=== PATIENT | female | born 1945 | race Caucasian/White ===

== ENCOUNTER 2020-02-07 10:28 | Outpatient (CLI) | payer MEDICARE, BC, SELFPAY ==
--- NOTE | ~2020-02-07 | MM_ITS ---
EXAMINATION: MM screening [facility] BI w jaida HISTORY: Screening TECHNIQUE: Craniocaudal and mediolateral oblique 3-D tomosynthesis images were obtained and synthetic 2-D images were generated. CAD analysis was submitted and interpreted. COMPARISON: Comparison to multiple prior studies sequentially, with oldest reviewed study dated 03/14. BREAST PARENCHYMAL COMPOSITION: The breasts are heterogeneously dense, which may obscure small masses . FINDINGS: There are benign bilateral breast calcifications. There is no evidence of suspicious mass, calcification, or architectural distortion to suggest malignancy in either breast. There has been no suspicious interval change. IMPRESSION: 1. No mammographic evidence of malignancy. 2. Recommend routine screening mammography in one year. BI-RADS Category 2: Benign finding(s). Reviewed, dictated and finalized at location A. BURNER INSTALLER
== END 2020-02-07 10:29 | disposition home or self-care (01) ==
LOC: ANHIMG 10:33
PROVIDERS: PCP Family Medicine; Visit Provider Obstetrics & Gynecology
DX: Z12.31 Encounter for screening mammogram for malignant neoplasm of breast (principal)
CPT/HCPCS: 77063; 77067

== ENCOUNTER 2020-03-12 10:23 | Inpatient (IN) | payer MEDICARE, BC, SELFPAY ==
[2020-03-12] VITALS (20 sets, daily range): BP systolic 91–153; BP diastolic 62–89; PULSE 91–180; RESP 14–24; TEMP 36.3–37; O2SAT 98–100; BMI 23.3
--- NOTE | 2020-03-12 10:21 | PC.NURSE ---
Pt. to ED via [facility] with a code STEMI. Pt. was c/o about weakness since wednesday with difficulty ambulation. Pt. denies any chest pain. Pt. was given 4 baby aspirins by EMS. Hx of HTN and arthritis.
--- NOTE | 2020-03-12 10:26 | ECG_ITS ---
Measurements Intervals [place] Rate: 114 P: 55 SD: 95 QRS: -13 QRSD: 90 T: 43 QT: 332 QTc: 458 Interpretive Statements SINUS TACHYCARDIA WITH SHORT SD INTERVAL ATRIAL PREMATURE COMPLEXES CONSIDER INFERIOR INFARCT, AGE INDETERMINATE ST ELEVATION IN ANTEROLAT/INF LEADS- CONSIDER ACUTE INJURY, PERICARDITIS OR EARLY REPOLARIZATION BASELINE ARTIFACT- I, II, III, AVR, AVL, AVF, V1-V2 ABNORMAL ECG Electronically Signed On 03-12-2020 12:24:45 SOURCING ANALYST by Chris Dorman D.O.
--- NOTE | 2020-03-12 10:37 | ED.GENADULT ---
HPI - General Adult General Chief complaint: Chest Pain Stated complaint: STEMI Time Seen by Provider: 03/12/20 10:27 Source: patient Mode of arrival: EMS Limitations: no limitations History of Present Illness HPI narrative: Patient is a 74-year-old female complaining of bilateral lower extremity weakness which she states been going on for the past few days but worse today. Patient states that the usually happens when she gets dehydrated . EMS was called, pt was placed on a monitor and showed st elevation, hence, EMS called a STEMI alert. Patient denies any chest pain, shortness of breath, abdominal pain, nausea, vomiting, fever, chills or diaphoresis. Related Data Home Medications Medication Instructions Recorded Confirmed levetiracetam 500 mg tablet 500 mg PO Q12H 02/06/20 lisinopril 20 1 tablet PO DAILY 02/06/20 mg-hydrochlorothiazide 25 mg tablet multivitamin 1 tablet PO DAILY 02/06/20 omega-3 fatty acids 1,000 mg 1,000 mg PO DAILY 02/06/20 capsule prednisone 5 mg tablet 5 mg PO DAILY 02/06/20 turmeric 400 mg capsule mg PO 02/06/20 Allergies Allergy/AdvReac Type Severity Reaction Status Date / Time adalimumab Allergy Unknown Rash Verified 01/19/18 13:33 Review of Systems Review of Systems: All systems reviewed & are unremarkable except as noted in HPI and below Constitutional: Constitutional: Denies body ache(s), Denies chills, Denies excessive sweating, Denies fatigue, Denies fever(s), Denies headache(s), Denies lethargy, Denies malaise and Denies weight loss Eyes: Eyes: Denies blurry vision, Denies change in vision and Denies loss of vision ENT: Denies dizziness, Denies ear discharge, Denies headache(s), Denies lip swelling, Denies epistaxis, Denies nasal congestion, Denies neck pain, Denies throat swelling and Denies tongue swelling Cardiovascular: Cardiovascular: Denies chest pain, Denies chest pain at rest, Denies chest pain with activity, Denies diaphoresis, Denies rapid heart rate, Denies edema, Denies irregular heart rhythm, Denies lightheadedness, Denies palpitations, Denies dyspnea and Denies dyspnea on exertion Respiratory: Respiratory: Denies chest congestion, Denies cough, Denies hemoptysis, Denies dyspnea and Denies dyspnea on exertion Gastrointestinal: Gastrointestinal: Denies abdominal pain, Denies melena, Denies hematochezia, Denies diarrhea, Denies nausea, Denies vomiting and Denies hematemesis Musculoskeletal: Musculoskeletal: Denies abnormal gait, Denies deformity, Denies joint swelling, Denies limited range of motion, Denies neck pain and Denies numbness Neurologic: Denies Abnormal speech present, Denies abnormal gait, Denies confusion, Denies dizziness, Denies headache(s), Denies focal weakness, Denies loss of vision, Denies numbness, Denies Other visual disturbances, Denies Sensory deficit (Neuro) and Denies weakness Psychiatric: Psychiatric: Denies confusion, Denies depression, Denies auditory hallucinations, Denies homicidal ideation and Denies suicidal ideation Endocrine: Endocrine: Denies cold intolerance, Denies excessive sweating, Denies fatigue, Denies heat intolerance and Denies palpitations Hematologic/Lymphatic: Hematologic/Lymphatic: Denies easy bleeding and Denies easy bruising Allergic/Immunologic: Allergic/Immunologic: Denies lip swelling, Denies throat swelling and Denies tongue swelling [facility] Past Medical History Medical History (Updated 03/12/20 @ 10:42 by Adis Salmon MD) Bunion of left foot Bunion, right foot Seizures Surgical History Surgical History (Updated 02/06/20 @ 13:17 by Carmen Echeverria CMA) History of knee replacement, total Family History Family History (Updated 02/06/20 @ 13:18 by Carmen Echeverria CMA) Mother Alzheimer disease Father Congestive heart failure Other Hypertension Social History Social History (Updated 02/06/20 @ 13:19 by Carmen Echeverria CMA) Smoking status: Never smoker Alcohol intak
[2020-03-12] MEDS: HEPARIN SODIUM 5,000 UNITS/ML VIAL 4000 UNITS IV PUSH (10:38)
[2020-03-12 11:01] LABS: Basophils Percent Auto 0.2 % (0.2-1.2); Eosinophils Percent Auto 0.1 % (0-4.4); Hematocrit 36.2 % (37.0-47.0); Hemoglobin 12.5 g/dL (12.0-15.0); Immature Granulocyte Absolute 0.04 K/mm3 (0.00-0.031); Immature Granulocyte Percent A 0.3 % (0-0.5); Lymphocytes Absolute Auto 1.78 K/mm3 (0.9-3.2); Lymphocytes Percent Auto 13.7 % (18.3-44.2); Mean Corpuscular HGB Conc 34.5 g/dl (32-36); Mean Corpuscular Hemoglobin 30.8 pg (26-34); Mean Corpuscular Volume 89.2 fl (80-100); Mean Platelet Volume 8.4 fl (7.4-10.4); Monocytes Absolute Auto 1.3 K/mm3 (0.1-0.6); Monocytes Percent Auto 9.8 % (2.6-8.5); Neutrophils Absolute Auto 9.9 K/mm3 (1.3-6.7); Neutrophils Percent Auto 75.9 % (45.5-73.1); Platelet Count Result 288 k/mm3 (150-375); Red Blood Count 4.06 M/mm3 (4.2-5.4); Red Cell Distribution Width 13.2 % (11.5-14.5)
[2020-03-12 11:10] LABS: INR 1.1; Prothrombin Time 15.2 Seconds (11.1-14.7)
[2020-03-12 11:11] LABS: Partial Thromboplastin Time 24.7 SECONDS (22.3-36.8)
[2020-03-12 11:13] LABS: Alanine Aminotransferase 19 U/L (4-35); Albumin Level 3.8 g/dL (3.5-5.1); Alkaline Phosphatase 119 U/L (38-126); Anion Gap 6 mmol/L (8-16); Aspartate Amino Transferase 24 U/L (14-36); Blood Urea Nitrogen 17 mg/dL (7-17); Calcium 8.6 mg/dL (8.4-10.2); Carbon Dioxide 31 mmol/L (22-30); Chloride 88 mmol/L (98-107); Cholesterol 184 mg/dL (0-200); Estimated CRCL calculation 53 ml/min; Estimated Glomerular Filt Rate > 60; Glucose 150 mg/dL (65-105); HDL Direct 54 mg/dL; Potassium 3.4 mmol/L (3.4-5.0); Sodium 125 mmol/L (137-145); Triglycerides 78 mg/dL (<150)
[2020-03-12 11:23] LABS: LDL Cholesterol Direct 92 mg/dL
[2020-03-12 11:26] LABS: Troponin I < 0.012 ng/mL (0.000-0.034)
--- NOTE | 2020-03-12 11:40 | WPDCARDPROC ---
Cardiac Cath Procedure Note Date of procedure:: 03/12/20 Performing physician:: Eugenio Barrow MD Procedure Procedure note:: LEFT HEART CATHETERIZATION AND CORONARY ANGIOGRAM REPORT DATE OF PROCEDURE: 03/12/2020 INDICATION FOR PROCEDURE: Generalized weakness; ST segment abnormality BRIEF CLINICAL HISTORY: 74-year-old female with history of hypertension; no known cardiac history. Patient was brought to [facility] emergency room via EMS with complaints of generalized weakness. Her EKG showed sinus tachycardia, heart rate 114 beats per minute, diffuse ST segment elevation, predominantly in the anterolateral leads with little prominent ST elevation in the inferior leads. Cardiac catheterization lab was activated by the ER physician. Benefits and risks of the procedure were discussed with the patient in depth, and informed consent was obtained prior to the procedure. Risks of the procedure include but are not limited to vascular complications including groin hematoma, retroperitoneal bleed, vessel perforation; periprocedural KS, cardiac arrhythmias, stroke, contrast induced nephropathy, and . After discussing all the benefits, risks and alternatives, patient was willing to proceed with the procedure. PROCEDURES PERFORMED: 1. Left heart catheterization- Selective left and right coronary angiogram; left ventriculogram and hemodynamic assessment 2. Selective right common femoral angiogram and deployment of Angio-Seal hemostatic device 3. Moderate sedation-CPT code 51246 MODERATE SEDATION: Midazolam 1 mg; fentanyl 25 mcg; Start time 1108 , Stop time 1120 ; Total [id number] time 12 minutes; Shauna Sharma RN was trained observer for moderate sedation. ACCESS SITE: Right common femoral artery PROCEDURE NOTE: After obtaining informed consent, patient was brought to catheterization lab and prepped and draped in a usual sterile manner. After local anesthesia with lidocaine, right common femoral artery access was taken with micropuncture needle followed by insertion of a 6 Danish sheath. Selective left and right coronary angiogram was performed using 5 Danish JL4 and JR4 catheters respectively. Orthogonal views were taken. Next, a 5 Danish pigtail catheter was advanced in the LV cavity and was flushed with normal saline. LV pressure measurement was performed. After this, left ventriculogram was performed. The catheter was flushed again, and gradient across the aortic valve was measured on the pullback of the catheter. Finally, selective right common femoral angiogram was performed followed by successful deployment of Angio-Seal vascular closure device. Patient tolerated procedure well without any immediate procedure related complications. FINDINGS: LEFT MAIN CORONARY: The left main coronary is a medium to large caliber vessel with mild narrowing at the ostium. There was no significant diverting of the pressures. There was good reflux of the contrast. LEFT ANTERIOR DESCENDING ARTERY: The LAD is a medium caliber vessel with mild diffuse calcific disease in the proximal- mid segment. There is eccentric about 50% stenosis in the mid-distal segment. Major diagonal branch is a medium caliber vessel tortuous, with moderate diffuse disease. LEFT CIRCUMFLEX ARTERY:The left circumflex artery is a large caliber vessel, gives rise to very small caliber OM1 branch, small to medium-sized OM 2 branch, medium-sized tortuous OM 3 branch and LPDA. There is slightly hazy, mild stenosis in the distal LCX at the origin of the om 3 and LPDA. RIGHT CORONARY ARTERY: The right coronary artery is a medium caliber vessel with mild diffuse disease in the mid segment. The vessel gives rise to small to medium size PLV branch and small size PDA branch. LEFT VENTRICULOGRAM: Hyperdynamic LV systolic function, ejection fraction more than 75%. LVEDP 10 mmHg. HEMODYNAMIC ASSESSMENT: Opening pressure 161/83 mmHg , closing pressure 151/77 mmHg , LVEDP 10
--- NOTE | 2020-03-12 11:48 | PM.IMHP ---
H&P: HPI History of Present Illness Date/Time: 03/12/20 11:48 Date of Service: 03/12/2020 chief complaint: Generalized weakness HPI: 74-year-old female with history of hypertension; no known cardiac history. Patient was brought to [facility] emergency room via EMS with complaints of generalized weakness. Patient states that she was feeling very weak this morning and thought she was dehydrated. She did not have chest pain, shortness of breath, palpitation, dizziness or syncope. She does not recall any prior cardiac history. Her EKG showed sinus tachycardia, heart rate 114 beats per minute, diffuse ST segment elevation, predominantly in the anterolateral leads with little prominent ST elevation in the inferior leads. Cardiac catheterization lab was activated by the ER physician. Emergent coronary angiogram showed mild diffuse disease in the proximal-mid LAD, about 50% stenosis in the mid-distal LAD; diffuse disease in the major diagonal branch; mild disease in the LCX and RCA; hyperdynamic LV systolic function with EF more than 75%. No acute thrombotic lesions were seen. patient was transferred to the floor in stable condition. Chief Complaint: generalized weakness Narrative: Megan Connolly is a 74 year old female Review of Systems Review of Systems: Narrative: General: Negative for fever, chills, positive for generalized weakness and fatigue Psychological: Negative for anxiety, depression Ophthalmic: negative for loss of vision ENT: Negative for epistaxis, headaches Allergy and immunology: Negative for hives, nasal congestion Hematologic and lymphatic: Negative for overt bleeding problems Endocrine: Negative for hot flashes, palpitations Respiratory: Negative for cough, hemoptysis Cardiovascular: Negative for chest pain, shortness of breath Gastrointestinal: Negative for abdominal pain, nausea, vomiting, hematochezia Musculoskeletal: Negative for myalgia, joint pains Neurological: Negative for weakness Dermatological: Negative for rash, skin discoloration PMFSH Past Medical History Medical History Bunion of left foot Bunion, right foot Seizures Surgical History Surgical History History of knee replacement, total Family History Family History Mother Alzheimer disease Father Congestive heart failure Other Hypertension Social History Social History Smoking status: Never smoker Alcohol intake: current Substance use: never Gender identity (if verbalized by the patient): Female Meds Home Medications and Allergies Home Medications Medication Instructions Recorded Confirmed Type levetiracetam 500 mg tablet 500 mg PO Q12H 02/06/20 History lisinopril 20 1 tablet PO DAILY 02/06/20 History mg-hydrochlorothiazide 25 mg tablet multivitamin 1 tablet PO DAILY 02/06/20 History omega-3 fatty acids 1,000 mg 1,000 mg PO DAILY 02/06/20 History capsule prednisone 5 mg tablet 5 mg PO DAILY 02/06/20 History turmeric 400 mg capsule mg PO 02/06/20 History Allergies Allergy/AdvReac Type Severity Reaction Status Date / Time adalimumab Allergy Unknown Rash Verified 01/19/18 13:33 Vital Signs Vital Signs - 24 hr 03/12/20 10:26 03/12/20 11:01 Temperature 36.7 C Pulse Rate 117 H Respiratory Rate 20 Blood Pressure 153/85 H Pulse Oximetry 100 100 Exam Narrative: Exam Narrative: PHYSICAL EXAMINATION: GENERAL: Alert, oriented, no acute distress MENTAL STATUS: affect appropriate to mood EYES: Extraocular movements intact, no pallor EARS: External ears appear normal, hearing grossly normal NOSE: Normal and patent, no discharge MOUTH: Mucous membranes moist, tongue normal NECK: Supple, no JVD CHEST: Good respiratory effort, clear to auscultation HEART
--- NOTE | 2020-03-12 12:03 | WPDMODSED ---
Moderate Sedation Note-Pt Data Patient Data Allergies Allergy/AdvReac Type Severity Reaction Status Date / Time adalimumab Allergy Unknown Rash Verified 01/19/18 13:33 Home Medications Medication Instructions Recorded Confirmed Type levetiracetam 500 mg tablet 500 mg PO Q12H 02/06/20 History lisinopril 20 1 tablet PO DAILY 02/06/20 History mg-hydrochlorothiazide 25 mg tablet multivitamin 1 tablet PO DAILY 02/06/20 History omega-3 fatty acids 1,000 mg 1,000 mg PO DAILY 02/06/20 History capsule prednisone 5 mg tablet 5 mg PO DAILY 02/06/20 History turmeric 400 mg capsule mg PO 02/06/20 History Current Medications: Active Medications Aspirin (Aspirin 81 Mg Enteric Tablet) 81 mg PO QAM [facility] Atorvastatin Calcium (Atorvastatin 10 Mg Tablet) 10 mg PO DAILY [facility] Sodium Chloride (Normal Saline Iv) 1,000 mls @ 125 mls/hr IV CONT .Q8H ONE Stop: 03/12/20 19:59 Sedation/Anesthesia: No previous sedation/anesthesia problems (including family history). [facility] Past Medical History Medical History Bunion of left foot Bunion, right foot Seizures Surgical History Surgical History History of knee replacement, total Family History Family History Mother Alzheimer disease Father Congestive heart failure Other Hypertension Social History Social History Smoking status: Never smoker Alcohol intake: current Substance use: never Gender identity (if verbalized by the patient): Female Mod Sed Physical Exam Physical Exam Pre Procedural Exam: Normal: Airway Hours since solid foods: 8 Hours since liquid intake: 8 Internal Medicine - PN: Obj Da Vital Signs Vital Signs: Vital Signs - 24 hr 03/12/20 10:26 03/12/20 11:01 Temperature 36.7 C Pulse Rate 117 H Respiratory Rate 20 Blood Pressure 153/85 H Pulse Oximetry 100 100 Meds/Results Medications: Active Medications Generic Name Dose Route Start Last Admin Trade Name Freq PRN Reason Stop Dose Admin Aspirin 81 mg 03/13/20 09:00 Aspirin 81 Mg Enteric Tablet PO QAM [facility] Atorvastatin Calcium 10 mg 03/13/20 09:00 Atorvastatin 10 Mg Tablet PO DAILY [facility] Sodium Chloride 1,000 mls @ 125 mls/hr 03/12/20 12:00 Normal Saline Iv IV CONT 03/12/20 19:59 .Q8H ONE Labs CBC & Chem 7: 03/12/20 10:31 03/12/20 10:31 Labs: Laboratory Results - last 24 hr 03/12/20 03/12/20 03/12/20 10:31 10:31 10:31 WBC 13.0 H RBC 4.06 L Hgb 12.5 Hct 36.2 L MCV 89.2 MCH 30.8 MCHC 34.5 RDW 13.2 Plt Count 288 MPV 8.4 Immature Gran % (Auto) 0.3 Neut % (Auto) 75.9 H Lymph % (Auto) 13.7 L [place] % (Auto) 9.8 H Eos % (Auto) 0.1 Baso % (Auto) 0.2 Lymph # (Auto) 1.78 [place] # (Auto) 1.3 H Eos # (Auto) 0.0 Baso # (Auto) 0.0 Abs Immat Gran (auto) 0.04 H Absolute Neuts (auto) 9.9 H Absolute Nucleated RBC 0.0 Nucleated RBC % 0.0 PT 15.2 H INR 1.1 APTT 24.7 Sodium 125 L Potassium 3.4 Chloride 88 L Carbon Dioxide 31 H Anion Gap 6 L BUN 17 Creatinine 0.70 Estim Creat Clear Calc 53 Estimated GFR > 60 Glucose 150 H Calcium 8.6 Total Bilirubin 1.0 AST 24 ALT 19 Alkaline Phosphatase 119 Troponin I < 0.012 Total Protein 7.0 Albumin 3.8 Triglycerides 78 Cholesterol 184 LDL Cholesterol Direct 92 HDL Direct 54 ASA Classification/Sedation ASA Classification/Sedation Risks: Risks, benefits and alternatives explained and patient/family accepted plan for sedation. Patient re-evaluated immediately prior to sedation.
[2020-03-12 16:58] LABS: Sodium 126 mmol/L (137-145)
[2020-03-12 17:14] LABS: Troponin I < 0.012 ng/mL (0.000-0.034)
[2020-03-12 17:46] LABS: Add Urine Microscopic? YES; Appearance Urine Clear (Clear); Bilirubin Urine Negative (Negative); Blood Urine 3+ (Negative); Color Urine Yellow (Yellow); Glucose Urine UA Negative (Negative); Ketones Urine Negative (Negative); Leukocyte Esterase Ur Negative LEU/UL (Negative); Mucus Urine Rare /lpf; Nitrate Urine Negative (Negative); Protein Urine 2+ mg/dL (Negative); RBC Urine 51-75 /hpf (0-2)
[2020-03-12 17:48] LABS: Specific Grav Ur > 1.060 (1.001-1.035)
[2020-03-12 17:50] LABS: Creatinine Urine 120.1 mg/dL; Total Protein Urine Random 52 mg/dL; Ur Ttl Prot Creatinine Ratio 0.43 mg/mg (0-0.20)
--- NOTE | 2020-03-12 18:14 | ECG_ITS ---
Measurements Intervals [place] Rate: 182 P: SD: 0 QRS: 31 QRSD: 81 T: 39 QT: 235 QTc: 409 Interpretive Statements ATRIAL FIBRILLATION WITH RAPID VENTRICULAR RESPONSE CONSIDER INFERIOR INFARCT, AGE INDETERMINATE BASELINE ARTIFACT- I, II, III, AVR ABNORMAL ECG Electronically Signed On 03-12-2020 19:21:34 ELECTRONIC GLUING MACHINE OPERATOR by Chris Dorman D.O.
[2020-03-12] MEDS: AMIODARONE 150 MG/D5W 100 ML 150 MG/100 ML BAG 600 MG IV CONT (18:38)
[2020-03-12 18:45] LABS: Sodium Urine Random 63 meq/L
[2020-03-12] MEDS: AMIODARONE 360 MG/D5W 200 ML 360 MG/200 ML BAG 33.33 MG IV CONT (18:55)
--- NOTE | 2020-03-12 19:23 | PC.NURSE ---
1830-as pt was eating, appears to have converted into a fib with RVR. EKG obtained and confirmed. informed and orders received. Carried out per order. Will continue to monitor.
--- NOTE | 2020-03-12 20:27 | ECG_ITS ---
Measurements Intervals [place] Rate: 106 P: 56 CO: 120 QRS: -17 QRSD: 93 T: 31 QT: 352 QTc: 469 Interpretive Statements SINUS TACHYCARDIA MINIMAL Q WAVES- ANTEROLAT/HIGH LAT LEADS INFERIOR INFARCT, AGE INDETERMINATE ST ELEVATION IN ANTEROLAT/HIGH LAT LEADS- PROBABLY EARLY REPOALRIZATION BASELINE ARTIFACT- I, II, III, AVR, AVL, AVF ABNORMAL ECG Electronically Signed On 03-13-2020 14:35:28 PROCESSING OPERATOR by Chris Dorman D.O.
[2020-03-12] MEDS: levETIRAcetam 500 MG TABLET 1000 MG PO (21:37)
[2020-03-12] MEDS: OMEGA 3 POLYUNSAT FATTY ACIDS 1 GM CAP PO (21:37)
[2020-03-13] VITALS (22 sets, daily range): BP systolic 85–123; BP diastolic 58–72; PULSE 80–147; RESP 14–20; TEMP 36.4–37.1; O2SAT 98–100
[2020-03-13 06:23] LABS: Albumin Level 3.1 g/dL (3.5-5.1); Anion Gap 4 mmol/L (8-16); Blood Urea Nitrogen 15 mg/dL (7-17); Calcium 8.1 mg/dL (8.4-10.2); Carbon Dioxide 31 mmol/L (22-30); Chloride 91 mmol/L (98-107); Estimated CRCL calculation 72 ml/min; Estimated Glomerular Filt Rate > 60; Glucose 93 mg/dL (65-105); Phosphorus 3.3 mg/dL (2.5-4.5); Potassium 3.1 mmol/L (3.4-5.0); Sodium 126 mmol/L (137-145)
[2020-03-13 07:04] LABS: Cortisol Random 3.79 ug/dL
[2020-03-13] MEDS: hydroCHLOROthiazide 12.5 MG CAPSULE PO (08:41)
[2020-03-13] MEDS: MULTIVITAMINS THERAPEUTIC TAB (*BKC) 1 TABLET PO (08:41)
[2020-03-13] MEDS: lisinopriL 20 MG TABLET PO (08:41)
[2020-03-13] MEDS: POTASSIUM CHLORIDE 20 MEQ TABLET 40 MEQ PO (08:41)
[2020-03-13] MEDS: OMEGA 3 POLYUNSAT FATTY ACIDS 1 GM CAP PO ×2 (08:41→20:13)
[2020-03-13] MEDS: CHOLECALCIFEROL 1,000 UNITS TABLET 1000 UNITS PO (08:42)
[2020-03-13] MEDS: ASPIRIN 81 MG ENTERIC TABLET PO (08:42)
[2020-03-13] MEDS: ATORVASTATIN 10 MG TABLET PO (08:42)
[2020-03-13] MEDS: predniSONE 10 MG TABLET PO (08:42)
[2020-03-13 08:43] LABS: Magnesium 1.6 mg/dL (1.6-2.3)
[2020-03-13] MEDS: levETIRAcetam 500 MG TABLET PO (08:44)
--- NOTE | 2020-03-13 09:03 | PM.PNCARD ---
Progress Note: A&P Assessment and Plan (1) Paroxysmal atrial fibrillation with RVR: Code(s): I48.0 - Paroxysmal atrial fibrillation Status: Acute Assessment and Plan: Overnight developed new onset atrial fibrillation with rapid ventricular response 150-200 beats per minute terminated with intravenous amiodarone. Patient asymptomatic. Currently in sinus rhythm. No prior known or documented history. Explained pathophysiology, embolic stroke risk, anticoagulation for stroke risk reduction associated bleeding risk. No clear contraindications, patient denies recent falls, bleeding complications. CHADS2 Vasc score 4. Eliquis 5 mg b.i.d. but would not start for 2 days to reduce bleeding complications post cardiac catheterization as an outpatient. Aspirin 81 mg daily initially. Metoprolol 25 mg b.i.d.. Hold off on amiodarone if possible. Telemetry overnight. Potassium and magnesium repleted. 2D echocardiogram to assess for valve pathology, pulmonary pressures and chamber size. Seven day manager monitoring upon discharge. Care coordination to establish pricing of Eliquis to begin as an outpatient. (2) CAD (coronary artery disease): Code(s): I25.10 - Atherosclerotic heart disease of jackson coronary artery without angina pectoris Status: Acute Assessment and Plan: [id number] nonobstructive disease. Troponins negative. No ACS. Abnormal EKG with diffuse ST elevations not consistent with acute coronary syndrome and/or plaque rupture. No evidence for symptoms suggestive pericarditis. Review prior EKGs reveals more subtle diffuse J-point elevation more prominent this hospitalization. (3) Generalized weakness: Code(s): R53.1 - Weakness Status: Acute Assessment and Plan: 74-year-old female brought to the hospital via EMS with complaints of generalized weakness. EKG showed ST segment abnormality, predominantly in the inferolateral leads. Cardiac catheterization lab was activated by the ER physician. Emergent coronary angiogram showed [id number] CAD as described above, no acute thrombotic lesions. LVEF normal. - Patient will be managed medically for her CAD including aspirin and statin treatment. Urinalysis not consistent with acute infection although patient describes similar symptoms in the past. PT OT. Patient states he is not comfortable being discharged today given the circumstances and that she feels somewhat weak. Will monitor for recurrent atrial fibrillation, followed through with nephrology recommendations and obtain 2D echocardiogram. If patient stable for discharge home as she lives independently anticipate tomorrow morning. (4) Hypokalemia: Code(s): E87.6 - Hypokalemia Status: Acute Assessment and Plan: Repleted. Magnesium repleted as well. Recheck BMP and magnesium in a.m.. May have also contributing to development of atrial fibrillation with RVR. (5) Hyponatremia: Code(s): E87.1 - Hypo-osmolality and hyponatremia Status: Acute Assessment and Plan: nephrology evaluation underway. Appreciate their involvement. Subjective Date/time seen: Date of service: 03/13/20 09:03 Follow-up for abnormal EKG status post catheterization, new diagnosis paroxysmal atrial fibrillation overnight Review of Systems Review of Systems: All systems reviewed & are unremarkable except as noted in HPI and below Constitutional: Constitutional: Reports as per HPI, Reports no additional constitutional complaints, Reports fatigue and Reports weakness Eyes: Eyes: Reports as per HPI and Reports no additional eye complaints ENT: Reports system reviewed and no additional complaints, except as documented and Reports as per HPI Cardiovascular: Cardiovascular: Reports as per HPI and Reports no additional cardiovascular complaints Respiratory: Respiratory: Reports as per HPI and Reports no additional respiratory complaints Gastrointestinal:
[2020-03-13] MEDS: MAGNESIUM SULF 1 GM/D5W 100 ML 1 GM/100 ML BAG IVPB (09:05)
[2020-03-13] MEDS: METOPROLOL TARTRATE 25 MG TABLET PO ×2 (09:48→20:13)
--- NOTE | 2020-03-13 10:02 | ECHO_ITS ---
Patient Info Name: Megan Connolly Age: 74 years : 1945 Gender: Female Ht: 64 in Wt: 153 lbs BSA: 1.79 m2 HR: 81 bpm BP: 107 / 60 mmHg Heart Rhythm: Sinus Rhythm Technical Quality: Good Exam Date: 03/13/2020 11:26 AM Exam Location: [facility] Pulmonary Patient Status: Inpatient Admit Date: 03/12/2020 Staff Ordering Physician: Donnie Clemente MD Data Warehousing Architect: Elías Cantu RDCS Attending Provider: Eugenio Barrow MD Referring Physician: Bryn RITTER; Exam Type: CA echo doppler color flow Study Info Indications I48.0 - Paroxysmal atrial fibrillation Complete two-dimensional, color flow and Doppler transthoracic echocardiogram is performed. History/Risk Factors Atrial fibrillation; STEMI 03/12/20. Summary 1. Complete two-dimensional, color flow and Doppler transthoracic echocardiogram is performed. 2. Left ventricular systolic function is normal, estimated at 60-65%. 3. There is mildly increased left ventricular wall thickness. 4. The left ventricular diastolic function is grade II diastolic dysfunction. 5. There is no aortic valve stenosis. 6. There is mild mitral valve regurgitation. 7. There is mild tricuspid valve regurgitation. 8. No pulmonary hypertension, estimated pulmonary arterial systolic pressure is 25 mmHg. Left Ventricle Left ventricular chamber dimension is normal. Left ventricular systolic function is normal, estimated at 60-65%. There is mildly increased left ventricular wall thickness. The left ventricular diastolic function is grade II diastolic dysfunction. Right Ventricle Right ventricular chamber dimension is normal. Right ventricular systolic function is normal. Left Atria Left atrial chamber dimension is normal. Right Atria Right atrial chamber dimension is normal. Aortic Valve The aortic valve is not well visualized. There is no aortic valve stenosis. There is no aortic valve regurgitation. Pulmonic Valve The pulmonic valve is not well visualized. There is trace pulmonic regurgitation. Mitral Valve The mitral valve has thickened leaflets. There is mild mitral valve regurgitation. The mitral valve annulus is severely calcified. Tricuspid Valve The tricuspid valve leaflets are normal. There is mild tricuspid valve regurgitation. No pulmonary hypertension, estimated pulmonary arterial systolic pressure is 25 mmHg. Pericardium/Pleural The pericardium appears normal. There is no pericardial effusion. Inferior Vena Cava Normal inferior vena cava with >50% collapse upon inspiration consistent with Empty right atrial pressure, 5 mmHg. Aorta The aortic root size at the sinus of Valsalva is normal. There is mild aortic atherosclerosis. Left Ventricular Outflow Tract Name Value Normal LVOT 2D LVOT Diameter 1.9 cm LVOT Doppler LVOT Peak Gradient 5 mmHg LVOT Mean Gradient 3 mmHg LVOT VTI 21 cm LVOT VTI/AV VTI Ratio 1.0 LVOT Stroke Volume 58 ml LVOT CO
--- NOTE | 2020-03-13 17:47 | PC.NURSE ---
2188-spoke with and Arline pulled per order. No pain evidenced or reported. Pt resting quietly. Will continue to monitor.
--- NOTE | 2020-03-13 18:08 | PM.CNNEP ---
Assessment and Plan Assessment and plan (1) Hyponatremia: Code(s): E87.1 - Hypo-osmolality and hyponatremia Status: Acute Assessment and Plan: acute on chronic in 2018 her sodium was running 129 - 131 on further review of her records, she has had hyponatremia with sodiums running 129 - 133 as far back as 2007 does not appear symptomatic from this not on any offending medications except for hydrochlorothiazide - would probably discontinue this unless absolutely needed TSH okay but cortisol low (but she is on chronic prednisone therapy) will institute free water restriction which she should continue on discharge for now several studies ordered (SPEP, UPEP...still pending) - follow up on pending studies (2) ST elevation (STEMI) myocardial infarction: Qualifiers: Involved coronary artery: unspecified coronary artery Qualified Code(s): I21.3 - ST elevation (STEMI) myocardial infarction of unspecified site Code(s): I21.3 - ST elevation (STEMI) myocardial infarction of unspecified site Status: Acute Assessment and Plan: s/p cardiac catheterization Cardiology following continue maximal medical management (3) Paroxysmal atrial fibrillation with RVR: Code(s): I48.0 - Paroxysmal atrial fibrillation Status: Acute Assessment and Plan: noted earlier today rate control strategy and anticoagulation (4) Generalized weakness: Code(s): R53.1 - Weakness Status: Acute Assessment and Plan: not clear on exact etiology due to cardiac event? Will continue to follow -- not opposed to discharge tomorrow if otherwise medically stable -- she can follow-up with me in 3 - 4 weeks with repeat labs to assess her sodium level as well as review her pending labs. I would continue fluid restriction and holding HCTZ on discharge for now as well. History of Present Illness Reason for Consult Consult date: 03/13/20 Reason for consult: hyponatremia Chief Complaint Chief complaint: STEMI History of Present Illness Narrative: The patient is a 74 year old female with a past medical history as outlined below who presented to [facility] emergency room via EMS with complaints of generalized weakness. On the morning of admission, the patient stated that she was feeling extremely weak and thought that she might be dehydrated. She had no other acute symptoms per se with regard to fevers, chills, chest pain, shortness of breath dizziness or palpitations. Other than the a for mentioned weakness, she really had no other acute complaints. Workup and evaluation in the emergency room demonstrated the patient to be hemodynamically stable but she was somewhat tachycardic and her EKG noted diffuse ST segment elevation predominantly in the anterior lateral leads. Cardiology was alerted to these EKG changes and subsequently the patient was taken to the cardiac director of cath lab for emergent coronary angiogram/ cardiac catheterization due to suspected ST-elevation DE. Results of her cardiac catheterization demonstrated moderate disease in her coronary anatomy but no specific intervention was done with regard to angioplasty or stent placement. She was subsequently [facility] the [facility] for further monitoring. Renal consultation was requested due to her hyponatremia. From review of her records POTS, the patient is has significant hypernatremia for the last decade if not longer with her sodium levels fluctuating anywhere from 129-133 millimoles per L. On admission, her sodium was 126 and was fluctuating anywhere from 125-126 in general. She did not appear to be symptomatic from this issue as far as I can tell no specific evaluation has ever been done with regard to her chronic hyponatremia. She relates to me that her brother also had the same problem as well although his sodium levels sometimes runs even worse than what the patient'
[2020-03-13] MEDS: levETIRAcetam 500 MG TABLET 1000 MG PO (20:13)
[2020-03-14] VITALS (9 sets, daily range): BP systolic 121–157; BP diastolic 74–91; PULSE 82–104; RESP 16; TEMP 36.4–36.7; O2SAT 100
[2020-03-14 06:00] LABS: Hematocrit 30.9 % (37.0-47.0); Hemoglobin 11.1 g/dL (12.0-15.0); Mean Corpuscular HGB Conc 35.9 g/dl (32-36); Mean Corpuscular Hemoglobin 31.6 pg (26-34); Mean Platelet Volume 8.2 fl (7.4-10.4); Platelet Count Result 285 k/mm3 (150-375); Red Blood Count 3.51 M/mm3 (4.2-5.4); Red Cell Distribution Width 13.1 % (11.5-14.5); White Blood Count 9.2 K/mm3 (4.5-10.0)
[2020-03-14 06:55] LABS: Anion Gap 2 mmol/L (8-16); Blood Urea Nitrogen 16 mg/dL (7-17); Calcium 8.1 mg/dL (8.4-10.2); Carbon Dioxide 30 mmol/L (22-30); Chloride 93 mmol/L (98-107); Estimated CRCL calculation 61 ml/min; Estimated Glomerular Filt Rate > 60; Glucose 88 mg/dL (65-105); Magnesium 1.5 mg/dL (1.6-2.3); Potassium 3.9 mmol/L (3.4-5.0); Sodium 125 mmol/L (137-145)
[2020-03-14] MEDS: ATORVASTATIN 10 MG TABLET PO (08:37)
[2020-03-14] MEDS: hydroCHLOROthiazide 12.5 MG CAPSULE PO (08:37)
[2020-03-14] MEDS: CHOLECALCIFEROL 1,000 UNITS TABLET 1000 UNITS PO (08:37)
[2020-03-14] MEDS: ASPIRIN 81 MG ENTERIC TABLET PO (08:37)
[2020-03-14] MEDS: levETIRAcetam 500 MG TABLET PO (08:38)
[2020-03-14] MEDS: lisinopriL 20 MG TABLET PO (08:38)
[2020-03-14] MEDS: METOPROLOL TARTRATE 25 MG TABLET PO (08:39)
[2020-03-14] MEDS: OMEGA 3 POLYUNSAT FATTY ACIDS 1 GM CAP PO (08:41)
[2020-03-14] MEDS: MULTIVITAMINS THERAPEUTIC TAB (*BKC) 1 TABLET PO (08:41)
[2020-03-14] MEDS: predniSONE 10 MG TABLET PO (08:41)
--- NOTE | 2020-03-14 09:07 | PM.PNCARD ---
Progress Note: A&P Assessment and Plan (1) Paroxysmal atrial fibrillation with RVR: Code(s): I48.0 - Paroxysmal atrial fibrillation Status: Acute Assessment and Plan: Overnight developed new onset atrial fibrillation with rapid ventricular response 150-200 beats per minute terminated with intravenous amiodarone. Patient asymptomatic. Currently in sinus rhythm. No prior known or documented history. Eliquis 5 mg b.i.d. to be again tomorrow. Holding off due to recent catheterization reduce bleeding risk. Increase metoprolol to 50 mg b.i.d.. Anticipate discharge home tomorrow if okay with Nephrology to obtain 70 athletic monitor from the office upon discharge. (2) Hypertension: Code(s): I10 - Essential (primary) hypertension Status: Acute Assessment and Plan: Discontinue hydrochlorothiazide due to hyponatremia possible contribution. Consider increase lisinopril to 40 mg daily if BP elevated. Patient relatively hypotensive overnight. (3) CAD (coronary artery disease): Code(s): I25.10 - Atherosclerotic heart disease of [place] coronary artery without angina pectoris Status: Acute Assessment and Plan: Patient DID NOT PRESENT WITH NSTEMI or STEMI. CAD incidentally discovered and left heart catheterization due to abnormal EKG without anginal symptoms or associated pattern of injury. [id number] nonobstructive disease. Troponins negative. No ACS. Abnormal EKG with diffuse ST elevations not consistent with acute coronary syndrome and/or plaque rupture. No evidence for symptoms suggestive pericarditis. Review prior EKGs reveals more subtle diffuse J-point elevation more prominent this hospitalization. (4) Generalized weakness: Code(s): R53.1 - Weakness Status: Acute Assessment and Plan: 74-year-old female brought to the hospital via EMS with complaints of generalized weakness. EKG showed ST segment abnormality, predominantly in the inferolateral leads. Cardiac catheterization lab was activated by the ER physician. Emergent coronary angiogram showed [id number] CAD as described above, no acute thrombotic lesions. LVEF normal. - Patient will be managed medically for her CAD including aspirin and statin treatment. Nephrology evaluating patient. Chronic hyponatremia. (5) Hypokalemia: Code(s): E87.6 - Hypokalemia Status: Acute Assessment and Plan: Repleted. (6) Hyponatremia: Code(s): E87.1 - Hypo-osmolality and hyponatremia Status: Acute Assessment and Plan: nephrology evaluation underway. Appreciate their involvement. Started on fluid restriction with recommendations for follow-up on studies already sent. Discontinue hydrochlorothiazide. Subjective Date/time seen: Date of service: 03/14/20 09:07 Follow-up for weakness, abnormal EKG status post cardiac catheterization Patient feels well. No complaints. Patient never had chest pain or shortness of breath. Denies edema. No dizziness or palpitations. Maintaining sinus rhythm overnight. Nephrology evaluated patient yesterday. Sodium remains low 125 unchanged since admission. No new issues overnight. Review of Systems Review of Systems: All systems reviewed & are unremarkable except as noted in HPI and below Constitutional: Constitutional: Reports as per HPI, Reports no additional constitutional complaints, Reports fatigue and Reports weakness Eyes: Eyes: Reports as per HPI and Reports no additional eye complaints ENT: Reports system reviewed and no additional complaints, except as documented and Reports as per HPI Cardiovascular: Cardiovascular: Reports as per HPI and Reports no additional cardiovascular complaints Respiratory: Respiratory: Reports as per HPI and Reports no additional respiratory complaints Gastrointestinal: Gastrointestinal: Reports as per HPI and Reports no additional gastrointestinal complaints Genitourinary: Genitourin
--- NOTE | 2020-03-14 12:46 | PM.DS ---
DS: Admitting Diagnosis Admitting Diagnosis Admitting Diagnosis: Abnormal EKG, weakness DS: Discharge Diagnosis Discharge Diagnosis (1) CAD (coronary artery disease): Code(s): I25.10 - Atherosclerotic heart disease of [place] coronary artery without angina pectoris Status: Acute (2) Paroxysmal atrial fibrillation with RVR: Code(s): I48.0 - Paroxysmal atrial fibrillation Status: Acute (3) Hypertension: Code(s): I10 - Essential (primary) hypertension Status: Acute (4) Hyponatremia: Code(s): E87.1 - Hypo-osmolality and hyponatremia Status: Acute (5) UTI (urinary tract infection): Code(s): N39.0 - Urinary tract infection, site not specified Status: Acute (6) Generalized weakness: Code(s): R53.1 - Weakness Status: Acute (7) Rheumatoid arthritis: Code(s): M06.9 - Rheumatoid arthritis, unspecified Status: Acute DS: Summary Hospital Course Reason for hospitalization: Weakness, abnormal EKG Hospital Course: 74-year-old female brought to the hospital via EMS with complaints of generalized weakness. EKG showed ST segment abnormality, predominantly in the inferolateral leads. Cardiac catheterization lab was activated by the ER physician. Emergent coronary angiogram showed [id number] CAD as described above, no acute thrombotic lesions. LVEF normal. - Patient will be managed medically for her CAD including aspirin and statin treatment. The evening post cardiac catheterization patient developed atrial fibrillation with rapid ventricular response heart rate 150s to 190 beats per minute which is a new diagnosis for the patient. She received IV amiodarone intravenously converted to sinus rhythm. Eliquis 5 mg twice daily was recommended to begin post discharge. Metoprolol 50 mg twice daily was added. Due to hyponatremia Nephrology was consulted. Hydrochlorothiazide was discontinued. She will follow up with renal as scheduled as an outpatient. Lisinopril 20 mg daily was prescribed. She will follow up in the office as scheduled with Dr. Barrow and obtain a 7 day mattress filling machine tender post discharge from our office for further documentation of atrial fibrillation as patient was asymptomatic with these events. She was started on antibiotic for urinary tract infection by Nephrology placed on a 1200 cc fluid restriction diet at home as part of management for hyponatremia which is chronic. Patient was able to void without significant residual by bladder scan prior to discharge. Patient with comfortable discharged and had no additional concerns. Status at Discharge Cognitive/behavioral status at discharge: Competent Functional status at discharge: independent ambulation Overall status at discharge: patient is back to baseline Time Spent with Patient Time attestation: Total time spent providing and/or coordinating discharge services: 38 minutes Time spent: Greater than 30 minutes Exam Narrative: Exam Narrative: General: Well developed, alert and oriented x3. No apparent distress, comfortable, pleasant, and cooperative. Head: atraumatic, normocephalic Eyes: EOM intact, sclerae anicteric, conjunctivae unremarkable Ears/Nose: external inspection of ears and nose were grossly normal Mouth/Throat: oral mucosa pink and moist Neck: supple, normal range of motion, no jugular venous distention or carotid bruits, thyroid nonpalpable, trachea midline. Cardiac: Regular rate and rhythm, normal S1-S2, no murmurs, clicks, gallops, or rubs. Lungs: Clear to auscultation bilaterally, no rales, wheezes, or rhonchi. Abdomen: Soft, nontender, nondistended, positive bowel sounds throughout. No appreciable hepatosplenomegaly, no rebound guarding or rigidity noted. Abdominal aorta nonpalpable, no appreciable bruits. Extremities: No edema, clubbing, and or cyanosis. Extremities warm and well perfused. Right groin catheterization site soft, no hematoma or
--- NOTE | 2020-03-14 13:37 | PC.NURSE ---
Entry for 1300 - PT in to work with patient.
--- NOTE | 2020-03-14 14:38 | PC.NURSE ---
[id number]- All D/C instructions reviewed with patient,verbalized understanding. All questions answered at this time.
--- NOTE | 2020-03-14 14:39 | PC.NURSE ---
1300 - Pt voided 400 ml dark yellow urine. Bladder scan after void showed no urine in bladder.
--- NOTE | 2020-03-14 14:40 | PC.NURSE ---
1430 - Pt D/C to [facility] office for placement of monitor.
[2020-03-16 13:12] LABS: Kappa\\Lambda Light Chains 0.89 (0.26-1.65); Lambda Light Chain 48.6 mg/L (5.7-26.3)
[2020-03-18 04:48] LABS: Albumin 2.7 g/dL (3.8-4.8); Alpha 1 Globulin 0.5 g/dL (0.2-0.3); Alpha 2 Globulin 0.8 g/dL (0.5-0.9); Beta 1 Globulin 0.4 g/dL (0.4-0.6); Gamma Globulin 0.9 g/dL (0.8-1.7); Protein, Total 5.7 g/dL (6.1-8.1)
[2020-03-18 08:04] LABS: Chloride Rand Ur 70 mmol/L (32-290); Chloride/Creatinine Rand Ur 85 (38-318); Creatinine Random Urine 82 mg/dL (20-275)
[2020-03-20 05:30] LABS: Osmolality, Urine 703 mOsm/kg (50-1200)
[2020-03-20 13:41] LABS: Creatinine, Random Urine 88 mg/dL (20-275); Total Protein/Creatinine Ratio 773 mg/g creat (21-161)
== END 2020-03-14 14:30 | disposition home or self-care (01) | DRG 287 ==
LOC: ANHED 10:37 → ANHICU 10:42 → ANHCPC 03-13 09:33 → ANHICU 03-19 10:26
PROVIDERS: Internal Medicine Nephrology; Admitting Provider Internal Medicine Cardiovascular Disease; Emergency Provider Emergency Medicine; PCP Family Medicine; Visit Provider Internal Medicine Cardiovascular Disease
PROC: 4A023N7 Measurement of Cardiac Sampling and Pressure, Left Heart, Percutaneous Approach (ICD-10-PCS; CPT 93452; principal; 2020-03-12 10:40)
PROC: 4A023N7 Measurement of Cardiac Sampling and Pressure, Left Heart, Percutaneous Approach (ICD-10-PCS; 2020-03-12 10:40)
DX: I25.10 Atherosclerotic heart disease of native coronary artery without angina pectoris (principal); E87.1 Hypo-osmolality and hyponatremia; N39.0 Urinary tract infection, site not specified; I48.0 Paroxysmal atrial fibrillation; I10 Essential (primary) hypertension; E87.6 Hypokalemia; R53.1 Weakness; M06.9 Rheumatoid arthritis, unspecified; Z79.899 Other long term (current) drug therapy; Z96.652 Presence of left artificial knee joint
CPT/HCPCS: 36415; 80048; 80053; 80061; 80069; 81001; 81050; 82436; 82533; 82570; 83735; 83883; 83930; 83935; 84155; 84156; 84165; 84166; 84295; 84300; 84443; 84484; 85025; 85027; 85610; 85730; 85999; 86850; 86900; 86901; 87077; 87086; 87088; 87186; 93005; 93306; 93458; 97110; 97116; 97161; 97165; 99291; A9270; C1760; C1887; C1894; G0269; J0282; J1644; J2250; J3010; J3475; J7030; J7040; J7512

== ENCOUNTER 2020-07-23 14:01 | Outpatient (CLI) | payer MEDICARE, BC, SELFPAY ==
--- NOTE | ~2020-07-23 | XR_ITS ---
EXAMINATION: XR foot RT standing 2V DATE: 07/23/2020 14:18 INDICATION: Rheumatoid arthritis with rheumatoid factor of multiple sites. TECHNIQUE: 2 views of right foot standing were obtained. COMPARISON: Right foot radiographs 11/26/2007 FINDINGS: There is moderate hallux valgus. There are changes of arthrodesis procedure of first metata rsophalangeal joint with dorsal plate and screws. There is ankylosis of second metatarsophalangeal gerald int. There may be ankylosis of third through fifth proximal interphalangeal joints. There are changes of resection of the heads of the third-fifth metatarsals. There is severe arthritis of second distal interphalangeal joint and first and fifth tarsometatarsal joints. There are enthesophytes at the pos terior and plantar aspects of calcaneal tuberosity. IMPRESSION: 1. Ankylosis of first metatarsophalangeal joint. 2. Severe arthritis of second distal interphalangeal joint and first and fifth tarsometatarsal joints , which may be osteoarthritis or inflammatory arthritis such as rheumatoid arthritis. Reviewed, dictated and finalized at location B. IMPRESSION: 1. Ankylosis of first metatarsophalangeal joint. 2. Severe arthritis of second distal interphalangeal joint and first and fifth tarsometatarsal joints, which may be osteoarthritis or inflammatory arthritis s uch as rheumatoid arthritis.
--- NOTE | ~2020-07-23 | XR_ITS ---
EXAMINATION: XR foot LT standing 2V DATE: 07/23/2020 14:18 INDICATION: Rheumatoid arthritis with rheumatoid factor of multiple sites. TECHNIQUE: 2 views of left foot standing were obtained. COMPARISON: None. FINDINGS: There is mild hallux valgus. There are changes of ankylosis of first metatarsophalangeal gerald int with dorsal plate and screws. There is ankylosis of second, third, and fourth proximal interphala ngeal joints. There is resection of head of fifth metatarsal. There are deformities of the heads of t he second through fourth metatarsals that may be old healed fractures or surgical change. Osteopenia is noted. There is mild osteoarthritis of third and fourth metatarsophalangeal joints and some the in terphalangeal joints and midfoot joints. There is severe joint space narrowing of fifth tarsometatars al joint. There are enthesophytes at the posterior and plantar aspects of calcaneal tuberosity. IMPRESSION: 1. Arthrodesis procedure of first metatarsophalangeal joint. 2. Polyarticular osteoarthritis. 3. Ankylosis of the second through fourth proximal interphalangeal joints. 3. Severe joint space narrowing of fifth tarsometatarsal joint, which may be osteoarthritis or inflam matory arthritis such as rheumatoid arthritis. Reviewed, dictated and finalized at location B. IMPRESSION: 1. Arthrodesis procedure of first metatarsophalangeal joint. 2. Polyarticular osteoarthritis. 3. Ankylosis of the second through fourth proximal interphalangeal joints. 3. Severe joint space narrowing of fifth tarsometatarsal joint, which may be os teoarthritis or inflammatory arthritis such as rheumatoid arthritis.
--- NOTE | ~2020-07-23 | XR_ITS ---
EXAMINATION: XR hand BI arthritis min 3V DATE: 07/23/2020 14:18 INDICATION: Rheumatoid arthritis with rheumatoid factor of multiple sites. TECHNIQUE: 4 views of right hand and 4 views of left hand on 7 radiographs were obtained. COMPARISON: Left wrist radiographs 06/22/2016, right wrist radiographs 03/22/2014 FINDINGS: RIGHT HAND: There are arthroplasties of the second through fifth metacarpophalangeal joints with luce ncies around the arthroplasties, consistent with loosening. Osteopenia is noted. There is moderate to severe arthritis of the distal radioulnar joint and radiocarpal joints. There is severe osteoarthrit is of first carpometacarpal joint. There is hyperextension of the third through fifth proximal interp halangeal joints. There is mild arthritis of most of the interphalangeal joints. LEFT HAND: There are arthroplasties of the second through fifth metacarpophalangeal joints. There is diffuse osteopenia. There is hyperextension of third through fifth proximal interphalangeal joints. 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 There is moderate arthritis of distal radioulnar gerald int and first carpometacarpal joint. There is moderate to severe arthritis of the radiocarpal joints. IMPRESSION: 1. Arthroplasties of the bilateral second through fifth metacarpophalangeal joints. Lucencies around the arthroplasties in right hand are consistent with loosening. 2. Hyperextension of many of the proximal interphalangeal joints. 3. Polyarticular arthritis with a proximal predominance, likely a combination of rheumatoid arthritis and osteoarthritis. Reviewed, dictated and finalized at location B. IMPRESSION: 1. Arthroplasties of the bilateral second through fifth metacarpophalangeal livan nts. Lucencies around the arthroplasties in right hand are consistent with loos ening. 2. Hyperextension of many of the proximal interphalangeal joints. 3. Polyarticular arthritis with a proximal predominance, likely a combination o f rheumatoid arthritis and osteoarthritis.
== END 2020-07-23 14:02 | disposition home or self-care (01) ==
LOC: ANHIMG 14:04
PROVIDERS: PCP Family Medicine; Visit Provider Internal Medicine
DX: M05.79 Rheumatoid arthritis with rheumatoid factor of multiple sites without organ or systems involvement (principal)
CPT/HCPCS: 73130; 73620

== ENCOUNTER 2021-01-21 14:33 | Outpatient (CLI) | payer MEDICARE, BC, SELFPAY ==
--- NOTE | ~2021-01-21 | XR_ITS ---
XR knee LT min 4V 01/21/2021 15:01 Indication: Left knee pain Procedure: 4 views left knee Comparison: 07/09/2015 Findings: Mild tricompartment osteoarthritis. Osteopenia. No fracture, subluxation or dislocation. No significant joint effusion. No foreign bodies. Impression: 1: Mild osteoarthritis of the left knee. Reviewed, dictated and finalized at location A. UDER OPERATOR VERTICAL Impression: 1: Mild osteoarthritis of the left knee.
== END 2021-01-21 14:34 | disposition home or self-care (01) ==
LOC: ANHIMG 14:38
PROVIDERS: PCP Family Medicine; Visit Provider Family Medicine
DX: M25.562 Pain in left knee (principal); M79.605 Pain in left leg; M17.12 Unilateral primary osteoarthritis, left knee
CPT/HCPCS: 73564

== ENCOUNTER 2021-04-18 14:25 | Outpatient (CLI) | payer MEDICARE, BC, SELFPAY ==
[2021-04-18 15:56] LABS: Hematocrit 32.8 % (37.0-47.0); Hemoglobin 10.6 g/dL (12.0-15.0); Mean Corpuscular HGB Conc 32.3 g/dl (32-36); Mean Corpuscular Hemoglobin 29.4 pg (26-34); Mean Corpuscular Volume 90.9 fl (80-100); Platelet Count Result 379 k/mm3 (150-375); Red Blood Count 3.61 M/mm3 (4.2-5.4); Red Cell Distribution Width 13.2 % (11.5-14.5)
[2021-04-18 16:24] LABS: Anion Gap 5 mmol/L (8-16); Blood Urea Nitrogen 16 mg/dL (7-17); Carbon Dioxide 27 mmol/L (22-30); Chloride 96 mmol/L (98-107); Estimated Glomerular Filt Rate > 60; Potassium 3.7 mmol/L (3.4-5.0); Sodium 128 mmol/L (137-145)
[2021-04-18 16:25] LABS: Alanine Aminotransferase 12 U/L (4-35); Albumin Level 3.8 g/dL (3.5-5.1); Alkaline Phosphatase 111 U/L (38-126); Aspartate Amino Transferase 27 U/L (14-36); Bilirubin,Total 0.4 mg/dL (0.2-1.3); CRP 4.5 mg/dL (<1.0); Calcium 8.5 mg/dL (8.4-10.2); Creatine Kinase 44 U/L (30-135); Glucose 155 mg/dL (65-110); Lactate Dehydrogenase 352 U/L (313-618)
[2021-04-18 19:11] LABS: Erythrocyte Sedimentation Rate 81 mm/hr (0-20)
[2021-04-23 05:48] LABS: Aldolase 3.4 U/L (<=8.1)
== END 2021-04-18 14:26 | disposition home or self-care (01) ==
LOC: ANHLAB 14:27
PROVIDERS: Internal Medicine; PCP Family Medicine; Visit Provider Internal Medicine Hematology & Oncology
DX: M05.79 Rheumatoid arthritis with rheumatoid factor of multiple sites without organ or systems involvement (principal); M19.90 Unspecified osteoarthritis, unspecified site; M06.9 Rheumatoid arthritis, unspecified
CPT/HCPCS: 36415; 80053; 82085; 82550; 83615; 85027; 85652; 86140

== ENCOUNTER 2021-04-29 13:20 | Outpatient (CLI) | payer MEDICARE, BC, SELFPAY ==
[2021-04-29 14:52] LABS: Add Urine Microscopic? YES; Appearance Urine Turbid (Clear); Bacteria Urine Trace /hpf; Bilirubin Urine Negative (Negative); Blood Urine Negative (Negative); Color Urine Yellow (Yellow); Glucose Urine UA Negative (Negative); Ketones Urine Negative (Negative); Leukocyte Esterase Ur 1+ LEU/UL (Negative); Mucus Urine Few /lpf; Nitrate Urine Negative (Negative); Protein Urine 3+ mg/dL (Negative); Specific Grav Ur 1.016 (1.001-1.035); Urobilinogen Urine Negative mg/dL (<2.0); WBC Urine 31-50 /hpf
== END 2021-04-29 13:21 | disposition home or self-care (01) ==
LOC: ANHLAB 13:33
PROVIDERS: Internal Medicine; PCP Family Medicine; Visit Provider Internal Medicine Hematology & Oncology
DX: Z51.81 Encounter for therapeutic drug level monitoring (principal); Z79.899 Other long term (current) drug therapy; M05.79 Rheumatoid arthritis with rheumatoid factor of multiple sites without organ or systems involvement; N39.0 Urinary tract infection, site not specified
CPT/HCPCS: 81001; 87077; 87086; 87088; 87186

== ENCOUNTER 2021-05-28 10:50 | Emergency (ER) | payer MEDICARE, BC, SELFPAY ==
[2021-05-28] VITALS (18 sets, daily range): BP systolic 143–168; BP diastolic 76–120; PULSE 107–143; RESP 13–26; TEMP 36.1; O2SAT 90–100
--- NOTE | ~2021-05-28 | XR_ITS ---
EXAMINATION: XR hip BI 2V w AP pelvis, XR tibia fibula LT 2V, XR femur RT min 2V, XR tibia fibula RT 2V, XR femur LT min 2V DATE: 05/28/2021 12:22 INDICATION: Bilateral leg pain post fall TECHNIQUE: 1. Anteroposterior view of the pelvis and anteroposterior, and AP and frog-leg lateral views of the b ilateral hips were obtained. 2. Overlapping AP and lateral views of the left femur were obtained. 3. Overlapping AP and lateral views of the right femur were obtained. 4. AP and lateral views of the left tibia/fibula were obtained. 5. AP and lateral views of the right tibia/fibula were obtained. COMPARISON: 07/09/2015. FINDINGS: Again seen is a now old subcapital fracture of the proximal left femur which is been fixed with 3 lag screws. Alignment of the fixation is near-anatomic. Additional postoperative changes in the bilatera l forefeet seen only on the lateral projection likely representing first metatarsophalangeal arthrode ses with dorsal plate and screw fixations. On the right the screw tips extend slightly beyond the abdelrahman ntar margin of the cortices. The distalmost screw has backed out by approximately 1 mm. The distal as pect of the plate and screw fixation on the left is excluded from the [id number]. No acute traumatic alignment or acute fracture at the pelvis, bilateral legs and visualized portions of the feet. Arthritis of both knees with moderately decreased joint spaces at the medial and lateral compartments of the bilateral knees, mild at the left patellofemoral compartment and moderate at the right patellofemoral compartment. No evident knee or ankle joint effusions. Mild left and minimal ri ght hip osteoarthritis. Sacral arches are intact. A few phleboliths in the pelvis. Additional arthrit is with joint space narrowing at several of the profiled joints in the bilateral mid and hindfeet. So ft tissue swelling about the right lateral malleolus. IMPRESSION: 1. No acute osseous abnormality at the pelvis, bilateral legs or visualized feet. 2. Soft tissue swelling about the right lateral malleolus. 3. Postoperative changes at the left hip and bilateral forefeet as detailed above. Reviewed, dictated and finalized at location A. IMPRESSION: 1. No acute osseous abnormality at the pelvis, bilateral legs or visualized fee t. 2. Soft tissue swelling about the right lateral malleolus. 3. Postoperative changes at the left hip and bilateral forefeet as detailed abo ve. IMPRESSION: 1. No acute osseous abnormality at the pelvis, bilateral legs or visualized fee t. 2. Soft tissue swelling about the right lateral malleolus. 3. Postoperative changes at the left hip and bilateral forefeet as detailed abo ve. IMPRESSION: 1. No acute osseous abnormality at the pelvis, bilateral legs or visualized fee t. 2. Soft tissue swelling about the right lateral malleolus. 3. Postoperative changes at the left hip and bilateral forefeet as detailed abo ve. IMPRESSION: 1. No acute osseous abnormality at the pelvis, bilateral legs or visualized fee t. 2. Soft tissue swelling about the right lateral malleolus. 3. Postoperative changes at the left hip and bilateral forefeet as detailed abo ve.
--- NOTE | 2021-05-28 10:59 | ECG_ITS ---
Measurements Intervals [place] Rate: 123 P: 70 WA: 141 QRS: -11 QRSD: 78 T: 49 QT: 328 QTc: 471 Interpretive Statements SINUS TACHYCARDIA INFERIOR MYOCARDIAL INFARCTION , PROBABLY OLD [40+ ms Q WAVE AND/OR ST/T ABNORMALITY IN II/aVF] BASELINE ARTIFACT ABNORMAL ECG COMPARED TO ECG 03/12/2020 20:35:[address] ELEVATIONS NO LONGER APPRECIATED Electronically Signed On 05-28-2021 13:42:57 CDT by Donnie Clemente M.D.
[2021-05-28 11:18] LABS: Basophils Percent Auto 0.4 % (0.2-1.2); Hematocrit 36.3 % (37.0-47.0); Hemoglobin 12.5 g/dL (12.0-15.0); Immature Granulocyte Absolute 0.03 K/mm3 (0.00-0.031); Immature Granulocyte Percent A 0.4 % (0-0.5); Lymphocytes Absolute Auto 0.44 K/mm3 (0.9-3.2); Lymphocytes Percent Auto 5.6 % (18.3-44.2); Mean Corpuscular HGB Conc 34.4 g/dl (32-36); Mean Corpuscular Hemoglobin 29.8 pg (26-34); Mean Corpuscular Volume 86.6 fl (80-100); Mean Platelet Volume 8.1 fl (7.4-10.4); Monocytes Absolute Auto 0.6 K/mm3 (0.1-0.6); Monocytes Percent Auto 6.9 % (2.6-8.5); Neutrophils Absolute Auto 6.9 K/mm3 (1.3-6.7); Neutrophils Percent Auto 86.7 % (45.5-73.1); Platelet Count Result 287 k/mm3 (150-375); Red Blood Count 4.19 M/mm3 (4.2-5.4); Red Cell Distribution Width 13.2 % (11.5-14.5); White Blood Count 7.9 K/mm3 (4.5-10.0)
[2021-05-28 11:27] LABS: Alanine Aminotransferase 19 U/L (4-35); Albumin Level 4.1 g/dL (3.5-5.1); Alkaline Phosphatase 162 U/L (38-126); Anion Gap 10 mmol/L (8-16); Aspartate Amino Transferase 38 U/L (14-36); Bilirubin,Total 0.5 mg/dL (0.2-1.3); Blood Urea Nitrogen 13 mg/dL (7-17); Calcium 8.9 mg/dL (8.4-10.2); Carbon Dioxide 23 mmol/L (22-30); Chloride 94 mmol/L (98-107); Estimated CRCL calculation 52 ml/min; Estimated Glomerular Filt Rate > 60; Glucose 141 mg/dL (65-110); Potassium 3.3 mmol/L (3.4-5.0); Sodium 127 mmol/L (137-145)
[2021-05-28] MEDS: dilTIAZem HCl INJ 25 MG/5 ML VIAL 20 MG IV PUSH (11:45)
--- NOTE | 2021-05-28 11:45 | ED.LOWEXIN ---
HPI - Extremity Injury (Lower) General Chief Complaint: Extremity Injury, Lower Stated Complaint: slipped off toliet - injured leg Time Seen by Provider: 05/28/21 10:58 Source: patient Mode of arrival: EMS Limitations: no limitations History of Present Illness HPI Narrative: Patient is a 76-year-old female complaining of a fall while sitting on her toilet. Patient states that her cleaning lady did not secure the toilet seat well and it fell on the left side along with her. Patient states that she was able to break her fall with her left upper extremity but not having any upper extremity pain. Patient having pain on her left hip, and left leg, mild pain, dull, worse with movement. Patient also states that her right lower extremity got twisted and she is also having some discomfort from her right hip all the way to her right leg. Patient denies any symptoms prior to the fall. Patient denies any head, neck, chest, abdomen, back or any other extremity pain/injury. Patient states that she has a history of A. fib and hypertension, has not taken her morning meds yet and that is why both her heart rate and blood pressure is high. Related Data Home Medications Medication Instructions Recorded Confirmed multivitamin 1 tablet PO DAILY 02/06/20 04/18/21 cholecalciferol (vitamin D3) 25 mcg PO DAILY 03/12/20 04/18/21 [Vitamin D3] coenzyme Q10 [CoQ-10] 200 mg PO DAILY 03/12/20 04/18/21 levetiracetam 500 mg tablet 500 mg PO TID tablet 07/18/20 04/18/21 Allergies Allergy/AdvReac Type Severity Reaction Status Date / Time adalimumab Allergy Unknown Rash Verified 05/28/21 11:04 Review of Systems Review of Systems: All systems reviewed & are unremarkable except as noted in HPI and below Constitutional: Constitutional: Denies body ache(s), Denies chills, Denies excessive sweating, Denies fatigue, Denies fever(s), Denies headache(s), Denies lethargy, Denies malaise, Denies weakness and Denies weight loss Eyes: Eyes: Denies blurry vision, Denies change in vision and Denies loss of vision ENT: Denies dizziness, Denies ear discharge, Denies headache(s), Denies lip swelling, Denies epistaxis, Denies nasal congestion, Denies neck pain, Denies throat swelling and Denies tongue swelling Cardiovascular: Cardiovascular: Denies chest pain, Denies chest pain at rest, Denies chest pain with activity, Denies diaphoresis, Denies rapid heart rate, Denies edema, Denies irregular heart rhythm, Denies lightheadedness, Denies palpitations, Denies dyspnea and Denies dyspnea on exertion Respiratory: Respiratory: Denies chest congestion, Denies cough, Denies hemoptysis, Denies dyspnea and Denies dyspnea on exertion Gastrointestinal: Gastrointestinal: Denies abdominal pain, Denies melena, Denies hematochezia, Denies diarrhea, Denies nausea, Denies vomiting and Denies hematemesis Neurologic: Denies Abnormal speech present, Denies abnormal gait, Denies confusion, Denies dizziness, Denies headache(s), Denies focal weakness, Denies loss of vision, Denies numbness, Denies Other visual disturbances, Denies Sensory deficit (Neuro) and Denies weakness Psychiatric: Psychiatric: Denies confusion, Denies depression, Denies auditory hallucinations, Denies homicidal ideation and Denies suicidal ideation Endocrine: Endocrine: Denies cold intolerance, Denies excessive sweating, Denies fatigue, Denies heat intolerance and Denies palpitations Hematologic/Lymphatic: Hematologic/Lymphatic: Denies easy bleeding and Denies easy bruising Allergic/Immunologic: Allergic/Immunologic: Denies lip swelling, Denies throat swelling and Denies tongue swelling FOR[facility]LY [facility] Past Medical History Medical History Age-related osteoporosis without current pathological fracture Bunion of left foot Bunion, right foot Leg weakness, bilateral Rheumatoid arthritis with rheumatoid factor of multiple sites without organ or systems involvement (~2000) Seizures
[2021-05-28 13:02] LABS: Appearance Urine Clear (Clear); Bilirubin Urine Negative (Negative); Blood Urine 2+ (Negative); Color Urine Yellow (Yellow); Glucose Urine UA Negative (Negative); Ketones Urine 1+ mg/dL (Negative); Leukocyte Esterase Ur Negative LEU/UL (Negative); Nitrate Urine Negative (Negative); Protein Urine 2+ mg/dL (Negative); Urobilinogen Urine 0.2 mg/dL (<2.0)
[2021-05-28 13:05] LABS: Bacteria Urine Trace /hpf; Mucus Urine Rare /lpf; Squamous Epithelial Cell Urine Rare /hpf (Few)
[2021-05-28 13:06] LABS: Add Urine Microscopic? YES
[2021-05-28] MEDS: POTASSIUM CHLORIDE 20 MEQ PACKET (FOR LIQUID) PO (13:26)
== END 2021-05-28 14:45 | disposition home or self-care (01) ==
PROVIDERS: Emergency Provider Emergency Medicine; PCP Family Medicine
DX: S86.919A Strain of unspecified muscle(s) and tendon(s) at lower leg level, unspecified leg, initial encounter (principal); S76.012A Strain of muscle, fascia and tendon of left hip, initial encounter; I48.91 Unspecified atrial fibrillation; W18.11XA Fall from or off toilet without subsequent striking against object, initial encounter; M06.9 Rheumatoid arthritis, unspecified; G47.30 Sleep apnea, unspecified
CPT/HCPCS: 36415; 51701; 73521; 73552; 73590; 80053; 81001; 85025; 93005; 96374; 99284; A9270

== ENCOUNTER 2021-06-04 17:26 | Emergency (ER) | payer MEDICARE, BC, SELFPAY ==
[2021-06-04] VITALS (13 sets, daily range): BP systolic 127–186; BP diastolic 64–98; PULSE 110–121; RESP 15–23; TEMP 36.6; O2SAT 94–100
--- NOTE | ~2021-06-04 | CT_ITS ---
EXAMINATION: CT brain wo con DATE: 06/04/2021 18:15 INDICATION: TECHNIQUE: Computed tomography (CT) of the head was performed without intravenous contrast. The dose- length product was 605.33 mGy-cm. COMPARISON: 06/22/2016. FINDINGS: 3 mm hypodense focus in the left thalamus, new since the prior study. No extra-axial fluid collection . No hydrocephalus, mass, or herniation. No acute ischemic infarct. Unremarkable dural venous sinus attenuation. No acute osseous abnormality. Retention cyst or polyp and nuchal periosteal thickening in the sphenoid sinus. Small air-fluid level in the right maxillary sinus as can be seen with acute sinusitis mild mucosal hemorrhage. Otherwise the aerated spaces are clear. Mild atrophy and moderate chronic white matter change. Heavy intracranial arterial calcifications. Bi lateral lens replacements. IMPRESSION: Small volume, 3 mm left thalamic intraparenchymal hemorrhage. This result communicated to Hannah Johnson PA-C by Dr. Cee telephonically at 6:43 PM on 06/04/2021. Reviewed, dictated and finalized at location K. IMPRESSION: Small volume, 3 mm left thalamic intraparenchymal hemorrhage. This result communicated to Hannah Johnson PA-C by Dr. Cee telephonically at 6: 43 PM on 06/04/2021.
--- NOTE | ~2021-06-04 | CT_ITS ---
EXAMINATION: CT thoracic lumbar wo con DATE: 06/04/2021 18:16 INDICATION: Back pain, fall. TECHNIQUE: Computed tomography (CT) of the thoracic and lumbar spine was performed without intravenou s contrast. Automated exposure control and iterative reconstruction technique were employed. The dose -length product was 811.90 mGy-cm. COMPARISON: CTA chest 06/22/2016. FINDINGS: Thoracic spine: 3 mm anterolisthesis of T2 on T3 likely on a degenerative basis. Otherwise the thorac ic vertebral bodies are aligned. Exaggerated thoracic kyphosis. Multilevel degenerative disc disease. No fracture or traumatic malalignment. No lytic or blastic lesion. Incidental note of extensive john nary artery calcification and possible stents. Pericardial thickening versus effusion. Lumbar spine: Exaggerated lumbar lordosis. Vertebral body heights are maintained. No traumatic malali gnment or fracture. Multilevel mild degenerative disc disease. Multilevel facet arthropathy. Left katlyn al cyst. Right renal nephrolith. IMPRESSION: 1. No acute fracture or traumatic malalignment detected in the thoracic or lumbar spine. 2. Small-volume pericardial effusion/thickening, new since the comparison study. Reviewed, dictated and finalized at location K. IMPRESSION: 1. No acute fracture or traumatic malalignment detected in the thoracic or lumb ar spine. 2. Small-volume pericardial effusion/thickening, new since the comparison study .
--- NOTE | ~2021-06-04 | CT_ITS ---
EXAMINATION: CT cervical spine wo con DATE: 06/04/2021 18:16 INDICATION: Neck pain, fall. TECHNIQUE: Computed tomography (CT) of the cervical spine was performed without intravenous contrast. Automated exposure control and iterative reconstruction technique were employed. The dose-length pro duct was 89.01 mGy-cm. COMPARISON: 06/22/2016. FINDINGS: Counting reference: Craniocervical junction. There are 7 cervical type vertebral bodies. Anatomic Variants: None. Alignment: Minimal anterolisthesis of C4 on C5, likely on a degenerative basis. Alignment otherwis e intact. Craniocervical junction: Mild degenerative changes, otherwise intact and aligned. Osseous structures/fracture: No evidence of a lytic or blastic process in the visualized spine. N o evidence of acute or chronic fracture. Cervical soft tissues: The paraspinal soft tissues planes are maintained. Degenerative changes: Multilevel degenerative disc disease and facet arthropathy. IMPRESSION: No acute fracture or traumatic malalignment in the cervical spine. Reviewed, dictated and finalized at location K.
--- NOTE | 2021-06-04 17:48 | ECG_ITS ---
Measurements Intervals [place] Rate: 120 P: 69 SD: 135 QRS: 22 QRSD: 82 T: 50 QT: 349 QTc: 493 Interpretive Statements SINUS TACHYCARDIA BASELINE ARTIFACT COMPARED TO ECG 05/28/2021 11:02:42 NO SIGNIFICANT CHANGES Electronically Signed On 06-04-2021 21:21:54 CDT by Birdie Cash M.D.
--- NOTE | 2021-06-04 17:51 | ED.FALL ---
HPI - Fall General Chief Complaint: Fall Stated Complaint: neck pain after a fall Time Seen by Provider: 06/04/21 17:32 Source: patient and family Mode of arrival: wheelchair Limitations: no limitations History of Present Illness HPI Narrative: This is a 76-year-old female that presents to the emergency department after a fall a week ago with neck pain. Reports she was evaluated in the ED for a fall from the toilet last week. Reports she slipped off of the toilet onto the floor. She does not think she hit her head or lost consciousness. She had some imaging of her pelvis and legs that was without acute findings and was discharged. Reports no new injuries or trauma. Over the last couple of days she has been having worsening neck pain and weakness. Denies vision changes, chest pain, shortness of breath, abdominal pain, vomiting, or numbness. Related Data Home Medications Medication Instructions Recorded Confirmed multivitamin 1 tablet PO DAILY 02/06/20 04/18/21 cholecalciferol (vitamin D3) 25 mcg PO DAILY 03/12/20 04/18/21 [Vitamin D3] coenzyme Q10 [CoQ-10] 200 mg PO DAILY 03/12/20 04/18/21 levetiracetam 500 mg tablet 500 mg PO TID tablet 07/18/20 04/18/21 azithromycin 250 mg PO DAILY 06/04/21 06/04/21 Allergies Allergy/AdvReac Type Severity Reaction Status Date / Time adalimumab Allergy Unknown Rash Verified 06/04/21 17:45 Review of Systems Review of Systems: CONSTITUTIONAL: Denies fever EYES: Denies visual changes CARDIOVASCULAR: Denies chest pain RESPIRATORY: Denies dyspnea. GASTROINTESTINAL: Denies abdominal pain, nausea, vomiting MUSCULOSKELETAL: Reports back pain, joint pain, and myalgia. NEUROLOGIC: Reports weakness. Denies numbness All systems reviewed & are unremarkable except as noted in HPI and below PMFSH Past Medical History Medical History Age-related osteoporosis without current pathological fracture Bunion of left foot Bunion, right foot Leg weakness, bilateral Rheumatoid arthritis with rheumatoid factor of multiple sites without organ or systems involvement (~2000) Seizures UTI (urinary tract infection) Surgical History Surgical History History of knee replacement, total Family History Family History Mother Alzheimer disease Father Congestive heart failure Other Hypertension Social History Social History Smoking status: Former smoker Additional smoking assessment comments: only in her 20s Alcohol intake: current Substance use: never Gender identity (if verbalized by the patient): Female Spiritual care concerns: No Exam Narrative: GENERAL: Elderly, well-nourished, and in no acute distress. HEAD: Normocephalic, atraumatic. EYES: PERRLA and EOMI. ENT: Nares clear, no rhinorrhea or epistaxis. Mucous membranes moist. Oropharynx without tonsillar hypertrophy exudate or other lesions. Bilateral TMs pearly ariza non-bulging NECK: Supple. No adenopathy or masses. C-collar in place CHEST: Clear to auscultation. No respiratory distress. No wheezes rales or rhonchi HEART: Regular rate and rhythm. No murmur heard. Normal peripheral pulses. EXTREMITIES: Normal range of motion. No edema. Normal sensation SKIN: Warm, dry, no rash. NEURO: No focal deficits. Alert and oriented x3. Cranial nerves II through XII grossly intact PSYCH: Normal mood and affect Course Consultations Consultation #1: Spoke with Dr. Markham, [facility] stroke. Recommends starting patient on Kcentra and transferred to the ER. Date: 06/04/21 Time: 21:00 Consultation #2: Spoke with Dr. Issa about patient and work-up who accepts transfer to [facility] ER Date: 06/04/21 Time: 21:05 Vital Signs Vital signs: Vital Signs Temperature 97.9 F 06/04/21 17:39 Pulse Rate 110 H 06/04/21 17:39 Respi
--- NOTE | 2021-06-04 18:10 | PC.NURSE ---
Report received from Shira VILLALOBOS and care of pt assumed at this time.
[2021-06-04 18:37] LABS: Basophils Absolute Auto 0.1 K/mm3 (0.0-0.1); Basophils Percent Auto 0.6 % (0.2-1.2); Eosinophils Absolute Auto 0.1 K/mm3 (0-0.3); Eosinophils Percent Auto 0.5 % (0-4.4); Hematocrit 35.4 % (37.0-47.0); Hemoglobin 11.8 g/dL (12.0-15.0); Immature Granulocyte Absolute 0.04 K/mm3 (0.00-0.031); Immature Granulocyte Percent A 0.4 % (0-0.5); Mean Corpuscular HGB Conc 33.3 g/dl (32-36); Mean Corpuscular Hemoglobin 29.2 pg (26-34); Mean Corpuscular Volume 87.6 fl (80-100); Mean Platelet Volume 8.4 fl (7.4-10.4); Monocytes Absolute Auto 1.2 K/mm3 (0.1-0.6); Monocytes Percent Auto 11.5 % (2.6-8.5); Neutrophils Absolute Auto 7.5 K/mm3 (1.3-6.7); Platelet Count Result 340 k/mm3 (150-375); Red Blood Count 4.04 M/mm3 (4.2-5.4); Red Cell Distribution Width 13.2 % (11.5-14.5)
[2021-06-04 18:49] LABS: INR 1.4; Prothrombin Time 16.7 Seconds (11.1-14.7)
[2021-06-04 18:50] LABS: Partial Thromboplastin Time 35.7 SECONDS (22.3-36.8)
[2021-06-04 18:55] LABS: Alanine Aminotransferase 22 U/L (4-35); Albumin Level 3.6 g/dL (3.5-5.1); Alkaline Phosphatase 132 U/L (38-126); Anion Gap 9 mmol/L (8-16); Aspartate Amino Transferase 39 U/L (14-36); Blood Urea Nitrogen 17 mg/dL (7-17); Calcium 8.6 mg/dL (8.4-10.2); Carbon Dioxide 30 mmol/L (22-30); Chloride 89 mmol/L (98-107); Estimated CRCL calculation 70 ml/min; Estimated Glomerular Filt Rate > 60; Glucose 124 mg/dL (65-110); Potassium 3.2 mmol/L (3.4-5.0); Sodium 128 mmol/L (137-145)
[2021-06-04 19:09] LABS: Add Urine Microscopic? YES; Appearance Urine Clear (Clear); Bilirubin Urine Negative (Negative); Blood Urine 2+ (Negative); Color Urine Yellow (Yellow); Glucose Urine UA Negative (Negative); Ketones Urine 1+ mg/dL (Negative); Leukocyte Esterase Ur Negative LEU/UL (Negative); Mucus Urine Rare /lpf; Nitrate Urine Negative (Negative); Protein Urine 2+ mg/dL (Negative); Specific Grav Ur 1.019 (1.001-1.035); Squamous Epithelial Cell Urine Rare /hpf (Few)
[2021-06-04] MEDS: SODIUM CHLORIDE 0.9% IV 500 ML 999 ML IV CONT ×2 (19:13→20:14)
[2021-06-04 19:50] LABS: SARS-CoV-2 RNA PCR Negative
[2021-06-04] MEDS: POTASSIUM CHLORIDE INJ 40 MEQ in SODIUM CHLORIDE 0.9% IV 500 ML 130 MEQ IVPB (20:56)
[2021-06-04] MEDS: PREMIXIV IV CONT (21:43)
[2021-06-04] MEDS: HUMAN PROTHROMBIN COMPLEX IV CONT (21:43)
--- NOTE | 2021-06-04 22:00 | PC.NURSE ---
This nurse gave report to Vaibhav, Charge nurse at [facility] ER.
== END 2021-06-04 22:00 | disposition short-term general hospital (02) ==
PROVIDERS: Physician Assistant; Emergency Provider Family Medicine; PCP Family Medicine
DX: I61.9 Nontraumatic intracerebral hemorrhage, unspecified (principal); E87.1 Hypo-osmolality and hyponatremia; E87.6 Hypokalemia; I31.3 Pericardial effusion (noninflammatory); Z20.822 Contact with and (suspected) exposure to COVID-19; M06.9 Rheumatoid arthritis, unspecified; G40.909 Epilepsy, unspecified, not intractable, without status epilepticus
CPT/HCPCS: 36415; 51701; 70450; 72125; 72128; 72131; 80053; 81001; 85025; 85610; 85730; 93005; 96365; 96367; 96375; 99291; C9803; J0131; J3480; J7040; J7168; L0140; U0003; U0005

== ENCOUNTER 2021-08-23 03:55 | Inpatient (IN) | payer MEDICARE, BC, SELFPAY ==
[2021-08-23] VITALS (12 sets, daily range): BP systolic 116–160; BP diastolic 58–95; PULSE 99–131; RESP 14–22; TEMP 36–36.9; O2SAT 96–100
--- NOTE | ~2021-08-23 | XR_ITS ---
EXAMINATION: XR chest 1V portable INDICATION: Weakness TECHNIQUE: Portable AP chest at 1648 hours COMPARISON: 01/20/2010 FINDINGS: The lungs are free of acute opacities. No pleural effusion or pneumothorax. The cardiomedia stinal silhouette is normal. IMPRESSION: 1. No acute cardiopulmonary abnormality. Reviewed, dictated and finalized at location A.
--- NOTE | ~2021-08-23 | CT_ITS ---
EXAMINATION: CT brain wo con INDICATION: Weakness, history of intraparenchymal hemorrhage COMPARISON: 06/04/2021 TECHNIQUE: Standard unenhanced head CT. The dose-length product (DLP) was 605.33 mGy-cm. The mA was a djusted according to patient size. Iterative reconstruction technique was employed. FINDINGS: The previously described punctate hemorrhage of the left thalamus persists but has decrease d in size. No evidence of mass lesion. No evidence of acute infarction. There is mild periventricular and subcortical hypodensity probably related to small vessel ischemic disease. There is mild promine nce of the sulci and ventricles related to cerebral atrophy. Intracranial calcified cerebral atherosc lerosis is noted. There are no extra-axial collections. There is no mass effect or midline shift. The orbits and soft tissues are unremarkable. There is moderate opacification of the left sphenoid sinus . IMPRESSION: 1. Resolving small left thalamic hemorrhage without additional acute intracranial abnormality. 2. Age related findings. Reviewed, dictated and finalized at location A. IMPRESSION: 1. Resolving small left thalamic hemorrhage without additional acute intracrani al abnormality. 2. Age related findings.
--- NOTE | ~2021-08-23 | MR_ITS ---
EXAMINATION: MR lumbar spine wo con DATE: 09/04/2021 07:56 INDICATION: Fecal incontinence TECHNIQUE: Magnetic resonance imaging (MRI) of the lumbar spine was performed without intravenous con trast. Sequences included sagittal T2-weighted FSE, sagittal T2-weighted FS FSE, sagittal T1-weighted FSE, and axial T2-weighted FSE. COMPARISON: CT dated 06/04/2021 FINDINGS: 8 degrees lumbar levocurvature. 3 mm anterolisthesis L5 on S1. Vertebral body heights are normal. Mil d left-sided disc height loss at T11-T12 and T12-L1 and mild right-sided disc height loss at L2-L3, L 3-L4 and L4-L5. Annular fissures are seen at L2-L3, L3-L4 and L5-S1. The conus medullaris terminates at L1-L2. There is normal signal in the caudal spinal cord. A few T2 hyperintense subcentimeter cyst s in both kidneys. Paravertebral soft tissues are unremarkable. The following disc levels are specifi adriana discussed: T12-L1: Disc is bulging. There is mild left and moderate right facet joint osteoarthritis. There is m ild left neural foraminal stenosis. There is mild central canal stenosis. L1-L2: Disc is bulging. There is mild left and minimal right facet joint osteoarthritis. There is mil d left neural foraminal stenosis. There is mild central canal stenosis. L2-L3: Disc is bulging, eccentric to the left. There is mild bilateral facet joint osteoarthritis. Th ere is mild bilateral, left greater than right neural foraminal stenosis. There is mild central canal stenosis. L3-L4: Disc is bulging. There is moderate bilateral facet joint osteoarthritis. There is mild bilater al neural foraminal stenosis. There is mild central canal stenosis. L4-L5: Disc is bulging. There is moderate bilateral facet joint osteoarthritis. There is mild bilater al neural foraminal stenosis. There is mild central canal stenosis. L5-S1: Disc is bulging. There is moderate left and moderate to severe right facet joint osteoarthriti s. There is mild right neural foraminal stenosis. There is minimal central canal stenosis. IMPRESSION: 1. Mild lumbar levocurvature with mild spondylosis. Reviewed, dictated and finalized at location A.
--- NOTE | ~2021-08-23 | CT_ITS ---
EXAMINATION: CT brain wo con DATE: 08/31/2021 19:10 INDICATION: CVA . TECHNIQUE: Computed tomography (CT) of the head was performed without intravenous contrast. The mA wa s adjusted according to patient size. Iterative reconstruction technique was employed. The dose-lengt h product was 605.33 mGy-cm. COMPARISON: 08/23/2021. FINDINGS: No acute intracranial hemorrhage or extra-axial fluid collection. No hydrocephalus, mass, or herniation. No acute ischemic infarct. Unremarkable dural venous sinus attenuation. No acute osseous abnormality. Irregular debris within the left sphenoid, otherwise the aerated spaces are clear. Moderate atrophy and chronic white matter change. Old left thalamic lacunar infarct. Punctate left th alamic focus may represent calcification in an area of prior hemorrhage. Atherosclerotic intracranial calcifications. Bilateral lens replacements. IMPRESSION: No acute intracranial process. Reviewed, dictated and finalized at location K.
--- NOTE | 2021-08-23 04:16 | ECG_ITS ---
Measurements Intervals [place] Rate: 101 P: 61 OR: 142 QRS: 16 QRSD: 92 T: 34 QT: 365 QTc: 474 Interpretive Statements SINUS TACHYCARDIA OTHERWISE NORMAL ECG COMPARED TO ECG 06/04/2021 19:25:54 NO SIGNIFICANT CHANGES Electronically Signed On 08-23-2021 7:57:28 CDT by Romario Pedraza M.D.
--- NOTE | 2021-08-23 04:16 | ED.WEAKNESS ---
HPI - Weakness General Chief complaint: Weakness Stated complaint: gen weakness, swollen ankles, pain with urination Time Seen by Provider: 08/23/21 04:16 History of Present Illness HPI Narrative: Patient is a 76-year-old female with history of hypertension, recent intraparenchymal hemorrhage, rheumatoid arthritis,presenting to emergency department for evaluation of weakness, lower extremity rash. Patient states that she has been home since recent admission to [facility] for intraparenchymal hemorrhage, but has had increased weakness over the past 24 hours. Patient states that she has had bilateral lower extremity rash, pain, swelling, difficulty with ambulation and called an ambulance because she did not want to wake up her neighbors who have mainly been helping her to stand up from a seated position and use her walker. When nobody is able to check on her, the patient is not able to ambulate and mostly sits in her chair all day until help comes for her. She is living alone currently. Patient reports aching pain in the bilateral lower extremities with new rash over the past 48 hours. Patient denies any chest pain, cough, shortness of breath. Denies abdominal pain, nausea or vomiting. She denies fever, chills, focal weakness or numbness. Patient is still taking her anticoagulation at the instruction of her physicians at [facility]. She denies dysuria but reports urinary frequency which has been chronic since her stroke diagnosis. Patient states she is worried she is dehydrated or perhaps has urinary tract infection. Patient denies rhinorrhea, congestion, productive cough. She denies focal weakness or numbness. Per chart review, patient presented to the ER in May for evaluation of weakness and was found to have an intraparenchymal hemorrhage and started on Kcentra and ultimately transferred to [facility]. Related Data Home Medications Medication Instructions Recorded Confirmed multivitamin 1 tablet PO DAILY 02/06/20 04/18/21 cholecalciferol (vitamin D3) 25 25 mcg PO DAILY 03/12/20 04/18/21 mcg (1,000 unit) capsule (Vitamin D3) coenzyme Q10 100 mg capsule 200 mg PO DAILY 03/12/20 04/18/21 (CoQ-10) levetiracetam 500 mg tablet 500 mg PO TID 07/18/20 04/18/21 azithromycin 250 mg tablet 250 mg PO DAILY 06/04/21 06/04/21 Allergies Allergy/AdvReac Type Severity Reaction Status Date / Time adalimumab Allergy Unknown Rash Verified 06/04/21 17:45 Review of Systems Review of Systems: CONSTITUTIONAL: Denies fever, chills, or sweats. EYES: Denies visual changes, redness, or discharge. ENT: Denies rhinorrhea, congestion, sore throat, or otalgia. CARDIOVASCULAR: Denies chest pain, palpitations, or edema. RESPIRATORY: Reports dry cough, denies shortness of breath GASTROINTESTINAL: Denies abdominal pain, nausea, vomiting, or diarrhea. GENITOURINARY: Denies dysuria or hematuria. Reports urinary frequency. Reports urinary incontinence. SKIN: Reports bilateral lower extremity rash MUSCULOSKELETAL: Denies back pain, joint pain, or myalgia. NEUROLOGIC: Denies headache, numbness, reports feeling generally weak PMFSH Past Medical History Medical History (Updated 08/23/21 @ 06:03 by Kate Dc MD) Age-related osteoporosis without current pathological fracture Bunion of left foot Bunion, right foot CAD (coronary artery disease) Generalized weakness Hypertension Hypokalemia Hyponatremia Intraparenchymal hematoma of brain Leg weakness, bilateral Rheumatoid arthritis with rheumatoid factor of multiple sites without organ or systems involvement (~2000) Seizures UTI (urinary tract infection) UTI (urinary tract infection) Surgical History Surgical History History of knee replacement, total Family History Family History Mother Alzheimer disease Father Congestive
[2021-08-23] MEDS: SODIUM CHLORIDE 0.9% IV 1,000 ML 999 ML IV CONT ×2 (04:24→06:14)
[2021-08-23 04:48] LABS: Basophils Percent Auto 0.4 % (0.2-1.2); Eosinophils Percent Auto 0.4 % (0-4.4); Hematocrit 30.5 % (37.0-47.0); Hemoglobin 10.4 g/dL (12.0-15.0); Immature Granulocyte Absolute 0.03 K/mm3 (0.00-0.031); Immature Granulocyte Percent A 0.4 % (0-0.5); Lymphocytes Percent Auto 16.3 % (18.3-44.2); Mean Corpuscular HGB Conc 34.1 g/dl (32-36); Mean Corpuscular Hemoglobin 28.4 pg (26-34); Mean Corpuscular Volume 83.3 fl (80-100); Mean Platelet Volume 9.1 fl (7.4-10.4); Monocytes Absolute Auto 0.5 K/mm3 (0.1-0.6); Monocytes Percent Auto 6.7 % (2.6-8.5); Neutrophils Absolute Auto 5.6 K/mm3 (1.3-6.7); Neutrophils Percent Auto 75.8 % (45.5-73.1); Platelet Count Result 256 k/mm3 (150-375); Red Blood Count 3.66 M/mm3 (4.2-5.4); Red Cell Distribution Width 14.1 % (11.5-14.5); White Blood Count 7.4 K/mm3 (4.5-10.0)
[2021-08-23 05:22] LABS: INR 1.7; Prothrombin Time 19.6 Seconds (11.1-14.7)
[2021-08-23 05:23] LABS: Partial Thromboplastin Time 40.7 SECONDS (22.3-36.8)
[2021-08-23 05:27] LABS: Alanine Aminotransferase 10 U/L (6-35); Albumin Level 3.7 g/dL (3.5-5.1); Alkaline Phosphatase 97 U/L (38-126); Anion Gap 7 mmol/L (8-16); Aspartate Amino Transferase 27 U/L (14-36); Blood Urea Nitrogen 20 mg/dL (7-17); Calcium 8.5 mg/dL (8.4-10.2); Carbon Dioxide 25 mmol/L (22-30); Chloride 88 mmol/L (98-107); Estimated CRCL calculation 59 ml/min; Estimated Glomerular Filt Rate > 60; Glucose 96 mg/dL (65-110); Potassium 3.9 mmol/L (3.4-5.0); Sodium 120 mmol/L (137-145)
[2021-08-23 05:31] LABS: Troponin I < 0.012 ng/mL (0.000-0.034)
[2021-08-23 06:05] LABS: CRP 6.5 mg/dL (<1.0)
[2021-08-23 06:39] LABS: SARS-CoV-2 RNA PCR Negative
[2021-08-23 06:46] LABS: Bacteria Urine Trace /hpf; Mucus Urine Rare /lpf; Squamous Epithelial Cell Urine Rare /hpf (Few); WBC Urine 0-3 /hpf
[2021-08-23 06:49] LABS: Appearance Urine Cloudy (Clear); Bilirubin Urine Negative (Negative); Blood Urine Trace-lysed (Negative); Color Urine Yellow (Yellow); Glucose Urine UA Negative (Negative); Ketones Urine 1+ mg/dL (Negative); Leukocyte Esterase Ur Trace LEU/UL (Negative); Nitrate Urine Negative (Negative); Protein Urine 1+ mg/dL (Negative); Specific Grav Ur 1.015 (1.001-1.035); Urobilinogen Urine 0.2 mg/dL (<2.0)
[2021-08-23 06:52] LABS: Add Urine Microscopic? YES
[2021-08-23 07:46] LABS: Erythrocyte Sedimentation Rate 55 mm/hr (0-20)
--- NOTE | 2021-08-23 09:12 | PM.IMHP ---
H&P: [facility] History of Present Illness Date/Time: 08/23/21 09:12 Chief Complaint: 76-year-old female with history of hypertension, rheumatoid arthritis an intraparenchymal hemorrhage presented to the emergency room for a 2-3 week history of progressively worsening generalized weakness as well as a rash on her lower extremities. She states that her lower extremities feel quite achy but denies any pain or trauma to the area. She denies fevers or chills. No nausea vomiting or diarrhea. She denies chest pain or shortness of breath. In the ER, she was noted to have a sodium of 120 and a hemoglobin of 10.4. Differential for the lower extremity rash was mainly vasculitic in nature. Weakness was thought to be secondary to the hyponatremia. Patient states she has a long history of hyponatremia and that it has never really normal for her. She is unsure what her baseline is, but states she has never felt this week because of it. Review of Systems Review of Systems: 12 point review of systems was assessed and was negative except as noted in the HPI [facility] Past Medical History Medical History Age-related osteoporosis without current pathological fracture Bunion of left foot Bunion, right foot CAD (coronary artery disease) Generalized weakness Hypertension Hypokalemia Hyponatremia Intraparenchymal hematoma of brain Leg weakness, bilateral Rheumatoid arthritis with rheumatoid factor of multiple sites without organ or systems involvement (~2000) Seizures UTI (urinary tract infection) UTI (urinary tract infection) Surgical History Surgical History History of knee replacement, total Family History Family History Mother Alzheimer disease Father Congestive heart failure Other Hypertension Social History Social History Smoking status: Former smoker Additional smoking assessment comments: only in her 20s Alcohol intake: current Substance use: never Gender identity (if verbalized by the patient): Female Spiritual care concerns: No Meds Home Medications and Allergies Home Medications Medication Instructions Recorded Confirmed Type multivitamin 1 tablet PO DAILY 02/06/20 08/23/21 History cholecalciferol (vitamin D3) 25 25 mcg PO DAILY 03/12/20 08/23/21 History mcg (1,000 unit) capsule (Vitamin D3) coenzyme Q10 100 mg capsule 200 mg PO DAILY 03/12/20 08/23/21 History (CoQ-10) apixaban 5 mg tablet (Eliquis) 5 mg PO Q12HR #60 tabs 03/14/20 08/23/21 Rx atorvastatin 10 mg tablet 10 mg PO DAILY #30 tabs 03/14/20 08/23/21 Rx metoprolol tartrate 50 mg tablet 50 mg PO Q12HR #60 tabs 03/14/20 08/23/21 Rx levetiracetam 500 mg tablet 500 mg PO BID 07/18/20 08/23/21 History hydroxychloroquine 200 mg tablet 400 mg PO DAILY #180 tabs 04/18/21 08/23/21 Rx (Plaquenil) leflunomide 20 mg tablet 20 mg PO DAILY #90 tabs 04/18/21 08/23/21 Rx lisinopril 20 mg tablet 40 mg PO DAILY 08/23/21 08/23/21 History potassium 99 mg tablet 99 mg PO DAILY 08/23/21 08/23/21 History tolterodine 4 mg capsule,extended 4 cap PO DAILY 08/23/21 08/23/21 History release 24 hr Allergies Allergy/AdvReac Type Severity Reaction Status Date / Time adalimumab Allergy Unknown Rash Verified 06/04/21 17:45 Vital Signs Vital Signs - 24 hr 08/23/21 03:54 08/23/21 04:04 08/23/21 05:22 Temperature 97.9 F Pulse Rate 101 H 99 106 H Respiratory Rate 20 20 Blood Pressure 160/95 H 156/91 H Pulse Oximetry 99 100 Oxygen Delivery Room Air 08/23/21 07:00 08/23/21 08:00 Temperature Pulse Rate 106 H 110 H Respiratory Rate 14 14 Blood Pressure 116/58 L 117/87 Pulse Oximetry 99 100 Oxygen Delivery Exam Narrative: General: No acute distress, alert and oriented per baseline HEENT: Atraumatic, normocephal
[2021-08-23] MEDS: SODIUM CHLORIDE 0.9% IV 1,000 ML 125 ML IV CONT (09:35)
--- NOTE | 2021-08-23 09:50 | ADMGEN ---
This patient, Megan Connolly, was admitted to [facility] Surg Room 324-01 at 0840. Patient/family oriented to hospital policies and general routines including ID bracelet, bed and alarms, visiting hours, pain management, procedures, bathroom and other care routines, personal items, smoking policy, room service/diet, and visiting hours. Information on how to activate the Rapid Response Team has been discussed. Patient/Family are encouraged to report perceived risks to care and to ask questions if they do not understand what they are told or what they should do.
--- NOTE | 2021-08-23 15:10 | PHAR ---
SPOKE WITH DR. FRANZ ABOUT ZOFRAN AND HYDROXYCHLOROQUINE CONTRAINDICATION - SHE IS NOT CONCERNED DUE TO THE FACT THAT ONLY PRN ZOFRAN IS ORDERED AND PATIENT PROBABLY WONT TAKE MUCH.
[2021-08-23 15:28] LABS: Anion Gap 5 mmol/L (8-16); Blood Urea Nitrogen 13 mg/dL (7-17); Calcium 7.2 mg/dL (8.4-10.2); Carbon Dioxide 23 mmol/L (22-30); Chloride 91 mmol/L (98-107); Estimated CRCL calculation 70 ml/min; Estimated Glomerular Filt Rate > 60; Glucose 104 mg/dL (65-110); Sodium 119 mmol/L (137-145)
[2021-08-23] MEDS: METOPROLOL TARTRATE 50 MG TAB PO (21:17)
[2021-08-23] MEDS: levETIRAcetam 500 MG TABLET PO (21:17)
[2021-08-23] MEDS: APIXABAN 5 MG TABLET PO (21:17)
[2021-08-23] MEDS: methylPREDNISolone SOD SUCC 40 MG VIAL IV PUSH (21:18)
[2021-08-24] VITALS (10 sets, daily range): BP systolic 132–149; BP diastolic 81–90; PULSE 78–96; RESP 20–22; TEMP 35.9–36.8; O2SAT 95–98
[2021-08-24] MEDS: methylPREDNISolone SOD SUCC 40 MG VIAL IV PUSH ×3 (05:12→21:02)
[2021-08-24 08:34] LABS: Hematocrit 28.7 % (37.0-47.0); Mean Corpuscular HGB Conc 34.8 g/dl (32-36); Mean Corpuscular Hemoglobin 28.7 pg (26-34); Mean Corpuscular Volume 82.2 fl (80-100); Mean Platelet Volume 8.6 fl (7.4-10.4); Platelet Count Result 241 k/mm3 (150-375); Red Blood Count 3.49 M/mm3 (4.2-5.4); White Blood Count 3.9 K/mm3 (4.5-10.0)
[2021-08-24] MEDS: ATORVASTATIN 10 MG TABLET PO (08:39)
[2021-08-24] MEDS: HYDROXYCHLOROQUINE SULFATE 200 MG TABLET 400 MG PO (08:39)
[2021-08-24] MEDS: METOPROLOL TARTRATE 50 MG TAB PO ×2 (08:39→20:46)
[2021-08-24] MEDS: TOLTERODINE TARTRATE LA 4 MG CAP.ER.24H PO (08:39)
[2021-08-24] MEDS: levETIRAcetam 500 MG TABLET PO ×2 (08:39→20:46)
[2021-08-24] MEDS: MULTIVITAMINS THERAPEUTIC TAB (*BKC) 1 TABLET PO (08:39)
[2021-08-24] MEDS: CHOLECALCIFEROL 1,000 UNITS TABLET 1000 UNITS PO (08:39)
[2021-08-24] MEDS: APIXABAN 5 MG TABLET PO ×2 (08:39→20:45)
[2021-08-24] MEDS: LEFLUNOMIDE 20 MG TABLET PO (08:39)
[2021-08-24 08:47] LABS: Alanine Aminotransferase 8 U/L (6-35); Albumin Level 3.1 g/dL (3.5-5.1); Alkaline Phosphatase 90 U/L (38-126); Anion Gap 7 mmol/L (8-16); Aspartate Amino Transferase 18 U/L (14-36); Bilirubin,Total 0.5 mg/dL (0.2-1.3); Blood Urea Nitrogen 11 mg/dL (7-17); Calcium 7.7 mg/dL (8.4-10.2); Carbon Dioxide 24 mmol/L (22-30); Chloride 91 mmol/L (98-107); Estimated CRCL calculation 85 ml/min; Estimated Glomerular Filt Rate > 60; Glucose 152 mg/dL (65-110); Potassium 3.2 mmol/L (3.4-5.0); Sodium 122 mmol/L (137-145)
--- NOTE | 2021-08-24 10:41 | PCCCNOTE ---
On 08/24/21, the student, [Telma Francis], provided care and completed [facility] documentation on this patient. I have reviewed the student's documentation and agree with the findings.
--- NOTE | 2021-08-24 15:23 | PM.IMPN ---
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, improved on fluid restriction (2) CAD (coronary artery disease): Code(s): I25.10 - Atherosclerotic heart disease of [place] coronary artery without angina pectoris Status: Acute Assessment and Plan: Continue home medications, stable (3) Hypertension: Code(s): I10 - Essential (primary) hypertension Status: Acute Assessment and Plan: Stable (4) Vasculitis: Code(s): I77.6 - Arteritis, unspecified Status: Acute Assessment and Plan: 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 No overnight events noted. No chest pain or shortness of breath. No nausea, vomiting or diarrhea. No fevers or chills. Review of Systems Review of Systems: 12 point review of systems was assessed and was negative except as noted in the HPI Exam Narrative: General: No acute distress, alert and oriented per baseline HEENT: Atraumatic, normocephalic, mucous membranes moist CV: Regular rate and rhythm, S1, S2, no murmurs rubs or gallops noted Lungs: Clear to auscultation bilaterally, no rales or crackles noted, no wheezes, good air entry Abdomen: Soft, nontender, nondistended Extremities: Normal to inspection Skin: Petechial rash that is nonblanching from mid tibia down to her ankle noted on right lower extremity, some scattered petechia on right lower extremity Psych: Euthymic, normal affect Objective Data Vital Signs Vital Signs: Vital Signs - 24 hr 08/23/21 16:00 08/23/21 21:17 08/23/21 20:00 Temperature Pulse Rate 107 H 115 H 131 H Respiratory Rate Blood Pressure Pulse Oximetry Oxygen Delivery 08/23/21 20:00 08/23/21 22:00 08/24/21 00:00 Temperature 98.4 F Pulse Rate 99 95 Respiratory Rate 16 Blood Pressure 151/63 H Pulse Oximetry 96 Oxygen Delivery Room Air 08/24/21 04:00 08/24/21 06:00 08/24/21 08:39 Temperature 98.2 F Pulse Rate 88 85 86 Respiratory Rate 20 Blood Pressure 149/90 H Pulse Oximetry 96 Oxygen Delivery 08/24/21 09:00 08/24/21 08:00 08/24/21 12:00 Temperature Pulse Rate 82 78 Respiratory Rate Blood Pressure Pulse Oximetry Oxygen Delivery Room Air 08/24/21 14:00 Temperature 96.7 F L Pulse Rate 87 Respiratory Rate 22 H Blood Pressure 132/81 Pulse Oximetry 98 Oxygen Delivery Intake/Output Intake/Output: Intake & Output 08/21/21 08/22/21 08/23/21 08/24/21 23:59 23:59 23:59 23:59 Intake Total 2476 990 Balance 2476 990 Meds/Results Medications: Active Medications Generic Name Dose Route Start Last Admin Trade Name Freq PRN Reason Stop Dose Admin Acetaminophen 650 mg 08/23/21 06:27 Acetaminophen 325 Mg Tablet PO Q4H PRN Mild Pain (1-3) or Fever Apixaban 5 mg 08/23/21 21:00 08/24/21 08:39 Apixaban 5 Mg Tablet PO 5 mg Q12HR SOCRATES Administration Atorvastatin Calcium 10 mg 08/24/21 09:00 08/24/21 08:39 Atorvastatin 10 Mg Tablet PO 10 mg DAILY SOCRATES Administration Hydroxychloroquine Sulfate 400 mg 08/24/21 09:00 08/24/21 08:39 Hydroxychloroquine Sulfate 200 Mg Tablet PO 400 mg DAILY SOCRATES Administration Leflunomide 20 mg
[2021-08-24 16:08] LABS: CRP 7.6 mg/dL (<1.0)
[2021-08-25] MEDS: methylPREDNISolone SOD SUCC 40 MG VIAL IV PUSH ×3 (05:01→21:42)
[2021-08-25 05:54] VITALS: BP 152/83; PULSE 88; RESP 20; TEMP 35.9; O2SAT 90
[2021-08-25 06:24] LABS: Hemoglobin 9.2 g/dL (12.0-15.0); Mean Corpuscular HGB Conc 34.1 g/dl (32-36); Mean Corpuscular Hemoglobin 28.1 pg (26-34); Mean Corpuscular Volume 82.6 fl (80-100); Mean Platelet Volume 8.4 fl (7.4-10.4); Platelet Count Result 252 k/mm3 (150-375); Red Blood Count 3.27 M/mm3 (4.2-5.4); Red Cell Distribution Width 13.6 % (11.5-14.5); White Blood Count 7.5 K/mm3 (4.5-10.0)
[2021-08-25 06:47] LABS: Alanine Aminotransferase 9 U/L (6-35); Alkaline Phosphatase 81 U/L (38-126); Anion Gap 5 mmol/L (8-16); Aspartate Amino Transferase 16 U/L (14-36); Bilirubin,Total 0.3 mg/dL (0.2-1.3); Blood Urea Nitrogen 15 mg/dL (7-17); Calcium 7.8 mg/dL (8.4-10.2); Carbon Dioxide 27 mmol/L (22-30); Chloride 88 mmol/L (98-107); Estimated CRCL calculation 70 ml/min; Estimated Glomerular Filt Rate > 60; Glucose 146 mg/dL (65-110); Potassium 3.2 mmol/L (3.4-5.0); Sodium 120 mmol/L (137-145)
[2021-08-25 07:20] LABS: Erythrocyte Sedimentation Rate 94 mm/hr (0-20)
[2021-08-25] MEDS: levETIRAcetam 500 MG TABLET PO ×2 (08:01→21:40)
[2021-08-25] MEDS: MULTIVITAMINS THERAPEUTIC TAB (*BKC) 1 TABLET PO (08:01)
[2021-08-25] MEDS: ATORVASTATIN 10 MG TABLET PO (08:01)
[2021-08-25] MEDS: LEFLUNOMIDE 20 MG TABLET PO (08:01)
[2021-08-25] MEDS: HYDROXYCHLOROQUINE SULFATE 200 MG TABLET 400 MG PO (08:01)
[2021-08-25] MEDS: CHOLECALCIFEROL 1,000 UNITS TABLET 1000 UNITS PO (08:01)
[2021-08-25 08:02] VITALS: PULSE 90
[2021-08-25] MEDS: TOLTERODINE TARTRATE LA 4 MG CAP.ER.24H PO (08:02)
[2021-08-25] MEDS: APIXABAN 5 MG TABLET PO ×2 (08:02→21:41)
[2021-08-25] MEDS: METOPROLOL TARTRATE 50 MG TAB PO ×2 (08:02→21:40)
[2021-08-25 14:00] VITALS: BP 122/69; PULSE 82; RESP 16; TEMP 37.4; O2SAT 100
--- NOTE | 2021-08-25 14:49 | PM.CNNEP ---
Assessment and Plan Assessment and plan (1) Hyponatremia: Code(s): E87.1 - Hypo-osmolality and hyponatremia Status: Acute Assessment and Plan: acute on chronic sodiums have been running ~ 129 - 133 as far back as 2006 does not appear symptomatic from this not on any offending medications (was previously on HCTZ but this was discontinued in Mar 2020) previous evaluation noted (March 2020): SPEP and UPEP negative for paraproteinemia kappa/lamda ratio normal TSH okay cortisol was low (but she was on chronic prednisone therapy) but now on IV steroids agree with free water restriction - will try to be more aggressive could consider 3% saline versus salt tabs + low dose diuretics as treatment options if necessary as well follow serial sodium levels Will continue to follow. History of Present Illness Reason for Consult Consult date: 08/25/21 Reason for consult: hyponatremia Chief Complaint Chief complaint: Hyponatremia/weakness History of Present Illness Narrative: The patient is a 76-year-old female With a past medical history as outlined below who presented to [facility] Emergency room for further evaluation of weakness. The patient reports that the weakness and generalized fatigue seems to have worsened in the last 24 hours. The symptoms are in association with a bilateral lower extremity rash and pain as well as difficulty ambulating due to the a for mention weakness. It should be noted that she was recently hospitalized at [facility] for intra parenchymal hemorrhage /CVA. She reports that her weakness is so profound she is unable to ambulate or do any of the activities of her daily living in usual eyes on assistance from her neighbors when they come to visit her to help her ambulate in her own home. No other systemic symptoms reported with regard to fevers, chills, nausea, vomiting, chest pain, shortness of breath, diarrhea, or palpitations. Workup and evaluation emergency room demonstrated the patient to be hemodynamically stable but routine blood test demonstrated significant hyponatremia with a sodium level of 120. There was some concern that the a for mentioned weakness and fatigue may be related to this electrolyte abnormality. Given her constellation of symptoms and these laboratory findings, she was admitted the hospital for further evaluation and therapy. Renal consultation was requested due to her hyponatremia. The patient is somewhat familiar to me as I follow her in the office for this issue. I first met the patient in March of 2020 when she was admitted here for hyponatremia at that time and I have been following her since. From review of her records and my recollection with seeing her in the office, the patient is has significant hypernatremia for the last decade if not longer with her sodium levels fluctuating anywhere from 129 - 133 millimoles per L. On admission, her sodium was 119 and was fluctuating anywhere from 120 - 122 in general. She did not appear to be symptomatic from this issue as far as I can tell although the concern was that her weakness may be related to her acute drop in sodium. She relates to me that her brother also had the same problem (hyponatremia) as well although his sodium levels sometimes runs even worse than what the patient's does. Currently, the time my visit, the patient seems to be doing reasonably well and in no acute distress. Review of Systems Review of Systems: As per HPI. [facility] Past Medical History Medical History Age-related osteoporosis without current pathological fracture Bunion of left foot Bunion, right foot CAD (coronary artery disease) Generalized weakness Hypertension Hypokalemia Hyponatremia Intraparenchymal hematoma of brain Leg weakness, bilateral Rheumatoid arthritis with rheumatoid factor of multiple sites without organ or systems in
--- NOTE | 2021-08-25 16:04 | PM.IMPN ---
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, fluctuating on fluid restriction, appreciate nephrology consultation, consider adding salt tabs, defer management to Nephrology (2) CAD (coronary artery disease): Code(s): I25.10 - Atherosclerotic heart disease of [place] coronary artery without angina pectoris Status: Acute Assessment and Plan: Continue home medications, stable (3) Hypertension: Code(s): I10 - Essential (primary) hypertension Status: Acute Assessment and Plan: Stable (4) Vasculitis: Code(s): I77.6 - Arteritis, unspecified Status: Acute Assessment and Plan: 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 No overnight events noted. No chest pain or shortness of breath. No nausea, vomiting or diarrhea. No fevers or chills. Review of Systems Review of Systems: 12 point review of systems was assessed and was negative except as noted in the HPI Exam Narrative: General: No acute distress, alert and oriented per baseline HEENT: Atraumatic, normocephalic, mucous membranes moist CV: Regular rate and rhythm, S1, S2, no murmurs rubs or gallops noted Lungs: Clear to auscultation bilaterally, no rales or crackles noted, no wheezes, good air entry Abdomen: Soft, nontender, nondistended Extremities: Normal to inspection Skin: Petechial rash that is nonblanching from mid tibia down to her ankle noted on right lower extremity, some scattered petechia on right lower extremity Psych: Euthymic, normal affect Objective Data Vital Signs Vital Signs: Vital Signs - 24 hr 08/24/21 20:46 08/24/21 20:00 08/24/21 20:45 Temperature 97.5 F L Pulse Rate 96 96 Respiratory Rate 20 Blood Pressure 143/90 H Pulse Oximetry 95 Oxygen Delivery Room Air 08/25/21 05:54 08/25/21 08:02 08/25/21 08:00 Temperature 96.7 F L Pulse Rate 88 90 Respiratory Rate 20 Blood Pressure 152/83 H Pulse Oximetry 90 Oxygen Delivery Room Air 08/25/21 14:00 Temperature 99.3 F Pulse Rate 82 Respiratory Rate 16 Blood Pressure 122/69 Pulse Oximetry 100 Oxygen Delivery Intake/Output Intake/Output: Intake & Output 08/22/21 08/23/21 08/24/21 08/25/21 23:59 23:59 23:59 23:59 Intake Total 6578 1212 1510 Balance 1726 1212 1510 Meds/Results Medications: Active Medications Generic Name Dose Route Start Last Admin Trade Name Freq PRN Reason Stop Dose Admin Acetaminophen 650 mg 08/23/21 06:27 Acetaminophen 325 Mg Tablet PO Q4H PRN Mild Pain (1-3) or Fever Apixaban 5 mg 08/23/21 21:00 08/25/21 08:02 Apixaban 5 Mg Tablet PO 5 mg Q12HR SOCRATES Administration Atorvastatin Calcium 10 mg 08/24/21 09:00 08/25/21 08:01 Atorvastatin 10 Mg Tablet PO 10 mg DAILY SOCRATES Administration Hydroxychloroquine Sulfate 400 mg 08/24/21 09:00 08/25/21 08:01 Hydroxychloroquine Sulfate 200 Mg Tablet PO 400 mg DAILY SOCRATES Administration Leflunomide 20 mg 08/24/21 09:00 08/25/21 08:01 Leflunomide 20 Mg Tablet PO 20 mg DAILY SOCRATES Administration Levetiracetam 500 mg 08/23/21 21:00 08/25/21 08:01 Levetiracetam 500 Mg Tablet PO 500 mg Q12HR SOCRATES Administrati
[2021-08-25 20:00] VITALS: PULSE 82; RESP 16; O2SAT 100
[2021-08-25 21:26] VITALS: BP 135/79; PULSE 88; RESP 16; TEMP 36.2; O2SAT 97
[2021-08-25 21:40] VITALS: PULSE 82
[2021-08-26] VITALS (7 sets, daily range): BP systolic 128–140; BP diastolic 66–83; PULSE 77–88; RESP 15–16; TEMP 36.6–36.8; O2SAT 96–99
[2021-08-26] MEDS: methylPREDNISolone SOD SUCC 40 MG VIAL IV PUSH ×3 (05:43→23:16)
[2021-08-26 06:48] LABS: Hematocrit 28.6 % (37.0-47.0); Hemoglobin 9.7 g/dL (12.0-15.0); Mean Corpuscular HGB Conc 33.9 g/dl (32-36); Mean Corpuscular Hemoglobin 28.2 pg (26-34); Mean Corpuscular Volume 83.1 fl (80-100); Mean Platelet Volume 8.6 fl (7.4-10.4); Platelet Count Result 265 k/mm3 (150-375); Red Blood Count 3.44 M/mm3 (4.2-5.4); Red Cell Distribution Width 13.8 % (11.5-14.5); White Blood Count 8.4 K/mm3 (4.5-10.0)
[2021-08-26 07:12] LABS: Alanine Aminotransferase 12 U/L (6-35); Alkaline Phosphatase 75 U/L (38-126); Anion Gap 4 mmol/L (8-16); Aspartate Amino Transferase 18 U/L (14-36); Bilirubin,Total 0.2 mg/dL (0.2-1.3); Blood Urea Nitrogen 20 mg/dL (7-17); Calcium 7.9 mg/dL (8.4-10.2); Carbon Dioxide 30 mmol/L (22-30); Chloride 86 mmol/L (98-107); Estimated CRCL calculation 70 ml/min; Estimated Glomerular Filt Rate > 60; Glucose 132 mg/dL (65-110); Potassium 3.5 mmol/L (3.4-5.0); Sodium 120 mmol/L (137-145)
[2021-08-26] MEDS: levETIRAcetam 500 MG TABLET PO ×2 (09:01→20:25)
[2021-08-26] MEDS: CHOLECALCIFEROL 1,000 UNITS TABLET 1000 UNITS PO (09:01)
[2021-08-26] MEDS: ATORVASTATIN 10 MG TABLET PO (09:01)
[2021-08-26] MEDS: LEFLUNOMIDE 20 MG TABLET PO (09:01)
[2021-08-26] MEDS: APIXABAN 5 MG TABLET PO ×2 (09:01→20:26)
[2021-08-26] MEDS: MULTIVITAMINS THERAPEUTIC TAB (*BKC) 1 TABLET PO (09:01)
[2021-08-26] MEDS: HYDROXYCHLOROQUINE SULFATE 200 MG TABLET 400 MG PO (09:01)
[2021-08-26] MEDS: TOLTERODINE TARTRATE LA 4 MG CAP.ER.24H PO (09:02)
[2021-08-26] MEDS: METOPROLOL TARTRATE 50 MG TAB PO ×2 (09:02→20:28)
--- NOTE | 2021-08-26 10:06 | PM.IMPN ---
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, fluctuating on fluid restriction, appreciate nephrology consultation, consider adding salt tabs, defer management to Nephrology Sodium 120 today, unchanged from yesterday, will start salt tabs BID, appreciate nephrology recs Noted nephrology started 3% saline, salt tabs + lasix d/c, defer further management to nephrology (2) CAD (coronary artery disease): Code(s): I25.10 - Atherosclerotic heart disease of [place] coronary artery without angina pectoris Status: Acute Assessment and Plan: Continue home medications, stable (3) Hypertension: Code(s): I10 - Essential (primary) hypertension Status: Acute Assessment and Plan: Stable (4) Vasculitis: Code(s): I77.6 - Arteritis, unspecified Status: Acute Assessment and Plan: Concern for autoimmune vasculitis improving on prednisone, will initiate a taper at discharge and refer to PCP and outpatient rheum for further workup Pic taken of rash on patient's phone, will have her f/u with rheum outpatient and PCP for further workup (5) Rheumatoid arthritis with rheumatoid factor of multiple sites without organ or systems involvement: Onset Date: ~2000 Code(s): M05.79 - Rheumatoid arthritis with rheumatoid factor of multiple sites without organ or systems involvement Status: Acute Assessment and Plan: Continue Plaquenil (6) Paroxysmal atrial fibrillation: Code(s): I48.0 - Paroxysmal atrial fibrillation Status: Acute Assessment and Plan: Rate controlled Subjective Date/time seen: 08/26/21 10:06 Interval history: No overnight events noted. No chest pain or shortness of breath. No nausea, vomiting or diarrhea. No fevers or chills. Review of Systems Review of Systems: 12 point review of systems was assessed and was negative except as noted in the HPI Exam Narrative: General: No acute distress, alert and oriented per baseline HEENT: Atraumatic, normocephalic, mucous membranes moist CV: Regular rate and rhythm, S1, S2, no murmurs rubs or gallops noted Lungs: Clear to auscultation bilaterally, no rales or crackles noted, no wheezes, good air entry Abdomen: Soft, nontender, nondistended Extremities: Normal to inspection Skin: Petechial rash that is nonblanching from mid tibia down to her ankle noted on right lower extremity, some scattered petechia on right lower extremity, improving significantly Psych: Euthymic, normal affect Objective Data Vital Signs Vital Signs: Vital Signs - 24 hr 08/25/21 14:00 08/25/21 20:00 08/25/21 20:25 Temperature 99.3 F Pulse Rate 82 82 Respiratory Rate 16 16 Blood Pressure 122/69 Pulse Oximetry 100 100 Oxygen Delivery Room Air Room Air 08/25/21 21:26 08/25/21 21:40 08/26/21 02:31 Temperature 97.2 F L Pulse Rate 88 82 Respiratory Rate 16 Blood Pressure 135/79 Pulse Oximetry 97 98 Oxygen Delivery Room Air 08/26/21 05:53 08/26/21 09:02 Temperature 98.2 F Pulse Rate 81 88 Respiratory Rate 16 Blood Pressure 140/83 Pulse Oximetry 96 Oxygen Delivery Intake/Output Intake/Output: Intake & Output 08/23/21 08/24/21 08/25/21 08/26/21 23:59 23:59 23:59 23:59 Intake Total 2476 1212 2080 390 Balance 2476 1212 2080 390 Meds/Results Medications: Active Medications Generic Name Dose Route Start Last Admin Trade Name Freq PRN Reason Stop Dose Admin Acetaminophen 650 mg 08/23/21 06:27 Acetaminophen 325 Mg Tablet PO Q4H PRN Mild Pain (1-3) or Fever Apixaban 5 mg 08/23/21 21:00 08/26/21 09:01 Apixaban 5 Mg Tablet PO 5 mg Q12HR SOCRATES Administration Atorvastatin Calcium 10 mg 08/24/21 09:00 08/26/21 09:01 Atorvastatin 10 Mg Tablet PO 10 mg DAILY SOCRATES Adminis
--- NOTE | 2021-08-26 10:09 | PM.PNNEP ---
Progress Note: A&P Assessment and Plan (1) Hyponatremia: Code(s): E87.1 - Hypo-osmolality and hyponatremia Status: Acute Assessment and Plan: acute on chronic sodiums have been running ~ 129 - 133 as far back as 2006 does not appear symptomatic from this (although concern is that her admission weakness is related to his issue) not on any offending medications (was previously on HCTZ but this was discontinued in Mar 2020) previous evaluation noted (March 2020): SPEP and UPEP negative for paraproteinemia kappa/lamda ratio normal TSH okay cortisol was low (but she was on chronic prednisone therapy) and now on IV steroids agree with free water restriction for now if sodium fails to improve, will consider using 3% saline versus salt tabs + low dose diuretics as treatment options if necessary follow serial sodium levels Will continue to follow. Subjective Date/time seen: 08/26/21 10:09 No acute issues or problems voiced at this time; sodium remains low with no significant improvement (but relatively stable); no apparent distress noted; no events overnight or earlier this morning. Exam Narrative: General: WD/WN female in NAD Heart: normal S1 and S2; no rub Lungs: clear to auscultation Abdomen: soft, nontender, nondistended, positive bowel sounds Extremities: no cyanosis or clubbing; no edema Skin: warm and dry Objective Data Vital Signs Vital Signs: Vital Signs Temp Pulse Resp BP Pulse Ox O2 Del Method 08/26/21 09:02 88 08/26/21 05:53 36.8 C 81 16 140/83 96 08/26/21 02:31 98 Room Air 08/25/21 21:40 82 08/25/21 21:26 36.2 C L 88 16 135/79 97 08/25/21 20:25 Room Air 08/25/21 20:00 82 16 100 Room Air 08/25/21 14:00 37.4 C 82 16 122/69 100 Intake/Output Intake/Output: Intake & Output 08/23/21 08/24/21 08/25/21 08/26/21 23:59 23:59 23:59 23:59 Intake Total 6136 1212 2080 390 Balance 2476 1212 2080 390 Meds/Results Medications: Active Medications Generic Name Dose Route Start Last Admin Trade Name Freq PRN Reason Stop Dose Admin Acetaminophen 650 mg 06/25/22 06:27 Acetaminophen 325 Mg Tablet PO Q4H PRN Mild Pain (1-3) or Fever Apixaban 5 mg 08/23/21 21:00 08/26/21 09:01 Apixaban 5 Mg Tablet PO 5 mg Q12HR SOCRATES Administration Atorvastatin Calcium 10 mg 08/24/21 09:00 08/26/21 09:01 Atorvastatin 10 Mg Tablet PO 10 mg DAILY SOCRATES Administration Hydroxychloroquine Sulfate 400 mg 08/24/21 09:00 08/26/21 09:01 Hydroxychloroquine Sulfate 200 Mg Tablet PO 400 mg DAILY SOCRATES Administration Leflunomide 20 mg 08/24/21 09:00 08/26/21 09:01 Leflunomide 20 Mg Tablet PO 20 mg DAILY SOCRATES Administration Levetiracetam 500 mg 08/23/21 21:00 08/26/21 09:01 Levetiracetam 500 Mg Tablet PO 500 mg Q12HR SOCRATES Administration Methylprednisolone Sodium Succinate 40 mg 08/23/21 22:00 08/26/21 05:43 Methylprednisolone Sod Succ 40 Mg Vial IV PUSH 40 mg Q8HR SOCRATES Administration Metoprolol Tartrate 50 mg 08/23/21 21:00 08/26/21 09:02 Metoprolol Tartrate 50 Mg Tab PO 50 mg Q12HR SOCRATES Administration Multivitamins Therapeutic 1 tablet 08/24/21 09:00 08/26/21 09:01 Multivitamins Therapeutic Tab (*Bkc) PO 1 tablet DAILY SOCRATES Administration Ondansetron HCl 4 mg 08/23/21 06:27 Ondansetron Inj 4 Mg/2 Ml Vial IV PUSH Q4H PRN Nausea Tolterodine Tartrate 4 mg 08/24/21 09:00 08/26/21 09:02 Tolterodine Tartrate La 4 Mg Cap.Er.24h PO 4 mg DAILY SOCRATES Administration Vitamin D 1,000 units 08/24/21 09:00 08/26/21 09:01 Cholecalciferol 1,000 Units Tablet PO 1,000 units DAILY SOCRATES Administration Radiology Results: ITS Impressions Chest X-Ray 08/23/21 09:02 IMPRESSION: 1. No acute cardiopulmonary abnormality. Head CT 08/23/21 12:40 IMPRESSION: 1. Resolving small left thalamic hemorrhage without
[2021-08-26 12:08] LABS: Sodium 121 mmol/L (137-145)
[2021-08-26] MEDS: SODIUM CHLORIDE 3% 150 ML 50 ML IV CONT (14:25)
[2021-08-26 19:01] LABS: Sodium 120 mmol/L (137-145)
[2021-08-26 23:31] LABS: Sodium 118 mmol/L (137-145)
[2021-08-27 05:22] VITALS: BP 159/87; PULSE 74; RESP 16; TEMP 36.5; O2SAT 98
[2021-08-27] MEDS: methylPREDNISolone SOD SUCC 40 MG VIAL IV PUSH ×3 (05:41→21:46)
[2021-08-27 06:25] LABS: Hemoglobin 10.3 g/dL (12.0-15.0); Mean Corpuscular HGB Conc 34.3 g/dl (32-36); Mean Corpuscular Hemoglobin 28.1 pg (26-34); Mean Corpuscular Volume 81.7 fl (80-100); Mean Platelet Volume 8.5 fl (7.4-10.4); Platelet Count Result 289 k/mm3 (150-375); Red Blood Count 3.67 M/mm3 (4.2-5.4); Red Cell Distribution Width 13.4 % (11.5-14.5); White Blood Count 7.2 K/mm3 (4.5-10.0)
[2021-08-27 06:37] LABS: Alanine Aminotransferase 13 U/L (6-35); Albumin Level 2.9 g/dL (3.5-5.1); Alkaline Phosphatase 73 U/L (38-126); Anion Gap 6 mmol/L (8-16); Aspartate Amino Transferase 19 U/L (14-36); Bilirubin,Total 0.2 mg/dL (0.2-1.3); Blood Urea Nitrogen 19 mg/dL (7-17); Calcium 7.7 mg/dL (8.4-10.2); Carbon Dioxide 29 mmol/L (22-30); Chloride 84 mmol/L (98-107); Estimated CRCL calculation 70 ml/min; Estimated Glomerular Filt Rate > 60; Glucose 129 mg/dL (65-110); Potassium 3.6 mmol/L (3.4-5.0); Sodium 119 mmol/L (137-145)
[2021-08-27] MEDS: HYDROXYCHLOROQUINE SULFATE 200 MG TABLET 400 MG PO (08:44)
[2021-08-27] MEDS: FUROSEMIDE 10 MG TABLET PO ×3 (08:44→19:15)
[2021-08-27] MEDS: APIXABAN 5 MG TABLET PO ×2 (08:44→21:45)
[2021-08-27] MEDS: LEFLUNOMIDE 20 MG TABLET PO (08:44)
[2021-08-27] MEDS: ATORVASTATIN 10 MG TABLET PO (08:44)
[2021-08-27] MEDS: CHOLECALCIFEROL 1,000 UNITS TABLET 1000 UNITS PO (08:44)
[2021-08-27 08:45] VITALS: PULSE 70
[2021-08-27] MEDS: TOLTERODINE TARTRATE LA 4 MG CAP.ER.24H PO (08:45)
[2021-08-27] MEDS: METOPROLOL TARTRATE 50 MG TAB PO ×2 (08:45→21:45)
[2021-08-27] MEDS: levETIRAcetam 500 MG TABLET PO ×2 (08:45→21:45)
[2021-08-27] MEDS: MULTIVITAMINS THERAPEUTIC TAB (*BKC) 1 TABLET PO (08:45)
[2021-08-27] MEDS: SODIUM CHLORIDE 500 MG TABLET PO ×3 (08:45→19:15)
--- NOTE | 2021-08-27 12:40 | PM.IMPN ---
Progress Note: A&P Assessment and Plan (1) Hyponatremia: Code(s): E87.1 - Hypo-osmolality and hyponatremia Status: Acute Assessment and Plan: Patient with acute on chronic hyponatremia. Baseline sodium on chart review this mostly 120 8-131 range. Sodium 120 on admission and has been essentially unchanged. No urine electrolytes listed. Urinalysis on admission was cloudy 1+ protein and 1+ ketones. She is on fluid restriction. She is on Lasix and sodium tablets. She did receive 3% saline yesterday. Nephrology following and appreciate their input. Continue serial sodium check. TSH okay. 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 Renal function stable and no white cells in her urine to suggest nephritis. Will initiate a taper at discharge and refer to PCP and outpatient rheum for further workup. Will check GUILLE and other autoimmune markers. Cryoglobulins pending. (3) CAD (coronary artery disease): Code(s): I25.10 - Atherosclerotic heart disease of [place] coronary artery without angina pectoris Status: Acute Assessment and Plan: Overall stable. No complaints of chest pain. Continue Lipitor and metoprolol Patient is not on aspirin most likely related to recent hemorrhagic CVA. Continue follow. (4) Hypertension: Code(s): I10 - Essential (primary) hypertension Status: Acute Assessment and Plan: Patient's blood pressure was reviewed on 08/27 Blood pressure remains well controlled. Lisinopril remains on hold. Will continue current medications. (5) Rheumatoid arthritis with rheumatoid factor of multiple sites without organ or systems involvement: Onset Date: ~2000 Code(s): M05.79 - Rheumatoid arthritis with rheumatoid factor of multiple sites without organ or systems involvement Status: Acute Assessment and Plan: Stable. Continue Plaquenil. Continue steroids. (6) Paroxysmal atrial fibrillation: Code(s): I48.0 - Paroxysmal atrial fibrillation Status: Acute Assessment and Plan: EKG shows normal sinus rhythm. Regular rate on exam. Continue metoprolol. Continue Eliquis. Plan for a Watchman-like procedure on September 09. Plan DVT prophylaxis: Eliquis Code status: Full Subjective Date/time seen: 08/27/21 12:40 Interval history: 76yo female with RA, CAD, HTN, pAFib and recent hemorrhagic CVA here for GNW and LE rash. Assuming care. Chart reviewed. Patient feels weak. She is complains of the fluid restriction. She is eating well. She denies any nausea, vomiting or diarrhea. No chest pain. No abdominal pain. She has urine incontinence and says this is been chronic since her hemorrhagic stroke in May. She was off her Eliquis for few weeks but has been resumed on at has been doing well with this. She is being evaluated for possible Watchman-like procedure on 09/09/2021. Denies any lower extremity pain. Exam Narrative: AF 97.7 159/87 70 16 98% ra Gen - NARD sitting up in a chair Chest - CTA bilaterally, nml RR CV - RRR S1/S2 Abd - Soft, NT/ND, Positive BS Ext - No pedal edema Psych - Nml mood and affect Skin - Warm and dry. Bilateral lower extremity nonblanching petechial rash. Objective Data Vital Signs Vital Signs: Vital Signs - 24 hr 08/26/21 14:04 08/26/21 20:28 08/26/21 21:32 Temperature 97.9 F 98.1 F Pulse Rate 77 80 80 Respiratory Rate 16 15 Blood Pressure 130/66 128/73 Pulse Oximetry 99 97 Oxygen Delivery 08/26/21 20:00 08/27/21 05:22 08/27/21 08:45 Temperature 97.7 F Pulse Rate 80 74 70 Respiratory Rate 15 16 Blood Pressure 159/87 H Pulse Oximetry 97 98 Oxygen Delivery Room Air Intake/Output Intake/Output: Intake & Output 08/24/21 08/25/21 08/26/21 08/27/21 23:59 23:59 23:59 23:59 I
--- NOTE | 2021-08-27 12:53 | PM.PNNEP ---
Progress Note: A&P Assessment and Plan (1) Hyponatremia: Code(s): E87.1 - Hypo-osmolality and hyponatremia Status: Acute Assessment and Plan: acute on chronic sodiums have been running ~ 129 - 133 as far back as 2007 does not appear symptomatic from this (although concern is that her admission weakness is related to his issue) not on any offending medications (was previously on HCTZ but this was discontinued in Mar 2020) previous evaluation noted (March 2020): SPEP and UPEP negative for paraproteinemia kappa/lamda ratio normal TSH okay cortisol was low (but she was on chronic prednisone therapy) and now on IV steroids agree with free water restriction for now s/p 3% saline versus (on 08/26/21) with no significant improvement will start salt tabs + low dose diuretics today follow serial sodium levels Will continue to follow. Subjective Date/time seen: 08/27/21 12:53 Despite trial of 3% saline yesterday, sodium did not improve much (actually worsened/declined further); started on salt tabs with lasix this AM along with increased fluid restrictione; in spite of fluctuating sodium levels; she appears to be doing reasonably well; no apparent distress noted. Exam Narrative: General: WD/WN female in NAD Heart: normal S1 and S2; no rub Lungs: clear to auscultation Abdomen: soft, nontender, nondistended, positive bowel sounds Extremities: no cyanosis or clubbing; no edema Skin: warm and intactd Objective Data Vital Signs Vital Signs: Vital Signs Temp Pulse Resp BP Pulse Ox O2 Del Method 08/27/21 08:45 70 08/27/21 05:22 36.5 C 74 16 159/87 H 98 08/26/21 20:00 80 15 97 Room Air 08/26/21 21:32 36.7 C 80 15 128/73 97 08/26/21 20:28 80 08/26/21 14:04 36.6 C 77 16 130/66 99 Intake/Output Intake/Output: Intake & Output 08/24/21 08/25/21 08/26/21 08/27/21 23:59 23:59 23:59 23:59 Intake Total 1212 2080 1320 440 Balance 1212 2080 1320 440 Meds/Results Medications: Active Medications Generic Name Dose Route Start Last Admin Trade Name Freq PRN Reason Stop Dose Admin Acetaminophen 650 mg 08/23/21 06:27 Acetaminophen 325 Mg Tablet PO Q4H PRN Mild Pain (1-3) or Fever Apixaban 5 mg 08/23/21 21:00 08/27/21 08:44 Apixaban 5 Mg Tablet PO 5 mg Q12HR [facility] Administration Atorvastatin Calcium 10 mg 08/24/21 09:00 08/27/21 08:44 Atorvastatin 10 Mg Tablet PO 10 mg DAILY [facility] Administration Furosemide 10 mg 08/27/21 09:00 08/27/21 08:44 Furosemide 10 Mg Tablet PO 10 mg BID [facility] Administration Hydroxychloroquine Sulfate 400 mg 08/24/21 09:00 08/27/21 08:44 Hydroxychloroquine Sulfate 200 Mg Tablet PO 400 mg DAILY [facility] Administration Leflunomide 20 mg 08/24/21 09:00 08/27/21 08:44 Leflunomide 20 Mg Tablet PO 20 mg DAILY [facility] Administration Levetiracetam 500 mg 08/23/21 21:00 08/27/21 08:45 Levetiracetam 500 Mg Tablet PO 500 mg Q12HR [facility] Administration Methylprednisolone Sodium Succinate 40 mg 08/23/21 22:00 08/27/21 05:41 Methylprednisolone Sod Succ 40 Mg Vial IV PUSH 40 mg Q8HR [facility] Administration Metoprolol Tartrate 50 mg 08/23/21 21:00 08/27/21 08:45 Metoprolol Tartrate 50 Mg Tab PO 50 mg Q12HR [facility] Administration Multivitamins Therapeutic 1 tablet 08/24/21 09:00 08/27/21 08:45 Multivitamins Therapeutic Tab (*Bkc) PO 1 tablet DAILY [facility] Administration Ondansetron HCl 4 mg 08/23/21 06:27 Ondansetron Inj 4 Mg/2 Ml Vial IV PUSH Q4H PRN Nausea Sodium Chloride 500 mg 08/27/21 09:00 08/27/21 08:45 Sodium Chloride 500 Mg Tablet PO 500 mg BID [facility] Administration Tolterodine Tartrate 4 mg 08/24/21 09:00 08/27/21 08:45 Tolterodine Tartrate La 4 Mg Cap.Er.24h PO 4 mg DAILY [facility] Administration Vitamin D 1,000 units 08/24/21 09:00 08/27/21 08:44 Cholecalciferol 1,000 Units Tablet PO 1,000
[2021-08-27 12:56] LABS: Sodium 120 mmol/L (137-145)
[2021-08-27 13:43] VITALS: BP 145/84; PULSE 73; RESP 18; TEMP 36.6; O2SAT 99
[2021-08-27 14:48] LABS: Sodium Urine Random 88 meq/L
[2021-08-27 18:14] LABS: Sodium 117 mmol/L (137-145)
[2021-08-27 20:30] VITALS: PULSE 80; RESP 18; O2SAT 97
[2021-08-27 21:34] VITALS: BP 144/76; PULSE 81; RESP 18; TEMP 36.8; O2SAT 97
[2021-08-27 21:45] VITALS: PULSE 80
[2021-08-27 23:48] LABS: Sodium 118 mmol/L (137-145)
[2021-08-28] MEDS: methylPREDNISolone SOD SUCC 40 MG VIAL IV PUSH (05:41)
[2021-08-28 06:00] VITALS: BP 140/78; PULSE 70; RESP 18; TEMP 36.4; O2SAT 97
[2021-08-28 07:07] LABS: Hematocrit 31.5 % (37.0-47.0); Hemoglobin 10.7 g/dL (12.0-15.0); Mean Corpuscular Hemoglobin 27.9 pg (26-34); Mean Platelet Volume 8.6 fl (7.4-10.4); Platelet Count Result 302 k/mm3 (150-375); Red Blood Count 3.84 M/mm3 (4.2-5.4); Red Cell Distribution Width 13.7 % (11.5-14.5)
[2021-08-28 07:42] LABS: Alanine Aminotransferase 16 U/L (6-35); Albumin Level 3.1 g/dL (3.5-5.1); Alkaline Phosphatase 73 U/L (38-126); Anion Gap 5 mmol/L (8-16); Aspartate Amino Transferase 17 U/L (14-36); Bilirubin,Total 0.3 mg/dL (0.2-1.3); Blood Urea Nitrogen 22 mg/dL (7-17); Calcium 7.6 mg/dL (8.4-10.2); Carbon Dioxide 30 mmol/L (22-30); Chloride 83 mmol/L (98-107); Estimated CRCL calculation 70 ml/min; Estimated Glomerular Filt Rate > 60; Glucose 121 mg/dL (65-110); Magnesium 1.6 mg/dL (1.6-2.3); Potassium 3.7 mmol/L (3.4-5.0); Sodium 118 mmol/L (137-145)
[2021-08-28] MEDS: SODIUM CHLORIDE 3% 180 ML 60 ML IV CONT (08:39)
[2021-08-28] MEDS: FUROSEMIDE 10 MG TABLET PO ×3 (09:26→21:12)
[2021-08-28] MEDS: LEFLUNOMIDE 20 MG TABLET PO (09:26)
[2021-08-28] MEDS: HYDROXYCHLOROQUINE SULFATE 200 MG TABLET 400 MG PO (09:26)
[2021-08-28] MEDS: levETIRAcetam 500 MG TABLET PO ×2 (09:26→21:13)
[2021-08-28] MEDS: CHOLECALCIFEROL 1,000 UNITS TABLET 1000 UNITS PO (09:26)
[2021-08-28] MEDS: APIXABAN 5 MG TABLET PO ×2 (09:26→21:11)
[2021-08-28] MEDS: ATORVASTATIN 10 MG TABLET PO (09:26)
[2021-08-28 09:27] VITALS: PULSE 80
[2021-08-28] MEDS: METOPROLOL TARTRATE 50 MG TAB PO ×2 (09:27→21:12)
[2021-08-28] MEDS: SODIUM CHLORIDE 500 MG TABLET 1000 MG PO ×2 (09:27→16:50)
[2021-08-28] MEDS: MULTIVITAMINS THERAPEUTIC TAB (*BKC) 1 TABLET PO (09:27)
[2021-08-28] MEDS: TOLTERODINE TARTRATE LA 4 MG CAP.ER.24H PO (09:27)
--- NOTE | 2021-08-28 12:27 | PCOTNOTE ---
Attempted to see pt for occupational therapy tx this AM. Pt states that due to her IV running right now she does not want to do anything. Pt was educated on ways we can still participate in therapy while IV is currently running, however, pt continued to refuse. Will continue per POC duration/frequency tomorrow.
[2021-08-28 12:36] LABS: Sodium 122 mmol/L (137-145)
[2021-08-28 14:00] VITALS: BP 140/89; PULSE 72; RESP 16; TEMP 35.6; O2SAT 97
--- NOTE | 2021-08-28 14:15 | PM.IMPN ---
Progress Note: A&P Assessment and Plan (1) Hyponatremia: Code(s): E87.1 - Hypo-osmolality and hyponatremia Status: Acute Assessment and Plan: Patient with acute on chronic hyponatremia. Baseline sodium on chart review runs mostly 128-131 range. Sodium 120 on admission. Urinalysis on admission was cloudy 1+ protein and 1+ ketones. [place] 88. TSH normal. Cortisol level okay (on steroids). She is on fluid restriction. She is on Lasix and sodium tablets. She has been receiving 3% saline at times. Nephrology following and appreciate their input. Continue serial sodium check. 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 Renal function stable and no white cells in her urine to suggest nephritis. Will change to oral Prednisone and initiate a taper at discharge and refer to PCP and outpatient rheum for further workup. GUILLE and other autoimmune markers including Cryoglobulins are pending. (3) CAD (coronary artery disease): Code(s): I25.10 - Atherosclerotic heart disease of [place] coronary artery without angina pectoris Status: Acute Assessment and Plan: Overall stable. No complaints of chest pain. Continue Lipitor and metoprolol. Patient is not on aspirin most likely related to recent hemorrhagic CVA. Continue follow. (4) Hypertension: Code(s): I10 - Essential (primary) hypertension Status: Acute Assessment and Plan: Patient's blood pressure was reviewed on 08/28 Blood pressure remains reasonably well controlled. Lisinopril remains on hold. Will continue current medications. Add back lisinopril at half dose. (5) Rheumatoid arthritis with rheumatoid factor of multiple sites without organ or systems involvement: Onset Date: ~2000 Code(s): M05.79 - Rheumatoid arthritis with rheumatoid factor of multiple sites without organ or systems involvement Status: Acute Assessment and Plan: Stable. Continue Plaquenil. Continue steroids. (6) Paroxysmal atrial fibrillation: Code(s): I48.0 - Paroxysmal atrial fibrillation Status: Acute Assessment and Plan: EKG shows normal sinus rhythm. Regular rate on exam. Continue metoprolol. Continue Eliquis. Plan for a Watchman-like procedure on September 09. Plan DVT prophylaxis: Eliquis Code status: Full Subjective Date/time seen: 08/28/21 14:15 Interval history: 76yo female with RA, CAD, HTN, pAFib and recent hemorrhagic CVA here for GNW and LE rash. Patient complains of dry mouth. No chest pain or shortness of breath. Eating okay. She denies nausea or vomiting. She felt weak earlier this morning but better after eating. She has been walking in the halls with therapy. Exam Narrative: AF 96.0 140/89 72 16 97% ra Gen - NARD Chest - CTA bilaterally, nml RR CV - RRR S1/S2 Abd - Soft, NT/ND, Positive BS Ext - No pedal edema Psych - Nml mood and affect Skin - Warm and dry. Bilateral lower extremity nonblanching petechial rash. Objective Data Vital Signs Vital Signs: Vital Signs - 24 hr 08/27/21 21:34 08/27/21 21:45 08/27/21 20:30 Temperature 98.2 F Pulse Rate 81 80 80 Respiratory Rate 18 18 Blood Pressure 144/76 H Pulse Oximetry 97 97 Oxygen Delivery Room Air 08/28/21 06:00 08/28/21 09:27 08/28/21 14:00 Temperature 97.5 F L 96.0 F L Pulse Rate 70 80 72 Respiratory Rate 18 16 Blood Pressure 140/78 140/89 Pulse Oximetry 97 97 Oxygen Delivery Intake/Output Intake/Output: Intake & Output 08/25/21 08/26/21 08/27/21 08/28/21 23:59 23:59 23:59 23:59 Intake Total 2080 1320 862 680 Output Total 200 3 Balance 0 1320 662 677 Meds/Results Medications: Active Medications Generic Name Dose Route Start Last Admin Trade Name Freq PRN Reason Stop Dose Admin Acetaminophen 650 mg 08/23/21 06:27
--- NOTE | 2021-08-28 14:20 | PCCCNOTE ---
On 08/28/21, the student, [Telma Francis], provided care and completed [facility] documentation on this patient. I have reviewed the student's documentation and agree with the findings.
--- NOTE | 2021-08-28 14:58 | PM.PNNEP ---
Progress Note: A&P Assessment and Plan (1) Hyponatremia: Code(s): E87.1 - Hypo-osmolality and hyponatremia Status: Acute Assessment and Plan: acute on chronic sodiums have been running ~ 129 - 133 as far back as 2006 does not appear symptomatic from this (although concern is that her admission weakness is related to his issue) not on any offending medications (was previously on HCTZ but this was discontinued in Mar 2020) previous evaluation noted (March 2020): SPEP and UPEP negative for paraproteinemia kappa/lamda ratio normal TSH okay cortisol was low (but she was on chronic prednisone therapy) and now on IV steroids continue free water restriction for now s/p 3% saline x 2 on salt tabs and low dose lasix follow serial sodium levels Will continue to follow. Subjective Date/time seen: 08/28/21 14:58 No new issues or problems; sodium continues to fluctuate and has been somewhat resistant to interventions to date; s/p 3% saline yesterday with most recent sodium up to 122 (had dropped to as low as 117 yesterday); no distress voiced. Exam Narrative: General: WD/WN female in NAD Heart: normal S1 and S2; no rub Lungs: clear to auscultation Abdomen: soft, nontender, nondistended, positive bowel sounds Extremities: no cyanosis or clubbing; no edema Skin: no rash Objective Data Vital Signs Vital Signs: Vital Signs Temp Pulse Resp BP Pulse Ox O2 Del Method 08/28/21 14:00 35.6 C L 72 16 140/89 97 08/28/21 09:27 80 08/28/21 06:00 36.4 C L 70 18 140/78 97 08/27/21 20:30 80 18 97 Room Air 08/27/21 21:45 80 08/27/21 21:34 36.8 C 81 18 144/76 H 97 Intake/Output Intake/Output: Intake & Output 08/25/21 08/26/21 08/27/21 08/28/21 23:59 23:59 23:59 23:59 Intake Total 2079 1320 862 902 Output Total 200 3 Balance 2079 1320 662 899 Meds/Results Medications: Active Medications Generic Name Dose Route Start Last Admin Trade Name Freq PRN Reason Stop Dose Admin Acetaminophen 650 mg 08/23/21 06:27 Acetaminophen 325 Mg Tablet PO Q4H PRN Mild Pain (1-3) or Fever Apixaban 5 mg 08/23/21 21:00 08/28/21 09:26 Apixaban 5 Mg Tablet PO 5 mg Q12HR [facility] Administration Atorvastatin Calcium 10 mg 08/24/21 09:00 08/28/21 09:26 Atorvastatin 10 Mg Tablet PO 10 mg DAILY [facility] Administration Furosemide 10 mg 08/27/21 09:00 08/28/21 16:50 Furosemide 10 Mg Tablet PO 10 mg BID [facility] Administration Hydroxychloroquine Sulfate 400 mg 08/24/21 09:00 08/28/21 09:26 Hydroxychloroquine Sulfate 200 Mg Tablet PO 400 mg DAILY [facility] Administration Leflunomide 20 mg 08/24/21 09:00 08/28/21 09:26 Leflunomide 20 Mg Tablet PO 20 mg DAILY [facility] Administration Levetiracetam 500 mg 08/23/21 21:00 08/28/21 09:26 Levetiracetam 500 Mg Tablet PO 500 mg Q12HR [facility] Administration Lisinopril 10 mg 08/28/21 14:25 08/28/21 15:54 Lisinopril 10 Mg Tablet PO 10 mg DAILY [facility] Administration Magnesium Oxide 400 mg 08/28/21 14:25 08/28/21 15:54 Magnesium Oxide 400 Mg Tablet PO 400 mg DAILY [facility] Administration Metoprolol Tartrate 50 mg 08/23/21 21:00 08/28/21 09:27 Metoprolol Tartrate 50 Mg Tab PO 50 mg Q12HR [facility] Administration Multivitamins Therapeutic 1 tablet 08/24/21 09:00 08/28/21 09:27 Multivitamins Therapeutic Tab (*Bkc) PO 1 tablet DAILY [facility] Administration Ondansetron HCl 4 mg 08/23/21 06:27 Ondansetron Inj 4 Mg/2 Ml Vial IV PUSH Q4H PRN Nausea Prednisone 40 mg 08/29/21 08:00 Prednisone 20 Mg Tablet PO DAILY@0800 [facility] Sodium Chloride 1,000 mg 08/28/21 09:00 08/28/21 16:50 Sodium Chloride 500 Mg Tablet PO 1,000 mg BID [facility] Administration Tolterodine Tartrate 4 mg 08/24/21 09:00 08/28/21 09:27 Tolterodine Tartrate La 4 Mg Cap.Er.24h PO 4 mg DAILY [facility] Administration Vitamin D 1,000 units 08/24/21
[2021-08-28] MEDS: lisinopriL 10 MG TABLET PO (15:54)
[2021-08-28] MEDS: MAGNESIUM OXIDE 400 MG TABLET PO (15:54)
[2021-08-28 18:08] LABS: Sodium 122 mmol/L (137-145)
[2021-08-28 20:00] VITALS: PULSE 78; RESP 16; O2SAT 97
[2021-08-28 21:12] VITALS: PULSE 76
[2021-08-28] MEDS: SODIUM CHLORIDE 1 GM TABLET PO (21:13)
[2021-08-28 21:46] VITALS: BP 151/89; PULSE 78; RESP 16; TEMP 35.8; O2SAT 97
[2021-08-28 23:43] LABS: Sodium 123 mmol/L (137-145)
[2021-08-29 06:00] VITALS: BP 158/81; PULSE 70; RESP 16; TEMP 35.9; O2SAT 98
[2021-08-29 07:03] LABS: Albumin Level 2.9 g/dL (3.5-5.1); Anion Gap 4 mmol/L (8-16); Blood Urea Nitrogen 22 mg/dL (7-17); Calcium 7.5 mg/dL (8.4-10.2); Carbon Dioxide 32 mmol/L (22-30); Chloride 86 mmol/L (98-107); Estimated CRCL calculation 70 ml/min; Estimated Glomerular Filt Rate > 60; Glucose 76 mg/dL (65-110); Magnesium 1.6 mg/dL (1.6-2.3); Phosphorus 2.2 mg/dL (2.5-4.5); Potassium 3.4 mmol/L (3.4-5.0); Sodium 122 mmol/L (137-145)
[2021-08-29] MEDS: MAGNESIUM SULF 2 GM/WATER 50ML 2 GM/50 ML BAG IVPB (08:25)
[2021-08-29] MEDS: POTASSIUM CHLORIDE 20 MEQ PACKET (FOR LIQUID) PO (08:25)
[2021-08-29] MEDS: FUROSEMIDE 10 MG TABLET PO ×2 (08:26→12:39)
[2021-08-29] MEDS: SODIUM CHLORIDE 500 MG TABLET 1000 MG PO ×3 (08:26→17:18)
[2021-08-29] MEDS: predniSONE 20 MG TABLET 40 MG PO (08:27)
[2021-08-29] MEDS: CHOLECALCIFEROL 1,000 UNITS TABLET 1000 UNITS PO (08:27)
[2021-08-29 08:28] VITALS: PULSE 70
[2021-08-29] MEDS: HYDROXYCHLOROQUINE SULFATE 200 MG TABLET 400 MG PO (08:28)
[2021-08-29] MEDS: LEFLUNOMIDE 20 MG TABLET PO (08:28)
[2021-08-29] MEDS: METOPROLOL TARTRATE 50 MG TAB PO ×2 (08:28→21:16)
[2021-08-29] MEDS: ATORVASTATIN 10 MG TABLET PO (08:28)
[2021-08-29] MEDS: TOLTERODINE TARTRATE LA 4 MG CAP.ER.24H PO (08:28)
[2021-08-29] MEDS: lisinopriL 10 MG TABLET PO (08:29)
[2021-08-29] MEDS: MULTIVITAMINS THERAPEUTIC TAB (*BKC) 1 TABLET PO (08:29)
[2021-08-29] MEDS: APIXABAN 5 MG TABLET PO ×2 (08:29→21:16)
[2021-08-29] MEDS: levETIRAcetam 500 MG TABLET PO ×2 (08:29→21:16)
[2021-08-29] MEDS: MAGNESIUM OXIDE 400 MG TABLET PO (08:30)
--- NOTE | 2021-08-29 09:14 | PCNWS ---
Weekly nutritional screen. Patient screened in for 7 day length of stay. Patient is tolerating current diet with adequate intake. No weight loss reported. No nutritional needs at this time. No nutritional interventions at this time. Will f/u in 7 days if pt. is not discharged.
[2021-08-29] MEDS: POTASSIUM PHOS/SODIUM PHOS 250 MG TABLET PO (10:19)
--- NOTE | 2021-08-29 12:17 | PM.PNNEP ---
Progress Note: A&P Assessment and Plan (1) Hyponatremia: Code(s): E87.1 - Hypo-osmolality and hyponatremia Status: Acute Assessment and Plan: acute on chronic sodiums have been running ~ 129 - 133 as far back as 2006 does not appear symptomatic from this (although concern is that her admission weakness is related to his issue) not on any offending medications (was previously on HCTZ but this was discontinued in Mar 2020) however, noted to have recent CVA/stroke any type of brain injury can preciptate/worsen hyponatremia previous evaluation noted (March 2020): SPEP and UPEP negative for paraproteinemia kappa/lamda ratio normal TSH okay cortisol was low (but she was on chronic prednisone therapy) and on prednisone currently continue free water restriction for now s/p 3% saline x 2 - will order again today on salt tabs and low dose lasix follow serial sodium levels Will continue to follow. Subjective Date/time seen: 08/29/21 12:17 No new issues or problems overnight; does report some nausea currently but no shortness of breath or any other systemic symptoms; sodium continues to fluctuate despite all interventions to date with most recent sodium down to 119. Exam Narrative: General: WD/WN female in NAD Heart: normal S1 and S2; no rub Lungs: clear to auscultation Abdomen: soft, nontender, nondistended, positive bowel sounds Extremities: no cyanosis or clubbing; no edema Skin: warm and dry Objective Data Vital Signs Vital Signs: Vital Signs Temp Pulse Resp BP Pulse Ox O2 Del Method 08/29/21 08:28 70 08/29/21 06:00 35.9 C L 70 16 158/81 H 98 08/28/21 20:00 78 16 97 Room Air 08/28/21 21:46 35.8 C L 78 16 151/89 H 97 08/28/21 21:12 76 Intake/Output Intake/Output: Intake & Output 08/26/21 08/27/21 08/28/21 08/29/21 23:59 23:59 23:59 23:59 Intake Total 1320 862 902 712 Output Total 200 103 Balance 1320 662 799 712 Meds/Results Medications: Active Medications Generic Name Dose Route Start Last Admin Trade Name Freq PRN Reason Stop Dose Admin Acetaminophen 650 mg 08/23/21 06:27 Acetaminophen 325 Mg Tablet PO Q4H PRN Mild Pain (1-3) or Fever Apixaban 5 mg 08/23/21 21:00 08/29/21 08:29 Apixaban 5 Mg Tablet PO 5 mg Q12HR [facility] Administration Atorvastatin Calcium 10 mg 08/24/21 09:00 08/29/21 08:28 Atorvastatin 10 Mg Tablet PO 10 mg DAILY [facility] Administration Furosemide 10 mg 08/29/21 09:00 08/29/21 12:39 Furosemide 10 Mg Tablet PO 10 mg TID [facility]CRATES Administration Hydroxychloroquine Sulfate 400 mg 08/24/21 09:00 08/29/21 08:28 Hydroxychloroquine Sulfate 200 Mg Tablet PO 400 mg DAILY [facility] Administration Leflunomide 20 mg 08/24/21 09:00 08/29/21 08:28 Leflunomide 20 Mg Tablet PO 20 mg DAILY [facility] Administration Levetiracetam 500 mg 08/23/21 21:00 08/29/21 08:29 Levetiracetam 500 Mg Tablet PO 500 mg Q12HR [facility] Administration Lisinopril 20 mg 08/30/21 09:00 Lisinopril 20 Mg Tablet PO DAILY [facility] Magnesium Oxide 400 mg 08/28/21 14:25 08/29/21 08:30 Magnesium Oxide 400 Mg Tablet PO 400 mg DAILY [facility] Administration Metoprolol Tartrate 50 mg 08/23/21 21:00 08/29/21 08:28 Metoprolol Tartrate 50 Mg Tab PO 50 mg Q12HR [facility] Administration Multivitamins Therapeutic 1 tablet 08/24/21 09:00 08/29/21 08:29 Multivitamins Therapeutic Tab (*Bkc) PO 1 tablet DAILY [facility] Administration Ondansetron HCl 4 mg 08/23/21 06:27 Ondansetron Inj 4 Mg/2 Ml Vial IV PUSH Q4H PRN Nausea Prednisone 40 mg 08/29/21 08:00 08/29/21 08:27 Prednisone 20 Mg Tablet PO 40 mg DAILY@0800 [facility] Administration Sodium Chloride 1,000 mg 08/29/21 09:00 08/29/21 12:39 Sodium Chloride 500 Mg Tablet PO 1,000 mg TID [facility]CR[facility] Administration Tolterodine Tartrate 4 mg 08/24/21 09:00 08/29/21 08:28 Tolterodine Tartrate
--- NOTE | 2021-08-29 12:17 | P.PNNP_ITS ---
Progress Note: A&P Assessment and Plan (1) Hyponatremia: Code(s): E87.1 - Hypo-osmolality and hyponatremia Status: Acute Assessment and Plan: * acute on chronic * sodiums have been running ~ 129 - 133 as far back as 2006 * does not appear symptomatic from this (although concern is that her admission weakness is related to his issue) * not on any offending medications (was previously on HCTZ but this was discon tinued in Mar 2020) * however, noted to have recent CVA/stroke * any type of brain injury can preciptate/worsen hyponatremia * previous evaluation noted (March 2020): * SPEP and UPEP negative for paraproteinemia * kappa/lamda ratio normal * TSH okay * cortisol was low (but she was on chronic prednisone therapy) and on prednisone currently * continue free water restriction for now * s/p 3% saline x 2 - will order again today * on salt tabs and low dose lasix * follow serial sodium levels Will continue to follow. Subjective Date/time seen: 08/29/21 12:17 No new issues or problems overnight; does report some nausea currently but no shortness of breath or any other systemic symptoms; sodium continues to fluctuate despite all interventions to date with most recent sodium down to 119. Exam Narrative: General: WD/WN female in NAD Heart: normal S1 and S2; no rub Lungs: clear to auscultation Abdomen: soft, nontender, nondistended, positive bowel sounds Extremities: no cyanosis or clubbing; no edema Skin: warm and dry Objective Data Vital Signs Vital Signs: Vital Signs Temp Pulse Resp BP Pulse Ox O2 Del Method 08/29/21 08:28 70 08/29/21 06:00 35.9 C L 70 16 158/81 H 98 08/28/21 20:00 78 16 97 Room Air 08/28/21 21:46 35.8 C L 78 16 151/89 H 97 08/28/21 21:12 76 Intake/Output Intake/Output: Intake & Output 08/26/21 08/27/21 08/28/21 08/29/21 23:59 23:59 23:59 23:59 Intake Total 1320 862 902 712 Output Total 200 103 Balance 1320 662 663 712 Meds/Results Medications: Active Medications Generic Name Dose Route Start Last Admin Trade Name Freq PRN Reason Stop Dose Admin Acetaminophen 650 mg 08/23/21 06:27 Acetaminophen 325 Mg Tablet PO Q4H PRN Mild Pain (1-3) or Fever Apixaban 5 mg 08/23/21 21:00 08/29/21 08:29 Apixaban 5 Mg Tablet PO 5 mg Q12HR [facility] Administration Atorvastatin Calcium 10 mg 08/24/21 09:00 08/29/21 08:28 Atorvastatin 10 Mg Tablet PO 10 mg DAILY [facility] Administration Furosemide 10 mg 08/29/21 09:00 08/29/21 12:39 Furosemide 10 Mg Tablet PO 10 mg TID [facility]ART[facility] Administration Hydroxychloroquine Sulfate 400 mg 08/24/21 09:00 08/29/21 08:28 Hydroxychloroquine Sulfate 200 Mg Tablet PO 400 mg DAILY [facility] Administration Leflunomide 20 mg 08/24/21 09:00 08/29/21 08:28 Leflunomide 20 Mg Tablet PO 20 mg DAILY [facility] Administration Levetiracetam 500 mg 08/23/21 21:00 08/29/21 08:29 Levetiracetam 500 Mg Tablet PO 500 mg Q12HR [facility] Administration Lisinopril 20 mg 08/30/21 09:00 Lisinopril 20 Mg Tablet PO DAILY [facility]
[2021-08-29 12:39] LABS: Sodium 119 mmol/L (137-145)
[2021-08-29 13:11] VITALS: BP 124/74; PULSE 76; RESP 16; TEMP 36.1; O2SAT 97
[2021-08-29] MEDS: SODIUM CHLORIDE 3% 180 ML 60 ML IV CONT (13:48)
--- NOTE | 2021-08-29 15:08 | PM.IMPN ---
Progress Note: A&P Assessment and Plan (1) Hyponatremia: Code(s): E87.1 - Hypo-osmolality and hyponatremia Status: Acute Assessment and Plan: Patient with acute on chronic hyponatremia. Baseline sodium on chart review runs mostly 128-131 range. Sodium 120 on admission. Urinalysis on admission was cloudy 1+ protein and 1+ ketones. Latrell 88. TSH normal. Cortisol level okay (on steroids). She is on fluid restriction. She is on Lasix and sodium tablets. She has been receiving 3% saline at times. Nephrology following and appreciate their input. Continue serial sodium check. 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 Renal function stable and no white cells in her urine to suggest nephritis. She was changed to oral Prednisone and will initiate a taper at discharge and refer to PCP and outpatient rheum for further workup. GUILLE and other autoimmune markers including Cryoglobulins are pending. (3) CAD (coronary artery disease): Code(s): I25.10 - Atherosclerotic heart disease of [place] coronary artery without angina pectoris Status: Acute Assessment and Plan: Overall stable. No complaints of chest pain. Continue Lipitor and metoprolol. Patient is not on aspirin most likely related to recent hemorrhagic CVA. Continue follow. (4) Hypertension: Code(s): I10 - Essential (primary) hypertension Status: Acute Assessment and Plan: Patient's blood pressure was reviewed on 08/29 Blood pressure remains reasonably well controlled. Lisinopril remains on hold. Will continue current medications. Advance lisinopril. (5) Rheumatoid arthritis with rheumatoid factor of multiple sites without organ or systems involvement: Onset Date: ~2000 Code(s): M05.79 - Rheumatoid arthritis with rheumatoid factor of multiple sites without organ or systems involvement Status: Acute Assessment and Plan: Stable. Continue Plaquenil. Continue steroids. (6) Paroxysmal atrial fibrillation: Code(s): I48.0 - Paroxysmal atrial fibrillation Status: Acute Assessment and Plan: EKG shows normal sinus rhythm. Regular rate on exam. Continue metoprolol. Continue Eliquis. Plan for a Watchman-like procedure on September 09. Plan DVT prophylaxis: Eliquis Code status: Full Subjective Date/time seen: 08/29/21 15:08 Interval history: 76yo female with RA, CAD, HTN, pAFib and recent hemorrhagic CVA here for GNW and LE rash. No issues overnight. Did have nausea and vomiting after lunch today. No CP or SOB. Nml BMs. Exam Narrative: AF 96.9 124/74 76 16 97% ra Gen - NARD Chest - CTA bilaterally, nml RR CV - RRR S1/S2 Abd - Soft, NT/ND, Positive BS Ext - No pedal edema Psych - Nml mood and affect Skin - Warm and dry. Bilateral lower extremity nonblanching petechial rash that has almost resolved on the left lovelace. Objective Data Vital Signs Vital Signs: Vital Signs - 24 hr 08/28/21 21:12 08/28/21 21:46 08/28/21 20:00 Temperature 96.4 F L Pulse Rate 76 78 78 Respiratory Rate 16 16 Blood Pressure 151/89 H Pulse Oximetry 97 97 Oxygen Delivery Room Air 08/29/21 06:00 08/29/21 08:28 08/29/21 13:11 Temperature 96.7 F L 96.9 F L Pulse Rate 70 70 76 Respiratory Rate 16 16 Blood Pressure 158/81 H 124/74 Pulse Oximetry 98 97 Oxygen Delivery Intake/Output Intake/Output: Intake & Output 08/26/21 08/27/21 08/28/21 08/29/21 23:59 23:59 23:59 23:59 Intake Total 1320 862 902 712 Output Total 200 103 Balance 1320 662 799 712 Meds/Results Medications: Active Medications Generic Name Dose Route Start Last Admin Trade Name Freq PRN Reason Stop Dose Admin Acetaminophen 650 mg 08/23/21 06:27 Acetaminophen 325 Mg Tablet PO Q4H PRN Mild Pain (1-3) or Fever Apixaban
--- NOTE | 2021-08-29 15:33 | PCCCNOTE ---
On 08/29/21, the student, [Telma Francis], provided care and completed [facility] documentation on this patient. I have reviewed the student's documentation and agree with the findings.
[2021-08-29 18:33] LABS: Sodium 121 mmol/L (137-145)
[2021-08-29 20:00] VITALS: PULSE 76; RESP 16; O2SAT 97
[2021-08-29 21:16] VITALS: PULSE 76
[2021-08-29 21:57] VITALS: BP 123/71; PULSE 72; RESP 18; TEMP 36.6; O2SAT 99
[2021-08-30 00:03] LABS: Sodium 119 mmol/L (137-145)
[2021-08-30 05:10] VITALS: BP 156/83; PULSE 70; RESP 16; TEMP 36.4; O2SAT 98
[2021-08-30 06:11] LABS: Hematocrit 32.1 % (37.0-47.0); Hemoglobin 10.5 g/dL (12.0-15.0); Mean Corpuscular HGB Conc 32.7 g/dl (32-36); Mean Corpuscular Volume 85.6 fl (80-100); Mean Platelet Volume 8.5 fl (7.4-10.4); Platelet Count Result 266 k/mm3 (150-375); Red Blood Count 3.75 M/mm3 (4.2-5.4); White Blood Count 8.5 K/mm3 (4.5-10.0)
[2021-08-30 06:19] LABS: Albumin Level 2.8 g/dL (3.5-5.1); Anion Gap 2 mmol/L (8-16); Blood Urea Nitrogen 22 mg/dL (7-17); Calcium 7.3 mg/dL (8.4-10.2); Carbon Dioxide 31 mmol/L (22-30); Chloride 88 mmol/L (98-107); Estimated CRCL calculation 70 ml/min; Estimated Glomerular Filt Rate > 60; Glucose 75 mg/dL (65-110); Magnesium 2.1 mg/dL (1.6-2.3); Phosphorus 2.8 mg/dL (2.5-4.5); Potassium 3.9 mmol/L (3.4-5.0); Sodium 121 mmol/L (137-145)
[2021-08-30] MEDS: CHOLECALCIFEROL 1,000 UNITS TABLET 1000 UNITS PO (08:42)
[2021-08-30] MEDS: HYDROXYCHLOROQUINE SULFATE 200 MG TABLET 400 MG PO (08:42)
[2021-08-30] MEDS: APIXABAN 5 MG TABLET PO ×2 (08:42→21:11)
[2021-08-30] MEDS: ATORVASTATIN 10 MG TABLET PO (08:42)
[2021-08-30] MEDS: MAGNESIUM OXIDE 400 MG TABLET PO (08:43)
[2021-08-30] MEDS: levETIRAcetam 500 MG TABLET PO ×2 (08:43→21:11)
[2021-08-30] MEDS: LEFLUNOMIDE 20 MG TABLET PO (08:43)
[2021-08-30] MEDS: MULTIVITAMINS THERAPEUTIC TAB (*BKC) 1 TABLET PO (08:44)
[2021-08-30] MEDS: lisinopriL 20 MG TABLET PO (08:44)
[2021-08-30] MEDS: TOLTERODINE TARTRATE LA 4 MG CAP.ER.24H PO (08:44)
[2021-08-30] MEDS: METOPROLOL TARTRATE 50 MG TAB PO ×2 (08:44→21:12)
[2021-08-30] MEDS: predniSONE 20 MG TABLET 40 MG PO (08:44)
[2021-08-30] MEDS: SODIUM CHLORIDE 500 MG TABLET 1000 MG PO ×2 (08:45→12:48)
--- NOTE | 2021-08-30 11:25 | PM.PNNEP ---
Progress Note: A&P Assessment and Plan (1) Hyponatremia: Code(s): E87.1 - Hypo-osmolality and hyponatremia Status: Acute Assessment and Plan: acute on chronic sodiums have been running ~ 129 - 133 as far back as 2006 does not appear symptomatic from this (although concern is that her admission weakness is related to his issue) not on any offending medications (was previously on HCTZ but this was discontinued in Mar 2020) however, noted to have recent CVA/stroke (May 2021) any type of brain injury can precipitate/worsen hyponatremia previous evaluation noted (March 2020): SPEP and UPEP negative for paraproteinemia kappa/lambda ratio normal TSH okay cortisol was low (but she was on chronic prednisone therapy) and on prednisone currently continue free water restriction for now s/p 3% saline x 3 on salt tabs consider adding demeclocycline(?) follow serial sodium levels Will continue to follow. Subjective Date/time seen: 08/30/21 11:25 Despite fluctuating sodium levels, she remains in good spirits; no apparent distress voiced at the time of my visit; no other complaints other than being on the fluid restriction; no issues/events overnight or earlier this morning. Exam Narrative: General: WD/WN female in NAD Heart: normal S1 and S2; no rub Lungs: clear to auscultation Abdomen: soft, nontender, nondistended, positive bowel sounds Extremities: no cyanosis or clubbing; no edema Skin: warm and intact Objective Data Vital Signs Vital Signs: Vital Signs Temp Pulse Resp BP Pulse Ox O2 Del Method 08/30/21 05:10 36.4 C 70 16 156/83 H 98 08/29/21 21:57 36.6 C 72 18 123/71 99 08/29/21 20:00 76 16 97 Room Air 08/29/21 21:16 76 Intake/Output Intake/Output: Intake & Output 08/27/21 08/28/21 08/29/21 08/30/21 23:59 23:59 23:59 23:59 Intake Total 862 902 992 902 Output Total 200 103 100 Balance 662 799 892 902 Meds/Results Medications: Active Medications Generic Name Dose Route Start Last Admin Trade Name Freq PRN Reason Stop Dose Admin Acetaminophen 650 mg 08/23/21 06:27 Acetaminophen 325 Mg Tablet PO Q4H PRN Mild Pain (1-3) or Fever Apixaban 5 mg 08/23/21 21:00 08/30/21 08:42 Apixaban 5 Mg Tablet PO 5 mg Q12HR [facility] Administration Atorvastatin Calcium 10 mg 08/24/21 09:00 08/30/21 08:42 Atorvastatin 10 Mg Tablet PO 10 mg DAILY [facility] Administration Furosemide 10 mg 08/29/21 09:00 08/29/21 12:39 Furosemide 10 Mg Tablet PO 10 mg TID [facility] Administration Hydroxychloroquine Sulfate 400 mg 08/24/21 09:00 08/30/21 08:42 Hydroxychloroquine Sulfate 200 Mg Tablet PO 400 mg DAILY [facility] Administration Leflunomide 20 mg 08/24/21 09:00 08/30/21 08:43 Leflunomide 20 Mg Tablet PO 20 mg DAILY [facility] Administration Levetiracetam 500 mg 08/23/21 21:00 08/30/21 08:43 Levetiracetam 500 Mg Tablet PO 500 mg Q12HR [facility] Administration Lisinopril 40 mg 08/31/21 09:00 Lisinopril 20 Mg Tablet PO DAILY [facility] Magnesium Oxide 400 mg 08/28/21 14:25 08/30/21 08:43 Magnesium Oxide 400 Mg Tablet PO 400 mg DAILY [facility] Administration Metoprolol Tartrate 50 mg 08/23/21 21:00 08/30/21 08:44 Metoprolol Tartrate 50 Mg Tab PO 50 mg Q12HR [facility] Administration Multivitamins Therapeutic 1 tablet 08/24/21 09:00 08/30/21 08:44 Multivitamins Therapeutic Tab (*Bkc) PO 1 tablet DAILY [facility] Administration Ondansetron HCl 4 mg 08/23/21 06:27 Ondansetron Inj 4 Mg/2 Ml Vial IV PUSH Q4H PRN Nausea Prednisone 40 mg 08/29/21 08:00 08/30/21 08:44 Prednisone 20 Mg Tablet PO 40 mg DAILY@0800 [facility] Administration Sodium Chloride 1,000 mg 08/29/21 09:00 08/30/21 12:48 Sodium Chloride 500 Mg Tablet PO 1,000 mg TID [facility] Administration Tolterodine Tartrate 4 mg 08/24/21 09:00 08/30/21 08:44 Tolterodine Tartrate La 4 Mg Cap.Er.24
--- NOTE | 2021-08-30 11:25 | P.PNNP_ITS ---
Progress Note: A&P Assessment and Plan (1) Hyponatremia: Code(s): E87.1 - Hypo-osmolality and hyponatremia Status: Acute Assessment and Plan: * acute on chronic * sodiums have been running ~ 129 - 133 as far back as 2006 * does not appear symptomatic from this (although concern is that her admission weakness is related to his issue) * not on any offending medications (was previously on HCTZ but this was discon tinued in Mar 2020) * however, noted to have recent CVA/stroke (May 2021) * any type of brain injury can precipitate/worsen hyponatremia * previous evaluation noted (March 2020): * SPEP and UPEP negative for paraproteinemia * kappa/lambda ratio normal * TSH okay * cortisol was low (but she was on chronic prednisone therapy) and on prednisone currently * continue free water restriction for now * s/p 3% saline x 3 * on salt tabs * consider adding demeclocycline(?) * follow serial sodium levels Will continue to follow. Subjective Date/time seen: 08/30/21 11:25 Despite fluctuating sodium levels, she remains in good spirits; no apparent distress voiced at the time of my visit; no other complaints other than being on the fluid restriction; no issues/events overnight or earlier this morning. Exam Narrative: General: WD/WN female in NAD Heart: normal S1 and S2; no rub Lungs: clear to auscultation Abdomen: soft, nontender, nondistended, positive bowel sounds Extremities: no cyanosis or clubbing; no edema Skin: warm and intact Objective Data Vital Signs Vital Signs: Vital Signs Temp Pulse Resp BP Pulse Ox O2 Del Method 08/30/21 05:10 36.4 C 70 16 156/83 H 98 08/29/21 21:57 36.6 C 72 18 123/71 99 08/29/21 20:00 76 16 97 Room Air 08/29/21 21:16 76 Intake/Output Intake/Output: Intake & Output 08/27/21 08/28/21 08/29/21 08/30/21 23:59 23:59 23:59 23:59 Intake Total 862 902 992 902 Output Total 200 103 100 Balance 662 799 892 902 Meds/Results Medications: Active Medications Generic Name Dose Route Start Last Admin Trade Name Freq PRN Reason Stop Dose Admin Acetaminophen 650 mg 08/23/21 06:27 Acetaminophen 325 Mg Tablet PO Q4H PRN Mild Pain (1-3) or Fever Apixaban 5 mg 08/23/21 21:00 08/30/21 08:42 Apixaban 5 Mg Tablet PO 5 mg Q12HR [facility] Administration Atorvastatin Calcium 10 mg 08/24/21 09:00 08/30/21 08:42 Atorvastatin 10 Mg Tablet PO 10 mg DAILY [facility] Administration Furosemide 10 mg 08/29/21 09:00 08/29/21 12:39 Furosemide 10 Mg Tablet PO 10 mg TID [facility] Administration Hydroxychloroquine Sulfate 400 mg 08/24/21 09:00 08/30/21 08:42 Hydroxychloroquine Sulfate 200 Mg Tablet PO 400 mg DAILY [facility] Administration Leflunomide 20 mg 08/24/21 09:00 08/30/21 08:43 Leflunomide 20 Mg Tablet PO 20 mg DAILY [facility] Administration Levetiracetam 500 mg 08/23/21 21:00 08/30/21 08:43 Levetiracetam 500 Mg Tablet PO 500 mg Q12HR [facility] Administration Lisinopril 40 mg 08/31/21 09:00 Lisinopril 20 Mg Tablet PO DAILY [facility] Magnesium O
--- NOTE | 2021-08-30 12:34 | PM.IMPN ---
Progress Note: A&P Assessment and Plan (1) Hyponatremia: Code(s): E87.1 - Hypo-osmolality and hyponatremia Status: Acute Assessment and Plan: Patient with acute on chronic hyponatremia. Baseline sodium on chart review runs mostly 128-131 range. Sodium 120 on admission. Urinalysis on admission was cloudy 1+ protein and 1+ ketones. Latrell 88. TSH normal. Cortisol level okay (on steroids). She is on fluid restriction. She is on sodium tablets. She has been receiving 3% saline at times. Was on Lasix but held now. No significant change in her Na levels. Related to her recent CVA? CT brain here showing no acute findings. Nephrology following and appreciate their input. Continue serial sodium check. 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 Renal function stable and no white cells in her urine to suggest nephritis. She was changed to oral Prednisone and will refer to PCP and outpatient rheum for further workup. GUILLE and other autoimmune markers including Cryoglobulins are pending. (3) CAD (coronary artery disease): Code(s): I25.10 - Atherosclerotic heart disease of [place] coronary artery without angina pectoris Status: Acute Assessment and Plan: Overall stable. No complaints of chest pain. Continue Lipitor and metoprolol. Patient is not on aspirin most likely related to recent hemorrhagic CVA. Continue follow. (4) Hypertension: Code(s): I10 - Essential (primary) hypertension Status: Acute Assessment and Plan: Patient's blood pressure was reviewed on 08/30 Blood pressure remains mostly well controlled. Will continue current medications. Continue to advance lisinopril. (5) Rheumatoid arthritis with rheumatoid factor of multiple sites without organ or systems involvement: Onset Date: ~2000 Code(s): M05.79 - Rheumatoid arthritis with rheumatoid factor of multiple sites without organ or systems involvement Status: Acute Assessment and Plan: Stable. Continue Plaquenil. Continue steroids. (6) Paroxysmal atrial fibrillation: Code(s): I48.0 - Paroxysmal atrial fibrillation Status: Acute Assessment and Plan: EKG shows normal sinus rhythm. Regular rate on exam. Continue metoprolol. Continue Eliquis. Plan for a Watchman-like procedure on September 09. Plan DVT prophylaxis: Eliquis Code status: Full Subjective Date/time seen: 08/30/21 12:34 Interval history: 76yo female with RA, CAD, HTN, pAFib and recent hemorrhagic CVA here for GNW and LE rash. No complaints today except wanting her fluid restriction lifted. She denies CP, SOB, n/v. Exam Narrative: AF 97.9 156/83 70 16 98% ra Gen - NARD Chest - CTA bilaterally, nml RR CV - RRR S1/S2 Abd - Soft, NT/ND, Positive BS Ext - No pedal edema Psych - Nml mood and affect Skin - Warm and dry. Fading bilateral lower extremity nonblanching petechial rash Objective Data Vital Signs Vital Signs: Vital Signs - 24 hr 08/29/21 13:11 08/29/21 21:16 08/29/21 20:00 Temperature 96.9 F L Pulse Rate 76 76 76 Respiratory Rate 16 16 Blood Pressure 124/74 Pulse Oximetry 97 97 Oxygen Delivery Room Air 08/29/21 21:57 08/30/21 05:10 Temperature 98 F 97.6 F Pulse Rate 72 70 Respiratory Rate 18 16 Blood Pressure 123/71 156/83 H Pulse Oximetry 99 98 Oxygen Delivery Intake/Output Intake/Output: Intake & Output 08/27/21 08/28/21 08/29/21 08/30/21 23:59 23:59 23:59 23:59 Intake Total 862 902 992 680 Output Total 200 103 100 Balance 662 591 142 680 Meds/Results Medications: Active Medications Generic Name Dose Route Start Last Admin Trade Name Freq PRN Reason Stop Dose Admin Acetaminophen 650 mg 08/23/21 06:27 Acetaminophen 325 Mg Tablet PO Q4H PRN Mild Pain (1-3) o
[2021-08-30 13:55] VITALS: BP 109/64; PULSE 67; RESP 16; TEMP 36.3; O2SAT 98
[2021-08-30 15:21] LABS: Sodium 119 mmol/L (137-145)
[2021-08-30] MEDS: SODIUM CHLORIDE 500 MG TABLET 1500 MG PO (16:25)
[2021-08-30 21:57] VITALS: BP 123/65; PULSE 77; RESP 16; TEMP 37; O2SAT 97
[2021-08-31 05:46] VITALS: BP 153/83; PULSE 71; RESP 16; TEMP 36.8; O2SAT 98
[2021-08-31 06:42] LABS: Albumin Level 2.7 g/dL (3.5-5.1); Anion Gap 3 mmol/L (8-16); Blood Urea Nitrogen 20 mg/dL (7-17); Calcium 7.2 mg/dL (8.4-10.2); Carbon Dioxide 26 mmol/L (22-30); Chloride 89 mmol/L (98-107); Estimated CRCL calculation 85 ml/min; Estimated Glomerular Filt Rate > 60; Glucose 76 mg/dL (65-110); Phosphorus 2.7 mg/dL (2.5-4.5); Potassium 4.1 mmol/L (3.4-5.0); Sodium 118 mmol/L (137-145)
[2021-08-31] MEDS: SODIUM CHLORIDE 3% 240 ML 60 ML IV CONT (08:55)
[2021-08-31] MEDS: ATORVASTATIN 10 MG TABLET PO (09:03)
[2021-08-31] MEDS: CHOLECALCIFEROL 1,000 UNITS TABLET 1000 UNITS PO (09:03)
[2021-08-31] MEDS: APIXABAN 5 MG TABLET PO ×2 (09:03→21:06)
[2021-08-31] MEDS: DEMECLOCYCLINE HCL 150 MG TABLET PO ×4 (09:03→21:06)
[2021-08-31] MEDS: predniSONE 20 MG TABLET 40 MG PO (09:03)
[2021-08-31] MEDS: HYDROXYCHLOROQUINE SULFATE 200 MG TABLET 400 MG PO (09:03)
[2021-08-31] MEDS: METOPROLOL TARTRATE 50 MG TAB PO ×2 (09:04→21:07)
[2021-08-31] MEDS: lisinopriL 20 MG TABLET 40 MG PO (09:04)
[2021-08-31] MEDS: MAGNESIUM OXIDE 400 MG TABLET PO (09:04)
[2021-08-31] MEDS: levETIRAcetam 500 MG TABLET PO ×2 (09:04→21:06)
[2021-08-31] MEDS: LEFLUNOMIDE 20 MG TABLET PO (09:04)
[2021-08-31] MEDS: MULTIVITAMINS THERAPEUTIC TAB (*BKC) 1 TABLET PO (09:05)
[2021-08-31] MEDS: SODIUM CHLORIDE 500 MG TABLET 1500 MG PO ×3 (09:05→16:43)
[2021-08-31] MEDS: TOLTERODINE TARTRATE LA 4 MG CAP.ER.24H PO (09:05)
[2021-08-31 10:39] LABS: Sodium Urine Random 154 meq/L
--- NOTE | 2021-08-31 12:27 | P.PNNP_ITS ---
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 * previous evaluation noted (March 2020): * SPEP and UPEP negative for paraproteinemia * kappa/lambda ratio normal * TSH okay * cortisol was low (but she was on chronic prednisone therapy) and on prednisone currently * given resistance of hyponatremia to medical therapy, will repeat evaluation * continue free water restriction for now * s/p 3% saline x 3 * on salt tabs - may need to consider adding back low dose lasix * will add demeclocycline today * follow serial sodium levels Will continue to follow. Subjective Date/time seen: 08/31/21 12:27 No new issues or problems to report at this time; a bit frustrated by fluid restriction as well as the fact that her sodium level is not improving despite all interventions to date; no apparent distress noted; no issues or events overnight or earlier today. Exam Narrative: General: WD/WN female in NAD Heart: normal S1 and S2; no rub Lungs: clear to auscultation Abdomen: soft, nontender, nondistended, positive bowel sounds Extremities: no cyanosis or clubbing; no edema Skin: no nodules Objective Data Vital Signs Vital Signs: Vital Signs Temp Pulse Resp BP Pulse Ox 08/31/21 05:46 36.8 C 71 16 153/83 H 98 08/30/21 21:57 37.0 C 77 16 123/65 97 Intake/Output Intake/Output: Intake & Output 08/28/21 08/29/21 08/30/21 08/31/21 23:59 23:59 23:59 23:59 Intake Total 946 204 1881 740 Output Total 103 100 400 Balance 103 139 8550 340 Meds/Results Medications: Active Medications Generic Name Dose Route Start Last Admin Trade Name Freq PRN Reason Stop Dose Admin Acetaminophen 650 mg 08/23/21 06:27 Acetaminophen 325 Mg Tablet PO Q4H PRN Mild Pain (1-3) or Fever Apixaban 5 mg 08/23/21 21:00 08/31/21 09:03 Apixaban 5 Mg Tablet PO 5 mg Q12HR [facility] Administration Atorvastatin Calcium 10 mg 08/24/21 09:00 08/31/21 09:03 Atorvastatin 10 Mg Tablet PO 10 mg DAILY [facility] Administration Demeclocycline HCl 150 mg 08/31/21 09:00 08/31/21 16:43 Demeclocycline Hcl 150 Mg Tablet PO 150 mg QID [facility] Administration Furosemide 10 mg 08/29/21 09:00 08/29/21 12:39 Furosemide 10 Mg Tablet PO 10 mg TID [facility] Administration Hydroxychloroquine Sulfate 400 mg 08/24/21 09:00 08/31/21 09:03 Hydroxychloroquine Sulfate 200 Mg Tablet PO 400 mg DAILY [facility] Administration Leflunomide 20 mg 08/24/21 09:00 08/31/21 09:04 Leflunomide 20 Mg Tablet PO 20 mg DAILY [facility] Administration Levetiracetam
--- NOTE | 2021-08-31 12:27 | PM.PNNEP ---
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 previous evaluation noted (March 2020): SPEP and UPEP negative for paraproteinemia kappa/lambda ratio normal TSH okay cortisol was low (but she was on chronic prednisone therapy) and on prednisone currently given resistance of hyponatremia to medical therapy, will repeat evaluation continue free water restriction for now s/p 3% saline x 3 on salt tabs - may need to consider adding back low dose lasix will add demeclocycline today follow serial sodium levels Will continue to follow. Subjective Date/time seen: 08/31/21 12:27 No new issues or problems to report at this time; a bit frustrated by fluid restriction as well as the fact that her sodium level is not improving despite all interventions to date; no apparent distress noted; no issues or events overnight or earlier today. Exam Narrative: General: WD/WN female in NAD Heart: normal S1 and S2; no rub Lungs: clear to auscultation Abdomen: soft, nontender, nondistended, positive bowel sounds Extremities: no cyanosis or clubbing; no edema Skin: no nodules Objective Data Vital Signs Vital Signs: Vital Signs Temp Pulse Resp BP Pulse Ox 08/31/21 05:46 36.8 C 71 16 153/83 H 98 08/30/21 21:57 37.0 C 77 16 123/65 97 Intake/Output Intake/Output: Intake & Output 08/28/21 08/29/21 08/30/21 08/31/21 23:59 23:59 23:59 23:59 Intake Total 035 420 4267 740 Output Total 103 100 400 Balance 068 396 7059 340 Meds/Results Medications: Active Medications Generic Name Dose Route Start Last Admin Trade Name Freq PRN Reason Stop Dose Admin Acetaminophen 650 mg 08/23/21 06:27 Acetaminophen 325 Mg Tablet PO Q4H PRN Mild Pain (1-3) or Fever Apixaban 5 mg 08/23/21 21:00 08/31/21 09:03 Apixaban 5 Mg Tablet PO 5 mg Q12HR [facility] Administration Atorvastatin Calcium 10 mg 08/24/21 09:00 08/31/21 09:03 Atorvastatin 10 Mg Tablet PO 10 mg DAILY [facility] Administration Demeclocycline HCl 150 mg 08/31/21 09:00 08/31/21 16:43 Demeclocycline Hcl 150 Mg Tablet PO 150 mg QID [facility] Administration Furosemide 10 mg 08/29/21 09:00 08/29/21 12:39 Furosemide 10 Mg Tablet PO 10 mg TID [facility] Administration Hydroxychloroquine Sulfate 400 mg 08/24/21 09:00 08/31/21 09:03 Hydroxychloroquine Sulfate 200 Mg Tablet PO 400 mg DAILY [facility] Administration Leflunomide 20 mg 08/24/21 09:00 08/31/21 09:04 Leflunomide 20 Mg Tablet PO 20 mg DAILY [facility] Administration Levetiracetam 500 mg 08/23/21 21:00 08/31/21 09:04 Levetiracetam 500 Mg Tablet PO 500 mg Q12HR [facility] Administration Lisinopril 40 mg 08/31/21 09:00 08/31/21 09:04 Lisinopril 20 Mg Tablet PO 40 mg DAILY [facility] Administration Magnesium Oxide 400 mg 08/28/21 14:25 08/31/21 09:04 Magnesium Oxide 400 Mg Tablet PO 400 mg DAILY [facility] Administration Metoprolol Tartrate 50 mg 08/23/21 21:00 08/31/21 09:04 Metoprolol Tartrate 50 Mg Tab PO 50 mg Q12HR [facility] Administration Multivitamins Therapeutic 1 tablet 08/24/21 09:00 08/31/21 09:05 Multivitamins Therapeutic Tab (*Bkc) PO 1 tablet DAILY [facility] Administration Ondansetron HCl 4 mg 08/23/21 06:27 Ondansetron Inj 4 Mg/2 Ml Vial IV PUSH Q4H PRN Nausea Prednisone 40 mg 08/29/21 08:00 08/31/21 09:03 Prednisone 20 Mg Tab
[2021-08-31 14:00] VITALS: BP 115/69; PULSE 71; RESP 16; TEMP 35.8; O2SAT 99
[2021-08-31 14:15] LABS: Cryoglobulin, QL Negative (Negative)
--- NOTE | 2021-08-31 14:22 | PCOTNOTE ---
Attempted to see pt for occupational therapy tx at 14:19. Due to having visitors, pt declined to participate in tx. Pt was educated on the importance of participation in therapy tx for independence with daily occupations, however, pt continued to refuse. Will continue per poc duration/frequency.
[2021-08-31 14:44] LABS: Sodium 120 mmol/L (137-145)
--- NOTE | 2021-08-31 15:12 | PM.IMPN ---
Progress Note: A&P Assessment and Plan (1) Hyponatremia: Code(s): E87.1 - Hypo-osmolality and hyponatremia Status: Acute Assessment and Plan: Patient with acute on chronic hyponatremia. Baseline sodium on chart review runs mostly 128-131 range. Sodium 120 on admission. Urinalysis on admission was cloudy 1+ protein and 1+ ketones. Latrell 88. TSH normal. Cortisol level okay (on steroids). She is on fluid restriction and sodium tablets. She has been receiving 3% saline at times. Was on Lasix but held now. No significant change in her Na levels. She mentions she had significant polyuria after her hemorrhagic stroke. Consider Cerebral Salt Wasting. She is not HoTN but complains of dry mouth and BUN/Cr ratio is elevated. Repeat Latrell now 154 with FENa 3.2%. Related to her recent CVA? CT brain here showing no acute findings. Repeat CT brain. Low protein may be contributing to the inability to correct her Na. Nephrology following and appreciate their input. Consider demeclocycline or tolvaptan. Continue serial sodium check. Check uric acid level and osmolality. 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 Renal function stable and no white cells in her urine to suggest nephritis. Cryoglobulins negative. She was changed to oral Prednisone and will refer to PCP and outpatient rheum for further workup. GUILLE and other autoimmune markers are pending. (3) CAD (coronary artery disease): Code(s): I25.10 - Atherosclerotic heart disease of [place] coronary artery without angina pectoris Status: Acute Assessment and Plan: Overall stable. No complaints of chest pain. Continue Lipitor and metoprolol. Patient is not on aspirin most likely related to recent hemorrhagic CVA. Continue follow. (4) Hypertension: Code(s): I10 - Essential (primary) hypertension Status: Acute Assessment and Plan: Patient's blood pressure was reviewed on 08/31 Blood pressure remains mostly well controlled. Will continue current medications. (5) Rheumatoid arthritis with rheumatoid factor of multiple sites without organ or systems involvement: Onset Date: ~2000 Code(s): M05.79 - Rheumatoid arthritis with rheumatoid factor of multiple sites without organ or systems involvement Status: Acute Assessment and Plan: Stable. Continue Plaquenil. Plaquenil can cause proteinuria which could be contributing to her hypoalbuminemia. Continue steroids. (6) Paroxysmal atrial fibrillation: Code(s): I48.0 - Paroxysmal atrial fibrillation Status: Acute Assessment and Plan: EKG shows normal sinus rhythm. Regular rate on exam. Continue metoprolol. Continue Eliquis. Plan for a Watchman-like procedure on September 09. Plan DVT prophylaxis: Eliquis Code status: Full Subjective Date/time seen: 08/31/21 15:12 Interval history: 76yo female with RA, CAD, HTN, pAFib and recent hemorrhagic CVA here for GNW and LE rash. No issues overnight. Feels well. Requesting discharge. Family in the room they were updated with patient's permission. They were concerned the patient may have had another stroke. Patient states there has been no new medications since her last stroke in May. She states her sodium was not an issue at the previous hospitalization in May. She does mention that she was avoiding excessively during the hospitalization and a few days after discharge. Exam Narrative: AF 96.5 115/69 71 16 99% ra Gen - NARD sitting up in chair Chest - CTA bilaterally, nml RR CV - RRR S1/S2 Abd - Soft, NT/ND, Positive BS Ext - No pedal edema Psych - Nml mood and affect Skin - Warm and dry. Objective Data Vital Signs Vital Signs: Vital Signs - 24 hr 08/30/21 21:57 08/31/21 05:46 08/31/21 14:00 Temperature 98.6 F 98.3 F 96.5 F L Pulse Rat
--- NOTE | 2021-08-31 15:47 | PCOTNOTE ---
Attempted a 2nd time for Occupational Therapy tx, however, pt still has visitors and declined to participate in therapy session. Will continue per poc duration/frequency tomorrow.
[2021-08-31 20:40] VITALS: PULSE 75; RESP 18; O2SAT 98
[2021-08-31 21:07] VITALS: PULSE 72
[2021-08-31 21:55] LABS: Lupus dRVVT 1:1 Mix Interpreta Not Indicated; Lupus dRVVT Screen 45 sec (<=45); PTT-LA Screen 34 sec (<=40)
[2021-08-31 22:00] VITALS: BP 132/78; PULSE 75; RESP 18; TEMP 36.3; O2SAT 98
[2021-09-01 05:40] VITALS: BP 164/92; PULSE 72; RESP 18; TEMP 36.6; O2SAT 100
[2021-09-01 07:48] LABS: Anion Gap 1 mmol/L (8-16); Blood Urea Nitrogen 23 mg/dL (7-17); Calcium 7.5 mg/dL (8.4-10.2); Carbon Dioxide 26 mmol/L (22-30); Chloride 92 mmol/L (98-107); Estimated CRCL calculation 85 ml/min; Estimated Glomerular Filt Rate > 60; Glucose 70 mg/dL (65-110); Potassium 4.3 mmol/L (3.4-5.0); Sodium 119 mmol/L (137-145)
[2021-09-01] MEDS: METOPROLOL TARTRATE 50 MG TAB PO ×2 (10:24→20:14)
[2021-09-01] MEDS: lisinopriL 20 MG TABLET 40 MG PO (10:24)
[2021-09-01] MEDS: LEFLUNOMIDE 20 MG TABLET PO (10:24)
[2021-09-01] MEDS: MAGNESIUM OXIDE 400 MG TABLET PO (10:24)
[2021-09-01] MEDS: MULTIVITAMINS THERAPEUTIC TAB (*BKC) 1 TABLET PO (10:24)
[2021-09-01] MEDS: HYDROXYCHLOROQUINE SULFATE 200 MG TABLET 400 MG PO (10:25)
[2021-09-01] MEDS: TOLTERODINE TARTRATE LA 4 MG CAP.ER.24H PO (10:25)
[2021-09-01] MEDS: SODIUM CHLORIDE 500 MG TABLET 1500 MG PO ×3 (10:25→17:21)
[2021-09-01] MEDS: predniSONE 20 MG TABLET 40 MG PO (10:25)
[2021-09-01] MEDS: ATORVASTATIN 10 MG TABLET PO (10:25)
[2021-09-01] MEDS: CHOLECALCIFEROL 1,000 UNITS TABLET 1000 UNITS PO (10:25)
[2021-09-01] MEDS: APIXABAN 5 MG TABLET PO ×2 (10:25→20:16)
[2021-09-01] MEDS: DEMECLOCYCLINE HCL 150 MG TABLET PO ×4 (10:25→20:16)
[2021-09-01] MEDS: levETIRAcetam 500 MG TABLET PO ×2 (10:25→20:17)
--- NOTE | 2021-09-01 11:19 | PM.IMPN ---
Progress Note: A&P Assessment and Plan (1) Hyponatremia: Code(s): E87.1 - Hypo-osmolality and hyponatremia Status: Acute Assessment and Plan: Patient with acute on chronic hyponatremia.? Baseline sodium on chart review runs mostly 128-131 range.? Sodium 120 on admission.? Urinalysis on admission was cloudy 1+ protein and 1+ ketones. Latrell 88. TSH normal. Cortisol level okay (on steroids). She is on fluid restriction and sodium tablets.? She has been receiving 3% saline at times.? Was on Lasix but held now. No significant change in her Na levels. She mentions she had significant polyuria after her hemorrhagic stroke in May. Consider Cerebral Salt Wasting. She is not HoTN but complains of dry mouth and BUN/Cr ratio is elevated. Repeat Latrell 154 with FENa 3.2%. Related to her recent CVA? CT brain here showing no acute findings and repeat CT no change. Low protein may be contributing to the inability to correct her Na. Uric acid very low felt related to urate wasting so consider Cerebral Salt Wasting. Demeclocycline added. Continue serial sodium check. Osmolality levels pending. Nephrology following and appreciate their input.? 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 Renal function stable and no white cells in her urine to suggest nephritis. Cryoglobulins negative. She was changed to oral Prednisone and will refer to PCP and outpatient rheum for further workup. GUILLE and other autoimmune markers are pending. Wean Prednisone every 5 days. (3) CAD (coronary artery disease): Code(s): I25.10 - Atherosclerotic heart disease of [place] coronary artery without angina pectoris Status: Acute Assessment and Plan: Overall stable.? No complaints of chest pain. Continue Lipitor and metoprolol.? Patient is not on aspirin most likely related to recent hemorrhagic CVA.? Continue follow. (4) Hypertension: Code(s): I10 - Essential (primary) hypertension Status: Acute Assessment and Plan: Patient's blood pressure was reviewed on 09/01 Blood pressure elevated at times but overall BP remains mostly well controlled. Will continue current medications. (5) Rheumatoid arthritis with rheumatoid factor of multiple sites without organ or systems involvement: Onset Date: ~2000 Code(s): M05.79 - Rheumatoid arthritis with rheumatoid factor of multiple sites without organ or systems involvement Status: Acute Assessment and Plan: Stable.? Continue Plaquenil.? Plaquenil can cause proteinuria which could be contributing to her hypoalbuminemia. Continue steroids. (6) Paroxysmal atrial fibrillation: Code(s): I48.0 - Paroxysmal atrial fibrillation Status: Acute Assessment and Plan: EKG shows normal sinus rhythm.? Regular rate on exam.? Continue metoprolol.? Continue Eliquis.? Plan for a Watchman-like procedure on September 09. Plan DVT prophylaxis: Eliquis Code status: Full Subjective Date/time seen: 09/01/21 11:19 Interval history: 76yo female with RA, CAD, HTN, pAFib and recent hemorrhagic CVA here for GNW and LE rash. Feels well. No issues overnight. Eating normally. Exam Narrative: AF ? 98.0 164/92 72 18 100% ra Gen - NARD Chest - CTA bilaterally, nml RR CV - RRR S1/S2 Abd - Soft, NT/ND, Positive BS Ext - No pedal edema Psych - Nml mood and affect Skin - Warm and dry.? Fading petechiae noted in the bilateral lower extremities right greater left Objective Data Vital Signs Vital Signs: Vital Signs - 24 hr 08/31/21 14:00 08/31/21 21:07 08/31/21 22:00 Temperature 96.5 F L 97.3 F L Pulse Rate 71 72 75 Respiratory Rate 16 18 Blood Pressure 115/69 132/78 Pulse Oximetry 99 98 Oxygen Delivery 08/31/21 20:40 09/01/21 05:40 Temperature 98 F Pulse Rate 75 72 Respiratory Rate 18 18 Blood Pressure
--- NOTE | 2021-09-01 13:14 | PM.PNNEP ---
Progress Note: A&P Assessment and Plan (1) Hyponatremia: Code(s): E87.1 - Hypo-osmolality and hyponatremia Status: Acute Assessment and Plan: acute on chronic sodiums have been running ~ 129 - 133 as far back as 2006 does not appear symptomatic from this (although concern is that her admission weakness is related to his issue) previous evaluation noted (March 2020): SPEP and UPEP negative for paraproteinemia kappa/lambda ratio normal TSH okay cortisol was low (but she was on chronic prednisone therapy) and on prednisone currently head CT shows no acute intracranial process. There does not seem to be enough going on here to causes hyponatremia. I do not think she has cerebral salt wasting is there is no per history of a neurologic procedure. Even so usually this just causes volume depletion and it is the volume depletion that causes the hyponatremia not the salt wasting itself. This also usually causes a large urinary volume and her urinary volume has decreased since being on the fluid restriction, appropriately. She does not look dehydrated currently. Another possibility would be pseudo hyponatremia. Multiple myeloma can do this. Interestingly her anion gap is almost 0.However her SPEP and UPEP were negative for paraproteinemia before. Will recheck this. Glucose is not high. Will also check a total cholesterol. The patient is very resistant to an increase in her sodium, even with 3% saline. I asked her if she is drinking any water besides what the nurses give her and she says no. She is currently on demeclocycline, salt tablets, and I just added furosemide today. Will go 1 more day without 3% saline and see if her sodium level actually goes down. continue free water restriction. check ADH level. Consider ADH inhibitor. Subjective Date/time seen: 09/01/21 13:14 Interval history: Megan feels about the same today. She is wondering if salt wasting nephropathy is causing her low sodium. She is very thirsty. She upped her fluid restriction to 1200 because she could not stand 1000cc. Exam Narrative: General: WD/WN female in NAD Heart: normal S1 and S2; no rub Or gallop Lungs: clear to auscultation Abdomen: soft, nontender, nondistended, positive bowel sounds Extremities: no cyanosis or clubbing; no edema Skin: no nodules Objective Data Vital Signs Vital Signs: Vital Signs - 24 hr 08/31/21 14:00 08/31/21 21:07 08/31/21 22:00 Temperature 35.8 C L 36.3 C L Pulse Rate 71 72 75 Respiratory Rate 16 18 Blood Pressure 115/69 132/78 Pulse Oximetry 99 98 Oxygen Delivery 08/31/21 20:40 09/01/21 05:40 Temperature 36.6 C Pulse Rate 75 72 Respiratory Rate 18 18 Blood Pressure 164/92 H Pulse Oximetry 98 100 Oxygen Delivery Room Air Intake/Output Intake/Output: Intake & Output 08/29/21 08/30/21 08/31/21 09/01/21 23:59 23:59 23:59 23:59 Intake Total 992 1124 962 460 Output Total 100 400 Balance 892 1124 562 460 Meds/Results Medications: Active Medications Generic Name Dose Route Start Last Admin Trade Name Freq PRN Reason Stop Dose Admin Acetaminophen 650 mg 08/23/21 06:27 Acetaminophen 325 Mg Tablet PO Q4H PRN Mild Pain (1-3) or Fever Apixaban 5 mg 08/23/21 21:00 09/01/21 10:25 Apixaban 5 Mg Tablet PO 5 mg Q12HR SOCRATES Administration Atorvastatin Calcium 10 mg 08/24/21 09:00 09/01/21 10:25 Atorvastatin 10 Mg Tablet PO 10 mg DAILY SOCRATES Administration Demeclocycline HCl 150 mg 08/31/21 09:00 09/01/21 12:53 Demeclocycline Hcl 150 Mg Tablet PO 150 mg QID SOCRATES Administration Furosemide 20 mg 09/01/21 17:00 Furosemide 20 Mg Tablet PO BID SOCRATES Hydroxychloroquine Sulfate 400 mg 08/24/21 09:00 09/01/21 10:25 Hydroxychloroquine Sulfate 200 Mg Tablet PO 400 mg DAILY SOCRATES Administration Leflunomide 20 mg 08/24/21 09:00 09/01/21 10:24 Lefluno
[2021-09-01 14:00] VITALS: BP 154/82; PULSE 70; RESP 18; TEMP 36.6; O2SAT 100
[2021-09-01 14:06] LABS: Cholesterol 179 mg/dL (0-200)
[2021-09-01] MEDS: FUROSEMIDE 20 MG TABLET PO (17:21)
[2021-09-01 20:10] VITALS: PULSE 75; RESP 16; O2SAT 95
[2021-09-01 20:14] VITALS: PULSE 80
[2021-09-01 22:00] VITALS: BP 116/66; PULSE 75; RESP 16; TEMP 36.2; O2SAT 95
[2021-09-02] VITALS (8 sets, daily range): BP systolic 109–159; BP diastolic 60–88; PULSE 65–88; RESP 14–16; TEMP 36.2–36.4; O2SAT 96–98
[2021-09-02 07:37] LABS: Hematocrit 29.7 % (37.0-47.0); Hemoglobin 10.2 g/dL (12.0-15.0); Mean Corpuscular HGB Conc 34.3 g/dl (32-36); Mean Corpuscular Hemoglobin 28.6 pg (26-34); Mean Corpuscular Volume 83.2 fl (80-100); Mean Platelet Volume 8.4 fl (7.4-10.4); Platelet Count Result 243 k/mm3 (150-375); Red Blood Count 3.57 M/mm3 (4.2-5.4); Red Cell Distribution Width 14.2 % (11.5-14.5); White Blood Count 8.8 K/mm3 (4.5-10.0)
[2021-09-02 08:01] LABS: Albumin Level 2.5 g/dL (3.5-5.1); Anion Gap 2 mmol/L (8-16); Blood Urea Nitrogen 20 mg/dL (7-17); Calcium 7.4 mg/dL (8.4-10.2); Carbon Dioxide 28 mmol/L (22-30); Chloride 86 mmol/L (98-107); Estimated CRCL calculation 70 ml/min; Estimated Glomerular Filt Rate > 60; Glucose 75 mg/dL (65-110); Magnesium 1.8 mg/dL (1.6-2.3); Phosphorus 3.2 mg/dL (2.5-4.5); Potassium 4.1 mmol/L (3.4-5.0); Sodium 116 mmol/L (137-145)
[2021-09-02] MEDS: predniSONE 20 MG TABLET 40 MG PO (08:54)
[2021-09-02] MEDS: FUROSEMIDE 20 MG TABLET PO ×2 (08:55→16:30)
[2021-09-02] MEDS: HYDROXYCHLOROQUINE SULFATE 200 MG TABLET 400 MG PO (08:55)
[2021-09-02] MEDS: CHOLECALCIFEROL 1,000 UNITS TABLET 1000 UNITS PO (08:55)
[2021-09-02] MEDS: DEMECLOCYCLINE HCL 150 MG TABLET PO ×4 (08:55→20:55)
[2021-09-02] MEDS: ATORVASTATIN 10 MG TABLET PO (08:55)
[2021-09-02] MEDS: APIXABAN 5 MG TABLET PO ×2 (08:55→20:55)
[2021-09-02] MEDS: LEFLUNOMIDE 20 MG TABLET PO (08:56)
[2021-09-02] MEDS: MAGNESIUM OXIDE 400 MG TABLET PO (08:56)
[2021-09-02] MEDS: levETIRAcetam 500 MG TABLET PO ×2 (08:56→20:55)
[2021-09-02] MEDS: SODIUM CHLORIDE 500 MG TABLET 1500 MG PO ×3 (08:56→16:30)
[2021-09-02] MEDS: METOPROLOL TARTRATE 50 MG TAB PO ×2 (08:56→20:55)
[2021-09-02] MEDS: lisinopriL 20 MG TABLET 40 MG PO (08:56)
[2021-09-02] MEDS: MULTIVITAMINS THERAPEUTIC TAB (*BKC) 1 TABLET PO (08:56)
[2021-09-02] MEDS: TOLTERODINE TARTRATE LA 4 MG CAP.ER.24H PO (08:57)
[2021-09-02] MEDS: SODIUM CHLORIDE 3% 240 ML 60 ML IV CONT (09:33)
--- NOTE | 2021-09-02 13:37 | PM.PNNEP ---
Progress Note: A&P Assessment and Plan (1) Hyponatremia: Code(s): E87.1 - Hypo-osmolality and hyponatremia Status: Acute Assessment and Plan: acute on chronic sodiums have been running ~ 129 - 133 as far back as 2006 prior evaluation has shown a high urine osmolality and low serum osmolality which was equal to the calculated serum osmolality, all consistent with SIADH. TSH and cortisol are both okay. previous evaluation noted (March 2020): SPEP and UPEP negative for paraproteinemia kappa/lambda ratio normal TSH okay cortisol was low (but she was on chronic prednisone therapy) and on prednisone currently head CT shows no acute intracranial process. There does not seem to be enough going on here to causes hyponatremia. Another possibility would be pseudo hyponatremia. Multiple myeloma can do this. Interestingly her anion gap is almost 0.However her SPEP and UPEP were negative for paraproteinemia before. Will recheck this. Glucose is not high. Will also check a total cholesterol. Past evaluation has not revealed pseudo hyponatremia. Dehydration is always a possibility. Will check orthostatic blood pressures. She does not appear dry on exam. Urine electrolytes do not show a low sodium, however she was getting furosemide, salt tablets, and had had daily runs of 3% saline for 2 days before the urine electrolytes were collected. The high sodium in the urine is reflective of the high sodium intake. The patient is very resistant to an increase in her sodium, even with 3% saline. Yesterday help 3% saline for a day and her sodium came down to 116. I asked her if she is drinking any water besides what the nurses give her and she says no. She is currently on demeclocycline, salt tablets, and furosemide today. continue free water restriction. check ADH level. Consider ADH inhibitor. I talked with the patient at length about this. Will let her finish the for 3% saline she is getting today and tomorrow will see with the sodium looks like and consider an ADH inhibitor at that point. Long discussion with the patient and friend. Subjective Date/time seen: 09/02/21 13:37 Interval history: Megan feels about the same today. still on 1200cc fluid restriction. She is not drinking any water besides with the nurses give her. She gets up with a walker with the help of physical therapy. Exam Narrative: General: WD/WN female in NAD Heart: normal S1 and S2; no rub Or gallop Lungs: clear Abdomen: soft, nontender, nondistended, positive bowel sounds Extremities: no cyanosis or clubbing; no edema Skin: no nodules Or subcu nodules Objective Data Vital Signs Vital Signs: Vital Signs - 24 hr 09/01/21 14:00 09/01/21 20:14 09/01/21 22:00 Temperature 36.6 C 36.2 C L Pulse Rate 70 80 75 Respiratory Rate 18 16 Blood Pressure 154/82 H 116/66 Pulse Oximetry 100 95 Oxygen Delivery 09/01/21 20:10 09/02/21 06:00 09/02/21 08:56 Temperature 36.2 C L Pulse Rate 75 65 74 Respiratory Rate 16 16 Blood Pressure 143/78 H Pulse Oximetry 95 98 Oxygen Delivery Room Air 09/02/21 08:00 Temperature Pulse Rate 74 Respiratory Rate 16 Blood Pressure Pulse Oximetry 98 Oxygen Delivery Room Air Intake/Output Intake/Output: Intake & Output 08/30/21 08/31/21 09/01/21 09/02/21 23:59 23:59 23:59 23:59 Intake Total 1124 962 922 820 Output Total 400 200 600 Balance 1124 562 722 220 Meds/Results Medications: Active Medications Generic Name Dose Route Start Last Admin Trade Name Freq PRN Reason Stop Dose Admin Acetaminophen 650 mg 08/23/21 06:27 Acetaminophen 325 Mg Tablet PO Q4H PRN Mild Pain (1-3) or Fever Apixaban 5 mg 08/23/21 21:00 09/02/21 08:55 Apixaban 5 Mg Tablet PO 5 mg Q12HR SOCRATES Administration Atorvastatin Calcium 10 mg 08/24/21 09:00 09/02/21 08:55 Atorvastatin 10 Mg Tablet PO 10 mg
--- NOTE | 2021-09-02 14:31 | PM.IMPN ---
Progress Note: A&P Assessment and Plan (1) Hyponatremia: Code(s): E87.1 - Hypo-osmolality and hyponatremia Status: Acute Assessment and Plan: Patient with acute on chronic hyponatremia.? Baseline sodium on chart review runs mostly 128-131 range.? Sodium 120 on admission.? Urinalysis on admission was cloudy 1+ protein and 1+ ketones. Latrell 88. TSH normal. Cortisol level okay (on steroids). She is on fluid restriction and sodium tablets.? She has been receiving 3% saline at times.? Was on Lasix but held now. No significant change in her Na levels. She mentions she had significant polyuria after her hemorrhagic stroke in May. Consider Cerebral Salt Wasting. She is not HoTN but complains of dry mouth and BUN/Cr ratio is elevated. Repeat Latrell 154 with FENa 3.2%. Related to her recent CVA? CT brain here showing no acute findings and repeat CT no change. Low protein may be contributing to the inability to correct her Na. Uric acid very low felt related to urate wasting so consider Cerebral Salt Wasting. Demeclocycline added. Continue serial sodium check. Osmolality levels pending. Nephrology following and appreciate their input.? 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 Renal function stable and no white cells in her urine to suggest nephritis. Cryoglobulins negative. She was changed to oral Prednisone and will refer to PCP and outpatient rheum for further workup. GUILLE and other autoimmune markers are pending. Wean Prednisone every 5 days. (3) CAD (coronary artery disease): Code(s): I25.10 - Atherosclerotic heart disease of [place] coronary artery without angina pectoris Status: Acute Assessment and Plan: Overall stable.? No complaints of chest pain. Continue Lipitor and metoprolol.? Patient is not on aspirin most likely related to recent hemorrhagic CVA.? Continue follow. (4) Hypertension: Code(s): I10 - Essential (primary) hypertension Status: Acute Assessment and Plan: Patient's blood pressure was reviewed on 09/01 Blood pressure elevated at times but overall BP remains mostly well controlled. Will continue current medications. (5) Rheumatoid arthritis with rheumatoid factor of multiple sites without organ or systems involvement: Onset Date: ~2000 Code(s): M05.79 - Rheumatoid arthritis with rheumatoid factor of multiple sites without organ or systems involvement Status: Acute Assessment and Plan: Stable.? Continue Plaquenil.? Plaquenil can cause proteinuria which could be contributing to her hypoalbuminemia. Continue steroids. (6) Paroxysmal atrial fibrillation: Code(s): I48.0 - Paroxysmal atrial fibrillation Status: Acute Assessment and Plan: EKG shows normal sinus rhythm.? Regular rate on exam.? Continue metoprolol.? Continue Eliquis.? Plan for a Watchman-like procedure on September 09. Plan DVT prophylaxis: Eliquis Code status: Full Subjective Date/time seen: 09/02/21 14:31 Interval history: Patient resting comfortably, no complaints. She adamantly denies any p.o. intake other than what is given to her. She is quite consulted when this was suggested. No overnight events noted. No chest pain or shortness of breath. No nausea, vomiting or diarrhea. No fevers or chills. Review of Systems Review of Systems: 12 point review of systems was assessed and was negative except as noted in the HPI Exam Narrative: General: No acute distress, alert and oriented per baseline HEENT: Atraumatic, normocephalic, mucous membranes moist CV: Regular rate and rhythm, S1, S2 Lungs: Clear to auscultation bilaterally, no rales or crackles noted, no wheezes, good air entry Abdomen: Soft,
[2021-09-02 14:50] LABS: ANCA Screen Negative (Negative)
[2021-09-02 15:04] LABS: Sodium 120 mmol/L (137-145)
[2021-09-03 06:00] VITALS: BP 146/83; PULSE 73; RESP 18; TEMP 36.2; O2SAT 100
[2021-09-03 08:08] LABS: Anion Gap 2 mmol/L (8-16); Blood Urea Nitrogen 19 mg/dL (7-17); Carbon Dioxide 26 mmol/L (22-30); Chloride 89 mmol/L (98-107); Estimated CRCL calculation 85 ml/min; Estimated Glomerular Filt Rate > 60; Glucose 67 mg/dL (65-110); Potassium 3.6 mmol/L (3.4-5.0); Sodium 117 mmol/L (137-145)
[2021-09-03] MEDS: DEMECLOCYCLINE HCL 150 MG TABLET PO ×4 (08:38→20:26)
[2021-09-03] MEDS: ATORVASTATIN 10 MG TABLET PO (08:38)
[2021-09-03] MEDS: APIXABAN 5 MG TABLET PO ×2 (08:38→20:25)
[2021-09-03] MEDS: HYDROXYCHLOROQUINE SULFATE 200 MG TABLET 400 MG PO (08:38)
[2021-09-03] MEDS: FUROSEMIDE 20 MG TABLET PO ×2 (08:38→17:18)
[2021-09-03] MEDS: LEFLUNOMIDE 20 MG TABLET PO (08:38)
[2021-09-03] MEDS: CHOLECALCIFEROL 1,000 UNITS TABLET 1000 UNITS PO (08:38)
[2021-09-03] MEDS: predniSONE 20 MG TABLET 40 MG PO (08:38)
[2021-09-03 08:39] VITALS: PULSE 71
[2021-09-03] MEDS: MAGNESIUM OXIDE 400 MG TABLET PO (08:39)
[2021-09-03] MEDS: METOPROLOL TARTRATE 50 MG TAB PO ×2 (08:39→20:25)
[2021-09-03] MEDS: SODIUM CHLORIDE 500 MG TABLET 1500 MG PO ×3 (08:39→17:18)
[2021-09-03] MEDS: lisinopriL 20 MG TABLET 40 MG PO (08:39)
[2021-09-03] MEDS: TOLTERODINE TARTRATE LA 4 MG CAP.ER.24H PO (08:39)
[2021-09-03] MEDS: MULTIVITAMINS THERAPEUTIC TAB (*BKC) 1 TABLET PO (08:39)
[2021-09-03] MEDS: levETIRAcetam 500 MG TABLET PO ×2 (08:39→20:26)
[2021-09-03 10:09] LABS: Osmolality, Urine 497 mOsm/kg (50-1200)
[2021-09-03 14:00] VITALS: BP 100/61; PULSE 75; RESP 16; TEMP 35.9; O2SAT 98
--- NOTE | 2021-09-03 17:21 | PM.IMPN ---
Progress Note: A&P Assessment and Plan (1) Hyponatremia: Code(s): E87.1 - Hypo-osmolality and hyponatremia Status: Acute Assessment and Plan: Patient with acute on chronic hyponatremia.? Baseline sodium on chart review runs mostly 128-131 range.? Sodium 120 on admission.? Urinalysis on admission was cloudy 1+ protein and 1+ ketones. Latrell 88. TSH normal. Cortisol level okay (on steroids). She is on fluid restriction and sodium tablets.? She has been receiving 3% saline at times.? Was on Lasix but held now. No significant change in her Na levels. She mentions she had significant polyuria after her hemorrhagic stroke in May. Consider Cerebral Salt Wasting. She is not HoTN but complains of dry mouth and BUN/Cr ratio is elevated. Repeat Latrell 154 with FENa 3.2%. Related to her recent CVA? CT brain here showing no acute findings and repeat CT no change. Low protein may be contributing to the inability to correct her Na. Uric acid very low felt related to urate wasting so consider Cerebral Salt Wasting. Demeclocycline added. Continue serial sodium check. Osmolality levels pending. Nephrology following and appreciate their input.? 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 Renal function stable and no white cells in her urine to suggest nephritis. Cryoglobulins negative. She was changed to oral Prednisone and will refer to PCP and outpatient rheum for further workup. GUILLE and other autoimmune markers are pending. Wean Prednisone every 5 days. (3) CAD (coronary artery disease): Code(s): I25.10 - Atherosclerotic heart disease of [place] coronary artery without angina pectoris Status: Acute Assessment and Plan: Overall stable.? No complaints of chest pain. Continue Lipitor and metoprolol.? Patient is not on aspirin most likely related to recent hemorrhagic CVA.? Continue follow. (4) Hypertension: Code(s): I10 - Essential (primary) hypertension Status: Acute Assessment and Plan: Patient's blood pressure was reviewed on 09/01 Blood pressure elevated at times but overall BP remains mostly well controlled. Will continue current medications. (5) Rheumatoid arthritis with rheumatoid factor of multiple sites without organ or systems involvement: Onset Date: ~2000 Code(s): M05.79 - Rheumatoid arthritis with rheumatoid factor of multiple sites without organ or systems involvement Status: Acute Assessment and Plan: Stable.? Continue Plaquenil.? Plaquenil can cause proteinuria which could be contributing to her hypoalbuminemia. Continue steroids. (6) Paroxysmal atrial fibrillation: Code(s): I48.0 - Paroxysmal atrial fibrillation Status: Acute Assessment and Plan: EKG shows normal sinus rhythm.? Regular rate on exam.? Continue metoprolol.? Continue Eliquis.? Plan for a Watchman-like procedure on September 09. Plan DVT prophylaxis: Eliquis Code status: Full Additional Plan Patient also notes that she has chronic, intermittent urinary and fecal incontinence since having her CVA, will check lumbar spine MRI Subjective Date/time seen: 09/03/21 17:21 Interval history: No overnight events noted. No chest pain or shortness of breath. No nausea, vomiting or diarrhea. No fevers or chills. Exam Narrative: General: No acute distress, alert and oriented per baseline HEENT: Atraumatic, normocephalic, mucous membranes moist CV: Regular rate and rhythm, S1, S2 Lungs: Clear to auscultation bilaterally, no rales or crackles noted, no wheezes, good air entry Abdomen: Soft,
--- NOTE | 2021-09-03 17:45 | PM.PNNEP ---
Progress Note: A&P Assessment and Plan (1) Hyponatremia: Code(s): E87.1 - Hypo-osmolality and hyponatremia Status: Acute Assessment and Plan: acute on chronic sodiums have been running ~ 129 - 133 as far back as 2006 prior evaluation has shown a high urine osmolality and low serum osmolality which was equal to the calculated serum osmolality, all consistent with SIADH. TSH and cortisol are both okay. previous evaluation noted (March 2020): SPEP and UPEP negative for paraproteinemia kappa/lambda ratio normal TSH okay cortisol was low (but she was on chronic prednisone therapy) and on prednisone currently head CT shows no acute intracranial process. There does not seem to be enough going on here to causes hyponatremia. Another possibility would be pseudo hyponatremia. Past evaluation has not revealed pseudohyponatremia. Dehydration is always a possibility. her mucous membranes are moist. there is no orthostatic drop in blood pressure She is currently on demeclocycline, salt tablets, and furosemide today. continue free water restriction. check ADH level. I discussed at length with the patient to try an ADH inhibitor. The hospital has tolvaptan 15 mg. Because of the risk of over-correction I told the nurses to check output every 2 hours and call if urine output is above 200, will check a sodium in 2 hours and they will call me the results. The fluid restriction has been eliminated. The tolvaptan dose will be very small. We can gradually raise the dose if needed. Long discussion with the patient. I also talked with pharmacy. 23 minutes were spent in discussions with patient and pharmacist. Subjective Date/time seen: 09/03/21 17:45 Interval history: Megan feels about the same today. still on 1200cc fluid restriction. No complaints right now. Exam Narrative: General: WD/WN female in NAD Heart: normal S1 and S2; no rub Or gallop Lungs: clear bilaterally Abdomen: soft, nontender, nondistended, positive bowel sounds Extremities: no cyanosis or clubbing; no edema Skin: no nodules Objective Data Vital Signs Vital Signs: Vital Signs - 24 hr 09/02/21 20:55 09/02/21 22:00 09/02/21 20:00 Temperature 36.3 C L Pulse Rate 88 76 Respiratory Rate 16 Blood Pressure 124/60 Pulse Oximetry 98 Oxygen Delivery Room Air 09/03/21 06:00 09/03/21 08:39 09/03/21 14:00 Temperature 36.2 C L 35.9 C L Pulse Rate 73 71 75 Respiratory Rate 18 16 Blood Pressure 146/83 H 100/61 Pulse Oximetry 100 98 Oxygen Delivery Intake/Output Intake/Output: Intake & Output 08/31/21 09/01/21 09/02/21 09/03/21 23:59 23:59 23:59 23:59 Intake Total 883 413 2476 360 Output Total 165 979 8362 1800 Balance [facility] 590 [phone] Meds/Results Medications: Active Medications Generic Name Dose Route Start Last Admin Trade Name Freq PRN Reason Stop Dose Admin Acetaminophen 650 mg 08/23/21 06:27 Acetaminophen 325 Mg Tablet PO Q4H PRN Mild Pain (1-3) or Fever Apixaban 5 mg 08/23/21 21:00 09/03/21 08:38 Apixaban 5 Mg Tablet PO 5 mg Q12HR SOCRATES Administration Atorvastatin Calcium 10 mg 08/24/21 09:00 09/03/21 08:38 Atorvastatin 10 Mg Tablet PO 10 mg DAILY SOCRATES Administration Demeclocycline HCl 150 mg 08/31/21 09:00 09/03/21 17:18 Demeclocycline Hcl 150 Mg Tablet PO 150 mg QID SOCRATES Administration Furosemide 20 mg 09/01/21 17:00 09/03/21 17:18 Furosemide 20 Mg Tablet PO 20 mg BID SOCRATES Administration Hydroxychloroquine Sulfate 400 mg 08/24/21 09:00 09/03/21 08:38 Hydroxychloroquine Sulfate 200 Mg Tablet PO 400 mg DAILY SOCRATES Administration Leflunomide 20 mg 08/24/21 09:00 09/03/21 08:38 Leflunomide 20 Mg Tablet PO 20 mg DAILY SOCRATES Administration Levetiracetam 500 mg 08/23/21 21:00 09/03/21 08:39 Levetiracetam 500 Mg Tablet PO 500 mg Q12HR SOCRATES Administrati
--- NOTE | 2021-09-03 18:12 | PC.NURSE ---
DR CHRISTIAN NOTIFIED THAT TOLVAPTAN WILL BE GIVEN AT 1814
[2021-09-03 20:25] VITALS: PULSE 84
[2021-09-03 20:49] LABS: Sodium 116 mmol/L (137-145)
[2021-09-03 22:00] VITALS: BP 119/64; PULSE 72; RESP 16; TEMP 37.2; O2SAT 98
[2021-09-03 23:40] LABS: Sodium 119 mmol/L (137-145)
[2021-09-04 02:47] LABS: Anti Cardio Antibody IgM <2.0 MPL-U/mL (<20.0); Anti Cardiolipin Antibody IgA <2.0 APL-U/mL (<20.0); Anti Cardiolipin Antibody IgG <2.0 GPL-U/mL (<20.0)
[2021-09-04 05:18] LABS: Kappa\\Lambda Light Chains 0.94 (0.26-1.65); Lambda Light Chain 13.6 mg/L (5.7-26.3)
[2021-09-04 06:00] VITALS: BP 152/86; PULSE 70; RESP 16; TEMP 37.2; O2SAT 98
[2021-09-04 06:08] LABS: Albumin Level 2.5 g/dL (3.5-5.1); Anion Gap 2 mmol/L (8-16); Blood Urea Nitrogen 20 mg/dL (7-17); Calcium 7.5 mg/dL (8.4-10.2); Carbon Dioxide 30 mmol/L (22-30); Chloride 90 mmol/L (98-107); Estimated CRCL calculation 70 ml/min; Estimated Glomerular Filt Rate > 60; Glucose 70 mg/dL (65-110); Phosphorus 3.4 mg/dL (2.5-4.5); Potassium 3.4 mmol/L (3.4-5.0); Sodium 122 mmol/L (137-145)
--- NOTE | 2021-09-04 08:23 | PCOTNOTE ---
Attempted to see patient this AM for OT tx. Patient declined stating she wanted to eat breakfast first.
[2021-09-04] MEDS: predniSONE 20 MG TABLET 40 MG PO (08:48)
[2021-09-04 08:49] VITALS: PULSE 70
[2021-09-04] MEDS: ATORVASTATIN 10 MG TABLET PO (08:49)
[2021-09-04] MEDS: APIXABAN 5 MG TABLET PO ×2 (08:49→20:15)
[2021-09-04] MEDS: CHOLECALCIFEROL 1,000 UNITS TABLET 1000 UNITS PO (08:49)
[2021-09-04] MEDS: METOPROLOL TARTRATE 50 MG TAB PO ×2 (08:49→20:15)
[2021-09-04] MEDS: MAGNESIUM OXIDE 400 MG TABLET PO (08:49)
[2021-09-04] MEDS: DEMECLOCYCLINE HCL 150 MG TABLET PO ×4 (08:49→20:15)
[2021-09-04] MEDS: MULTIVITAMINS THERAPEUTIC TAB (*BKC) 1 TABLET PO (08:49)
[2021-09-04] MEDS: TOLTERODINE TARTRATE LA 4 MG CAP.ER.24H PO (08:49)
[2021-09-04] MEDS: HYDROXYCHLOROQUINE SULFATE 200 MG TABLET 400 MG PO (08:49)
[2021-09-04] MEDS: LEFLUNOMIDE 20 MG TABLET PO (08:49)
[2021-09-04] MEDS: levETIRAcetam 500 MG TABLET PO ×2 (08:49→20:15)
--- NOTE | 2021-09-04 09:29 | PM.PNNEP ---
Progress Note: A&P Assessment and Plan (1) Hyponatremia: Code(s): E87.1 - Hypo-osmolality and hyponatremia Status: Acute Assessment and Plan: acute on chronic sodiums have been running ~ 129 - 133 as far back as 2006 prior evaluation has shown a high urine osmolality and low serum osmolality which was equal to the calculated serum osmolality, all consistent with SIADH. TSH and cortisol are both okay. previous evaluation noted (March 2020): SPEP and UPEP negative for paraproteinemia kappa/lambda ratio normal TSH okay cortisol was low (but she was on chronic prednisone therapy) and on prednisone currently head CT shows no acute intracranial process. There does not seem to be enough going on here to causes hyponatremia. Another possibility would be pseudo hyponatremia. Past evaluation has not revealed pseudohyponatremia. Dehydration is always a possibility. her mucous membranes are moist. there is no orthostatic drop in blood pressure She is currently on demeclocycline, salt tablets, and furosemide As well as fluid restriction up until yesterday. Yesterday for free water restriction was eliminated and the patient was started on tolvaptan. She started making more urine. At 1st her sodium dropped from 116-115 but then overnight ese to 122. Her basline sodium level seems to have been pretty stay stable at about 120 for the most part. her hyponatremia is chronic but the dropped to 116 was shorter than 24 hours would not be included in our calculation for the gradual rise in the sodium. Will give 1 more dose of tolvaptan this morning and check another sodium at noon. Subjective Date/time seen: 09/04/21 09:29 Interval history: Megan feels about the same today. She received tolvaptan yesterday. It took a couple of hours but the urine output did increase overnight to around 500cc every 2 hours instead of just about 200 or so. The patient feels okay. Exam Narrative: General: WD/WN female in NAD Heart: normal S1 and S2; no rub Or gallop Lungs: clear bilaterally Abdomen: soft, nontender, nondistended, positive bowel sounds Extremities: no cyanosis or clubbing; no edema Skin: no nodules Objective Data Vital Signs Vital Signs: Vital Signs - 24 hr 09/03/21 14:00 09/03/21 20:25 09/03/21 22:00 Temperature 35.9 C L 37.2 C Pulse Rate 75 84 72 Respiratory Rate 16 16 Blood Pressure 100/61 119/64 Pulse Oximetry 98 98 Oxygen Delivery 09/03/21 20:00 09/04/21 06:00 09/04/21 08:49 Temperature 37.2 C Pulse Rate 70 70 Respiratory Rate 16 Blood Pressure 152/86 H Pulse Oximetry 98 Oxygen Delivery Room Air Intake/Output Intake/Output: Intake & Output 09/01/21 09/02/21 09/03/21 09/04/21 23:59 23:59 23:59 23:59 Intake Total 922 1522 600 840 Output Total 200 1800 2050 3000 Balance 380 -647 -1450 -2160 Meds/Results Medications: Active Medications Generic Name Dose Route Start Last Admin Trade Name Freq PRN Reason Stop Dose Admin Acetaminophen 650 mg 08/23/21 06:27 Acetaminophen 325 Mg Tablet PO Q4H PRN Mild Pain (1-3) or Fever Apixaban 5 mg 08/23/21 21:00 09/04/21 08:49 Apixaban 5 Mg Tablet PO 5 mg Q12HR SOCRATES Administration Atorvastatin Calcium 10 mg 08/24/21 09:00 09/04/21 08:49 Atorvastatin 10 Mg Tablet PO 10 mg DAILY SOCRATES Administration Demeclocycline HCl 150 mg 08/31/21 09:00 09/04/21 08:49 Demeclocycline Hcl 150 Mg Tablet PO 150 mg QID SOCRATES Administration Hydroxychloroquine Sulfate 400 mg 08/24/21 09:00 09/04/21 08:49 Hydroxychloroquine Sulfate 200 Mg Tablet PO 400 mg DAILY SOCRATES Administration Leflunomide 20 mg 08/24/21 09:00 09/04/21 08:49 Leflunomide 20 Mg Tablet PO 20 mg DAILY SOCRATES Administration Levetiracetam 500 mg 08/23/21 21:00 09/04/21 08:49 Levetiracetam 500 Mg Tablet PO 500 mg Q12HR SOCRATES Administration Magnesium Oxide 40
[2021-09-04 10:32] LABS: SM Antibody <1.0; SM/RNP Antibody <1.0
[2021-09-04 13:22] LABS: Sodium 123 mmol/L (137-145)
--- NOTE | 2021-09-04 13:52 | PC.NURSE ---
Dr Lujan notified of 1300 na 123
[2021-09-04 14:00] VITALS: BP 110/60; PULSE 70; RESP 14; TEMP 36.3; O2SAT 97
[2021-09-04 17:28] LABS: Sodium 118 mmol/L (137-145)
--- NOTE | 2021-09-04 18:59 | PM.IMPN ---
Progress Note: A&P Assessment and Plan (1) Hyponatremia: Code(s): E87.1 - Hypo-osmolality and hyponatremia Status: Acute Assessment and Plan: Patient with acute on chronic hyponatremia.? Baseline sodium on chart review runs mostly 128-131 range.? Sodium 120 on admission.? Urinalysis on admission was cloudy 1+ protein and 1+ ketones. Latrell 88. TSH normal. Cortisol level okay (on steroids). She is on fluid restriction and sodium tablets.? She has been receiving 3% saline at times.? Was on Lasix but held now. No significant change in her Na levels. She mentions she had significant polyuria after her hemorrhagic stroke in May. Consider Cerebral Salt Wasting. She is not HoTN but complains of dry mouth and BUN/Cr ratio is elevated. Repeat Latrell 154 with FENa 3.2%. Related to her recent CVA? CT brain here showing no acute findings and repeat CT no change. Low protein may be contributing to the inability to correct her Na. Uric acid very low felt related to urate wasting so consider Cerebral Salt Wasting. Demeclocycline added. Continue serial sodium check. Osmolality levels pending. Nephrology following and appreciate their input.? 09/02: 3% saline held yesterday and sodium dropped down to 116, nephrology plans to restart 3% and consider ADH inhibitor 09/03: Nephrology consult pending, salt tabs started, patient continues on 1 L fluid restriction as well as Lasix tablets 20 mg twice daily 09/04: Tolvaptan given with significant urine output, study him up to 123, later in the day urine output started to slow and so he went back down to 118, nephrology planning to start 3% saline overnight and given much larger dose of tolvaptan tomorrow (2) Vasculitis: Code(s): I77.6 - Arteritis, unspecified Status: Acute Assessment and Plan: 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 Renal function stable and no white cells in her urine to suggest nephritis. Cryoglobulins negative. She was changed to oral Prednisone and will refer to PCP and outpatient rheum for further workup. GUILLE and other autoimmune markers are pending. Weaning prednisone, down to 40 mg tomorrow. (3) CAD (coronary artery disease): Code(s): I25.10 - Atherosclerotic heart disease of [place] coronary artery without angina pectoris Status: Acute Assessment and Plan: Overall stable.? No complaints of chest pain. Continue Lipitor and metoprolol.? Patient is not on aspirin most likely related to recent hemorrhagic CVA.? Continue follow. (4) Hypertension: Code(s): I10 - Essential (primary) hypertension Status: Acute Assessment and Plan: Patient's blood pressure was reviewed on 09/01 Blood pressure elevated at times but overall BP remains mostly well controlled. Will continue current medications. (5) Rheumatoid arthritis with rheumatoid factor of multiple sites without organ or systems involvement: Onset Date: ~2000 Code(s): M05.79 - Rheumatoid arthritis with rheumatoid factor of multiple sites without organ or systems involvement Status: Acute Assessment and Plan: Stable.? Continue Plaquenil.? Plaquenil can cause proteinuria which could be contributing to her hypoalbuminemia. Continue steroids. (6) Paroxysmal atrial fibrillation: Code(s): I48.0 - Paroxysmal atrial fibrillation Status: Acute Assessment and Plan: EKG shows normal sinus rhythm.? Regular rate on exam.? Continue metoprolol.? Continue Eliquis.? Plan for a Watchman-like procedure on September 09. 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
[2021-09-04 20:15] VITALS: PULSE 89
[2021-09-04] MEDS: SODIUM CHLORIDE 3% 240 ML 60 ML IV CONT (20:55)
[2021-09-04 22:00] VITALS: BP 128/72; PULSE 71; RESP 18; TEMP 35.9; O2SAT 98
[2021-09-05 06:00] VITALS: BP 176/93; PULSE 66; RESP 18; TEMP 35.2; O2SAT 99
[2021-09-05 08:08] LABS: Anion Gap 0 mmol/L (8-16); Blood Urea Nitrogen 17 mg/dL (7-17); Calcium 7.4 mg/dL (8.4-10.2); Carbon Dioxide 27 mmol/L (22-30); Chloride 91 mmol/L (98-107); Estimated CRCL calculation 85 ml/min; Estimated Glomerular Filt Rate > 60; Glucose 63 mg/dL (65-110); Sodium 118 mmol/L (137-145)
--- NOTE | 2021-09-05 08:21 | PM.IMPN ---
Progress Note: A&P Assessment and Plan (1) Hyponatremia: Code(s): E87.1 - Hypo-osmolality and hyponatremia Status: Acute Assessment and Plan: Patient with acute on chronic hyponatremia.? Baseline sodium on chart review runs mostly 128-131 range.? Sodium 120 on admission.? Urinalysis on admission was cloudy 1+ protein and 1+ ketones. Latrell 88. TSH normal. Cortisol level okay (on steroids). She is on fluid restriction and sodium tablets.? She has been receiving 3% saline at times.? Was on Lasix but held now. No significant change in her Na levels. She mentions she had significant polyuria after her hemorrhagic stroke in May. Consider Cerebral Salt Wasting. She is not HoTN but complains of dry mouth and BUN/Cr ratio is elevated. Repeat Latrell 154 with FENa 3.2%. Related to her recent CVA? CT brain here showing no acute findings and repeat CT no change. Low protein may be contributing to the inability to correct her Na. Uric acid very low felt related to urate wasting so consider Cerebral Salt Wasting. Demeclocycline added. Continue serial sodium check. Osmolality levels pending. Nephrology following and appreciate their input.? 09/02: 3% saline held yesterday and sodium dropped down to 116, nephrology plans to restart 3% and consider ADH inhibitor 09/03: Nephrology consult pending, salt tabs started, patient continues on 1 L fluid restriction as well as Lasix tablets 20 mg twice daily 09/04: Tolvaptan given with significant urine output, study him up to 123, later in the day urine output started to slow and so he went back down to 118, nephrology planning to start 3% saline overnight and given much larger dose of tolvaptan tomorrow 09/05: Sodium unchanged at 118 today, increased dose of tolvaptan being given, monitor urine output closely, recheck sodium later (2) Vasculitis: Code(s): I77.6 - Arteritis, unspecified Status: Acute Assessment and Plan: 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 Renal function stable and no white cells in her urine to suggest nephritis. Cryoglobulins negative. She was changed to oral Prednisone and will refer to PCP and outpatient rheum for further workup. GUILLE and other autoimmune markers are pending. Weaning prednisone, down to 40 mg tomorrow. 09/05: Continue prednisone taper, rash essentially resolved (3) CAD (coronary artery disease): Code(s): I25.10 - Atherosclerotic heart disease of [place] coronary artery without angina pectoris Status: Acute Assessment and Plan: Overall stable.? No complaints of chest pain. Continue Lipitor and metoprolol.? Patient is not on aspirin most likely related to recent hemorrhagic CVA.? Continue follow. (4) Hypertension: Code(s): I10 - Essential (primary) hypertension Status: Acute Assessment and Plan: Patient's blood pressure was reviewed on 09/01 Blood pressure elevated at times but overall BP remains mostly well controlled. Will continue current medications. (5) Rheumatoid arthritis with rheumatoid factor of multiple sites without organ or systems involvement: Onset Date: ~2000 Code(s): M05.79 - Rheumatoid arthritis with rheumatoid factor of multiple sites without organ or systems involvement Status: Acute Assessment and Plan: Stable.? Continue Plaquenil.? Plaquenil can cause proteinuria which could be contributing to her hypoalbuminemia. Continue steroids. (6) Paroxysmal atrial fibrillation: Code(s): I48.0 - Paroxysmal atrial fibrillation Status: Acute Assessment and Plan: EKG shows normal sinus rhythm.? Regular rate on exam.? Continue metoprolol.? Continue Eliquis.? Plan for a Watchman-like procedure on September 09. (7) Fecal incontinence: Code(s): R15.9 - Full incontinence of feces Status: Acute Assessment and Plan: MRI done of the lumbar spine showing multilevel disc disease with central canal stenosis as well as neural foraminal
[2021-09-05] MEDS: levETIRAcetam 500 MG TABLET PO ×2 (09:49→20:40)
[2021-09-05] MEDS: CHOLECALCIFEROL 1,000 UNITS TABLET 1000 UNITS PO (09:49)
[2021-09-05 09:50] VITALS: PULSE 77
[2021-09-05] MEDS: MAGNESIUM OXIDE 400 MG TABLET PO (09:50)
[2021-09-05] MEDS: TOLTERODINE TARTRATE LA 4 MG CAP.ER.24H PO (09:50)
[2021-09-05] MEDS: APIXABAN 5 MG TABLET PO ×2 (09:50→20:40)
[2021-09-05] MEDS: METOPROLOL TARTRATE 50 MG TAB PO ×2 (09:50→20:40)
[2021-09-05] MEDS: LEFLUNOMIDE 20 MG TABLET PO (09:50)
[2021-09-05] MEDS: HYDROXYCHLOROQUINE SULFATE 200 MG TABLET 400 MG PO (09:50)
[2021-09-05] MEDS: DEMECLOCYCLINE HCL 150 MG TABLET PO ×4 (09:51→20:40)
[2021-09-05] MEDS: MULTIVITAMINS THERAPEUTIC TAB (*BKC) 1 TABLET PO (09:51)
[2021-09-05] MEDS: predniSONE 20 MG TABLET 40 MG PO (09:51)
[2021-09-05] MEDS: ATORVASTATIN 10 MG TABLET PO (09:51)
--- NOTE | 2021-09-05 11:35 | PCNWS ---
Weekly nutritional screen. Patient is tolerating current diet with adequate intake. No weight loss reported. No nutritional needs at this time. No nutritional interventions at this time. Will f/u in 7 days if pt. is not discharged.
[2021-09-05 14:00] VITALS: BP 103/62; PULSE 67; RESP 14; TEMP 35.9; O2SAT 98
[2021-09-05 14:48] LABS: Sodium 118 mmol/L (137-145)
--- NOTE | 2021-09-05 14:54 | PM.PNNEP ---
Progress Note: A&P Assessment and Plan (1) Hyponatremia: Code(s): E87.1 - Hypo-osmolality and hyponatremia Status: Acute Assessment and Plan: acute on chronic sodiums have been running ~ 129 - 133 as far back as 2006 prior evaluation has shown a high urine osmolality and low serum osmolality which was equal to the calculated serum osmolality, all consistent with SIADH. TSH and cortisol are both okay. previous evaluation noted (March 2020): SPEP and UPEP negative for paraproteinemia kappa/lambda ratio normal TSH okay cortisol was low (but she was on chronic prednisone therapy) and on prednisone currently head CT shows no acute intracranial process. There does not seem to be enough going on here to causes hyponatremia. Another possibility would be pseudo hyponatremia. Past evaluation has not revealed pseudohyponatremia. Dehydration is always a possibility. her mucous membranes are moist. there is no orthostatic drop in blood pressure Re-evaluation shows a high urine osmolality , a serum osmolality which is close to calculated (254 verses 260), pending serum in urine immuno fix, normal kappa lambda, normal TSH and cortisol. She is currently on demeclocycline . She was placed on tolvaptan night before last in yesterday morning without much of a change and so now is on a higher dose at 15 mg. Sodium level most recently is still 118. I will check a urinalysis to look for the specific gravity as a quick surrogate to urine osmolality. This is to see if there is any response to the tolvaptan. Her urine output is certainly higher. She made [id number] of urine yesterday. And this is off of the Lasix, so either she is drinking lots more water that is not being measured or the tolvaptan is working. But [place] and the sodium rising? Right now will check another Sodium at 8:00 p.m.. If it drops any more I will give her another round of 3% and then a higher dose of tolvaptan tomorrow. Long discussion with the patient. Subjective Date/time seen: 09/05/21 14:54 Interval history: Megan feels about the same today. Adhering to the drink if your thirsty not if your not policy. No chest pain or shortness of breath. No twitching or seizures. Exam Narrative: General: WD/WN female in NAD Heart: normal S1 and S2; no rub Or gallop Lungs: clear bilaterally Abdomen: soft, nontender, nondistended, positive bowel sounds Extremities: no cyanosis or clubbing; no edema Skin: no nodules or rash Objective Data Vital Signs Vital Signs: Vital Signs - 24 hr 09/04/21 20:15 09/04/21 20:00 09/04/21 22:00 Temperature 35.9 C L Pulse Rate 89 71 Respiratory Rate 18 Blood Pressure 128/72 Pulse Oximetry 98 Oxygen Delivery Room Air 09/05/21 06:00 09/05/21 09:50 Temperature 35.2 C L Pulse Rate 66 77 Respiratory Rate 18 Blood Pressure 176/93 H Pulse Oximetry 99 Oxygen Delivery Intake/Output Intake/Output: Intake & Output 09/02/21 09/03/21 09/04/21 09/05/21 23:59 23:59 23:59 23:59 Intake Total 7345 724 4477 790 Output Total 1800 2050 3950 1600 Balance -278 -1450 -2180 -810 Meds/Results Medications: Active Medications Generic Name Dose Route Start Last Admin Trade Name Harry PRN Reason Stop Dose Admin Acetaminophen 650 mg 08/23/21 06:27 Acetaminophen 325 Mg Tablet PO Q4H PRN Mild Pain (1-3) or Fever Apixaban 5 mg 08/23/21 21:00 09/05/21 09:50 Apixaban 5 Mg Tablet PO 5 mg Q12HR SOCRATES Administration Atorvastatin Calcium 10 mg 08/24/21 09:00 09/05/21 09:51 Atorvastatin 10 Mg Tablet PO 10 mg DAILY SOCRATES Administration Demeclocycline HCl 150 mg 08/31/21 09:00 09/05/21 09:51 Demeclocycline Hcl 150 Mg Tablet PO 150 mg QID SOCRATES Administration Hydroxychloroquine Sulfate 400 mg 08/24/21 09:00 09/05/21 09:50 Hydroxychloroquine Sulfate 200 Mg Tablet PO 400 mg DAILY SOCRATES Administration Leflunomi
[2021-09-05 17:33] LABS: Appearance Urine Clear (Clear); Bilirubin Urine Negative (Negative); Color Urine Yellow (Yellow); Glucose Urine UA Negative (Negative); Ketones Urine Negative (Negative); Leukocyte Esterase Ur Negative LEU/UL (Negative); Nitrate Urine Negative (Negative); Protein Urine Negative (Negative); Urobilinogen Urine 0.2 mg/dL (<2.0)
[2021-09-05 17:38] LABS: RBC Urine 0-2 /hpf (0-2); Squamous Epithelial Cell Urine Rare /hpf (Few); WBC Urine 0-3 /hpf
[2021-09-05 17:46] LABS: Add Urine Microscopic? YES; Blood Urine Trace-Intact (Negative)
[2021-09-05 20:21] LABS: Sodium 119 mmol/L (137-145)
[2021-09-05 20:40] VITALS: PULSE 67
[2021-09-05] MEDS: SODIUM CHLORIDE 3% 240 ML 60 ML IV CONT (21:53)
[2021-09-05 22:00] VITALS: BP 117/68; PULSE 70; RESP 18; TEMP 36.7; O2SAT 97
[2021-09-06 05:41] VITALS: BP 141/79; PULSE 69; RESP 18; TEMP 36.4; O2SAT 98
[2021-09-06 07:08] LABS: Sodium 121 mmol/L (137-145)
[2021-09-06 07:14] LABS: Albumin Level 2.5 g/dL (3.5-5.1); Anion Gap 1 mmol/L (8-16); Blood Urea Nitrogen 16 mg/dL (7-17); Calcium 7.3 mg/dL (8.4-10.2); Carbon Dioxide 29 mmol/L (22-30); Chloride 91 mmol/L (98-107); Estimated CRCL calculation 85 ml/min; Estimated Glomerular Filt Rate > 60; Glucose 74 mg/dL (65-110); Phosphorus 3.2 mg/dL (2.5-4.5)
[2021-09-06 08:05] LABS: Basophils Percent Auto 0.1 % (0.2-1.2); Eosinophils Percent Auto 0.1 % (0-4.4); Hemoglobin 10.7 g/dL (12.0-15.0); Immature Granulocyte Absolute 0.08 K/mm3 (0.00-0.031); Immature Granulocyte Percent A 0.8 % (0-0.5); Lymphocytes Absolute Auto 1.49 K/mm3 (0.9-3.2); Lymphocytes Percent Auto 14.5 % (18.3-44.2); Mean Corpuscular HGB Conc 34.5 g/dl (32-36); Mean Corpuscular Hemoglobin 28.8 pg (26-34); Mean Corpuscular Volume 83.3 fl (80-100); Mean Platelet Volume 9.3 fl (7.4-10.4); Monocytes Absolute Auto 0.9 K/mm3 (0.1-0.6); Monocytes Percent Auto 8.3 % (2.6-8.5); Neutrophils Absolute Auto 7.9 K/mm3 (1.3-6.7); Neutrophils Percent Auto 76.2 % (45.5-73.1); Platelet Count Result 199 k/mm3 (150-375); Red Blood Count 3.72 M/mm3 (4.2-5.4); Red Cell Distribution Width 14.9 % (11.5-14.5); White Blood Count 10.3 K/mm3 (4.5-10.0)
[2021-09-06 08:45] VITALS: PULSE 77
[2021-09-06] MEDS: predniSONE 20 MG TABLET 40 MG PO (08:45)
[2021-09-06] MEDS: levETIRAcetam 500 MG TABLET PO ×2 (08:45→20:50)
[2021-09-06] MEDS: MAGNESIUM OXIDE 400 MG TABLET PO (08:45)
[2021-09-06] MEDS: METOPROLOL TARTRATE 50 MG TAB PO ×2 (08:45→20:50)
[2021-09-06] MEDS: APIXABAN 5 MG TABLET PO ×2 (08:45→20:49)
[2021-09-06] MEDS: CHOLECALCIFEROL 1,000 UNITS TABLET 1000 UNITS PO (08:46)
[2021-09-06] MEDS: TOLTERODINE TARTRATE LA 4 MG CAP.ER.24H PO (08:46)
[2021-09-06] MEDS: ATORVASTATIN 10 MG TABLET PO (08:46)
[2021-09-06] MEDS: LEFLUNOMIDE 20 MG TABLET PO (08:46)
[2021-09-06] MEDS: HYDROXYCHLOROQUINE SULFATE 200 MG TABLET 400 MG PO (08:46)
[2021-09-06] MEDS: MULTIVITAMINS THERAPEUTIC TAB (*BKC) 1 TABLET PO (08:47)
[2021-09-06] MEDS: DEMECLOCYCLINE HCL 150 MG TABLET PO ×3 (08:47→16:42)
[2021-09-06 10:00] VITALS: PULSE 70; RESP 18; O2SAT 99
--- NOTE | 2021-09-06 10:04 | PM.IMPN ---
Progress Note: A&P Assessment and Plan (1) Hyponatremia: Code(s): E87.1 - Hypo-osmolality and hyponatremia Status: Acute Assessment and Plan: Patient with acute on chronic hyponatremia.? Baseline sodium on chart review runs mostly 128-131 range.? Sodium 120 on admission.? Urinalysis on admission was cloudy 1+ protein and 1+ ketones. Latrell 88. TSH normal. Cortisol level okay (on steroids). She is on fluid restriction and sodium tablets.? She has been receiving 3% saline at times.? Was on Lasix but held now. No significant change in her Na levels. She mentions she had significant polyuria after her hemorrhagic stroke in May. Consider Cerebral Salt Wasting. She is not HoTN but complains of dry mouth and BUN/Cr ratio is elevated. Repeat Latrell 154 with FENa 3.2%. Related to her recent CVA? CT brain here showing no acute findings and repeat CT no change. Low protein may be contributing to the inability to correct her Na. Uric acid very low felt related to urate wasting so consider Cerebral Salt Wasting. Demeclocycline added. Continue serial sodium check. Osmolality levels pending. Nephrology following and appreciate their input.? 09/02: 3% saline held yesterday and sodium dropped down to 116, nephrology plans to restart 3% and consider ADH inhibitor 09/03: Nephrology consult pending, salt tabs started, patient continues on 1 L fluid restriction as well as Lasix tablets 20 mg twice daily 09/04: Tolvaptan given with significant urine output, study him up to 123, later in the day urine output started to slow and so he went back down to 118, nephrology planning to start 3% saline overnight and given much larger dose of tolvaptan tomorrow 09/05: Sodium unchanged at 118 today, increased dose of tolvaptan being given, monitor urine output closely, recheck sodium later 09/06: Sodium 119 last night, 121 this morning, defer to nephrology for cont treatment plan Update: Sodium dropped back down to 119, Nephrology recommended 1 L fluid restriction, continue tolvaptan at higher dose, no other changes (2) Vasculitis: Code(s): I77.6 - Arteritis, unspecified Status: Acute Assessment and Plan: 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 Renal function stable and no white cells in her urine to suggest nephritis. Cryoglobulins negative. She was changed to oral Prednisone and will refer to PCP and outpatient rheum for further workup. GUILLE and other autoimmune markers are pending. Weaning prednisone, down to 40 mg tomorrow. 09/05: Continue prednisone taper, rash essentially resolved (3) CAD (coronary artery disease): Code(s): I25.10 - Atherosclerotic heart disease of [place] coronary artery without angina pectoris Status: Acute Assessment and Plan: Overall stable.? No complaints of chest pain. Continue Lipitor and metoprolol.? Patient is not on aspirin most likely related to recent hemorrhagic CVA.? Continue follow. (4) Hypertension: Code(s): I10 - Essential (primary) hypertension Status: Acute Assessment and Plan: Patient's blood pressure was reviewed on 09/01 Blood pressure elevated at times but overall BP remains mostly well controlled. Will continue current medications. (5) Rheumatoid arthritis with rheumatoid factor of multiple sites without organ or systems involvement: Onset Date: ~2000 Code(s): M05.79 - Rheumatoid arthritis with rheumatoid factor of multiple sites without organ or systems involvement Status: Acute Assessment and Plan: Stable.? Continue Plaquenil.? Plaquenil can cause proteinuria which could be contributing to her hypoalbuminemia. Continue steroids. (6) Paroxysmal atrial fibrillation: Code(s): I48.0 - Paroxysmal atrial fibrillation Status: Acute Assessment and Plan: EKG shows normal sinus rhythm.? Regular rate on exam.? Continue metoprolol.? Continue Eliquis.? Plan for a Watchman-like procedure on September 09. (7) Fecal
--- NOTE | 2021-09-06 11:10 | PM.PNNEP ---
Progress Note: A&P Assessment and Plan (1) Hyponatremia: Code(s): E87.1 - Hypo-osmolality and hyponatremia Status: Acute Assessment and Plan: acute on chronic sodiums have been running ~ 129 - 133 as far back as 2006 prior evaluation has shown a high urine osmolality and low serum osmolality which was equal to the calculated serum osmolality, all consistent with SIADH. TSH and cortisol are both okay. previous evaluation noted (March 2020): SPEP and UPEP negative for paraproteinemia kappa/lambda ratio normal TSH okay cortisol was low (but she was on chronic prednisone therapy) and on prednisone currently head CT shows no acute intracranial process. There does not seem to be enough going on here to causes hyponatremia. Another possibility would be pseudo hyponatremia. Past evaluation has not revealed pseudohyponatremia. Dehydration is always a possibility. her mucous membranes are moist. there is no orthostatic drop in blood pressure Re-evaluation shows a high urine osmolality , a serum osmolality which is close to calculated (254 verses 260), pending serum in urine immuno fix, normal kappa lambda, normal TSH and cortisol. She is currently on demeclocycline . she was placed on tolvaptan 7.5 mg for 2 days and then 15 mg yesterday. Her urine output is increasing with these medications but the sodium is still not correcting. I checked a urinalysis yesterday which shows I sauce than uric urine. I would expect a much lower urine specific gravity if she was excreting large amounts of free water. She was drinking more fluid because we eliminated the fluid restriction but not a grossly large amount. Her intake/ output was 2200 in and 3200 out. I will add a fluid restriction of 1500cc. I am going to increase the tolvaptan to have 30 mg today. Will check a sodium later today and see how it looks. Will check a liver panel tomorrow. Long discussion with the patient. Subjective Date/time seen: 09/06/21 11:10 Interval history: Megan feels about the same today. Sitting up in a chair. Exam Narrative: General: WD/WN female in NAD Heart: normal S1 and S2; no rub Or gallop Lungs: clear to auscultation Abdomen: soft, nontender, nondistended, positive bowel sounds Extremities: no cyanosis or clubbing; no edema Skin: no rash Objective Data Vital Signs Vital Signs: Vital Signs - 24 hr 09/05/21 14:00 09/05/21 20:40 09/05/21 22:00 Temperature 35.9 C L 36.7 C Pulse Rate 67 67 70 Respiratory Rate 14 18 Blood Pressure 103/62 117/68 Pulse Oximetry 98 97 Oxygen Delivery 09/06/21 05:41 09/06/21 08:45 09/06/21 08:00 Temperature 36.4 C Pulse Rate 69 77 Respiratory Rate 18 Blood Pressure 141/79 H Pulse Oximetry 98 Oxygen Delivery Room Air Intake/Output Intake/Output: Intake & Output 09/03/21 09/04/21 09/05/21 09/06/21 23:59 23:59 23:59 23:59 Intake Total 600 1770 2170 1480 Output Total 2050 3950 3203 2000 Balance -1450 -2180 -1030 -520 Meds/Results Medications: Active Medications Generic Name Dose Route Start Last Admin Trade Name Freq PRN Reason Stop Dose Admin Acetaminophen 650 mg 08/23/21 06:27 Acetaminophen 325 Mg Tablet PO Q4H PRN Mild Pain (1-3) or Fever Apixaban 5 mg 08/23/21 21:00 09/06/21 08:45 Apixaban 5 Mg Tablet PO 5 mg Q12HR SOCRATES Administration Atorvastatin Calcium 10 mg 08/24/21 09:00 09/06/21 08:46 Atorvastatin 10 Mg Tablet PO 10 mg DAILY SOCRATES Administration Demeclocycline HCl 150 mg 08/31/21 09:00 09/06/21 08:47 Demeclocycline Hcl 150 Mg Tablet PO 150 mg QID SOCRATES Administration Hydroxychloroquine Sulfate 400 mg 08/24/21 09:00 09/06/21 08:46 Hydroxychloroquine Sulfate 200 Mg Tablet PO 400 mg DAILY SOCRATES Administration Leflunomide 20 mg 08/24/21 09:00 09/06/21 08:46 Leflunomide 20 Mg Tablet PO 20 mg DAILY SOCRATES Administration Levetirac
[2021-09-06 14:00] VITALS: BP 114/64; PULSE 71; RESP 16; TEMP 36.6; O2SAT 97
[2021-09-06 14:36] LABS: Sodium 119 mmol/L (137-145)
--- NOTE | 2021-09-06 16:16 | PC.NURSE ---
Pt asked to speak with the doctor. I inquired further asking what she was concerned about to determine if it was something I could answer for her. She was concerned about the fluid restriction and the plan of care to address her medical condition and wanted to discuss it with the doctor. I spoke with Dr. Lujan who agreed to speak with pt. After their conversation, Dr. Lujan informed me that we are going to cancel the fluid restriction and monitor and record the amount of fluids she intakes. Changes to orders were completed. I will continue to monitor.
[2021-09-06 20:08] LABS: Sodium 124 mmol/L (137-145)
[2021-09-06 20:50] VITALS: PULSE 70
[2021-09-06 22:00] VITALS: BP 149/75; PULSE 70; RESP 18; TEMP 36.1; O2SAT 99
[2021-09-07] MEDS: DEMECLOCYCLINE HCL 150 MG TABLET PO ×4 (00:51→12:42)
[2021-09-07 06:00] VITALS: BP 160/82; PULSE 70; RESP 17; TEMP 36.8; O2SAT 97
[2021-09-07 06:56] LABS: Anion Gap 1 mmol/L (8-16); Blood Urea Nitrogen 16 mg/dL (7-17); Calcium 7.8 mg/dL (8.4-10.2); Carbon Dioxide 30 mmol/L (22-30); Chloride 90 mmol/L (98-107); Estimated CRCL calculation 85 ml/min; Estimated Glomerular Filt Rate > 60; Glucose 70 mg/dL (65-110); Potassium 4.1 mmol/L (3.4-5.0); Sodium 121 mmol/L (137-145)
[2021-09-07 09:27] VITALS: PULSE 80
[2021-09-07] MEDS: METOPROLOL TARTRATE 50 MG TAB PO ×2 (09:27→20:30)
[2021-09-07] MEDS: HYDROXYCHLOROQUINE SULFATE 200 MG TABLET 400 MG PO (09:28)
[2021-09-07] MEDS: predniSONE 20 MG TABLET 40 MG PO (09:28)
[2021-09-07] MEDS: MULTIVITAMINS THERAPEUTIC TAB (*BKC) 1 TABLET PO (09:28)
[2021-09-07] MEDS: TOLTERODINE TARTRATE LA 4 MG CAP.ER.24H PO (09:28)
[2021-09-07] MEDS: ATORVASTATIN 10 MG TABLET PO (09:29)
[2021-09-07] MEDS: LEFLUNOMIDE 20 MG TABLET PO (09:29)
[2021-09-07] MEDS: levETIRAcetam 500 MG TABLET PO ×2 (09:29→20:31)
[2021-09-07] MEDS: MAGNESIUM OXIDE 400 MG TABLET PO (09:29)
[2021-09-07] MEDS: APIXABAN 5 MG TABLET PO ×2 (09:29→20:30)
[2021-09-07] MEDS: CHOLECALCIFEROL 1,000 UNITS TABLET 1000 UNITS PO (09:29)
--- NOTE | 2021-09-07 12:02 | PM.PNNEP ---
Progress Note: A&P Assessment and Plan (1) Hyponatremia: Code(s): E87.1 - Hypo-osmolality and hyponatremia Status: Acute Assessment and Plan: acute on chronic sodiums have been running ~ 129 - 133 as far back as 2006 prior evaluation has shown a high urine osmolality and low serum osmolality which was equal to the calculated serum osmolality, all consistent with SIADH. TSH and cortisol are both okay. previous evaluation noted (March 2020): SPEP and UPEP negative for paraproteinemia kappa/lambda ratio normal TSH okay cortisol was low (but she was on chronic prednisone therapy) and on prednisone currently head CT shows no acute intracranial process. There does not seem to be enough going on here to causes hyponatremia. Another possibility would be pseudo hyponatremia. Past evaluation has not revealed pseudohyponatremia. Dehydration is always a possibility. her mucous membranes are moist. there is no orthostatic drop in blood pressure Re-evaluation shows a high urine osmolality , a serum osmolality which is close to calculated (254 verses 260), normal serum immunofix, pending urine immunofix, normal kappa lambda, normal TSH and cortisol. She is currently on demeclocycline . I told to drink is little fluid is possible but she is not on an official fluid restriction. Will give her more tolvaptan 30mg today. Will increase demeclocycline off Will check a liver panel tomorrow. Long discussion with the patient.Will try another dose of tolvaptan today at30mg. she might need this daily but then there is a max time of 30 days. It is also very expensive and will need to make sure insurance would cover this. She remains on demeclocycline. will increase this dose. Long talk with patient yesterday about the fluid restriction and with nursing yesterday about fluids, and with patient today. 25minutes were spent in discussions apart from clinical activity. Dr. Pink back tomorrow. Subjective Date/time seen: 09/07/21 12:02 Interval history: Megan feels about the same today. Lying in bed comfortably. I put her on fluid restriction yesterday and the patient became very upset. She said that she has been on fluid restriction in the past and it never did any good. We discussed more today. We talked how fluid is ?poison ?for her. Says that she only drinks about 30oz per day. For some reason when she is in the hospital she is thirsty year and needs to drink more fluid. She says she gets 3 of the bed side modes of water which adds up to about 55oz. In addition she gets what is on her tray. We discussed that anything she puts that is liquid into her mouth counts is fluid such as putting, popsicles, ice, soups, stew, etc.. Exam Narrative: General: WD/WN female in NAD Heart: normal S1 and S2; no rub Or gallop Lungs: clear to auscultation Abdomen: soft, nontender, nondistended, positive bowel sounds Extremities: no cyanosis or clubbing; no edema Skin: no rash Objective Data Vital Signs Vital Signs: Vital Signs - 24 hr 09/06/21 14:00 09/06/21 20:50 09/06/21 22:00 Temperature 36.6 C 36.1 C L Pulse Rate 71 70 70 Respiratory Rate 16 18 Blood Pressure 114/64 149/75 H Pulse Oximetry 97 99 09/07/21 06:00 09/07/21 09:27 Temperature 36.8 C Pulse Rate 70 80 Respiratory Rate 17 Blood Pressure 160/82 H Pulse Oximetry 97 Intake/Output Intake/Output: Intake & Output 09/04/21 09/05/21 09/06/21 09/07/21 23:59 23:59 23:59 23:59 Intake Total 1770 2170 1924 780 Output Total 3950 3200 3100 3300 Balance -2180 -1030 -1176 -2520 Meds/Results Medications: Active Medications Generic Name Dose Route Start Last Admin Trade Name Harry PRN Reason Stop Dose Admin Acetaminophen 650 mg 08/23/21 06:27 Acetaminophen 325 Mg Tablet PO Q4H PRN Mild Pain (1-3) or Fever Apixaban 5 mg 08/23/21 21:00 09/07/21 09:29 Apixaban 5 Mg Tablet PO 5
--- NOTE | 2021-09-07 13:27 | PM.IMPN ---
Progress Note: A&P Assessment and Plan (1) Hyponatremia: Code(s): E87.1 - Hypo-osmolality and hyponatremia Status: Acute Assessment and Plan: Appreciate Nephrology consultation. Likely SIADH. Continue Tolvaptan (2) Vasculitis: Code(s): I77.6 - Arteritis, unspecified Status: Acute Assessment and Plan: Continue prednisone taper (3) CAD (coronary artery disease): Code(s): I25.10 - Atherosclerotic heart disease of [place] coronary artery without angina pectoris Status: Acute Assessment and Plan: Overall stable.? no chest pain. (4) Hypertension: Code(s): I10 - Essential (primary) hypertension Status: Acute Assessment and Plan: monitor (5) Rheumatoid arthritis with rheumatoid factor of multiple sites without organ or systems involvement: Onset Date: ~2000 Code(s): M05.79 - Rheumatoid arthritis with rheumatoid factor of multiple sites without organ or systems involvement Status: Acute Assessment and Plan: Stable.? Continue Plaquenil.? (6) Paroxysmal atrial fibrillation: Code(s): I48.0 - Paroxysmal atrial fibrillation Status: Acute Assessment and Plan: EKG shows normal sinus rhythm.? Regular rate on exam.? Continue metoprolol.? Continue Eliquis.? Plan for a Watchman-like procedure on September 09. 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 Blood work noted sodium is up at 121. Exam Narrative: General: No acute distress, alert and oriented per baseline HEENT: Atraumatic, normocephalic, mucous membranes moist CV: Regular rate and rhythm, S1, S2 Lungs: Clear to auscultation bilaterally, no rales or crackles noted, no wheezes, good air entry Abdomen: Soft, nontender, nondistended Extremities: Normal to inspection Skin: No rashes noted, no lesions or wounds seen Psych: Euthymic, normal affect Objective Data Vital Signs Vital Signs: Vital Signs - 24 hr 09/06/21 14:00 09/06/21 20:50 09/06/21 22:00 Temperature 97.9 F 97 F L Pulse Rate 71 70 70 Respiratory Rate 16 18 Blood Pressure 114/64 149/75 H Pulse Oximetry 97 99 Oxygen Delivery 09/07/21 06:00 09/07/21 09:27 09/07/21 08:00 Temperature 98.3 F Pulse Rate 70 80 Respiratory Rate 17 Blood Pressure 160/82 H Pulse Oximetry 97 Oxygen Delivery Room Air Intake/Output Intake/Output: Intake & Output 09/04/21 09/05/21 09/06/21 09/07/21 23:59 23:59 23:59 23:59 Intake Total 1770 2170 1924 780 Output Total 3950 3200 3100 3300 [facility]0331 -1030 -1176 -8740 Meds/Results Medications: Active Medications Generic Name Dose Route Start Last Admin Trade Name Freq PRN Reason Stop Dose Admin Acetaminophen 650 mg 08/23/21 06:27 Acetaminophen 325 Mg Tablet PO Q4H PRN Mild Pain (1-3) or Fever Apixaban 5 mg 08/23/21 21:00 09/07/21 09:29 Apixaban 5 Mg Tablet PO 5 mg Q12HR SOCRATES Administration Atorvastatin Calcium 10 mg 08/24/21 09:00 09/07/21 09:29 Atorvastatin 10 Mg Tablet PO 10 mg DAILY SOCRATES Administration Demeclocycline HCl 300 mg 09/07/21 13:00 09/07/21 12:36 Demeclocycline Hcl 150 Mg Tablet PO Not Given QID SOCRATES Hydroxychloroquine Sulfate 400 mg 08/24/21 09:00 09/07/21 09:28 Hydroxychloroquine Sulfate 200 Mg Tablet PO 400 mg DAILY SOCRATES Administration Leflunomide 20 mg 08/24/21 09:00 09/07/21 09:29 Leflunomide 20 Mg Tablet PO 20 mg DAILY SOCRATES Administration Levetiracetam 500 mg 08/23/21 21:00 09/07/21 09:29 Levetiracetam 500 Mg Tablet
[2021-09-07 14:00] VITALS: BP 138/82; PULSE 73; RESP 16; TEMP 36.1; O2SAT 99
[2021-09-07 16:30] LABS: Sodium 120 mmol/L (137-145)
[2021-09-07] MEDS: DEMECLOCYCLINE HCL 150 MG TABLET 300 MG PO ×2 (16:52→20:30)
[2021-09-07 20:00] VITALS: PULSE 73; RESP 16; O2SAT 99
[2021-09-07 20:30] VITALS: PULSE 73
[2021-09-07 22:00] VITALS: BP 139/75; PULSE 67; RESP 18; TEMP 35.7; O2SAT 96
[2021-09-08 06:00] VITALS: BP 161/95; PULSE 73; RESP 18; TEMP 35.9; O2SAT 100
[2021-09-08 06:54] LABS: Alanine Aminotransferase 15 U/L (6-35); Albumin Level 2.8 g/dL (3.5-5.1); Alkaline Phosphatase 71 U/L (38-126); Anion Gap 1 mmol/L (8-16); Aspartate Amino Transferase 20 U/L (14-36); Bilirubin,Total 0.6 mg/dL (0.2-1.3); Blood Urea Nitrogen 15 mg/dL (7-17); Calcium 7.6 mg/dL (8.4-10.2); Carbon Dioxide 28 mmol/L (22-30); Chloride 92 mmol/L (98-107); Estimated CRCL calculation 85 ml/min; Estimated Glomerular Filt Rate > 60; Glucose 65 mg/dL (65-110); Phosphorus 3.6 mg/dL (2.5-4.5); Potassium 4.1 mmol/L (3.4-5.0); Sodium 121 mmol/L (137-145)
[2021-09-08] MEDS: TOLTERODINE TARTRATE LA 4 MG CAP.ER.24H PO (08:41)
[2021-09-08] MEDS: DEMECLOCYCLINE HCL 150 MG TABLET 300 MG PO ×4 (08:41→20:34)
[2021-09-08] MEDS: ATORVASTATIN 10 MG TABLET PO (08:41)
[2021-09-08] MEDS: LEFLUNOMIDE 20 MG TABLET PO (08:42)
[2021-09-08] MEDS: predniSONE 10 MG TABLET 30 MG PO (08:42)
[2021-09-08] MEDS: CHOLECALCIFEROL 1,000 UNITS TABLET 1000 UNITS PO (08:43)
[2021-09-08] MEDS: HYDROXYCHLOROQUINE SULFATE 200 MG TABLET 400 MG PO (08:43)
[2021-09-08] MEDS: levETIRAcetam 500 MG TABLET PO ×2 (08:43→20:35)
[2021-09-08] MEDS: APIXABAN 5 MG TABLET PO ×2 (08:43→20:35)
[2021-09-08] MEDS: MULTIVITAMINS THERAPEUTIC TAB (*BKC) 1 TABLET PO (08:43)
[2021-09-08 08:44] VITALS: PULSE 77
[2021-09-08] MEDS: METOPROLOL TARTRATE 50 MG TAB PO ×2 (08:44→20:35)
[2021-09-08] MEDS: MAGNESIUM OXIDE 400 MG TABLET PO (11:42)
--- NOTE | 2021-09-08 11:42 | PM.IMPN ---
Progress Note: A&P Assessment and Plan (1) Hyponatremia: Code(s): E87.1 - Hypo-osmolality and hyponatremia Status: Acute Assessment and Plan: Appreciate Nephrology consultation. Likely SIADH. Continue Tolvaptan - managed per nephrology na stable but low dc once sodium appropriate (2) Vasculitis: Code(s): I77.6 - Arteritis, unspecified Status: Acute Assessment and Plan: Continue prednisone taper (3) CAD (coronary artery disease): Code(s): I25.10 - Atherosclerotic heart disease of [place] coronary artery without angina pectoris Status: Acute Assessment and Plan: Overall stable.? no chest pain. (4) Hypertension: Code(s): I10 - Essential (primary) hypertension Status: Acute Assessment and Plan: monitor (5) Rheumatoid arthritis with rheumatoid factor of multiple sites without organ or systems involvement: Onset Date: ~2000 Code(s): M05.79 - Rheumatoid arthritis with rheumatoid factor of multiple sites without organ or systems involvement Status: Acute Assessment and Plan: Stable.? Continue Plaquenil.? (6) Paroxysmal atrial fibrillation: Code(s): I48.0 - Paroxysmal atrial fibrillation Status: Acute Assessment and Plan: EKG shows normal sinus rhythm.? Regular rate on exam.? Continue metoprolol.? Continue Eliquis.? Plan for a Watchman-like procedure on September 09. 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, will check lumbar spine MRI Subjective Date/time seen: 09/08/21 11:42 no new complaints no neuro complaints Exam Narrative: General: No acute distress, alert and oriented per baseline HEENT: Atraumatic, normocephalic, mucous membranes moist CV: Regular rate and rhythm, S1, S2 Lungs: Clear to auscultation bilaterally, no rales or crackles noted, no wheezes, good air entry Abdomen: Soft, nontender, nondistended Extremities: Normal to inspection Skin: No rashes noted, no lesions or wounds seen Psych: Euthymic, normal affect Objective Data Vital Signs Vital Signs: Vital Signs - 24 hr 09/07/21 14:00 09/07/21 20:00 09/07/21 20:30 Temperature 97 F L Pulse Rate 73 73 73 Respiratory Rate 16 16 Blood Pressure 138/82 Pulse Oximetry 99 99 Oxygen Delivery Room Air 09/07/21 22:00 09/08/21 06:00 09/08/21 08:44 Temperature 96.3 F L 96.7 F L Pulse Rate 67 73 77 Respiratory Rate 18 18 Blood Pressure 139/75 161/95 H Pulse Oximetry 96 100 Oxygen Delivery 09/08/21 08:00 Temperature Pulse Rate Respiratory Rate Blood Pressure Pulse Oximetry Oxygen Delivery Room Air Intake/Output Intake/Output: Intake & Output 09/05/21 09/06/21 09/07/21 09/08/21 23:59 23:59 23:59 23:59 Intake Total 2170 1924 1810 240 Output Total 3200 3100 6500 3300 [facility]1030 -1176 -4690 -3060 Meds/Results Medications: Active Medications Generic Name Dose Route Start Last Admin Trade Name Freq PRN Reason Stop Dose Admin Acetaminophen 650 mg 08/23/21 06:27 Acetaminophen 325 Mg Tablet PO Q4H PRN Mild Pain (1-3) or Fever Apixaban 5 mg 08/23/21 21:00 09/08/21 08:43 Apixaban 5 Mg Tablet PO 5 mg Q12HR SOCRATES Administration Atorvastatin Calcium 10 mg 08/24/21 09:00 09/08/21 08:41 Atorvastatin 10 Mg Tablet PO 10 mg DAILY SOCRATES Administration Demeclocycline HCl 300 mg 09/07/21 13:00 09/08/21 08:41 Demeclocycline Hcl 150 Mg Tablet PO 300 mg QID SOCRATES Administration Hydroxychloroquine Sulfate 400 mg 08/24/21 09:00 09/08/21 08:43 Hydroxychloroquine Sulfate 200 Mg Tablet PO 400 mg DAILY SOCRATES Administration Leflunomide 20 mg
[2021-09-08] MEDS: SODIUM CHLORIDE 1 GM TABLET PO ×2 (13:37→17:49)
[2021-09-08 14:00] VITALS: BP 133/88; PULSE 94; RESP 20; TEMP 36.6; O2SAT 95
--- NOTE | 2021-09-08 15:12 | PM.PNNEP ---
Progress Note: A&P Assessment and Plan (1) Hyponatremia: Code(s): E87.1 - Hypo-osmolality and hyponatremia Status: Acute Assessment and Plan: acute on chronic sodiums have been running ~ 129 - 133 as far back as 2006 previous evaluation noted (March 2020): SPEP and UPEP negative for paraproteinemia kappa/lambda ratio normal TSH okay cortisol was low (but she was on chronic prednisone therapy) and on prednisone currently head CT shows no acute intracranial process. There does not seem to be enough going on here to causes hyponatremia. another possibility would be pseudo-hyponatremia. Past evaluation has not revealed pseudohyponatremia. dehydration is always a possibility but her mucous membranes are moist and no orthostatic drop in blood pressure high urine osmolality and low serum osmolality which was equal to the calculated serum osmolality -- consistent with SIADH re-evaluation shows a high urine osmolality , a serum osmolality which is close to calculated (254 versus 260), normal serum immunofix, pending urine immunofix, normal kappa lambda, normal TSH and cortisol. given persistent hyponatremia, demeclocycline dosage increased will change tolvaptan to bid dosing and add back salt tablets today tolvaptan is a short term solution and should only be used for a max time period of 30 days furthermore, this is an expensive medication and may not be able to used as an outpatient follow repeat sodium levels Will continue to follow. Subjective Date/time seen: 09/08/21 15:12 Chart reviewed since last seen - assuming care from Dr. Lujan; hyponatremia persists despite multiple interventions since admission; she is resistant to a fluid restriction due to complaints of dry mouth so recently started trial of tolvaptan; otherwise, no apparent distress noted. Exam Narrative: General: WD/WN female in NAD Heart: normal S1 and S2; no rub Lungs: clear to auscultation Abdomen: soft, nontender, nondistended, positive bowel sounds Extremities: no cyanosis or clubbing; no edema Skin: warm and dry Objective Data Vital Signs Vital Signs: Vital Signs Temp Pulse Resp BP Pulse Ox O2 Del Method 09/08/21 14:00 36.6 C 94 20 133/88 95 09/08/21 08:00 Room Air 09/08/21 08:44 77 09/08/21 06:00 35.9 C L 73 18 161/95 H 100 09/07/21 22:00 35.7 C L 67 18 139/75 96 09/07/21 20:30 73 09/07/21 20:00 73 16 99 Room Air Intake/Output Intake/Output: Intake & Output 09/05/21 09/06/21 09/07/21 09/08/21 23:59 23:59 23:59 23:59 Intake Total 2170 1924 1810 600 Output Total 3200 3100 6500 4800 [facility] [place] -1760 -0806 -4690 -4200 Meds/Results Medications: Active Medications Generic Name Dose Route Start Last Admin Trade Name Freq PRN Reason Stop Dose Admin Acetaminophen 650 mg 08/23/21 06:27 Acetaminophen 325 Mg Tablet PO Q4H PRN Mild Pain (1-3) or Fever Apixaban 5 mg 08/23/21 21:00 09/08/21 08:43 Apixaban 5 Mg Tablet PO 5 mg Q12HR SOCRATES Administration Atorvastatin Calcium 10 mg 08/24/21 09:00 09/08/21 08:41 Atorvastatin 10 Mg Tablet PO 10 mg DAILY SOCRATES Administration Demeclocycline HCl 300 mg 09/07/21 13:00 09/08/21 17:49 Demeclocycline Hcl 150 Mg Tablet PO 300 mg QID SOCRATES Administration Hydroxychloroquine Sulfate 400 mg 08/24/21 09:00 09/08/21 08:43 Hydroxychloroquine Sulfate 200 Mg Tablet PO 400 mg DAILY SOCRATES Administration Leflunomide 20 mg 08/24/21 09:00 09/08/21 08:42 Leflunomide 20 Mg Tablet PO 20 mg DAILY SOCRATES Administration Levetiracetam 500 mg 08/23/21 21:00 09/08/21 08:43 Levetiracetam 500 Mg Tablet PO 500 mg Q12HR SOCRATES Administration Magnesium Oxide 400 mg 09/08/21 11:00 09/08/21 11:42 Magnesium Oxide 400 Mg Tablet PO 400 mg DAILY@1100 SOCRATES Administration Metoprolol Tartrate 50 mg 08/23/21 21:00 09/08/21 08:44 Metoprolol Tart
--- NOTE | 2021-09-08 15:12 | P.PNNP_ITS ---
Progress Note: A&P Assessment and Plan (1) Hyponatremia: Code(s): E87.1 - Hypo-osmolality and hyponatremia Status: Acute Assessment and Plan: * acute on chronic * sodiums have been running ~ 129 - 133 as far back as 2006 * previous evaluation noted (March 2020): * SPEP and UPEP negative for paraproteinemia * kappa/lambda ratio normal * TSH okay * cortisol was low (but she was on chronic prednisone therapy) and on prednisone currently * head CT shows no acute intracranial process. There does not seem to be enough going on here to causes hyponatremia. * another possibility would be pseudo-hyponatremia. Past evaluation has not revealed pseudohyponatremia. * dehydration is always a possibility but her mucous membranes are moist and no orthostatic drop in blood pressure * high urine osmolality and low serum osmolality which was equal to the calculated serum osmolality -- consistent with SIADH * re-evaluation shows a high urine osmolality , a serum osmolality which is close to calculated (254 versus 260), normal serum immunofix, pending urine immunofix, normal kappa lambda, normal TSH and cortisol. * given persistent hyponatremia, demeclocycline dosage increased * will change tolvaptan to bid dosing and add back salt tablets today * tolvaptan is a short term solution and should only be used for a max time period of 30 days * furthermore, this is an expensive medication and may not be able to used as an outpatient * follow repeat sodium levels Will continue to follow. Subjective Date/time seen: 09/08/21 15:12 Chart reviewed since last seen - assuming care from Dr. Lujan; hyponatremia persists despite multiple interventions since admission; she is resistant to a fluid restriction due to complaints of dry mouth so recently started trial of tolvaptan; otherwise, no apparent distress noted. Exam Narrative: General: WD/WN female in NAD Heart: normal S1 and S2; no rub Lungs: clear to auscultation Abdomen: soft, nontender, nondistended, positive bowel sounds Extremities: no cyanosis or clubbing; no edema Skin: warm and dry Objective Data Vital Signs Vital Signs: Vital Signs Temp Pulse Resp BP Pulse Ox O2 Del Method 09/08/21 14:00 36.6 C 94 20 133/88 95 09/08/21 08:00 Room Air 09/08/21 08:44 77 09/08/21 06:00 35.9 C L 73 18 161/95 H 100 09/07/21 22:00 35.7 C L 67 18 139/75 96 09/07/21 20:30 73 09/07/21 20:00 73 16 99 Room Air Intake/Output Intake/Output: Intake & Output 09/05/21 09/06/21 09/07/21 09/08/21 23:59 23:59 23:59 23:59 Intake Total 2170 1924 1810 600 Output Total 3200 3100 6500 4800 Balance -1030 -1176 -4690 -4200 Meds/Results Medications: Active Medications Generic Name Dose Route Start Last Admin Trade Name Harry PRN Reason Stop Dose Admin Acetaminophen 650 mg 08/23/21 06:27 Acetaminophen 325 Mg Tablet PO Q4H PRN Mild Pain (1-3) or Fever Apixaban 5 mg 08/23/21 21:00 09/08/21 08:43 Apixaban 5 Mg Tablet PO 5 mg Q12HR SOCRATES Administration Atorvas
[2021-09-08 20:35] VITALS: PULSE 84
[2021-09-08 21:59] VITALS: BP 135/83; PULSE 70; RESP 18; TEMP 36.7; O2SAT 100
[2021-09-09 05:30] VITALS: BP 150/60; PULSE 77; RESP 18; TEMP 36.3; O2SAT 100
[2021-09-09 08:42] LABS: Albumin Level 3.1 g/dL (3.5-5.1); Anion Gap 4 mmol/L (8-16); Blood Urea Nitrogen 15 mg/dL (7-17); Calcium 7.8 mg/dL (8.4-10.2); Carbon Dioxide 23 mmol/L (22-30); Chloride 95 mmol/L (98-107); Estimated CRCL calculation 85 ml/min; Estimated Glomerular Filt Rate > 60; Glucose 65 mg/dL (65-110); Phosphorus 3.3 mg/dL (2.5-4.5); Potassium 4.1 mmol/L (3.4-5.0); Sodium 122 mmol/L (137-145)
[2021-09-09] MEDS: MAGNESIUM OXIDE 400 MG TABLET PO (10:05)
[2021-09-09 10:06] VITALS: PULSE 78
[2021-09-09] MEDS: SODIUM CHLORIDE 1 GM TABLET PO ×2 (10:06→16:36)
[2021-09-09] MEDS: TOLTERODINE TARTRATE LA 4 MG CAP.ER.24H PO (10:06)
[2021-09-09] MEDS: levETIRAcetam 500 MG TABLET PO ×2 (10:06→20:44)
[2021-09-09] MEDS: APIXABAN 5 MG TABLET PO ×2 (10:06→20:44)
[2021-09-09] MEDS: METOPROLOL TARTRATE 50 MG TAB PO ×2 (10:06→20:44)
[2021-09-09] MEDS: MULTIVITAMINS THERAPEUTIC TAB (*BKC) 1 TABLET PO (10:06)
[2021-09-09] MEDS: CHOLECALCIFEROL 1,000 UNITS TABLET 1000 UNITS PO (10:06)
[2021-09-09] MEDS: ATORVASTATIN 10 MG TABLET PO (10:07)
[2021-09-09] MEDS: DEMECLOCYCLINE HCL 150 MG TABLET 300 MG PO ×4 (10:07→20:44)
[2021-09-09] MEDS: LEFLUNOMIDE 20 MG TABLET PO (10:07)
[2021-09-09] MEDS: HYDROXYCHLOROQUINE SULFATE 200 MG TABLET 400 MG PO (10:07)
[2021-09-09] MEDS: predniSONE 10 MG TABLET 30 MG PO (10:08)
--- NOTE | 2021-09-09 10:16 | PM.IMPN ---
Progress Note: A&P Assessment and Plan (1) Hyponatremia: Code(s): E87.1 - Hypo-osmolality and hyponatremia Status: Acute Assessment and Plan: Appreciate Nephrology consultation. Likely SIADH. Continue Tolvaptan, demeclocycline- managed per nephrology (2) Vasculitis: Code(s): I77.6 - Arteritis, unspecified Status: Acute Assessment and Plan: Continue prednisone taper (3) CAD (coronary artery disease): Code(s): I25.10 - Atherosclerotic heart disease of [place] coronary artery without angina pectoris Status: Acute Assessment and Plan: Overall stable.? no chest pain. (4) Hypertension: Code(s): I10 - Essential (primary) hypertension Status: Acute Assessment and Plan: monitor (5) Rheumatoid arthritis with rheumatoid factor of multiple sites without organ or systems involvement: Onset Date: ~2000 Code(s): M05.79 - Rheumatoid arthritis with rheumatoid factor of multiple sites without organ or systems involvement Status: Acute Assessment and Plan: Stable.? Continue Plaquenil.? (6) Paroxysmal atrial fibrillation: Code(s): I48.0 - Paroxysmal atrial fibrillation Status: Acute Assessment and Plan: EKG shows normal sinus rhythm.? Regular rate on exam.? Continue metoprolol.? Continue Eliquis.? Plan for a Watchman-like procedure on September 09. (7) Fecal incontinence: Code(s): R15.9 - Full incontinence of feces Status: Acute Assessment and Plan: intermittent chronic Plan DVT prophylaxis: Eliquis Code status: Full Subjective Date/time seen: 09/09/21 10:16 Interval history: Megan feels about the same today. Lying in bed comfortably. Exam Narrative: General: No acute distress, alert and oriented per baseline HEENT: Atraumatic, normocephalic, mucous membranes moist CV: Regular rate and rhythm, S1, S2 Lungs: Clear to auscultation bilaterally, no rales or crackles noted, no wheezes, good air entry Abdomen: Soft, nontender, nondistended Extremities: Normal to inspection Skin: No rashes noted, no lesions or wounds seen Psych: Euthymic, normal affect Objective Data Vital Signs Vital Signs: Vital Signs - 24 hr 09/08/21 14:00 09/08/21 20:35 09/08/21 21:59 Temperature 97.9 F 98.1 F Pulse Rate 94 84 70 Respiratory Rate 20 18 Blood Pressure 133/88 135/83 Pulse Oximetry 95 100 Oxygen Delivery 09/09/21 05:30 09/09/21 07:49 09/09/21 10:06 Temperature 97.4 F L Pulse Rate 77 78 Respiratory Rate 18 Blood Pressure 150/60 H Pulse Oximetry 100 Oxygen Delivery Room Air Intake/Output Intake/Output: Intake & Output 09/06/21 09/07/21 09/08/21 09/09/21 23:59 23:59 23:59 23:59 Intake Total 1924 1810 600 930 Output Total 3100 6500 4800 4350 [facility]1176 -[phone] -3420 Meds/Results Medications: Active Medications Generic Name Dose Route Start Last Admin Trade Name Freq PRN Reason Stop Dose Admin Acetaminophen 650 mg 08/23/21 06:27 Acetaminophen 325 Mg Tablet PO Q4H PRN Mild Pain (1-3) or Fever Apixaban 5 mg 08/23/21 21:00 09/09/21 10:06 Apixaban 5 Mg Tablet PO 5 mg Q12HR SOCRATES Administration Atorvastatin Calcium 10 mg 08/24/21 09:00 09/09/21 10:07 Atorvastatin 10 Mg Tablet PO 10 mg DAILY SOCRATES Administration Demeclocycline HCl 300 mg 09/07/21 13:00 09/09/21 10:07 Demeclocycline Hcl 150 Mg Tablet PO 300 mg QID SOCRATES Administration Hydroxychloroquine Sulfate 400 mg 08/24/21 09:00 09/09/21 10:07 Hydroxychloroquine Sulfate 200 Mg Tablet PO 400 mg DAILY SOCRATES Administration Leflunomide 20 mg 08/24/21 09:00 09/09/21 10:07 Leflunomide 20 Mg Tablet PO 20 mg DAILY SOCRATES Administration Levetiracetam 500 mg 08/23/21 21:00 09/09/21 10:06 Levetiracetam 500 Mg Tablet PO 500 mg Q12HR SOCRATES Administration Magnesium Oxide 400 mg 09/08/21 11:
--- NOTE | 2021-09-09 10:29 | P.PNNP_ITS ---
Progress Note: A&P Assessment and Plan (1) Hyponatremia: Code(s): E87.1 - Hypo-osmolality and hyponatremia Status: Acute Assessment and Plan: * acute on chronic * sodiums have been running ~ 129 - 133 as far back as 2006 * previous evaluation noted (March 2020): * SPEP and UPEP negative for paraproteinemia * kappa/lambda ratio normal * TSH okay * cortisol was low (but she was on chronic prednisone therapy) and on prednisone currently * head CT shows no acute intracranial process. There does not seem to be enough going on here to causes hyponatremia. * another possibility would be pseudo-hyponatremia. Past evaluation has not revealed pseudohyponatremia. * dehydration is always a possibility but her mucous membranes are moist and no orthostatic drop in blood pressure * high urine osmolality and low serum osmolality which was equal to the calculated serum osmolality -- consistent with SIADH * re-evaluation shows a high urine osmolality , a serum osmolality which is close to calculated (254 versus 260), normal serum immunofix, pending urine immunofix, normal kappa lambda, normal TSH and cortisol. * given persistent hyponatremia, demeclocycline dosage increased * continue tolvaptan with bid dosing and salt tablets for now * tolvaptan is a short term solution and should only be used for a max time period of 30 days * furthermore, this is an expensive medication and may not be able to used as an outpatient * some concern about her compliance with fluid restriction (during this hospital stay) noted * follow repeat sodium levels Discussed situation with pharmacy. Will continue to follow. Subjective Date/time seen: 09/09/21 10:29 No new issues or complaints voiced at the time of my visit; happy to hear that her sodium level is a bit better by AM labs; no other apparent concerns to report; no events overnight or earlier this morning. Exam Narrative: General: WD/WN female in NAD Heart: normal S1 and S2; no rub Lungs: clear to auscultation Abdomen: soft, nontender, nondistended, positive bowel sounds Extremities: no cyanosis or clubbing; no edema Skin: warm and intact Objective Data Vital Signs Vital Signs: Vital Signs Temp Pulse Resp BP Pulse Ox O2 Del Method 09/09/21 10:06 78 09/09/21 07:49 Room Air 09/09/21 05:30 36.3 C L 77 18 150/60 H 100 09/08/21 21:59 36.7 C 70 18 135/83 100 09/08/21 20:35 84 09/08/21 14:00 36.6 C 94 20 133/88 95 Intake/Output Intake/Output: Intake & Output 09/06/21 09/07/21 09/08/21 09/09/21 23:59 23:59 23:59 23:59 Intake Total 1924 1810 600 930 Output Total 3100 6500 4800 4350 Balance -1176 -4690 -4200 -3420 Meds/Results Medications: Active Medications Generic Name Dose Route Start Last Admin Trade Name Harry PRN Reason Stop Dose Admin Acetaminophen 650 mg 08/23/21 06:27 Acetaminophen 325 Mg Tablet PO Q4H PRN Mild Pain (1-3) or Fever Apixaban 5 mg 08/23/21 21:00 09/09/21 10:06 Apixaban 5 Mg Tablet PO 5 mg Q12HR SOCRATES Administration Atorvas
--- NOTE | 2021-09-09 10:29 | PM.PNNEP ---
Progress Note: A&P Assessment and Plan (1) Hyponatremia: Code(s): E87.1 - Hypo-osmolality and hyponatremia Status: Acute Assessment and Plan: acute on chronic sodiums have been running ~ 129 - 133 as far back as 2006 previous evaluation noted (March 2020): SPEP and UPEP negative for paraproteinemia kappa/lambda ratio normal TSH okay cortisol was low (but she was on chronic prednisone therapy) and on prednisone currently head CT shows no acute intracranial process. There does not seem to be enough going on here to causes hyponatremia. another possibility would be pseudo-hyponatremia. Past evaluation has not revealed pseudohyponatremia. dehydration is always a possibility but her mucous membranes are moist and no orthostatic drop in blood pressure high urine osmolality and low serum osmolality which was equal to the calculated serum osmolality -- consistent with SIADH re-evaluation shows a high urine osmolality , a serum osmolality which is close to calculated (254 versus 260), normal serum immunofix, pending urine immunofix, normal kappa lambda, normal TSH and cortisol. given persistent hyponatremia, demeclocycline dosage increased continue tolvaptan with bid dosing and salt tablets for now tolvaptan is a short term solution and should only be used for a max time period of 30 days furthermore, this is an expensive medication and may not be able to used as an outpatient some concern about her compliance with fluid restriction (during this hospital stay) noted follow repeat sodium levels Discussed situation with pharmacy. Will continue to follow. Subjective Date/time seen: 09/09/21 10:29 No new issues or complaints voiced at the time of my visit; happy to hear that her sodium level is a bit better by AM labs; no other apparent concerns to report; no events overnight or earlier this morning. Exam Narrative: General: WD/WN female in NAD Heart: normal S1 and S2; no rub Lungs: clear to auscultation Abdomen: soft, nontender, nondistended, positive bowel sounds Extremities: no cyanosis or clubbing; no edema Skin: warm and intact Objective Data Vital Signs Vital Signs: Vital Signs Temp Pulse Resp BP Pulse Ox O2 Del Method 09/09/21 10:06 78 09/09/21 07:49 Room Air 09/09/21 05:30 36.3 C L 77 18 150/60 H 100 09/08/21 21:59 36.7 C 70 18 135/83 100 09/08/21 20:35 84 09/08/21 14:00 36.6 C 94 20 133/88 95 Intake/Output Intake/Output: Intake & Output 09/06/21 09/07/21 09/08/21 09/09/21 23:59 23:59 23:59 23:59 Intake Total 1924 1810 600 930 Output Total 3100 6500 4800 3980 [facility] -6249 [phone] -7680 Meds/Results Medications: Active Medications Generic Name Dose Route Start Last Admin Trade Name Freq PRN Reason Stop Dose Admin Acetaminophen 650 mg 08/23/21 06:27 Acetaminophen 325 Mg Tablet PO Q4H PRN Mild Pain (1-3) or Fever Apixaban 5 mg 08/23/21 21:00 09/09/21 10:06 Apixaban 5 Mg Tablet PO 5 mg Q12HR SOCRATES Administration Atorvastatin Calcium 10 mg 08/24/21 09:00 09/09/21 10:07 Atorvastatin 10 Mg Tablet PO 10 mg DAILY SOCRATES Administration Demeclocycline HCl 300 mg 09/07/21 13:00 09/09/21 10:07 Demeclocycline Hcl 150 Mg Tablet PO 300 mg QID SOCRATES Administration Hydroxychloroquine Sulfate 400 mg 08/24/21 09:00 09/09/21 10:07 Hydroxychloroquine Sulfate 200 Mg Tablet PO 400 mg DAILY SOCRATES Administration Leflunomide 20 mg 08/24/21 09:00 09/09/21 10:07 Leflunomide 20 Mg Tablet PO 20 mg DAILY SOCRATES Administration Levetiracetam 500 mg 08/23/21 21:00 09/09/21 10:06 Levetiracetam 500 Mg Tablet PO 500 mg Q12HR SOCRATES Administration Magnesium Oxide 400 mg 09/08/21 11:00 09/09/21 10:05 Magnesium Oxide 400 Mg Tablet PO 400 mg DAILY@1100 SOCRATES Administration Metoprolol Tartrate 50 mg 08/23/21 21:00 09/09/21 10:06 Metoprolol Tartr
[2021-09-09 14:00] VITALS: BP 133/76; PULSE 77; RESP 18; TEMP 36; O2SAT 98
[2021-09-09 14:03] LABS: Albumin 38 %; Measured Kappa Chains 1.06 mg/dL (<2.00); Measured Lambda Chains <1.00 mg/dL (<2.00); Pro/Creat Ratio 479 mg/g creat (<=114); Total Kappa Chains 15.9 mg/24 h
[2021-09-09] MEDS: DOCUSATE SODIUM 100 MG CAPSULE PO (16:35)
[2021-09-09 20:31] LABS: Sodium 121 mmol/L (137-145)
[2021-09-09 20:44] VITALS: PULSE 73
[2021-09-09 21:53] VITALS: BP 119/96; PULSE 86; RESP 16; TEMP 37.6; O2SAT 96
[2021-09-10] VITALS (7 sets, daily range): BP systolic 124–160; BP diastolic 69–90; PULSE 74–82; RESP 16; TEMP 36–37.1; O2SAT 97–99
[2021-09-10 06:36] LABS: Anion Gap 4 mmol/L (8-16); Blood Urea Nitrogen 18 mg/dL (7-17); Calcium 7.8 mg/dL (8.4-10.2); Carbon Dioxide 27 mmol/L (22-30); Chloride 93 mmol/L (98-107); Estimated CRCL calculation 70 ml/min; Estimated Glomerular Filt Rate > 60; Glucose 76 mg/dL (65-110); Phosphorus 3.4 mg/dL (2.5-4.5); Potassium 3.6 mmol/L (3.4-5.0); Sodium 124 mmol/L (137-145)
[2021-09-10] MEDS: METOPROLOL TARTRATE 50 MG TAB PO ×2 (08:46→20:38)
[2021-09-10] MEDS: LEFLUNOMIDE 20 MG TABLET PO (08:46)
[2021-09-10] MEDS: MULTIVITAMINS THERAPEUTIC TAB (*BKC) 1 TABLET PO (08:47)
[2021-09-10] MEDS: TOLTERODINE TARTRATE LA 4 MG CAP.ER.24H PO (08:47)
[2021-09-10] MEDS: DEMECLOCYCLINE HCL 150 MG TABLET 300 MG PO ×4 (08:47→20:38)
[2021-09-10] MEDS: predniSONE 10 MG TABLET 30 MG PO (08:47)
[2021-09-10] MEDS: HYDROXYCHLOROQUINE SULFATE 200 MG TABLET 400 MG PO (08:47)
[2021-09-10] MEDS: SODIUM CHLORIDE 1 GM TABLET PO ×2 (08:47→16:26)
[2021-09-10] MEDS: levETIRAcetam 500 MG TABLET PO ×2 (08:47→20:38)
[2021-09-10] MEDS: ATORVASTATIN 10 MG TABLET PO (08:47)
[2021-09-10] MEDS: APIXABAN 5 MG TABLET PO ×2 (08:47→20:38)
[2021-09-10] MEDS: CHOLECALCIFEROL 1,000 UNITS TABLET 1000 UNITS PO (08:47)
[2021-09-10 10:41] LABS: Osmolality, Urine 300 mOsm/kg (50-1200)
--- NOTE | 2021-09-10 11:33 | PM.IMPN ---
Progress Note: A&P Assessment and Plan (1) Hyponatremia: Code(s): E87.1 - Hypo-osmolality and hyponatremia Status: Acute Assessment and Plan: Appreciate Nephrology consultation. Likely SIADH. Continue Tolvaptan, demeclocycline- managed per nephrology (2) Vasculitis: Code(s): I77.6 - Arteritis, unspecified Status: Acute Assessment and Plan: Continue prednisone taper (3) CAD (coronary artery disease): Code(s): I25.10 - Atherosclerotic heart disease of [place] coronary artery without angina pectoris Status: Acute Assessment and Plan: Overall stable.? no chest pain. (4) Hypertension: Code(s): I10 - Essential (primary) hypertension Status: Acute Assessment and Plan: monitor (5) Rheumatoid arthritis with rheumatoid factor of multiple sites without organ or systems involvement: Onset Date: ~2000 Code(s): M05.79 - Rheumatoid arthritis with rheumatoid factor of multiple sites without organ or systems involvement Status: Acute Assessment and Plan: Stable.? Continue Plaquenil.? (6) Paroxysmal atrial fibrillation: Code(s): I48.0 - Paroxysmal atrial fibrillation Status: Acute Assessment and Plan: EKG shows normal sinus rhythm.? Regular rate on exam.? Continue metoprolol.? Continue Eliquis.? Plan for a Watchman-like procedure on September 09. 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, will check lumbar spine MRI Subjective Date/time seen: 09/10/21 11:33 no complaints na 124 Exam Narrative: General: No acute distress, alert and oriented per baseline HEENT: Atraumatic, normocephalic, mucous membranes moist CV: Regular rate and rhythm, S1, S2 Lungs: Clear to auscultation bilaterally, no rales or crackles noted, no wheezes, good air entry Abdomen: Soft, nontender, nondistended Extremities: Normal to inspection Skin: No rashes noted, no lesions or wounds seen Psych: Euthymic, normal affect Objective Data Vital Signs Vital Signs: Vital Signs - 24 hr 09/09/21 14:00 09/09/21 20:44 09/09/21 21:53 Temperature 96.8 F L 99.6 F Pulse Rate 77 73 86 Respiratory Rate 18 16 Blood Pressure 133/76 119/96 H Pulse Oximetry 98 96 Oxygen Delivery 09/10/21 05:47 09/10/21 08:46 09/10/21 08:00 Temperature 97.4 F L Pulse Rate 75 75 75 Respiratory Rate 16 16 Blood Pressure 160/90 H Pulse Oximetry 99 99 Oxygen Delivery Room Air Intake/Output Intake/Output: Intake & Output 09/07/21 09/08/21 09/09/21 09/10/21 23:59 23:59 23:59 23:59 Intake Total 3523 010 1055 980 Output Total 6500 4800 6900 1700 [facility] -4690 -4200 -3726 -720 Meds/Results Medications: Active Medications Generic Name Dose Route Start Last Admin Trade Name Freq PRN Reason Stop Dose Admin Acetaminophen 650 mg 08/23/21 06:27 Acetaminophen 325 Mg Tablet PO Q4H PRN Mild Pain (1-3) or Fever Apixaban 5 mg 08/23/21 21:00 09/10/21 08:47 Apixaban 5 Mg Tablet PO 5 mg Q12HR SOCRATES Administration Atorvastatin Calcium 10 mg 08/24/21 09:00 09/10/21 08:47 Atorvastatin 10 Mg Tablet PO 10 mg DAILY SOCRATES Administration Demeclocycline HCl 300 mg 09/07/21 13:00 09/10/21 08:47 Demeclocycline Hcl 150 Mg Tablet PO 300 mg QID SOCRATES Administration Docusate Sodium 100 mg 09/09/21 13:00 09/09/21 16:35 Docusate Sodium 100 Mg Capsule PO 100 mg Q12H PRN Administration Constipation Hydroxychloroquine Sulfate 400 mg 08/24/21 09:00 09/10/21 08:47 Hydroxychloroquine Sulfate 200 Mg Tablet PO 400 mg DAILY SOCRATES Administration Leflunomide 20 mg 08/24/21 09:00
[2021-09-10] MEDS: MAGNESIUM OXIDE 400 MG TABLET PO (11:38)
--- NOTE | 2021-09-10 14:52 | PM.PNNEP ---
Progress Note: A&P Assessment and Plan (1) Hyponatremia: Code(s): E87.1 - Hypo-osmolality and hyponatremia Status: Acute Assessment and Plan: acute on chronic sodiums have been running ~ 129 - 133 as far back as 2006 previous evaluation noted (March 2020): SPEP and UPEP negative for paraproteinemia kappa/lambda ratio normal TSH okay cortisol was low (but she was on chronic prednisone therapy) and on prednisone currently head CT shows no acute intracranial process. There does not seem to be enough going on here to causes hyponatremia. another possibility would be pseudo-hyponatremia. Past evaluation has not revealed pseudohyponatremia. dehydration is always a possibility but her mucous membranes are moist and no orthostatic drop in blood pressure high urine osmolality and low serum osmolality which was equal to the calculated serum osmolality -- consistent with SIADH re-evaluation shows a high urine osmolality , a serum osmolality which is close to calculated (254 versus 260), normal serum immunofix, pending urine immunofix, normal kappa lambda, normal TSH and cortisol. given persistent hyponatremia, demeclocycline dosage increased continue tolvaptan with bid dosing and salt tablets for now - plan is to wean off tolvaptan as sodium improves: tolvaptan is a short term solution and should only be used for a max time period of 30 days furthermore, this is an expensive medication and may not be able to used as an outpatient some concern about her compliance with fluid restriction (during this hospital stay) noted follow repeat sodium levels Will continue to follow. Subjective Date/time seen: 09/10/21 14:52 Sodium has improved a bit more by AM labs and patient was quite happy to hear about this; no acute complaints to report; no issues/events overnight or earlier this morning; overall, she feels reasonably well and in no apparent distress. Exam Narrative: General: WD/WN female in NAD Heart: normal S1 and S2; no rub Lungs: clear to auscultation Abdomen: soft, nontender, nondistended, positive bowel sounds Extremities: no cyanosis or clubbing; no edema Skin: no rash Objective Data Vital Signs Vital Signs: Vital Signs Temp Pulse Resp BP Pulse Ox O2 Del Method 09/10/21 14:00 36.0 C L 82 16 124/69 98 09/10/21 14:07 98 Room Air 07/13/22 08:00 75 16 99 Room Air 09/10/21 08:46 75 09/10/21 05:47 36.3 C L 75 16 160/90 H 99 09/09/21 21:53 37.6 C 86 16 119/96 H 96 09/09/21 20:44 73 Intake/Output Intake/Output: Intake & Output 09/07/21 09/08/21 09/09/21 09/10/21 23:59 23:59 23:59 23:59 Intake Total 7312 713 2874 2352 Output Total 6500 4800 6900 3400 [facility]4690 -[phone] -1048 Meds/Results Medications: Active Medications Generic Name Dose Route Start Last Admin Trade Name Freq PRN Reason Stop Dose Admin Acetaminophen 650 mg 08/23/21 06:27 Acetaminophen 325 Mg Tablet PO Q4H PRN Mild Pain (1-3) or Fever Apixaban 5 mg 08/23/21 21:00 09/10/21 08:47 Apixaban 5 Mg Tablet PO 5 mg Q12HR SOCRATES Administration Atorvastatin Calcium 10 mg 08/24/21 09:00 09/10/21 08:47 Atorvastatin 10 Mg Tablet PO 10 mg DAILY SOCRATES Administration Demeclocycline HCl 300 mg 09/07/21 13:00 09/10/21 16:26 Demeclocycline Hcl 150 Mg Tablet PO 300 mg QID SOCRATES Administration Docusate Sodium 100 mg 09/09/21 13:00 09/09/21 16:35 Docusate Sodium 100 Mg Capsule PO 100 mg Q12H PRN Administration Constipation Hydroxychloroquine Sulfate 400 mg 08/24/21 09:00 09/10/21 08:47 Hydroxychloroquine Sulfate 200 Mg Tablet PO 400 mg DAILY SOCRATES Administration Leflunomide 20 mg 08/24/21 09:00 09/10/21 08:46 Leflunomide 20 Mg Tablet PO 20 mg DAILY SOCRATES Administration Levetiracetam 500 mg 08/23/21 21:00 09/10/21 08:47 Levetiracetam 500 Mg Tablet PO 500 mg Q12HR SC
--- NOTE | 2021-09-10 14:52 | P.PNNP_ITS ---
Progress Note: A&P Assessment and Plan (1) Hyponatremia: Code(s): E87.1 - Hypo-osmolality and hyponatremia Status: Acute Assessment and Plan: * acute on chronic * sodiums have been running ~ 129 - 133 as far back as 2006 * previous evaluation noted (March 2020): * SPEP and UPEP negative for paraproteinemia * kappa/lambda ratio normal * TSH okay * cortisol was low (but she was on chronic prednisone therapy) and on prednisone currently * head CT shows no acute intracranial process. There does not seem to be enough going on here to causes hyponatremia. * another possibility would be pseudo-hyponatremia. Past evaluation has not revealed pseudohyponatremia. * dehydration is always a possibility but her mucous membranes are moist and no orthostatic drop in blood pressure * high urine osmolality and low serum osmolality which was equal to the calculated serum osmolality -- consistent with SIADH * re-evaluation shows a high urine osmolality , a serum osmolality which is close to calculated (254 versus 260), normal serum immunofix, pending urine immunofix, normal kappa lambda, normal TSH and cortisol. * given persistent hyponatremia, demeclocycline dosage increased * continue tolvaptan with bid dosing and salt tablets for now - plan is to wean off tolvaptan as sodium improves: * tolvaptan is a short term solution and should only be used for a max time period of 30 days * furthermore, this is an expensive medication and may not be able to used as an outpatient * some concern about her compliance with fluid restriction (during this hospital stay) noted * follow repeat sodium levels Will continue to follow. Subjective Date/time seen: 09/10/21 14:52 Sodium has improved a bit more by AM labs and patient was quite happy to hear about this; no acute complaints to report; no issues/events overnight or earlier this morning; overall, she feels reasonably well and in no apparent distress. Exam Narrative: General: WD/WN female in NAD Heart: normal S1 and S2; no rub Lungs: clear to auscultation Abdomen: soft, nontender, nondistended, positive bowel sounds Extremities: no cyanosis or clubbing; no edema Skin: no rash Objective Data Vital Signs Vital Signs: Vital Signs Temp Pulse Resp BP Pulse Ox O2 Del Method 09/10/21 14:00 36.0 C L 82 16 124/69 98 09/10/21 14:07 98 Room Air 09/10/21 08:00 75 16 99 Room Air 09/10/21 08:46 75 09/10/21 05:47 36.3 C L 75 16 160/90 H 99 09/09/21 21:53 37.6 C 86 16 119/96 H 96 09/09/21 20:44 73 Intake/Output Intake/Output: Intake & Output 09/07/21 09/08/21 09/09/21 09/10/21 23:59 23:59 23:59 23:59 Intake Total 1957 823 7915 2352 Output Total 6500 4800 6900 3400 [facility]4690 -4200 -3726 -1048 Meds/Results Medications: Active Medications Generic Name Dose Route Start Last Admin Trade Name Freq PRN Reason Stop Dose Admin Acetaminophen 650 mg 08/23/21 06:27 Acetaminophen 325 Mg Tablet PO Q4H PRN Mild Pain (1-3) or Fever Apixaban 5 mg 08/23/21 21:00 09/10/21 08:47
[2021-09-11 05:31] VITALS: BP 151/78; PULSE 71; RESP 16; TEMP 36.6; O2SAT 99
[2021-09-11 07:30] LABS: Anion Gap 3 mmol/L (8-16); Blood Urea Nitrogen 15 mg/dL (7-17); Calcium 7.7 mg/dL (8.4-10.2); Carbon Dioxide 26 mmol/L (22-30); Chloride 92 mmol/L (98-107); Estimated CRCL calculation 70 ml/min; Estimated Glomerular Filt Rate > 60; Glucose 73 mg/dL (65-110); Phosphorus 3.1 mg/dL (2.5-4.5); Potassium 3.5 mmol/L (3.4-5.0); Sodium 121 mmol/L (137-145)
[2021-09-11 08:00] VITALS: O2SAT 99
[2021-09-11] MEDS: LEFLUNOMIDE 20 MG TABLET PO (09:13)
[2021-09-11] MEDS: levETIRAcetam 500 MG TABLET PO ×2 (09:13→20:49)
[2021-09-11] MEDS: DEMECLOCYCLINE HCL 150 MG TABLET 300 MG PO ×4 (09:13→20:49)
[2021-09-11 09:14] VITALS: PULSE 83
[2021-09-11] MEDS: METOPROLOL TARTRATE 50 MG TAB PO ×2 (09:14→20:50)
[2021-09-11] MEDS: CHOLECALCIFEROL 1,000 UNITS TABLET 1000 UNITS PO (09:16)
[2021-09-11] MEDS: APIXABAN 5 MG TABLET PO ×2 (09:16→20:50)
[2021-09-11] MEDS: ATORVASTATIN 10 MG TABLET PO (09:16)
[2021-09-11] MEDS: HYDROXYCHLOROQUINE SULFATE 200 MG TABLET 400 MG PO (09:16)
[2021-09-11] MEDS: predniSONE 20 MG TABLET PO (09:16)
[2021-09-11] MEDS: MULTIVITAMINS THERAPEUTIC TAB (*BKC) 1 TABLET PO (09:16)
[2021-09-11] MEDS: TOLTERODINE TARTRATE LA 4 MG CAP.ER.24H PO (09:16)
[2021-09-11] MEDS: SODIUM CHLORIDE 500 MG TABLET PO (09:17)
[2021-09-11] MEDS: SODIUM CHLORIDE 1 GM TABLET PO (09:17)
[2021-09-11] MEDS: DOCUSATE SODIUM 100 MG CAPSULE PO (09:22)
[2021-09-11] MEDS: MAGNESIUM OXIDE 400 MG TABLET PO (10:47)
--- NOTE | 2021-09-11 11:19 | PM.IMPN ---
Progress Note: A&P Assessment and Plan (1) Hyponatremia: Code(s): E87.1 - Hypo-osmolality and hyponatremia Status: Acute Assessment and Plan: Appreciate Nephrology consultation. Likely SIADH. Continue Tolvaptan, demeclocycline-sodium chloride tabs - managed per nephrology (2) Vasculitis: Code(s): I77.6 - Arteritis, unspecified Status: Acute Assessment and Plan: Continue prednisone taper (3) CAD (coronary artery disease): Code(s): I25.10 - Atherosclerotic heart disease of [place] coronary artery without angina pectoris Status: Acute Assessment and Plan: Overall stable.? no chest pain. (4) Hypertension: Code(s): I10 - Essential (primary) hypertension Status: Acute Assessment and Plan: monitor (5) Rheumatoid arthritis with rheumatoid factor of multiple sites without organ or systems involvement: Onset Date: ~2000 Code(s): M05.79 - Rheumatoid arthritis with rheumatoid factor of multiple sites without organ or systems involvement Status: Acute Assessment and Plan: Stable.? Continue Plaquenil.? (6) Paroxysmal atrial fibrillation: Code(s): I48.0 - Paroxysmal atrial fibrillation Status: Acute Assessment and Plan: EKG shows normal sinus rhythm.? Regular rate on exam.? Continue metoprolol.? Continue Eliquis.? Plan for a Watchman-like procedure on September 09. 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, will check lumbar spine MRI Subjective Date/time seen: 09/11/21 11:19 No complaints Exam Narrative: General: No acute distress, alert and oriented per baseline HEENT: Atraumatic, normocephalic, mucous membranes moist CV: Regular rate and rhythm, S1, S2 Lungs: Clear to auscultation bilaterally, no rales or crackles noted, no wheezes, good air entry Abdomen: Soft, nontender, nondistended Extremities: Normal to inspection Skin: No rashes noted, no lesions or wounds seen Psych: Euthymic, normal affect Objective Data Vital Signs Vital Signs: Vital Signs - 24 hr 09/10/21 14:07 09/10/21 14:00 09/10/21 20:38 Temperature 96.8 F L Pulse Rate 82 74 Respiratory Rate 16 Blood Pressure 124/69 Pulse Oximetry 98 98 Oxygen Delivery Room Air 09/10/21 21:53 09/11/21 05:31 09/11/21 09:14 Temperature 98.7 F 97.9 F Pulse Rate 80 71 83 Respiratory Rate 16 16 Blood Pressure 125/72 151/78 H Pulse Oximetry 97 99 Oxygen Delivery Intake/Output Intake/Output: Intake & Output 09/08/21 09/09/21 09/10/21 09/11/21 23:59 23:59 23:59 23:59 Intake Total 600 3174 2352 1230 Output Total 4800 6900 3400 2600 [facility] -[id number] [id number] [phone] Meds/Results Medications: Active Medications Generic Name Dose Route Start Last Admin Trade Name Freq PRN Reason Stop Dose Admin Acetaminophen 650 mg 08/23/21 06:27 Acetaminophen 325 Mg Tablet PO Q4H PRN Mild Pain (1-3) or Fever Apixaban 5 mg 08/23/21 21:00 09/11/21 09:16 Apixaban 5 Mg Tablet PO 5 mg Q12HR SOCRATES Administration Atorvastatin Calcium 10 mg 08/24/21 09:00 09/11/21 09:16 Atorvastatin 10 Mg Tablet PO 10 mg DAILY SOCRATES Administration Demeclocycline HCl 300 mg 09/07/21 13:00 09/11/21 09:13 Demeclocycline Hcl 150 Mg Tablet PO 300 mg QID SOCRATES Administration Docusate Sodium 100 mg 09/09/21 13:00 09/11/21 09:22 Docusate Sodium 100 Mg Capsule PO 100 mg Q12H PRN Administration Constipation Hydroxychloroquine Sulfate 400 mg 08/24/21 09:00 09/11/21 09:16 Hydroxychloroquine Sulfate 200 Mg Tablet PO 400 mg DAILY SOCRATES Administration Leflunomide 20 mg 08/24/21 09:00
--- NOTE | 2021-09-11 12:11 | PCNSR ---
On 09/11/21, the student, Tess Gurrola, provided care and completed [facility] documentation on this patient. I have reviewed the student's documentation and agree with the findings.
--- NOTE | 2021-09-11 13:29 | P.PNNP_ITS ---
Progress Note: A&P Assessment and Plan (1) Hyponatremia: Code(s): E87.1 - Hypo-osmolality and hyponatremia Status: Acute Assessment and Plan: * acute on chronic * sodiums have been running ~ 129 - 133 as far back as 2006 * previous evaluation noted (March 2020): * SPEP and UPEP negative for paraproteinemia * kappa/lambda ratio normal * TSH okay * cortisol was low (but she was on chronic prednisone therapy) and on prednisone currently * head CT shows no acute intracranial process. There does not seem to be enough going on here to causes hyponatremia. * another possibility would be pseudo-hyponatremia. Past evaluation has not revealed pseudohyponatremia. * dehydration is always a possibility but her mucous membranes are moist and no orthostatic drop in blood pressure * high urine osmolality and low serum osmolality which was equal to the calculated serum osmolality -- consistent with SIADH * re-evaluation shows a high urine osmolality, serum osmolality which is close to calculated (254 versus 260), normal serum immunofix, pending urine immunofix, normal kappa lambda, normal TSH and cortisol. * given persistent hyponatremia, demeclocycline dosage increased * continue tolvaptan with bid dosing and salt tablets for now - plan is to wean off tolvaptan as sodium improves (although this does not appear to occuring): * tolvaptan is a short term solution and should only be used for a max time period of 30 days * furthermore, this is an expensive medication and may not be able to used as an outpatient * some concern about her compliance with fluid restriction (during this hospital stay) noted * will increase dosage/frequency of salt tabs * is it possible her new baseline sodium level is 121(??) * follow repeat sodium levels Will continue to follow. Subjective Date/time seen: 09/11/21 13:29 No new issues or problems voiced at this time; frustrated by sodium results this AM (back down to 121); no new issues or problems voiced at this time; feels about the same. Exam Narrative: General: WD/WN female in NAD Heart: normal S1 and S2; no rub Lungs: clear to auscultation Abdomen: soft, nontender, nondistended, positive bowel sounds Extremities: no cyanosis or clubbing; no edema Skin: no nodules Objective Data Vital Signs Vital Signs: Vital Signs Temp Pulse Resp BP Pulse Ox O2 Del Method 09/11/21 08:00 99 Room Air 09/11/21 09:14 83 09/11/21 05:31 36.6 C 71 16 151/78 H 99 09/10/21 21:53 37.1 C 80 16 125/72 97 09/10/21 20:38 74 09/10/21 14:00 36.0 C L 82 16 124/69 98 09/10/21 14:07 98 Room Air Intake/Output Intake/Output: Intake & Output 09/09/21 09/10/21 09/11/21 09/12/21 23:59 23:59 23:59 23:59 Intake Total 3174 2352 2242 Output Total 6890 3400 3600 [place] [id number] [id number] [phone] Meds/Results Medications: Active Medications Generic Name Dose Route Start Last Admin Trade Name Freq PRN Reason Stop Dose Admin Acetaminophen 650 mg 08/23/21 06:27 Acetaminophen 325 Mg Tablet PO Q4H PRN Mild Pain (1-3) or Fever Apixaban 5 mg 08/23/21 21:
--- NOTE | 2021-09-11 13:29 | P.CONNP_ITS ---
Assessment and Plan Assessment and plan (1) Hyponatremia: Code(s): E87.1 - Hypo-osmolality and hyponatremia Status: Acute Assessment and Plan: * acute on chronic * sodiums have been running ~ 129 - 133 as far back as 2006 * previous evaluation noted (March 2020): * SPEP and UPEP negative for paraproteinemia * kappa/lambda ratio normal * TSH okay * cortisol was low (but she was on chronic prednisone therapy) and on prednisone currently * head CT shows no acute intracranial process. There does not seem to be enough going on here to causes hyponatremia. * another possibility would be pseudo-hyponatremia. Past evaluation has not revealed pseudohyponatremia. * dehydration is always a possibility but her mucous membranes are moist and no orthostatic drop in blood pressure * high urine osmolality and low serum osmolality which was equal to the calculated serum osmolality -- consistent with SIADH * re-evaluation shows a high urine osmolality , a serum osmolality which is close to calculated (254 versus 260), normal serum immunofix, pending urine immunofix, normal kappa lambda, normal TSH and cortisol. * given persistent hyponatremia, demeclocycline dosage increased * continue tolvaptan with bid dosing and salt tablets for now - plan is to wean off tolvaptan as sodium improves (but this does not seem to be happening(!): * tolvaptan is a short term solution and should only be used for a max time period of 30 days * furthermore, this is an expensive medication and may not be able to used as an outpatient * some concern about her compliance with fluid restriction (during this hospital stay) noted * follow repeat sodium levels Will continue to follow. History of Present Illness Reason for Consult Consult date: 09/11/21 Chief Complaint Chief complaint: Hyponatremia/weakness PMFSH Past Medical History Medical History Age-related osteoporosis without current pathological fracture Bunion of left foot Bunion, right foot CAD (coronary artery disease) Generalized weakness Hypertension Hypokalemia Hyponatremia Intraparenchymal hematoma of brain Leg weakness, bilateral Rheumatoid arthritis with rheumatoid factor of multiple sites without organ or systems involvement (~2000) Seizures UTI (urinary tract infection) UTI (urinary tract infection) Surgical History Surgical History History of knee replacement, total Family History Family History Mother Alzheimer disease Father Congestive heart failure Other Hypertension Social History Social History Smoking status: Former smoker Additional smoking assessment comments: only in her 20s Alcohol intake: current Substance use: never Gender identity (if verbalized by the patient): Female Spiritual care concerns: No Meds Home Medications and Allergies Home Medications Medication Instructions Recorded Confirmed Type multivitamin 1 tablet PO DAILY 02/06/20 08/23/21 History cholecalciferol (vitamin D3) 25 25 mcg PO DAILY 03/12/20 08/23/21 History mcg (1,000 unit) capsule (Vitamin D3) coenzyme Q10 100 mg capsule 200 mg PO D
--- NOTE | 2021-09-11 13:29 | PM.PNNEP ---
Progress Note: A&P Assessment and Plan (1) Hyponatremia: Code(s): E87.1 - Hypo-osmolality and hyponatremia Status: Acute Assessment and Plan: acute on chronic sodiums have been running ~ 129 - 133 as far back as 2006 previous evaluation noted (March 2020): SPEP and UPEP negative for paraproteinemia kappa/lambda ratio normal TSH okay cortisol was low (but she was on chronic prednisone therapy) and on prednisone currently head CT shows no acute intracranial process. There does not seem to be enough going on here to causes hyponatremia. another possibility would be pseudo-hyponatremia. Past evaluation has not revealed pseudohyponatremia. dehydration is always a possibility but her mucous membranes are moist and no orthostatic drop in blood pressure high urine osmolality and low serum osmolality which was equal to the calculated serum osmolality -- consistent with SIADH re-evaluation shows a high urine osmolality, serum osmolality which is close to calculated (254 versus 260), normal serum immunofix, pending urine immunofix, normal kappa lambda, normal TSH and cortisol. given persistent hyponatremia, demeclocycline dosage increased continue tolvaptan with bid dosing and salt tablets for now - plan is to wean off tolvaptan as sodium improves (although this does not appear to occuring): tolvaptan is a short term solution and should only be used for a max time period of 30 days furthermore, this is an expensive medication and may not be able to used as an outpatient some concern about her compliance with fluid restriction (during this hospital stay) noted will increase dosage/frequency of salt tabs is it possible her new baseline sodium level is 121(??) follow repeat sodium levels Will continue to follow. Subjective Date/time seen: 09/11/21 13:29 No new issues or problems voiced at this time; frustrated by sodium results this AM (back down to 121); no new issues or problems voiced at this time; feels about the same. Exam Narrative: General: WD/WN female in NAD Heart: normal S1 and S2; no rub Lungs: clear to auscultation Abdomen: soft, nontender, nondistended, positive bowel sounds Extremities: no cyanosis or clubbing; no edema Skin: no nodules Objective Data Vital Signs Vital Signs: Vital Signs Temp Pulse Resp BP Pulse Ox O2 Del Method 09/11/21 08:00 99 Room Air 09/11/21 09:14 83 09/11/21 05:31 36.6 C 71 16 151/78 H 99 09/10/21 21:53 37.1 C 80 16 125/72 97 09/10/21 20:38 74 09/10/21 14:00 36.0 C L 82 16 124/69 98 09/10/21 14:07 98 Room Air Intake/Output Intake/Output: Intake & Output 09/09/21 09/10/21 09/11/21 09/12/21 23:59 23:59 23:59 23:59 Intake Total 3174 2352 2242 Output Total 6900 3400 3600 [facility] -[id number] [phone] Meds/Results Medications: Active Medications Generic Name Dose Route Start Last Admin Trade Name Freq PRN Reason Stop Dose Admin Acetaminophen 650 mg 08/23/21 06:27 Acetaminophen 325 Mg Tablet PO Q4H PRN Mild Pain (1-3) or Fever Apixaban 5 mg 08/23/21 21:00 09/11/21 20:50 Apixaban 5 Mg Tablet PO 5 mg Q12HR SOCRATES Administration Atorvastatin Calcium 10 mg 08/24/21 09:00 09/11/21 09:16 Atorvastatin 10 Mg Tablet PO 10 mg DAILY SOCRATES Administration Demeclocycline HCl 300 mg 09/07/21 13:00 09/11/21 20:49 Demeclocycline Hcl 150 Mg Tablet PO 300 mg QID SOCRATES Administration Docusate Sodium 100 mg 09/09/21 13:00 09/11/21 09:22 Docusate Sodium 100 Mg Capsule PO 100 mg Q12H PRN Administration Constipation Hydroxychloroquine Sulfate 400 mg 08/24/21 09:00 09/11/21 09:16 Hydroxychloroquine Sulfate 200 Mg Tablet PO 400 mg DAILY SOCRATES Administration Leflunomide 20 mg 08/24/21 09:00 09/11/21 09:13 Leflunomide 20 Mg Tablet PO 20 mg DAILY SOCRATES Administration Levetiracetam 500 mg 08/23/21 21:00 09/11/21 2
--- NOTE | 2021-09-11 13:29 | PM.CNNEP ---
Assessment and Plan Assessment and plan (1) Hyponatremia: Code(s): E87.1 - Hypo-osmolality and hyponatremia Status: Acute Assessment and Plan: acute on chronic sodiums have been running ~ 129 - 133 as far back as 2006 previous evaluation noted (March 2020): SPEP and UPEP negative for paraproteinemia kappa/lambda ratio normal TSH okay cortisol was low (but she was on chronic prednisone therapy) and on prednisone currently head CT shows no acute intracranial process. There does not seem to be enough going on here to causes hyponatremia. another possibility would be pseudo-hyponatremia. Past evaluation has not revealed pseudohyponatremia. dehydration is always a possibility but her mucous membranes are moist and no orthostatic drop in blood pressure high urine osmolality and low serum osmolality which was equal to the calculated serum osmolality -- consistent with SIADH re-evaluation shows a high urine osmolality , a serum osmolality which is close to calculated (254 versus 260), normal serum immunofix, pending urine immunofix, normal kappa lambda, normal TSH and cortisol. given persistent hyponatremia, demeclocycline dosage increased continue tolvaptan with bid dosing and salt tablets for now - plan is to wean off tolvaptan as sodium improves (but this does not seem to be happening(!): tolvaptan is a short term solution and should only be used for a max time period of 30 days furthermore, this is an expensive medication and may not be able to used as an outpatient some concern about her compliance with fluid restriction (during this hospital stay) noted follow repeat sodium levels Will continue to follow. History of Present Illness Reason for Consult Consult date: 09/11/21 Chief Complaint Chief complaint: Hyponatremia/weakness [facility] Past Medical History Medical History Age-related osteoporosis without current pathological fracture Bunion of left foot Bunion, right foot CAD (coronary artery disease) Generalized weakness Hypertension Hypokalemia Hyponatremia Intraparenchymal hematoma of brain Leg weakness, bilateral Rheumatoid arthritis with rheumatoid factor of multiple sites without organ or systems involvement (~2000) Seizures UTI (urinary tract infection) UTI (urinary tract infection) Surgical History Surgical History History of knee replacement, total Family History Family History Mother Alzheimer disease Father Congestive heart failure Other Hypertension Social History Social History Smoking status: Former smoker Additional smoking assessment comments: only in her 20s Alcohol intake: current Substance use: never Gender identity (if verbalized by the patient): Female Spiritual care concerns: No Meds Home Medications and Allergies Home Medications Medication Instructions Recorded Confirmed Type multivitamin 1 tablet PO DAILY 02/06/20 08/23/21 History cholecalciferol (vitamin D3) 25 25 mcg PO DAILY 03/12/20 08/23/21 History mcg (1,000 unit) capsule (Vitamin D3) coenzyme Q10 100 mg capsule 200 mg PO DAILY 03/12/20 08/23/21 History (CoQ-10) apixaban 5 mg tablet (Eliquis) 5 mg PO Q12HR #60 tabs 03/14/20 08/23/21 Rx atorvastatin 10 mg tablet 10 mg PO DAILY #30 tabs 03/14/20 08/23/21 Rx metoprolol tartrate 50 mg tablet 50 mg PO Q12HR #60 tabs 03/14/20 08/23/21 Rx levetiracetam 500 mg tablet 500 mg PO BID 07/18/20 08/23/21 History hydroxychloroquine 200 mg tablet 400 mg PO DAILY #180 tabs 04/18/21 08/23/21 Rx (Plaquenil) leflunomide 20 mg tablet 20 mg PO DAILY #90 tabs 04/18/21 08/23/21 Rx lisinopril 20 mg tablet 40 mg PO DAILY 08/23/21 08/23/21 History potassium 99 mg tablet 99 mg PO DAILY 08/23/21 08/23/21 History tolt
[2021-09-11 14:00] VITALS: BP 118/74; PULSE 76; RESP 18; TEMP 36.6; O2SAT 98
[2021-09-11] MEDS: SODIUM CHLORIDE 1 GM TABLET 2 GM PO ×2 (17:50→20:48)
[2021-09-11 19:21] LABS: Copeptin 32.3 pmol/L (< OR = 14)
[2021-09-11 20:50] VITALS: PULSE 76
[2021-09-11 22:00] VITALS: BP 123/77; PULSE 75; RESP 18; TEMP 35.9; O2SAT 98
[2021-09-12 06:00] VITALS: BP 165/85; PULSE 77; RESP 18; TEMP 36.5; O2SAT 100
[2021-09-12 06:55] LABS: Albumin Level 2.9 g/dL (3.5-5.1); Anion Gap 2 mmol/L (8-16); Blood Urea Nitrogen 15 mg/dL (7-17); Calcium 7.6 mg/dL (8.4-10.2); Carbon Dioxide 27 mmol/L (22-30); Chloride 94 mmol/L (98-107); Estimated CRCL calculation 70 ml/min; Estimated Glomerular Filt Rate > 60; Glucose 77 mg/dL (65-110); Phosphorus 3.7 mg/dL (2.5-4.5); Sodium 123 mmol/L (137-145)
[2021-09-12 08:00] VITALS: PULSE 81; O2SAT 100
[2021-09-12] MEDS: DEMECLOCYCLINE HCL 150 MG TABLET 450 MG PO ×4 (08:43→20:29)
[2021-09-12] MEDS: HYDROXYCHLOROQUINE SULFATE 200 MG TABLET 400 MG PO (08:43)
[2021-09-12 08:45] VITALS: PULSE 81
[2021-09-12] MEDS: TOLTERODINE TARTRATE LA 4 MG CAP.ER.24H PO (08:45)
[2021-09-12] MEDS: METOPROLOL TARTRATE 50 MG TAB PO ×2 (08:45→20:28)
[2021-09-12] MEDS: LEFLUNOMIDE 20 MG TABLET PO (08:45)
[2021-09-12] MEDS: levETIRAcetam 500 MG TABLET PO ×2 (08:47→20:29)
[2021-09-12] MEDS: APIXABAN 5 MG TABLET PO ×2 (08:47→20:29)
[2021-09-12] MEDS: SODIUM CHLORIDE 1 GM TABLET 2 GM PO ×3 (08:47→17:10)
[2021-09-12] MEDS: MULTIVITAMINS THERAPEUTIC TAB (*BKC) 1 TABLET PO (08:48)
[2021-09-12] MEDS: CHOLECALCIFEROL 1,000 UNITS TABLET 1000 UNITS PO (08:49)
[2021-09-12] MEDS: ATORVASTATIN 10 MG TABLET PO (08:49)
[2021-09-12] MEDS: predniSONE 20 MG TABLET PO (08:50)
[2021-09-12] MEDS: DOCUSATE SODIUM 100 MG CAPSULE PO (08:55)
--- NOTE | 2021-09-12 11:55 | PM.IMPN ---
Progress Note: A&P Assessment and Plan (1) Hyponatremia: Code(s): E87.1 - Hypo-osmolality and hyponatremia Status: Acute Assessment and Plan: Appreciate Nephrology consultation. Likely SIADH. Continue Tolvaptan, demeclocycline-sodium chloride tabs - managed per nephrology (2) Vasculitis: Code(s): I77.6 - Arteritis, unspecified Status: Acute Assessment and Plan: Continue prednisone taper (3) CAD (coronary artery disease): Code(s): I25.10 - Atherosclerotic heart disease of [place] coronary artery without angina pectoris Status: Acute Assessment and Plan: Overall stable.? no chest pain. (4) Hypertension: Code(s): I10 - Essential (primary) hypertension Status: Acute Assessment and Plan: monitor (5) Rheumatoid arthritis with rheumatoid factor of multiple sites without organ or systems involvement: Onset Date: ~2000 Code(s): M05.79 - Rheumatoid arthritis with rheumatoid factor of multiple sites without organ or systems involvement Status: Acute Assessment and Plan: Stable.? Continue Plaquenil.? (6) Paroxysmal atrial fibrillation: Code(s): I48.0 - Paroxysmal atrial fibrillation Status: Acute Assessment and Plan: EKG shows normal sinus rhythm.? Regular rate on exam.? Continue metoprolol.? Continue Eliquis.? Plan for a Watchman-like procedure on September 09. 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, will check lumbar spine MRI Subjective Date/time seen: 09/12/21 11:55 No complaints Exam Narrative: General: No acute distress, alert and oriented per baseline HEENT: Atraumatic, normocephalic, mucous membranes moist CV: Regular rate and rhythm, S1, S2 Lungs: Clear to auscultation bilaterally, no rales or crackles noted, no wheezes, good air entry Abdomen: Soft, nontender, nondistended Extremities: Normal to inspection Skin: No rashes noted, no lesions or wounds seen Psych: Euthymic, normal affect Objective Data Vital Signs Vital Signs: Vital Signs - 24 hr 09/11/21 14:00 09/11/21 20:50 09/11/21 22:00 Temperature 97.8 F 96.7 F L Pulse Rate 76 76 75 Respiratory Rate 18 18 Blood Pressure 118/74 123/77 Pulse Oximetry 98 98 Oxygen Delivery 09/12/21 06:00 09/12/21 08:45 09/12/21 08:00 Temperature 97.7 F Pulse Rate 77 81 81 Respiratory Rate 18 Blood Pressure 165/85 H Pulse Oximetry 100 100 Oxygen Delivery Room Air Intake/Output Intake/Output: Intake & Output 09/09/21 09/10/21 09/11/21 09/12/21 23:59 23:59 23:59 23:59 Intake Total 3174 2352 2242 200 Output Total 6900 3400 3600 2053 [facility]3726 [id number] [phone] Meds/Results Medications: Active Medications Generic Name Dose Route Start Last Admin Trade Name Freq PRN Reason Stop Dose Admin Acetaminophen 650 mg 08/23/21 06:27 Acetaminophen 325 Mg Tablet PO Q4H PRN Mild Pain (1-3) or Fever Apixaban 5 mg 08/23/21 21:00 09/12/21 08:47 Apixaban 5 Mg Tablet PO 5 mg Q12HR SOCRATES Administration Atorvastatin Calcium 10 mg 08/24/21 09:00 09/12/21 08:49 Atorvastatin 10 Mg Tablet PO 10 mg DAILY SOCRATES Administration Demeclocycline HCl 450 mg 09/12/21 09:00 09/12/21 08:43 Demeclocycline Hcl 150 Mg Tablet PO 450 mg QID SOCRATES Administration Docusate Sodium 100 mg 09/09/21 13:00 09/12/21 08:55 Docusate Sodium 100 Mg Capsule PO 100 mg Q12H PRN Administration Constipation Hydroxychloroquine Sulfate 400 mg 08/24/21 09:00 09/12/21 08:43 Hydroxychloroquine Sulfate 200 Mg Tablet PO 400 mg DAILY SOCRATES Administration Leflunomide 20 mg 08/24/21 0
[2021-09-12] MEDS: MAGNESIUM OXIDE 400 MG TABLET PO (12:09)
--- NOTE | 2021-09-12 13:12 | P.PNNP_ITS ---
Progress Note: A&P Assessment and Plan (1) Hyponatremia: Code(s): E87.1 - Hypo-osmolality and hyponatremia Status: Acute Assessment and Plan: * acute on chronic * sodiums have been running ~ 129 - 133 as far back as 2006 * previous evaluation noted (March 2020): * SPEP and UPEP negative for paraproteinemia * kappa/lambda ratio normal * TSH okay * cortisol was low (but she was on chronic prednisone therapy) and on prednisone currently * head CT shows no acute intracranial process. There does not seem to be enough going on here to causes hyponatremia. * another possibility would be pseudo-hyponatremia. Past evaluation has not revealed pseudohyponatremia. * dehydration is always a possibility but her mucous membranes are moist and no orthostatic drop in blood pressure * high urine osmolality and low serum osmolality which was equal to the calculated serum osmolality -- consistent with SIADH * re-evaluation shows a high urine osmolality, serum osmolality which is close to calculated (254 versus 260), normal serum immunofix, pending urine immunofix, normal kappa lambda, normal TSH and cortisol. * given persistent hyponatremia, demeclocycline dosage increased * continue tolvaptan with bid dosing and salt tablets for now - plan is to wean off tolvaptan as sodium improves (although this does not appear to occuring): * tolvaptan is a short term solution and should only be used for a max time period of 30 days * furthermore, this is an expensive medication and may not be able to used as an outpatient * will likely d/c tolvaptan in another couple of days given lack of improvement in sodium level * however, once off tolvaptan, will likely have to resume more aggressive fluid restriction * some concern about her compliance with fluid restriction (during this hospital stay) noted * increased dosage/frequency of salt tabs * is it possible her new baseline sodium level is 121(??) * follow repeat sodium levels Will continue to follow. Subjective Date/time seen: 09/12/21 13:12 Sodium continues to remains resistant to all interventions to date as noted by the trend of her sodium levels in the last few weeks; no apparent distress noted and no issues/events overnight; no other acute complaints either. Exam Narrative: General: WD/WN female in NAD Heart: normal S1 and S2; no rub Lungs: clear to auscultation Abdomen: soft, nontender, nondistended, positive bowel sounds Extremities: no cyanosis or clubbing; no edema Skin: warm and dry Objective Data Vital Signs Vital Signs: Vital Signs Temp Pulse Resp BP Pulse Ox O2 Del Method 09/12/21 08:00 81 100 Room Air 09/12/21 08:45 81 09/12/21 06:00 36.5 C 77 18 165/85 H 100 09/11/21 22:00 35.9 C L 75 18 123/77 98 09/11/21 20:50 76 Intake/Output Intake/Output: Intake & Output 09/09/21 09/10/21 09/11/21 09/12/21 23:59 23:59 23:59 23:59 Intake Total 3174 2352 2242 200 Output Total 6900 3400 3600 2050 Balance -3726 -1048 -1358 -1850 Meds/Results Medications: Active Medications Generic Name Dose Route Start Last Admin Trade Name F
--- NOTE | 2021-09-12 13:12 | PM.PNNEP ---
Progress Note: A&P Assessment and Plan (1) Hyponatremia: Code(s): E87.1 - Hypo-osmolality and hyponatremia Status: Acute Assessment and Plan: acute on chronic sodiums have been running ~ 129 - 133 as far back as 2006 previous evaluation noted (March 2020): SPEP and UPEP negative for paraproteinemia kappa/lambda ratio normal TSH okay cortisol was low (but she was on chronic prednisone therapy) and on prednisone currently head CT shows no acute intracranial process. There does not seem to be enough going on here to causes hyponatremia. another possibility would be pseudo-hyponatremia. Past evaluation has not revealed pseudohyponatremia. dehydration is always a possibility but her mucous membranes are moist and no orthostatic drop in blood pressure high urine osmolality and low serum osmolality which was equal to the calculated serum osmolality -- consistent with SIADH re-evaluation shows a high urine osmolality, serum osmolality which is close to calculated (254 versus 260), normal serum immunofix, pending urine immunofix, normal kappa lambda, normal TSH and cortisol. given persistent hyponatremia, demeclocycline dosage increased continue tolvaptan with bid dosing and salt tablets for now - plan is to wean off tolvaptan as sodium improves (although this does not appear to occuring): tolvaptan is a short term solution and should only be used for a max time period of 30 days furthermore, this is an expensive medication and may not be able to used as an outpatient will likely d/c tolvaptan in another couple of days given lack of improvement in sodium level however, once off tolvaptan, will likely have to resume more aggressive fluid restriction some concern about her compliance with fluid restriction (during this hospital stay) noted increased dosage/frequency of salt tabs is it possible her new baseline sodium level is 121(??) follow repeat sodium levels Will continue to follow. Subjective Date/time seen: 09/12/21 13:12 Sodium continues to remains resistant to all interventions to date as noted by the trend of her sodium levels in the last few weeks; no apparent distress noted and no issues/events overnight; no other acute complaints either. Exam Narrative: General: WD/WN female in NAD Heart: normal S1 and S2; no rub Lungs: clear to auscultation Abdomen: soft, nontender, nondistended, positive bowel sounds Extremities: no cyanosis or clubbing; no edema Skin: warm and dry Objective Data Vital Signs Vital Signs: Vital Signs Temp Pulse Resp BP Pulse Ox O2 Del Method 09/12/21 08:00 81 100 Room Air 09/12/21 08:45 81 09/12/21 06:00 36.5 C 77 18 165/85 H 100 09/11/21 22:00 35.9 C L 75 18 123/77 98 09/11/21 20:50 76 Intake/Output Intake/Output: Intake & Output 09/09/21 09/10/21 09/11/21 09/12/21 23:59 23:59 23:59 23:59 Intake Total 3174 2352 2242 200 Output Total 6900 3400 3600 2050 [facility] -9896 -1048 -1358 -1600 Meds/Results Medications: Active Medications Generic Name Dose Route Start Last Admin Trade Name Freq PRN Reason Stop Dose Admin Acetaminophen 650 mg 08/23/21 06:27 Acetaminophen 325 Mg Tablet PO Q4H PRN Mild Pain (1-3) or Fever Apixaban 5 mg 08/23/21 21:00 09/12/21 08:47 Apixaban 5 Mg Tablet PO 5 mg Q12HR SOCRATES Administration Atorvastatin Calcium 10 mg 08/24/21 09:00 09/12/21 08:49 Atorvastatin 10 Mg Tablet PO 10 mg DAILY SOCRATES Administration Demeclocycline HCl 450 mg 09/12/21 09:00 09/12/21 12:09 Demeclocycline Hcl 150 Mg Tablet PO 450 mg QID SOCRATES Administration Docusate Sodium 100 mg 09/09/21 13:00 09/12/21 08:55 Docusate Sodium 100 Mg Capsule PO 100 mg Q12H PRN Administration Constipation Hydroxychloroquine Sulfate 400 mg 08/24/21 09:00 09/12/21 08:43 Hydroxychloroquine Sulfate 200 Mg Tablet PO 400 mg DAILY SOCRATES Administ
[2021-09-12 14:00] VITALS: BP 111/70; PULSE 74; RESP 20; TEMP 36.3; O2SAT 99
[2021-09-12 20:28] VITALS: PULSE 75
[2021-09-12 21:41] VITALS: BP 139/75; PULSE 78; RESP 16; TEMP 37; O2SAT 98
[2021-09-13 05:33] VITALS: BP 163/79; PULSE 75; RESP 16; TEMP 36.8; O2SAT 100
[2021-09-13] MEDS: DEMECLOCYCLINE HCL 150 MG TABLET 450 MG PO ×4 (08:57→20:16)
[2021-09-13] MEDS: MULTIVITAMINS THERAPEUTIC TAB (*BKC) 1 TABLET PO (08:57)
[2021-09-13] MEDS: levETIRAcetam 500 MG TABLET PO ×2 (08:57→20:16)
[2021-09-13] MEDS: ATORVASTATIN 10 MG TABLET PO (08:58)
[2021-09-13] MEDS: predniSONE 20 MG TABLET PO (08:58)
[2021-09-13] MEDS: TOLTERODINE TARTRATE LA 4 MG CAP.ER.24H PO (08:58)
[2021-09-13] MEDS: CHOLECALCIFEROL 1,000 UNITS TABLET 1000 UNITS PO (08:58)
[2021-09-13] MEDS: LEFLUNOMIDE 20 MG TABLET PO (08:58)
[2021-09-13] MEDS: SODIUM CHLORIDE 1 GM TABLET 2 GM PO ×3 (08:58→17:28)
[2021-09-13] MEDS: HYDROXYCHLOROQUINE SULFATE 200 MG TABLET 400 MG PO (08:58)
[2021-09-13] MEDS: METOPROLOL TARTRATE 50 MG TAB PO ×2 (08:58→20:16)
[2021-09-13] MEDS: APIXABAN 5 MG TABLET PO ×2 (08:58→20:16)
[2021-09-13] MEDS: DOCUSATE SODIUM 100 MG CAPSULE PO (09:06)
--- NOTE | 2021-09-13 10:38 | PM.IMPN ---
Progress Note: A&P Assessment and Plan (1) Hyponatremia: Code(s): E87.1 - Hypo-osmolality and hyponatremia Status: Acute Assessment and Plan: Appreciate Nephrology consultation. Likely SIADH. Continue Tolvaptan, demeclocycline-sodium chloride tabs - managed per nephrology (2) Vasculitis: Code(s): I77.6 - Arteritis, unspecified Status: Acute Assessment and Plan: Continue prednisone taper (3) CAD (coronary artery disease): Code(s): I25.10 - Atherosclerotic heart disease of [place] coronary artery without angina pectoris Status: Acute Assessment and Plan: Overall stable.? no chest pain. (4) Hypertension: Code(s): I10 - Essential (primary) hypertension Status: Acute Assessment and Plan: monitor (5) Rheumatoid arthritis with rheumatoid factor of multiple sites without organ or systems involvement: Onset Date: ~2000 Code(s): M05.79 - Rheumatoid arthritis with rheumatoid factor of multiple sites without organ or systems involvement Status: Acute Assessment and Plan: Stable.? Continue Plaquenil.? (6) Paroxysmal atrial fibrillation: Code(s): I48.0 - Paroxysmal atrial fibrillation Status: Acute Assessment and Plan: EKG shows normal sinus rhythm.? Regular rate on exam.? Continue metoprolol.? Continue Eliquis.? Plan for a Watchman-like procedure on September 09. 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, will check lumbar spine MRI Subjective Date/time seen: 09/13/21 10:38 No complaints Exam Narrative: General: No acute distress, alert and oriented per baseline HEENT: Atraumatic, normocephalic, mucous membranes moist CV: Regular rate and rhythm, S1, S2 Lungs: Clear to auscultation bilaterally, no rales or crackles noted, no wheezes, good air entry Abdomen: Soft, nontender, nondistended Extremities: Normal to inspection Skin: No rashes noted, no lesions or wounds seen Psych: Euthymic, normal affect Objective Data Vital Signs Vital Signs: Vital Signs - 24 hr 09/12/21 14:00 09/12/21 20:28 09/12/21 21:41 Temperature 97.4 F L 98.6 F Pulse Rate 74 75 78 Respiratory Rate 20 16 Blood Pressure 111/70 139/75 Pulse Oximetry 99 98 09/13/21 05:33 Temperature 98.2 F Pulse Rate 75 Respiratory Rate 16 Blood Pressure 163/79 H Pulse Oximetry 100 Intake/Output Intake/Output: Intake & Output 09/10/21 09/11/21 09/12/21 09/13/21 23:59 23:59 23:59 23:59 Intake Total 2352 2242 3080 1000 Output Total 3400 3600 2050 Balance -1048 -1358 1030 1000 Meds/Results Medications: Active Medications Generic Name Dose Route Start Last Admin Trade Name Freq PRN Reason Stop Dose Admin Acetaminophen 650 mg 08/23/21 06:27 Acetaminophen 325 Mg Tablet PO Q4H PRN Mild Pain (1-3) or Fever Apixaban 5 mg 08/23/21 21:00 09/13/21 08:58 Apixaban 5 Mg Tablet PO 5 mg Q12HR SOCRATES Administration Atorvastatin Calcium 10 mg 08/24/21 09:00 09/13/21 08:58 Atorvastatin 10 Mg Tablet PO 10 mg DAILY SOCRATES Administration Demeclocycline HCl 450 mg 09/12/21 09:00 09/13/21 08:57 Demeclocycline Hcl 150 Mg Tablet PO 450 mg QID SOCRATES Administration Docusate Sodium 100 mg 09/09/21 13:00 09/13/21 09:06 Docusate Sodium 100 Mg Capsule PO 100 mg Q12H PRN Administration Constipation Hydroxychloroquine Sulfate 400 mg 08/24/21 09:00 09/13/21 08:58 Hydroxychloroquine Sulfate 200 Mg Tablet PO 400 mg DAILY SOCRATES Administration Leflunomide 20 mg 08/24/21 09:00 09/13/21 08:58 Leflunomide 20 Mg Tablet PO 20 mg DAILY SOCRATES Administration Levetirace
[2021-09-13] MEDS: MAGNESIUM OXIDE 400 MG TABLET PO (12:34)
--- NOTE | 2021-09-13 12:34 | PM.PNNEP ---
Progress Note: A&P Assessment and Plan (1) Hyponatremia: Code(s): E87.1 - Hypo-osmolality and hyponatremia Status: Acute Assessment and Plan: acute on chronic sodiums have been running ~ 129 - 133 as far back as 2006 previous evaluation noted (March 2020): SPEP and UPEP negative for paraproteinemia kappa/lambda ratio normal TSH okay cortisol was low (but she was on chronic prednisone therapy) and on prednisone currently head CT shows no acute intracranial process. There does not seem to be enough going on here to causes hyponatremia. another possibility would be pseudo-hyponatremia. Past evaluation has not revealed pseudohyponatremia. dehydration is always a possibility but her mucous membranes are moist and no orthostatic drop in blood pressure high urine osmolality and low serum osmolality which was equal to the calculated serum osmolality -- consistent with SIADH re-evaluation shows a high urine osmolality, serum osmolality which is close to calculated (254 versus 260), normal serum immunofix, pending urine immunofix, normal kappa lambda, normal TSH and cortisol. given persistent hyponatremia, demeclocycline dosage increased continue tolvaptan with bid dosing and salt tablets for now - plan is to wean off tolvaptan as sodium improves (although this does not appear to occuring): tolvaptan is a short term solution and should only be used for a max time period of 30 days furthermore, this is an expensive medication and may not be able to used as an outpatient will likely d/c tolvaptan in another couple of days given lack of improvement in sodium level however, once off tolvaptan, will likely have to resume more aggressive fluid restriction some concern about her compliance with fluid restriction (during this hospital stay) noted increased dosage/frequency of salt tabs yesterday is it possible her new baseline sodium level is 121 - 124(??) follow repeat sodium levels Will continue to follow. 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 Exam Narrative: General: WD/WN female in NAD Heart: normal S1 and S2; no rub Lungs: clear to auscultation Abdomen: soft, nontender, nondistended, positive bowel sounds Extremities: no cyanosis or clubbing; no edema Skin: warm and intact Objective Data Vital Signs Vital Signs: Vital Signs Temp Pulse Resp BP Pulse Ox 09/13/21 05:33 36.8 C 75 16 163/79 H 100 09/12/21 21:41 37.0 C 78 16 139/75 98 09/12/21 20:28 75 09/12/21 14:00 36.3 C L 74 20 111/70 99 Intake/Output Intake/Output: Intake & Output 09/10/21 09/11/21 09/12/21 09/13/21 23:59 23:59 23:59 23:59 Intake Total 2352 2242 3080 1240 Output Total 3400 3600 2050 Balance -1048 -1358 1030 1240 Meds/Results Medications: Active Medications Generic Name Dose Route Start Last Admin Trade Name Freq PRN Reason Stop Dose Admin Acetaminophen 650 mg 08/23/21 06:27 Acetaminophen 325 Mg Tablet PO Q4H PRN Mild Pain (1-3) or Fever Apixaban 5 mg 08/23/21 21:00 09/13/21 08:58 Apixaban 5 Mg Tablet PO 5 mg Q12HR SOCRATES Administration Atorvastatin Calcium 10 mg 08/24/21 09:00 09/13/21 08:58 Atorvastatin 10 Mg Tablet PO 10 mg DAILY SOCRATES Administration Demeclocycline HCl 450 mg 09/12/21 09:00 09/13/21 12:34 Demeclocycline Hcl 150 Mg Tablet PO 450 mg QID SOCRATES Administration Docusate Sodium 100 mg 09/09/21 13:00 09/13/21 09:06 Docusate Sodium 100 Mg Capsule PO 100 mg Q12H PRN Administration Constipation Hydroxychloroquine Sulfate 400 mg 08/24/21 09:00 09/13/21 08:58 Hydroxychloroquine Sulfate 200 Mg Tablet PO 400 mg DAILY [facility] A
--- NOTE | 2021-09-13 12:34 | P.PNNP_ITS ---
Progress Note: A&P Assessment and Plan (1) Hyponatremia: Code(s): E87.1 - Hypo-osmolality and hyponatremia Status: Acute Assessment and Plan: * acute on chronic * sodiums have been running ~ 129 - 133 as far back as 2006 * previous evaluation noted (March 2020): * SPEP and UPEP negative for paraproteinemia * kappa/lambda ratio normal * TSH okay * cortisol was low (but she was on chronic prednisone therapy) and on prednisone currently * head CT shows no acute intracranial process. There does not seem to be enough going on here to causes hyponatremia. * another possibility would be pseudo-hyponatremia. Past evaluation has not revealed pseudohyponatremia. * dehydration is always a possibility but her mucous membranes are moist and no orthostatic drop in blood pressure * high urine osmolality and low serum osmolality which was equal to the calculated serum osmolality -- consistent with SIADH * re-evaluation shows a high urine osmolality, serum osmolality which is close to calculated (254 versus 260), normal serum immunofix, pending urine immunofix, normal kappa lambda, normal TSH and cortisol. * given persistent hyponatremia, demeclocycline dosage increased * continue tolvaptan with bid dosing and salt tablets for now - plan is to wean off tolvaptan as sodium improves (although this does not appear to occuring): * tolvaptan is a short term solution and should only be used for a max time period of 30 days * furthermore, this is an expensive medication and may not be able to used as an outpatient * will likely d/c tolvaptan in another couple of days given lack of improvement in sodium level * however, once off tolvaptan, will likely have to resume more aggressive fluid restriction * some concern about her compliance with fluid restriction (during this hospital stay) noted * increased dosage/frequency of salt tabs yesterday * is it possible her new baseline sodium level is 121 - 124(??) * follow repeat sodium levels Will continue to follow. 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 Exam Narrative: General: WD/WN female in NAD Heart: normal S1 and S2; no rub Lungs: clear to auscultation Abdomen: soft, nontender, nondistended, positive bowel sounds Extremities: no cyanosis or clubbing; no edema Skin: warm and intact Objective Data Vital Signs Vital Signs: Vital Signs Temp Pulse Resp BP Pulse Ox 09/13/21 05:33 36.8 C 75 16 163/79 H 100 09/12/21 21:41 37.0 C 78 16 139/75 98 09/12/21 20:28 75 09/12/21 14:00 36.3 C L 74 20 111/70 99 Intake/Output Intake/Output: Intake & Output 09/10/21 09/11/21 09/12/21 09/13/21 23:59 23:59 23:59 23:59 Intake Total 2352 2242 3080 1240 Output Total 3400 3600 2050 Balance -1048 -1358 1030 1240 Meds/Results Medications: Active Medications Generic Name Dose Route Start Last Admin Trade Name Fr
[2021-09-13 14:00] VITALS: BP 140/75; PULSE 78; RESP 12; TEMP 36; O2SAT 97
[2021-09-13 15:19] LABS: Albumin Level 3.1 g/dL (3.5-5.1); Anion Gap 4 mmol/L (8-16); Blood Urea Nitrogen 18 mg/dL (7-17); Calcium 7.7 mg/dL (8.4-10.2); Carbon Dioxide 24 mmol/L (22-30); Chloride 94 mmol/L (98-107); Estimated CRCL calculation 52 ml/min; Estimated Glomerular Filt Rate > 60; Glucose 111 mg/dL (65-110); Phosphorus 3.9 mg/dL (2.5-4.5); Potassium 4.2 mmol/L (3.4-5.0); Sodium 122 mmol/L (137-145)
[2021-09-13 20:16] VITALS: PULSE 65
[2021-09-13 21:41] VITALS: BP 148/85; PULSE 71; RESP 18; TEMP 36.2; O2SAT 100
[2021-09-14 06:00] VITALS: BP 164/77; PULSE 81; RESP 18; TEMP 35.8; O2SAT 100
[2021-09-14 06:22] LABS: Albumin Level 3.2 g/dL (3.5-5.1); Anion Gap 4 mmol/L (8-16); Blood Urea Nitrogen 19 mg/dL (7-17); Calcium 7.8 mg/dL (8.4-10.2); Carbon Dioxide 24 mmol/L (22-30); Chloride 93 mmol/L (98-107); Estimated CRCL calculation 70 ml/min; Estimated Glomerular Filt Rate > 60; Glucose 64 mg/dL (65-110); Phosphorus 3.1 mg/dL (2.5-4.5); Potassium 3.9 mmol/L (3.4-5.0); Sodium 121 mmol/L (137-145)
[2021-09-14] MEDS: levETIRAcetam 500 MG TABLET PO ×2 (09:20→20:44)
[2021-09-14] MEDS: SODIUM CHLORIDE 1 GM TABLET 2 GM PO ×3 (09:20→17:30)
[2021-09-14] MEDS: predniSONE 10 MG TABLET PO (09:20)
[2021-09-14] MEDS: LEFLUNOMIDE 20 MG TABLET PO (09:20)
[2021-09-14] MEDS: DEMECLOCYCLINE HCL 150 MG TABLET 450 MG PO ×4 (09:20→20:43)
[2021-09-14] MEDS: ATORVASTATIN 10 MG TABLET PO (09:20)
[2021-09-14 09:21] VITALS: PULSE 88
[2021-09-14] MEDS: METOPROLOL TARTRATE 50 MG TAB PO ×2 (09:21→20:44)
[2021-09-14] MEDS: APIXABAN 5 MG TABLET PO ×2 (09:21→20:43)
[2021-09-14] MEDS: HYDROXYCHLOROQUINE SULFATE 200 MG TABLET 400 MG PO (09:21)
[2021-09-14] MEDS: MULTIVITAMINS THERAPEUTIC TAB (*BKC) 1 TABLET PO (09:21)
[2021-09-14] MEDS: CHOLECALCIFEROL 1,000 UNITS TABLET 1000 UNITS PO (09:21)
[2021-09-14] MEDS: TOLTERODINE TARTRATE LA 4 MG CAP.ER.24H PO (09:22)
[2021-09-14] MEDS: SODIUM CHLORIDE 500 MG TABLET PO ×3 (09:31→17:32)
--- NOTE | 2021-09-14 10:13 | PM.IMPN ---
Progress Note: A&P Assessment and Plan (1) Hyponatremia: Code(s): E87.1 - Hypo-osmolality and hyponatremia Status: Acute Assessment and Plan: Appreciate Nephrology consultation. Likely SIADH. Continue Tolvaptan, demeclocycline-sodium chloride tabs - managed per nephrology (2) Vasculitis: Code(s): I77.6 - Arteritis, unspecified Status: Acute Assessment and Plan: Continue prednisone taper (3) CAD (coronary artery disease): Code(s): I25.10 - Atherosclerotic heart disease of [place] coronary artery without angina pectoris Status: Acute Assessment and Plan: Overall stable.? no chest pain. (4) Hypertension: Code(s): I10 - Essential (primary) hypertension Status: Acute Assessment and Plan: monitor (5) Rheumatoid arthritis with rheumatoid factor of multiple sites without organ or systems involvement: Onset Date: ~2000 Code(s): M05.79 - Rheumatoid arthritis with rheumatoid factor of multiple sites without organ or systems involvement Status: Acute Assessment and Plan: Stable.? Continue Plaquenil.? (6) Paroxysmal atrial fibrillation: Code(s): I48.0 - Paroxysmal atrial fibrillation Status: Acute Assessment and Plan: EKG shows normal sinus rhythm.? Regular rate on exam.? Continue metoprolol.? Continue Eliquis.? Plan for a Watchman-like procedure on September 09. 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, will check lumbar spine MRI Subjective Date/time seen: 09/14/21 10:13 No complaints Exam Narrative: General: No acute distress, alert and oriented per baseline HEENT: Atraumatic, normocephalic, mucous membranes moist CV: Regular rate and rhythm, S1, S2 Lungs: Clear to auscultation bilaterally, no rales or crackles noted, no wheezes, good air entry Abdomen: Soft, nontender, nondistended Extremities: Normal to inspection Skin: No rashes noted, no lesions or wounds seen Psych: Euthymic, normal affect Objective Data Vital Signs Vital Signs: Vital Signs - 24 hr 09/13/21 14:00 09/13/21 20:16 09/13/21 21:41 Temperature 96.8 F L 97.1 F L Pulse Rate 78 65 71 Respiratory Rate 12 18 Blood Pressure 140/75 148/85 H Pulse Oximetry 97 100 09/14/21 06:00 09/14/21 09:21 Temperature 96.5 F L Pulse Rate 81 88 Respiratory Rate 18 Blood Pressure 164/77 H Pulse Oximetry 100 Intake/Output Intake/Output: Intake & Output 09/11/21 09/12/21 09/13/21 09/14/21 23:59 23:59 23:59 23:59 Intake Total 2242 3080 2030 1580 Output Total 3600 2050 4 Balance -1358 1030 2030 1576 Meds/Results Medications: Active Medications Generic Name Dose Route Start Last Admin Trade Name Freq PRN Reason Stop Dose Admin Acetaminophen 650 mg 08/23/21 06:27 Acetaminophen 325 Mg Tablet PO Q4H PRN Mild Pain (1-3) or Fever Apixaban 5 mg 08/23/21 21:00 09/14/21 09:21 Apixaban 5 Mg Tablet PO 5 mg Q12HR SOCRATES Administration Atorvastatin Calcium 10 mg 08/24/21 09:00 09/14/21 09:20 Atorvastatin 10 Mg Tablet PO 10 mg DAILY SOCRATES Administration Demeclocycline HCl 450 mg 09/12/21 09:00 09/14/21 09:20 Demeclocycline Hcl 150 Mg Tablet PO 450 mg QID SOCRATES Administration Docusate Sodium 100 mg 09/09/21 13:00 09/13/21 09:06 Docusate Sodium 100 Mg Capsule PO 100 mg Q12H PRN Administration Constipation Hydroxychloroquine Sulfate 400 mg 08/24/21 09:00 09/14/21 09:21 Hydroxychloroquine Sulfate 200 Mg Tablet PO 400 mg DAILY SOCRATES Administration Sodium Chloride 182 mls @ 52 mls/hr 09/14/21 09:35 Sodium Chloride 3% IV CONT 09/14/21 13:04 .
[2021-09-14] MEDS: MAGNESIUM OXIDE 400 MG TABLET PO (10:29)
--- NOTE | 2021-09-14 12:34 | P.PNNP_ITS ---
Progress Note: A&P Assessment and Plan (1) Hyponatremia: Code(s): E87.1 - Hypo-osmolality and hyponatremia Status: Acute Assessment and Plan: * acute on chronic * sodiums have been running ~ 129 - 133 as far back as 2006 * previous evaluation noted: * SPEP and UPEP negative for paraproteinemia * kappa/lambda ratio normal * TSH okay * cortisol was low (but she was on chronic prednisone therapy) and on prednisone currently * head CT shows no acute intracranial process. There does not seem to be enough going on here to causes hyponatremia. * another possibility would be pseudo-hyponatremia. Past evaluation has not revealed pseudohyponatremia. * dehydration is always a possibility but her mucous membranes are moist and no orthostatic drop in blood pressure * high urine osmolality and low serum osmolality which was equal to the calculated serum osmolality -- consistent with SIADH * re-evaluation shows a high urine osmolality, serum osmolality which is close to calculated (254 versus 260), normal serum immunofix, pending urine immunofix, normal kappa lambda, normal TSH and cortisol. * given persistent hyponatremia, demeclocycline dosage increased x 2 * on tolvaptan with bid dosing and salt tablets for now * tolvaptan is a short term solution and should only be used for a max time period of 30 days * furthermore, this is an expensive medication and may not be able to used as an outpatient * will d/c tolvaptan later today given lack of improvement in sodium level * will likely have to resume more aggressive fluid restriction once off tolvaptan (which the patient has been resistant to doing in the past) * increased dosage of salt tabs today as well * will try another run/bolus of 3% saline today.... * is it possible her new baseline sodium level is 121 - 124mmol/L and that is good as it will ever be, at least for now(?) * if this is the case, we may just need to monitor her sodium more closely as an output (i.e. outpatient labs once a week?) * follow repeat sodium levels Long and extensive discussion (> 20 minutes) with patient regarding her hyponatremia with regard to discontinuation of tolvaptan, the need for fluid restriction (particularly on discharge), as frequent outpatient testing to ensure her sodium level remains stable. She appeared to voice understanding. Will continue to follow. Subjective Date/time seen: 09/14/21 12:34 No new issues or problems voiced; sodium remains essentially the same to date despite interventions to date; however, she remains asymptomatic; no other issues/problems to report at this time; no events overnight or earlier this AM. Exam Narrative: General: WD/WN female in NAD Heart: normal S1 and S2; no rub Lungs: clear to auscultation Abdomen: soft, nontender, nondistended, positive bowel sounds Extremities: no cyanosis or clubbing; no edema Skin: warm and dry Objective Data Vital Signs Vital Signs: Vital Signs Temp Pulse Resp BP Pulse Ox 09/14/21 09:21 88 09/14/21 06:00 35.8 C L 81 18 164/77 H 100 09/13/21 21:41 36.2 C L 71 18 148/85 H 100 09/13/21 20:16 65 09/13/21 14:00 36.0 C L 78 12 140/75 97 Intake/Output Intake/Output: Intake & Output
--- NOTE | 2021-09-14 12:34 | PM.PNNEP ---
Progress Note: A&P Assessment and Plan (1) Hyponatremia: Code(s): E87.1 - Hypo-osmolality and hyponatremia Status: Acute Assessment and Plan: acute on chronic sodiums have been running ~ 129 - 133 as far back as 2006 previous evaluation noted: SPEP and UPEP negative for paraproteinemia kappa/lambda ratio normal TSH okay cortisol was low (but she was on chronic prednisone therapy) and on prednisone currently head CT shows no acute intracranial process. There does not seem to be enough going on here to causes hyponatremia. another possibility would be pseudo-hyponatremia. Past evaluation has not revealed pseudohyponatremia. dehydration is always a possibility but her mucous membranes are moist and no orthostatic drop in blood pressure high urine osmolality and low serum osmolality which was equal to the calculated serum osmolality -- consistent with SIADH re-evaluation shows a high urine osmolality, serum osmolality which is close to calculated (254 versus 260), normal serum immunofix, pending urine immunofix, normal kappa lambda, normal TSH and cortisol. given persistent hyponatremia, demeclocycline dosage increased x 2 on tolvaptan with bid dosing and salt tablets for now tolvaptan is a short term solution and should only be used for a max time period of 30 days furthermore, this is an expensive medication and may not be able to used as an outpatient will d/c tolvaptan later today given lack of improvement in sodium level will likely have to resume more aggressive fluid restriction once off tolvaptan (which the patient has been resistant to doing in the past) increased dosage of salt tabs today as well will try another run/bolus of 3% saline today.... is it possible her new baseline sodium level is 121 - 124mmol/L and that is good as it will ever be, at least for now(?) if this is the case, we may just need to monitor her sodium more closely as an output (i.e. outpatient labs once a week?) follow repeat sodium levels Long and extensive discussion (> 20 minutes) with patient regarding her hyponatremia with regard to discontinuation of tolvaptan, the need for fluid restriction (particularly on discharge), as frequent outpatient testing to ensure her sodium level remains stable. She appeared to voice understanding. Will continue to follow. Subjective Date/time seen: 09/14/21 12:34 No new issues or problems voiced; sodium remains essentially the same to date despite interventions to date; however, she remains asymptomatic; no other issues/problems to report at this time; no events overnight or earlier this AM. Exam Narrative: General: WD/WN female in NAD Heart: normal S1 and S2; no rub Lungs: clear to auscultation Abdomen: soft, nontender, nondistended, positive bowel sounds Extremities: no cyanosis or clubbing; no edema Skin: warm and dry Objective Data Vital Signs Vital Signs: Vital Signs Temp Pulse Resp BP Pulse Ox 09/14/21 09:21 88 09/14/21 06:00 35.8 C L 81 18 164/77 H 100 09/13/21 21:41 36.2 C L 71 18 148/85 H 100 09/13/21 20:16 65 09/13/21 14:00 36.0 C L 78 12 140/75 97 Intake/Output Intake/Output: Intake & Output 09/11/21 09/12/21 09/13/21 09/14/21 23:59 23:59 23:59 23:59 Intake Total 2242 3080 2030 1820 Output Total 3600 2050 4 Balance -1358 1030 2030 1816 Meds/Results Medications: Active Medications Generic Name Dose Route Start Last Admin Trade Name Freq PRN Reason Stop Dose Admin Acetaminophen 650 mg 08/23/21 06:27 Acetaminophen 325 Mg Tablet PO Q4H PRN Mild Pain (1-3) or Fever Apixaban 5 mg 08/23/21 21:00 09/14/21 09:21 Apixaban 5 Mg Tablet PO 5 mg Q12HR SOCRATES Administration Atorvastatin Calcium 10 mg 08/24/21 09:00 09/14/21 09:20 Atorvastatin 10 Mg Tablet PO 10 mg DAILY SOCRATES Administration Demeclocycline HCl 450 mg 09/12/21 09:00 09/14/21 13:09 Ayaan
--- NOTE | 2021-09-14 13:28 | PCOTNOTE ---
Attempted OT treatment this date; pt. refused not wanting to move around as her IV keeps beeping when she moves. Requested to come back tomorrow.
[2021-09-14 14:00] VITALS: BP 138/22; PULSE 77; RESP 20; TEMP 35.9; O2SAT 100
[2021-09-14 15:14] LABS: Sodium 122 mmol/L (137-145)
[2021-09-14 20:44] VITALS: PULSE 77
[2021-09-14 22:00] VITALS: BP 148/77; PULSE 70; RESP 18; TEMP 35.6; O2SAT 98
[2021-09-15 06:00] VITALS: BP 143/88; PULSE 73; RESP 18; TEMP 35.2; O2SAT 100
[2021-09-15 06:55] LABS: Albumin Level 3.1 g/dL (3.5-5.1); Anion Gap 3 mmol/L (8-16); Blood Urea Nitrogen 13 mg/dL (7-17); Carbon Dioxide 25 mmol/L (22-30); Chloride 94 mmol/L (98-107); Estimated CRCL calculation 80 ml/min; Estimated Glomerular Filt Rate > 60; Glucose 74 mg/dL (65-110); Phosphorus 3.1 mg/dL (2.5-4.5); Potassium 3.4 mmol/L (3.4-5.0); Sodium 122 mmol/L (137-145)
--- NOTE | 2021-09-15 07:23 | PM.PNNEP ---
Progress Note: A&P Assessment and Plan (1) Hyponatremia: Code(s): E87.1 - Hypo-osmolality and hyponatremia Status: Acute Assessment and Plan: acute on chronic sodiums have been running ~ 129 - 133 as far back as 2006 previous evaluation noted: SPEP and UPEP negative for paraproteinemia kappa/lambda ratio normal TSH okay cortisol was low (but she was on chronic prednisone therapy) and on prednisone currently at10mg per day. head CT shows no acute intracranial process. There does not seem to be enough going on here to causes hyponatremia. Chest x-ray is negative. She is up-to-date with mammograms. She is due for colonoscopy. another possibility would be pseudo-hyponatremia. Past evaluation has not revealed pseudohyponatremia. No serum osmolality gap. dehydration is always a possibility but her mucous membranes are moist and no orthostatic drop in blood pressure high urine osmolality and low serum osmolality which was equal to the calculated serum osmolality -- consistent with SIADH re-evaluation shows a high urine osmolality, serum osmolality which is close to calculated (254 versus 260), normal serum immunofix, pending? Urine immunofix, normal kappa lambda, normal TSH and cortisol. On demeclocycline and tolvaptan with salt tablets. Normally on a voluntary fluid restriction but it turns out she drinks 2-3 L per day. Long discussion with the patient today and also have discussed with the patient in the past. I think she just drinks too much fluid. 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 I agree that fluid restriction is critical. leaving her at 121 seems risky so hopefully her mindfulness of fluid restriction will improve things. long discussion with patient. Subjective Date/time seen: 09/15/21 07:23 Interval history: Patient is alert. She feels okay. ?I am starting a fluid restriction of 1200 ? As we have discussed in the past, the less fluid she drinks the better her sodium will be. She says she barely drinks any fluid at home. I told her that she should just do what she does at home then. She is now officially on a 1200cc fluid restriction. Exam Narrative: General: WD/WN female in NAD Heart: normal S1 and S2; no rub or gallop Lungs: clear to auscultation Abdomen: soft, nontender, nondistended, positive bowel sounds Extremities: bno edema Skin: No rash Objective Data Vital Signs Vital Signs: Vital Signs - 24 hr 09/14/21 09:21 09/14/21 08:00 09/14/21 14:00 Temperature 35.9 C L Pulse Rate 88 77 Respiratory Rate 20 Blood Pressure 138/22 L Pulse Oximetry 100 Oxygen Delivery Room Air 09/14/21 20:44 09/14/21 20:45 09/14/21 22:00 Temperature 35.6 C L Pulse Rate 77 70 Respiratory Rate 18 Blood Pressure 148/77 H Pulse Oximetry 98 Oxygen Delivery Room Air 09/15/21 06:00 Temperature 35.2 C L Pulse Rate 73 Respiratory Rate 18 Blood Pressure 143/88 H Pulse Oximetry 100 Oxygen Delivery Intake/Output Intake/Output: Intake & Output 09/12/21 09/13/21 09/14/21 09/15/21 23:59 23:59 23:59 23:59 Intake Total 3080 2029 2059 450 Output Total 0 4 Balance 1030 2029 2055 450 Meds/Results Medications: Active Medications Generic Name Dose Route Start Last Admin Trade Name Freq PRN Reason Stop Dose Admin Acetaminophen 650 mg 08/23/21 06:27 Acetaminophen 325 Mg Tablet PO Q4H PRN Mild Pain (1-3) or Fever Apixaban 5 mg 08/23/21 21:00 09/14/21 20:43 Apixaban 5 Mg Tablet PO 5 mg Q12HR SOCRATES Administration Atorvastatin Calcium 10 mg 08/24/21 09:00 09/14/21 09:20 Atorvastatin 10 Mg Tablet PO 10 mg DAILY SOCRATES Administration Demeclocycline HCl 450 mg 09/12/21 09:00 09/14/21 20:43 Demeclocycline Hcl 150 Mg Tablet PO 450 mg QID SOCRATES Administration Docusate Sodium 100 mg 08/29
[2021-09-15 07:56] VITALS: PULSE 73; RESP 18; O2SAT 100
--- NOTE | 2021-09-15 08:00 | PC.NURSE ---
called about 24 hr urine
--- NOTE | 2021-09-15 08:04 | PC.NURSE ---
24 hr urine, called main lab, some test completed, some still pending, [facility] [id number]
[2021-09-15 08:20] VITALS: PULSE 70
[2021-09-15] MEDS: METOPROLOL TARTRATE 50 MG TAB PO ×2 (08:20→21:02)
[2021-09-15] MEDS: SODIUM CHLORIDE 500 MG TABLET PO ×3 (08:21→16:30)
[2021-09-15] MEDS: EUCERIN CREAM 120 GM JAR 1 APPLIC TOPICAL (08:21)
[2021-09-15] MEDS: APIXABAN 5 MG TABLET PO ×2 (08:21→21:02)
[2021-09-15] MEDS: levETIRAcetam 500 MG TABLET PO ×2 (08:21→21:02)
[2021-09-15] MEDS: LEFLUNOMIDE 20 MG TABLET PO (08:21)
[2021-09-15] MEDS: SODIUM CHLORIDE 1 GM TABLET 2 GM PO ×3 (08:21→16:30)
[2021-09-15] MEDS: predniSONE 10 MG TABLET PO (08:21)
[2021-09-15] MEDS: HYDROXYCHLOROQUINE SULFATE 200 MG TABLET 400 MG PO (08:21)
[2021-09-15] MEDS: ATORVASTATIN 10 MG TABLET PO (08:21)
[2021-09-15] MEDS: DEMECLOCYCLINE HCL 150 MG TABLET 450 MG PO ×4 (08:21→21:01)
[2021-09-15] MEDS: TOLTERODINE TARTRATE LA 4 MG CAP.ER.24H PO (08:21)
[2021-09-15] MEDS: CHOLECALCIFEROL 1,000 UNITS TABLET 1000 UNITS PO (08:21)
[2021-09-15] MEDS: MULTIVITAMINS THERAPEUTIC TAB (*BKC) 1 TABLET PO (08:21)
[2021-09-15] MEDS: MAGNESIUM OXIDE 400 MG TABLET PO (11:07)
--- NOTE | 2021-09-15 11:21 | PM.IMPN ---
Progress Note: A&P Assessment and Plan (1) Hyponatremia: Code(s): E87.1 - Hypo-osmolality and hyponatremia Status: Acute Assessment and Plan: Appreciate Nephrology consultation. Likely SIADH. Continue demeclocycline-sodium chloride tabs - managed per nephrology (2) Vasculitis: Code(s): I77.6 - Arteritis, unspecified Status: Acute Assessment and Plan: Continue prednisone taper (3) CAD (coronary artery disease): Code(s): I25.10 - Atherosclerotic heart disease of [place] coronary artery without angina pectoris Status: Acute Assessment and Plan: Overall stable.? no chest pain. (4) Hypertension: Code(s): I10 - Essential (primary) hypertension Status: Acute Assessment and Plan: monitor (5) Rheumatoid arthritis with rheumatoid factor of multiple sites without organ or systems involvement: Onset Date: ~2000 Code(s): M05.79 - Rheumatoid arthritis with rheumatoid factor of multiple sites without organ or systems involvement Status: Acute Assessment and Plan: Stable.? Continue Plaquenil.? (6) Paroxysmal atrial fibrillation: Code(s): I48.0 - Paroxysmal atrial fibrillation Status: Acute Assessment and Plan: EKG shows normal sinus rhythm.? Regular rate on exam.? Continue metoprolol.? Continue Eliquis.? Plan for a Watchman-like procedure on September 09. 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, will check lumbar spine MRI Subjective Date/time seen: 09/15/21 11:21 No complaints Exam Narrative: General: No acute distress, alert and oriented per baseline HEENT: Atraumatic, normocephalic, mucous membranes moist CV: Regular rate and rhythm, S1, S2 Lungs: Clear to auscultation bilaterally, no rales or crackles noted, no wheezes, good air entry Abdomen: Soft, nontender, nondistended Extremities: Normal to inspection Skin: No rashes noted, no lesions or wounds seen Psych: Euthymic, normal affect Objective Data Vital Signs Vital Signs: Vital Signs - 24 hr 09/14/21 14:00 09/14/21 20:44 09/14/21 20:45 Temperature 96.6 F L Pulse Rate 77 77 Respiratory Rate 20 Blood Pressure 138/22 L Pulse Oximetry 100 Oxygen Delivery Room Air 09/14/21 22:00 09/15/21 06:00 09/15/21 07:56 Temperature 96.1 F L 95.3 F L Pulse Rate 70 73 73 Respiratory Rate 18 18 18 Blood Pressure 148/77 H 143/88 H Pulse Oximetry 98 100 100 Oxygen Delivery Room Air 09/15/21 08:20 Temperature Pulse Rate 70 Respiratory Rate Blood Pressure Pulse Oximetry Oxygen Delivery Intake/Output Intake/Output: Intake & Output 09/12/21 09/13/21 09/14/21 09/15/21 23:59 23:59 23:59 23:59 Intake Total 3082029 690 Output Total 2049 4 100 Balance 1030 2029 2055 590 Meds/Results Medications: Active Medications Generic Name Dose Route Start Last Admin Trade Name Freq PRN Reason Stop Dose Admin Acetaminophen 650 mg 08/23/21 06:27 Acetaminophen 325 Mg Tablet PO Q4H PRN Mild Pain (1-3) or Fever Apixaban 5 mg 08/23/21 21:00 09/15/21 08:21 Apixaban 5 Mg Tablet PO 5 mg Q12HR SOCRATES Administration Atorvastatin Calcium 10 mg 08/24/21 09:00 09/15/21 08:21 Atorvastatin 10 Mg Tablet PO 10 mg DAILY SOCRATES Administration Demeclocycline HCl 450 mg 09/12/21 09:00 09/15/21 08:21 Demeclocycline Hcl 150 Mg Tablet PO 450 mg QID SOCRATES Administration Docusate Sodium 100 mg 09/09/21 13:00 09/13/21 09:06 Docusate Sodium 100 Mg Capsule PO 100 mg Q12H PRN Administration Constipation Hydroxychloroquine Sulfate 400 mg 08/24/21 09:00 09/15/21 08:21 Hy
--- NOTE | 2021-09-15 11:26 | PCOTNOTE ---
Patient refused therapy, secondary to being nauseated and feeling like she could vomit. Will continue OT per plan of care.
[2021-09-15 14:00] VITALS: BP 117/72; PULSE 78; RESP 20; TEMP 36.2; O2SAT 98
[2021-09-15] MEDS: ONDANSETRON INJ 4 MG/2 ML VIAL IV PUSH (15:11)
[2021-09-15 16:17] LABS: Protein,total, 24 Hr Ur 225 mg/24h
[2021-09-15] MEDS: DOCUSATE SODIUM 100 MG CAPSULE PO (18:28)
[2021-09-15 21:02] VITALS: PULSE 80
[2021-09-15 22:00] VITALS: BP 157/75; PULSE 80; RESP 16; TEMP 37.2; O2SAT 100
[2021-09-16 05:47] VITALS: BP 175/86; PULSE 77; RESP 14; TEMP 36.4; O2SAT 99
[2021-09-16 06:46] LABS: Albumin Level 3.2 g/dL (3.5-5.1); Anion Gap 4 mmol/L (8-16); Blood Urea Nitrogen 19 mg/dL (7-17); Carbon Dioxide 25 mmol/L (22-30); Chloride 93 mmol/L (98-107); Estimated CRCL calculation 56 ml/min; Estimated Glomerular Filt Rate > 60; Glucose 68 mg/dL (65-110); Phosphorus 3.3 mg/dL (2.5-4.5); Potassium 3.6 mmol/L (3.4-5.0); Sodium 122 mmol/L (137-145)
--- NOTE | 2021-09-16 07:18 | PM.PNNEP ---
Progress Note: A&P Assessment and Plan (1) Hyponatremia: Code(s): E87.1 - Hypo-osmolality and hyponatremia Status: Acute Assessment and Plan: acute on chronic sodiums have been running ~ 129 - 133 as far back as 2006 previous evaluation noted: SPEP and UPEP negative for paraproteinemia kappa/lambda ratio normal TSH okay cortisol was low (but she was on chronic prednisone therapy) and on prednisone currently at10mg per day. head CT shows no acute intracranial process. There does not seem to be enough going on here to causes hyponatremia. Chest x-ray is negative. She is up-to-date with mammograms. She is due for colonoscopy. another possibility would be pseudo-hyponatremia. Past evaluation has not revealed pseudohyponatremia. No serum osmolality gap. dehydration is always a possibility but her mucous membranes are moist and no orthostatic drop in blood pressure high urine osmolality and low serum osmolality which was equal to the calculated serum osmolality -- consistent with SIADH re-evaluation shows a high urine osmolality, serum osmolality which is close to calculated (254 versus 260), normal serum immunofix, Urine immunofix is negative, normal kappa lambda, normal TSH and cortisol. On demeclocycline, salt tablets, and fluid restriction of 1200cc. Will add Lasix 20mg three times a day. leaving her at 121 seems risky so hopefully her mindfulness of fluid restriction will improve things. Goal is to get her up to at least 125. long discussion with patient. Discussion with patient and Dr Farias yesterday lasted 25 min besides clinical activity. Subjective Date/time seen: 09/16/21 07:18 Interval history: Patient is alert. She feels okay. She is thirsty. Patient says that somebody commented that she was not walking as well as she was before. She feels that this is because she is dehydrated. She feels like she needs more fluid. Megan wants to know how long is going to be here. Told her I could not say because she has been her so long. She is in uncharted territory. She did a good job avoiding excess fluid yesterday. She took in about 1200cc. She is very uncomfortable with this fluid restriction as she is so thirsty. I am into my 5th week here. I feel I have been very patient. We discussed the things we have done in the past. These include fluid restriction, demeclocycline, salt tablets, tolvaptan, furosemide. The tolvaptan is very expensive as an outpatient. [place] she is on fluid restriction, demeclocycline, and salt tablets. We can try adding furosemide 1 more time to see if we can get the sodium to come up more. Her baseline sodium as an outpatient is 129. If we can get to 125 and be stable then that would probably be enough to get her home. She still wants to know how many days this is going to take. I understand her eager in as for discharge but I can not answer that question in time but I did present the above sodium issue. She does not want to sign out against medical advice. That is not something I do Exam Narrative: General: WD/WN female in NAD Heart: normal S1 and S2; no rub or gallop Lungs: clear to auscultation Abdomen: soft, nontender, nondistended, positive bowel sounds Extremities: no edema or cyanosis Skin: No rashor subcu not Objective Data Vital Signs Vital Signs: Vital Signs - 24 hr 09/15/21 07:56 09/15/21 08:20 09/15/21 14:00 Temperature 36.2 C L Pulse Rate 73 70 78 Respiratory Rate 18 20 Blood Pressure 117/72 Pulse Oximetry 100 98 Oxygen Delivery Room Air 09/15/21 21:02 09/15/21 22:00 09/15/21 20:00 Temperature 37.2 C Pulse Rate 80 80 Respiratory Rate 16 Blood Pressure 157/75 H Pulse Oximetry 100 Oxygen Delivery Room Air 09/16/21 05:47 Temperature 36.4 C L Pulse Rate 77 Respiratory Rate 14 Blood Pressure 175/86 H Pulse Oximetry 99 Oxygen Delivery Intake/O
[2021-09-16] MEDS: LEFLUNOMIDE 20 MG TABLET PO (07:48)
[2021-09-16] MEDS: DEMECLOCYCLINE HCL 150 MG TABLET 450 MG PO ×4 (07:48→20:11)
[2021-09-16] MEDS: SODIUM CHLORIDE 1 GM TABLET 2 GM PO ×3 (07:48→16:12)
[2021-09-16] MEDS: SODIUM CHLORIDE 500 MG TABLET PO ×3 (07:49→16:12)
[2021-09-16] MEDS: predniSONE 10 MG TABLET PO (07:49)
[2021-09-16] MEDS: MULTIVITAMINS THERAPEUTIC TAB (*BKC) 1 TABLET PO (07:49)
[2021-09-16] MEDS: CHOLECALCIFEROL 1,000 UNITS TABLET 1000 UNITS PO (07:49)
[2021-09-16] MEDS: HYDROXYCHLOROQUINE SULFATE 200 MG TABLET 400 MG PO (07:49)
[2021-09-16] MEDS: levETIRAcetam 500 MG TABLET PO ×2 (07:49→20:12)
[2021-09-16] MEDS: APIXABAN 5 MG TABLET PO ×2 (07:49→20:11)
[2021-09-16] MEDS: FUROSEMIDE 20 MG TABLET PO ×3 (07:50→23:36)
[2021-09-16] MEDS: ATORVASTATIN 10 MG TABLET PO (07:50)
[2021-09-16] MEDS: TOLTERODINE TARTRATE LA 4 MG CAP.ER.24H PO (07:50)
[2021-09-16 07:51] VITALS: PULSE 78
[2021-09-16] MEDS: EUCERIN CREAM 120 GM JAR 1 APPLIC TOPICAL (07:51)
[2021-09-16] MEDS: METOPROLOL TARTRATE 50 MG TAB PO ×2 (07:51→20:11)
[2021-09-16 08:00] VITALS: PULSE 78; RESP 14; O2SAT 99
[2021-09-16] MEDS: MAGNESIUM OXIDE 400 MG TABLET PO (10:56)
--- NOTE | 2021-09-16 11:15 | PCPTNOTE ---
Patient refused treatment this session due to feeling nauseated and fatigued. Patient states she did not feel well while sitting up in the chair earlier today. PT will continue to follow per plan of care.
[2021-09-16] MEDS: ONDANSETRON INJ 4 MG/2 ML VIAL IV PUSH (12:41)
--- NOTE | 2021-09-16 13:46 | PM.IMPN ---
Progress Note: A&P Assessment and Plan (1) Hyponatremia: Code(s): E87.1 - Hypo-osmolality and hyponatremia Status: Acute Assessment and Plan: Appreciate Nephrology consultation. Likely SIADH. Continue demeclocycline-sodium chloride tabs - managed per nephrology (2) Vasculitis: Code(s): I77.6 - Arteritis, unspecified Status: Acute Assessment and Plan: Continue prednisone taper (3) CAD (coronary artery disease): Code(s): I25.10 - Atherosclerotic heart disease of [place] coronary artery without angina pectoris Status: Acute Assessment and Plan: Overall stable.? no chest pain. (4) Hypertension: Code(s): I10 - Essential (primary) hypertension Status: Acute Assessment and Plan: monitor (5) Rheumatoid arthritis with rheumatoid factor of multiple sites without organ or systems involvement: Onset Date: ~2000 Code(s): M05.79 - Rheumatoid arthritis with rheumatoid factor of multiple sites without organ or systems involvement Status: Acute Assessment and Plan: Stable.? Continue Plaquenil.? (6) Paroxysmal atrial fibrillation: Code(s): I48.0 - Paroxysmal atrial fibrillation Status: Acute Assessment and Plan: EKG shows normal sinus rhythm.? Regular rate on exam.? Continue metoprolol.? Continue Eliquis.? Plan for a Watchman-like procedure on September 09. 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, will check lumbar spine MRI Subjective Date/time seen: 09/16/21 13:46 no new complaints Exam Narrative: General: No acute distress, alert and oriented per baseline HEENT: Atraumatic, normocephalic, mucous membranes moist CV: Regular rate and rhythm, S1, S2 Lungs: Clear to auscultation bilaterally, no rales or crackles noted, no wheezes, good air entry Abdomen: Soft, nontender, nondistended Extremities: Normal to inspection Skin: No rashes noted, no lesions or wounds seen Psych: Euthymic, normal affect Objective Data Vital Signs Vital Signs: Vital Signs - 24 hr 09/15/21 14:00 09/15/21 21:02 09/15/21 22:00 Temperature 97.2 F L 99.0 F Pulse Rate 78 80 80 Respiratory Rate 20 16 Blood Pressure 117/72 157/75 H Pulse Oximetry 98 100 Oxygen Delivery 09/15/21 20:00 09/16/21 05:47 09/16/21 07:51 Temperature 97.5 F L Pulse Rate 77 78 Respiratory Rate 14 Blood Pressure 175/86 H Pulse Oximetry 99 Oxygen Delivery Room Air 09/16/21 08:00 Temperature Pulse Rate 78 Respiratory Rate 14 Blood Pressure Pulse Oximetry 99 Oxygen Delivery Room Air Intake/Output Intake/Output: Intake & Output 09/13/21 09/14/21 09/15/21 09/16/21 23:59 23:59 23:59 23:59 Intake Total 2029 2059 1152 480 Output Total 100 100 Balance 2029 2055 1052 380 Meds/Results Medications: Active Medications Generic Name Dose Route Start Last Admin Trade Name Freq PRN Reason Stop Dose Admin Acetaminophen 650 mg 08/23/21 06:27 Acetaminophen 325 Mg Tablet PO Q4H PRN Mild Pain (1-3) or Fever Apixaban 5 mg 08/23/21 21:00 09/16/21 07:49 Apixaban 5 Mg Tablet PO 5 mg Q12HR SOCRATES Administration Atorvastatin Calcium 10 mg 08/24/21 09:00 09/16/21 07:50 Atorvastatin 10 Mg Tablet PO 10 mg DAILY SOCRATES Administration Demeclocycline HCl 450 mg 09/12/21 09:00 09/16/21 12:06 Demeclocycline Hcl 150 Mg Tablet PO 450 mg QID SOCRATES Administration Docusate Sodium 100 mg 09/09/21 13:00 09/15/21 18:28 Docusate Sodium 100 Mg Capsule PO 100 mg Q12H PRN Administration Constipation Furosemide 20 mg 09/16/21 08:00 09/16/21 07:50 Furosemide 20 Mg Tabl
[2021-09-16 14:00] VITALS: BP 137/89; PULSE 82; RESP 20; TEMP 36.2; O2SAT 98
[2021-09-16 14:32] LABS: Sodium 125 mmol/L (137-145)
[2021-09-16 20:11] VITALS: PULSE 74
[2021-09-16 22:00] VITALS: BP 141/77; PULSE 76; RESP 18; TEMP 35.6; O2SAT 97
[2021-09-17 06:00] VITALS: BP 157/92; PULSE 80; RESP 22; TEMP 35.8; O2SAT 98
[2021-09-17 07:06] LABS: Albumin Level 3.5 g/dL (3.5-5.1); Anion Gap 7 mmol/L (8-16); Blood Urea Nitrogen 23 mg/dL (7-17); Calcium 7.9 mg/dL (8.4-10.2); Carbon Dioxide 26 mmol/L (22-30); Chloride 92 mmol/L (98-107); Estimated CRCL calculation 56 ml/min; Estimated Glomerular Filt Rate > 60; Glucose 86 mg/dL (65-110); Phosphorus 3.5 mg/dL (2.5-4.5); Potassium 3.3 mmol/L (3.4-5.0); Sodium 125 mmol/L (137-145)
--- NOTE | 2021-09-17 08:01 | PM.PNNEP ---
Progress Note: A&P Assessment and Plan (1) Hyponatremia: Code(s): E87.1 - Hypo-osmolality and hyponatremia Status: Acute Assessment and Plan: acute on chronic sodiums have been running ~ 129 - 133 as far back as 2006 Chronic SIADH. Hormones okay imaging of brain and lungs are okay. No history of cancer. She is due for colonoscopy and will get this done soon. On demeclocycline, salt tablets, Lasix 20 t.i.d., and fluid restriction of 1200cc. Sodium level now 125. Okay for discharge tomorrow. Subjective Date/time seen: 09/17/21 08:01 Interval history: Patient is alert. She feels okay. She is thirsty. Still working on her fluid restriction. Exam Narrative: General: WD/WN female in NAD Heart: normal S1 and S2; no rub Lungs: clear Abdomen: BS+ soft, nontender, nondistended Extremities: no edema or cyanosis Skin: No rash Objective Data Vital Signs Vital Signs: Vital Signs - 24 hr 09/16/21 14:00 09/16/21 20:11 09/16/21 22:00 Temperature 36.2 C L 35.6 C L Pulse Rate 82 74 76 Respiratory Rate 20 18 Blood Pressure 137/89 141/77 H Pulse Oximetry 98 97 09/17/21 06:00 Temperature 35.8 C L Pulse Rate 80 Respiratory Rate 22 H Blood Pressure 157/92 H Pulse Oximetry 98 Intake/Output Intake/Output: Intake & Output 09/14/21 09/15/21 09/16/21 09/17/21 23:59 23:59 23:59 23:59 Intake Total 0 1152 960 0 Output Total 4 100 100 Balance 2055 1052 860 0 Meds/Results Medications: Active Medications Generic Name Dose Route Start Last Admin Trade Name Freq PRN Reason Stop Dose Admin Acetaminophen 650 mg 08/23/21 06:27 Acetaminophen 325 Mg Tablet PO Q4H PRN Mild Pain (1-3) or Fever Apixaban 5 mg 08/23/21 21:00 09/16/21 20:11 Apixaban 5 Mg Tablet PO 5 mg Q12HR SOCR[facility] Administration Atorvastatin Calcium 10 mg 08/24/21 09:00 09/16/21 07:50 Atorvastatin 10 Mg Tablet PO 10 mg DAILY SOCRATES Administration Demeclocycline HCl 450 mg 09/12/21 09:00 09/16/21 20:11 Demeclocycline Hcl 150 Mg Tablet PO 450 mg QID SOCR[facility] Administration Docusate Sodium 100 mg 09/09/21 13:00 09/15/21 18:28 Docusate Sodium 100 Mg Capsule PO 100 mg Q12H PRN Administration Constipation Furosemide 20 mg 09/16/21 08:00 09/16/21 23:36 Furosemide 20 Mg Tablet PO 20 mg Q8H [facility]CR[facility] Administration Hydroxychloroquine Sulfate 400 mg 08/24/21 09:00 09/16/21 07:49 Hydroxychloroquine Sulfate 200 Mg Tablet PO 400 mg DAILY [facility] Administration Leflunomide 20 mg 08/24/21 09:00 09/16/21 07:48 Leflunomide 20 Mg Tablet PO 20 mg DAILY [facility] Administration Levetiracetam 500 mg 08/23/21 21:00 09/16/21 20:12 Levetiracetam 500 Mg Tablet PO 500 mg Q12HR SOCR[facility] Administration Magnesium Oxide 400 mg 09/08/21 11:00 09/16/21 10:56 Magnesium Oxide 400 Mg Tablet PO 400 mg DAILY@1100 SOCR[facility] Administration Metoprolol Tartrate 50 mg 08/23/21 21:00 09/16/21 20:11 Metoprolol Tartrate 50 Mg Tab PO 50 mg Q12HR SOCR[facility] Administration Multi-Ingred Cream/Lotion/Oil/Oint 1 applic 09/15/21 09:00 09/16/21 07:51 Eucerin Cream 120 Gm Jar TOPICAL 1 applic DAILY SOCR[facility] Administration Multivitamins Therapeutic 1 tablet 08/24/21 09:00 09/16/21 07:49 Multivitamins Therapeutic Tab (*Bkc) PO 1 tablet DAILY SOCR[facility] Administration Ondansetron HCl 4 mg 08/23/21 06:27 09/16/21 12:41 Ondansetron Inj 4 Mg/2 Ml Vial IV PUSH 4 mg Q4H PRN Administration Nausea Potassium Chloride 20 meq 09/17/21 12:05 Potassium Chloride 20 Meq Tablet PO 09/17/21 12:06 ONCE ONE Sodium Chloride 2 gm 09/11/21 17:00 09/16/21 16:12 Sodium Chloride 1 Gm Tablet PO 10/14/21 23:00 2 gm TID SOCRATES Administration Sodium Chloride 500 mg 09/14/21 09:00 09/16/21 16:12 Sodium Chloride 500 Mg Tablet PO 500 mg TID SOCRATES Administration Tolterodine Tartrate 4 mg 08/24/21 09:00 09/16/21 07:50 Tolterodine Ta
[2021-09-17] MEDS: MULTIVITAMINS THERAPEUTIC TAB (*BKC) 1 TABLET PO (08:39)
[2021-09-17] MEDS: SODIUM CHLORIDE 500 MG TABLET PO ×3 (08:39→16:36)
[2021-09-17] MEDS: SODIUM CHLORIDE 1 GM TABLET 2 GM PO ×3 (08:39→16:36)
[2021-09-17] MEDS: TOLTERODINE TARTRATE LA 4 MG CAP.ER.24H PO (08:39)
[2021-09-17] MEDS: CHOLECALCIFEROL 1,000 UNITS TABLET 1000 UNITS PO (08:39)
[2021-09-17] MEDS: LEFLUNOMIDE 20 MG TABLET PO (08:39)
[2021-09-17] MEDS: levETIRAcetam 500 MG TABLET PO ×2 (08:39→20:44)
[2021-09-17] MEDS: HYDROXYCHLOROQUINE SULFATE 200 MG TABLET 400 MG PO (08:39)
[2021-09-17] MEDS: DEMECLOCYCLINE HCL 150 MG TABLET 450 MG PO ×4 (08:39→20:43)
[2021-09-17] MEDS: FUROSEMIDE 20 MG TABLET PO ×2 (08:39→16:36)
[2021-09-17] MEDS: APIXABAN 5 MG TABLET PO ×2 (08:39→20:45)
[2021-09-17 08:40] VITALS: PULSE 80
[2021-09-17] MEDS: METOPROLOL TARTRATE 50 MG TAB PO ×2 (08:40→20:44)
[2021-09-17] MEDS: EUCERIN CREAM 120 GM JAR 1 APPLIC TOPICAL (08:40)
[2021-09-17] MEDS: ATORVASTATIN 10 MG TABLET PO (08:40)
[2021-09-17] MEDS: POTASSIUM CHLORIDE 20 MEQ TABLET PO (11:59)
[2021-09-17] MEDS: MAGNESIUM OXIDE 400 MG TABLET PO (12:00)
[2021-09-17 14:00] VITALS: BP 150/92; PULSE 84; RESP 20; TEMP 36.1; O2SAT 100
--- NOTE | 2021-09-17 16:23 | PM.IMPN ---
Progress Note: A&P Assessment and Plan (1) Paroxysmal atrial fibrillation: Code(s): I48.0 - Paroxysmal atrial fibrillation Status: Acute (2) Vasculitis: Code(s): I77.6 - Arteritis, unspecified Status: Acute (3) Generalized weakness: Code(s): R53.1 - Weakness Status: Acute (4) Hyponatremia: Code(s): E87.1 - Hypo-osmolality and hyponatremia Status: Acute (5) CAD (coronary artery disease): Code(s): I25.10 - Atherosclerotic heart disease of [place] coronary artery without angina pectoris Status: Acute (6) Hypertension: Code(s): I10 - Essential (primary) hypertension Status: Acute Plan 76-year-old female with history of hypertension, rheumatoid arthritis an intraparenchymal hemorrhage presented to the emergency room for a 2-3 week history of progressively worsening generalized weakness as well as a rash on her lower extremities. 1)Hyponatremia: Hypo osmolality and hyponatremia acute on chronic improving sodium On demeclocycline, salt tablets, Lasix 20 t.i.d., and fluid restriction of 1200cc. plan for discharge in AM Supplement potassium for hypokalemia 2)Vasculitis: c/w Leflunomide, Hydroxychloroquine 3)H/o Afibb: c/w metoprolol, eliquis 4)Weakness: 2/2 Physical Deconditioning PT/OT 5)DVT ppx: on Eiquis 6)Code:Full 7)Dispo:plan for discharge in AM as per nephrology Time Spent With Patient Time with patient: 15 - 25 minutes Subjective Date/time seen: 09/17/21 16:23 Interval history: no acute events overnight Review of Systems Review of Systems: All systems reviewed & are unremarkable except as noted in HPI and below Constitutional: Constitutional: Reports no additional constitutional complaints Eyes: Eyes: Reports no additional eye complaints ENT: Reports system reviewed and no additional complaints, except as documented Cardiovascular: Cardiovascular: Reports no additional cardiovascular complaints Respiratory: Respiratory: Reports no additional respiratory complaints Gastrointestinal: Gastrointestinal: Reports no additional gastrointestinal complaints Musculoskeletal: Musculoskeletal: Reports no additional musculoskeletal complaints Integumentary/Breasts: Skin/Breast: Reports system reviewed and no additional complaints, except as docu Exam Const: General: comfortable and no acute distress HENMT: Mouth: Yes moist mucous membranes Eyes: Sclera: sclerae normal Neck: Neck: supple Resp: Effort & Inspection: normal respiratory effort Auscultation: diminished lung sounds Cardio: Rate: regular rate Rhythm: regular rhythm GI: GI Palp: Yes Soft to palpation Auscultation: normal bowel sounds Skin: General skin exam: normal color Neuro: Speech: normal speech Extrem: General: normal to inspection Psych: Mental Status: mental status grossly normal Objective Data Vital Signs Vital Signs: Vital Signs - 24 hr 09/16/21 20:11 09/16/21 22:00 09/17/21 06:00 Temperature 96.1 F L 96.5 F L Pulse Rate 74 76 80 Respiratory Rate 18 22 H Blood Pressure 141/77 H 157/92 H Pulse Oximetry 97 98 09/17/21 08:40 09/17/21 14:00 Temperature 96.9 F L Pulse Rate 80 84 Respiratory Rate 20 Blood Pressure 150/92 H Pulse Oximetry 100 Intake/Output Intake/Output: Intake & Output 09/14/21 09/15/21 09/16/21 09/17/21 23:59 23:59 23:59 23:59 Intake Total 0 1152 960 480 Output Total 4 100 100 Balance 2055 1052 860 480 Meds/Results Medications: Active Medications Generic Name Dose Route Start Last Admin Trade Name Freq PRN Reason Stop Dose Admin Acetaminophen 650 mg 08/23/21 06:27 Acetaminophen 325 Mg Tablet PO Q4H PRN Mild Pain (1-3) or Fever Apixaban 5 mg 08/23/21 21:00 09/17/21 08:39 Apixaban 5 Mg Tablet PO 5 mg Q12HR SOCR[facility] Administration Atorvastatin Calcium 10 mg 08/24/21 09:00 09/17/21 08:40 Atorvastatin 10 Mg Tablet PO 10 mg DAILY [facility]
[2021-09-17 20:25] VITALS: PULSE 88; RESP 18; O2SAT 100
[2021-09-17 20:44] VITALS: PULSE 78
[2021-09-17 21:32] VITALS: BP 154/76; PULSE 88; RESP 18; TEMP 36.6; O2SAT 100
[2021-09-18] VITALS (7 sets, daily range): BP systolic 156; BP diastolic 82–102; PULSE 72–96; RESP 18–20; TEMP 36.3–37.1; O2SAT 99–100; BMI 19.5
[2021-09-18] MEDS: DOCUSATE SODIUM 100 MG CAPSULE PO ×2 (00:34→21:29)
[2021-09-18] MEDS: FUROSEMIDE 20 MG TABLET PO ×4 (00:34→22:47)
[2021-09-18 06:11] LABS: Basophils Percent Auto 0.5 % (0.2-1.2); Hematocrit 38.3 % (37.0-47.0); Hemoglobin 13.1 g/dL (12.0-15.0); Immature Granulocyte Absolute 0.03 K/mm3 (0.00-0.031); Immature Granulocyte Percent A 0.5 % (0-0.5); Lymphocytes Absolute Auto 1.11 K/mm3 (0.9-3.2); Lymphocytes Percent Auto 17.3 % (18.3-44.2); Mean Corpuscular HGB Conc 34.2 g/dl (32-36); Mean Corpuscular Hemoglobin 29.6 pg (26-34); Mean Corpuscular Volume 86.7 fl (80-100); Mean Platelet Volume 8.9 fl (7.4-10.4); Monocytes Absolute Auto 0.7 K/mm3 (0.1-0.6); Monocytes Percent Auto 10.3 % (2.6-8.5); Neutrophils Absolute Auto 4.6 K/mm3 (1.3-6.7); Neutrophils Percent Auto 71.4 % (45.5-73.1); Platelet Count Result 155 k/mm3 (150-375); Red Blood Count 4.42 M/mm3 (4.2-5.4); Red Cell Distribution Width 16.8 % (11.5-14.5); White Blood Count 6.4 K/mm3 (4.5-10.0)
[2021-09-18 06:26] LABS: Albumin Level 3.2 g/dL (3.5-5.1); Anion Gap 6 mmol/L (8-16); Blood Urea Nitrogen 24 mg/dL (7-17); Carbon Dioxide 24 mmol/L (22-30); Chloride 95 mmol/L (98-107); Estimated CRCL calculation 66 ml/min; Estimated Glomerular Filt Rate > 60; Glucose 89 mg/dL (65-110); Phosphorus 3.4 mg/dL (2.5-4.5); Potassium 2.9 mmol/L (3.4-5.0); Sodium 125 mmol/L (137-145)
[2021-09-18] MEDS: POTASSIUM CHLORIDE 20 MEQ TABLET 40 MEQ PO ×2 (08:13→09:54)
[2021-09-18] MEDS: DEMECLOCYCLINE HCL 150 MG TABLET 450 MG PO ×4 (08:15→21:29)
[2021-09-18] MEDS: SODIUM CHLORIDE 1 GM TABLET 2 GM PO ×3 (08:15→17:05)
[2021-09-18] MEDS: SODIUM CHLORIDE 500 MG TABLET PO ×3 (08:15→17:05)
[2021-09-18] MEDS: ATORVASTATIN 10 MG TABLET PO (08:16)
[2021-09-18] MEDS: LEFLUNOMIDE 20 MG TABLET PO (08:16)
[2021-09-18] MEDS: CHOLECALCIFEROL 1,000 UNITS TABLET 1000 UNITS PO (08:17)
[2021-09-18] MEDS: HYDROXYCHLOROQUINE SULFATE 200 MG TABLET 400 MG PO (08:17)
[2021-09-18] MEDS: MULTIVITAMINS THERAPEUTIC TAB (*BKC) 1 TABLET PO (08:17)
[2021-09-18] MEDS: APIXABAN 5 MG TABLET PO ×2 (08:18→21:30)
[2021-09-18] MEDS: METOPROLOL TARTRATE 50 MG TAB PO ×2 (08:18→21:32)
[2021-09-18] MEDS: EUCERIN CREAM 120 GM JAR 1 APPLIC TOPICAL (08:22)
[2021-09-18] MEDS: levETIRAcetam 500 MG TABLET PO ×2 (09:53→21:30)
[2021-09-18] MEDS: BISACODYL 10 MG SUPPOSITORY RECTAL (09:53)
[2021-09-18] MEDS: MAGNESIUM OXIDE 400 MG TABLET PO (09:55)
--- NOTE | 2021-09-18 13:30 | PCPTNOTE ---
The patient treatment was not able to be completed on this date due to patient just getting an enema in order to assist her to have a bowel movement. Will plan to continue treatment per plan of care.
--- NOTE | 2021-09-18 15:53 | PM.IMPN ---
Subjective Date/time seen: 09/18/21 15:53 Objective Data Vital Signs Vital Signs: Vital Signs - 24 hr 09/17/21 20:44 09/17/21 21:32 09/17/21 20:25 Temperature 97.9 F Pulse Rate 78 88 88 Respiratory Rate 18 18 Blood Pressure 154/76 H Pulse Oximetry 100 100 Oxygen Delivery Room Air 09/18/21 06:00 09/18/21 08:18 09/18/21 09:55 Temperature 97.7 F Pulse Rate 81 72 Respiratory Rate 18 Blood Pressure 156/82 H Pulse Oximetry 100 Oxygen Delivery Room Air 09/18/21 14:00 Temperature 98.7 F Pulse Rate 90 Respiratory Rate 19 Blood Pressure 156/96 H Pulse Oximetry 100 Oxygen Delivery Intake/Output Intake/Output: Intake & Output 09/15/21 09/16/21 09/17/21 09/18/21 23:59 23:59 23:59 23:59 Intake Total 1152 960 720 820 Output Total 100 100 Balance 1052 860 720 820 Meds/Results Medications: Active Medications Generic Name Dose Route Start Last Admin Trade Name Freq PRN Reason Stop Dose Admin Acetaminophen 650 mg 08/23/21 06:27 Acetaminophen 325 Mg Tablet PO Q4H PRN Mild Pain (1-3) or Fever Apixaban 5 mg 08/23/21 21:00 09/18/21 08:18 Apixaban 5 Mg Tablet PO 5 mg Q12HR [facility] Administration Atorvastatin Calcium 10 mg 08/24/21 09:00 09/18/21 08:16 Atorvastatin 10 Mg Tablet PO 10 mg DAILY [facility] Administration Demeclocycline HCl 450 mg 09/12/21 09:00 09/18/21 12:09 Demeclocycline Hcl 150 Mg Tablet PO 450 mg QID [facility] Administration Docusate Sodium 100 mg 09/09/21 13:00 09/18/21 00:34 Docusate Sodium 100 Mg Capsule PO 100 mg Q12H PRN Administration Constipation Furosemide 20 mg 09/16/21 08:00 09/18/21 08:16 Furosemide 20 Mg Tablet PO 20 mg Q8H [facility] Administration Hydroxychloroquine Sulfate 400 mg 08/24/21 09:00 09/18/21 08:17 Hydroxychloroquine Sulfate 200 Mg Tablet PO 400 mg DAILY [facility] Administration Leflunomide 20 mg 08/24/21 09:00 09/18/21 08:16 Leflunomide 20 Mg Tablet PO 20 mg DAILY [facility] Administration Levetiracetam 500 mg 08/23/21 21:00 09/18/21 09:53 Levetiracetam 500 Mg Tablet PO 500 mg Q12HR [facility]CR[facility] Administration Magnesium Oxide 400 mg 09/08/21 11:00 09/18/21 09:55 Magnesium Oxide 400 Mg Tablet PO 400 mg DAILY@1100 [facility] Administration Metoprolol Tartrate 50 mg 08/23/21 21:00 09/18/21 08:18 Metoprolol Tartrate 50 Mg Tab PO 50 mg Q12HR [facility] Administration Multi-Ingred Cream/Lotion/Oil/Oint 1 applic 09/15/21 09:00 09/18/21 08:22 Eucerin Cream 120 Gm Jar TOPICAL 1 applic DAILY [facility] Administration Multivitamins Therapeutic 1 tablet 08/24/21 09:00 09/18/21 08:17 Multivitamins Therapeutic Tab (*Bkc) PO 1 tablet DAILY [facility] Administration Ondansetron HCl 4 mg 08/23/21 06:27 09/16/21 12:41 Ondansetron Inj 4 Mg/2 Ml Vial IV PUSH 4 mg Q4H PRN Administration Nausea Potassium Chloride 40 meq 09/19/21 08:00 Potassium Chloride 20 Meq Tablet.Er PO DAILY@0800 [facility] Sodium Chloride 2 gm 09/11/21 17:00 09/18/21 12:10 Sodium Chloride 1 Gm Tablet PO 10/14/21 23:00 2 gm TID SOCR[facility] Administration Sodium Chloride 500 mg 09/14/21 09:00 09/18/21 12:10 Sodium Chloride 500 Mg Tablet PO 500 mg TID SOCRATES Administration Tolterodine Tartrate 4 mg 09/18/21 21:00 Tolterodine Tartrate La 4 Mg Cap.Er.24h PO QHS [facility] Vitamin D 1,000 units 08/24/21 09:00 09/18/21 08:17 Cholecalciferol 1,000 Units Tablet PO 1,000 units DAILY SOCRATES Administration Radiology Results: ITS Impressions Chest X-Ray 08/23/21 09:02 IMPRESSION: 1. No acute cardiopulmonary abnormality. Head CT 08/31/21 20:02 IMPRESSION: No acute intracranial process. Lumbar Spine MRI 09/04/21 08:37 IMPRESSION: 1. Mild lumbar levocurvature with mild spondylosis. Labs Labs: Laboratory Results - last 24 hr 09/18/21 09/18/21 05:55 05:55 WBC 6.4 RBC 4.42 Hgb 13.1 Hct 38.3 MCV 86.7
--- NOTE | 2021-09-18 15:54 | PM.IMPN ---
Progress Note: A&P Assessment and Plan (1) Paroxysmal atrial fibrillation: Code(s): I48.0 - Paroxysmal atrial fibrillation Status: Acute (2) Vasculitis: Code(s): I77.6 - Arteritis, unspecified Status: Acute (3) Generalized weakness: Code(s): R53.1 - Weakness Status: Acute (4) Hyponatremia: Code(s): E87.1 - Hypo-osmolality and hyponatremia Status: Acute (5) CAD (coronary artery disease): Code(s): I25.10 - Atherosclerotic heart disease of [place] coronary artery without angina pectoris Status: Acute (6) Hypertension: Code(s): I10 - Essential (primary) hypertension Status: Acute (7) Fecal incontinence: Code(s): R15.9 - Full incontinence of feces Status: Acute (8) Constipation: Code(s): K59.00 - Constipation, unspecified Status: Acute (9) Hypokalemia: Code(s): E87.6 - Hypokalemia Status: Acute Plan 76-year-old female with history of hypertension, rheumatoid arthritis an intraparenchymal hemorrhage presented to the emergency room for a 2-3 week history of progressively worsening generalized weakness as well as a rash on her lower extremities. 1)Hyponatremia: Hypo osmolality and hyponatremia acute on chronic improving sodium On demeclocycline, salt tablets, Lasix 20 t.i.d., and fluid restriction of 1200cc. Supplement potassium for hypokalemia 2)Vasculitis: c/w Leflunomide, Hydroxychloroquine 3)H/o Afibb: c/w metoprolol, eliquis 4)Weakness: 2/2 Physical Deconditioning PT/OT 5)Constipation: Has h/o fecal incontinence But currently constipated s/p dulcolax suppository s/p soap katie enema Will try again enema in morning 5)DVT ppx: on Eiquis 6)Code:Full 7)Dispo:original plan was to discharge in AM, but patient has constipation, will hold discharge today Time Spent With Patient Time with patient: 15 - 25 minutes Subjective Date/time seen: 09/18/21 15:54 Interval history: no acute events overnight Review of Systems Review of Systems: All systems reviewed & are unremarkable except as noted in HPI and below Constitutional: Constitutional: Reports no additional constitutional complaints Eyes: Eyes: Reports no additional eye complaints ENT: Reports system reviewed and no additional complaints, except as documented Cardiovascular: Cardiovascular: Reports no additional cardiovascular complaints Respiratory: Respiratory: Reports no additional respiratory complaints Gastrointestinal: Gastrointestinal: Reports constipation Musculoskeletal: Musculoskeletal: Reports no additional musculoskeletal complaints Integumentary/Breasts: Skin/Breast: Reports system reviewed and no additional complaints, except as docu Exam Const: General: comfortable and no acute distress HENMT: Mouth: Yes moist mucous membranes Eyes: Sclera: sclerae normal Neck: Neck: supple Resp: Effort & Inspection: normal respiratory effort Auscultation: diminished lung sounds Cardio: Rate: regular rate Rhythm: regular rhythm GI: Auscultation: normal bowel sounds Skin: General skin exam: normal color Neuro: Speech: normal speech Extrem: General: normal to inspection Psych: Mental Status: mental status grossly normal Objective Data Vital Signs Vital Signs: Vital Signs - 24 hr 09/17/21 20:44 09/17/21 21:32 09/17/21 20:25 Temperature 97.9 F Pulse Rate 78 88 88 Respiratory Rate 18 18 Blood Pressure 154/76 H Pulse Oximetry 100 100 Oxygen Delivery Room Air 09/18/21 06:00 09/18/21 08:18 09/18/21 09:55 Temperature 97.7 F Pulse Rate 81 72 Respiratory Rate 18 Blood Pressure 156/82 H Pulse Oximetry 100 Oxygen Delivery Room Air 09/18/21 14:00 Temperature 98.7 F Pulse Rate 90 Respiratory Rate 19 Blood Pressure 156/96 H Pulse Oximetry 100 Oxygen Delivery Intake/Output Intake/Output: Intake & Output 09/15/21 09/16/21 09/17/21 09/18/21 23:59 23:59 23:5
[2021-09-18] MEDS: TOLTERODINE TARTRATE LA 4 MG CAP.ER.24H PO (21:32)
[2021-09-18] MEDS: ONDANSETRON INJ 4 MG/2 ML VIAL IV PUSH (22:46)
[2021-09-18] MEDS: MAGNESIUM CITRATE 300 ML BTL PO (23:42)
[2021-09-19] VITALS (7 sets, daily range): BP systolic 102–126; BP diastolic 66–84; PULSE 82–101; RESP 18–19; TEMP 36.1; O2SAT 98
--- NOTE | 2021-09-19 08:02 | PCNSR ---
On 09/19/21, the student, Tess Gurrola, provided care and completed [facility] documentation on this patient. I have reviewed the student's documentation and agree with the findings.
[2021-09-19] MEDS: SODIUM CHLORIDE 1 GM TABLET 2 GM PO ×3 (09:37→18:25)
[2021-09-19] MEDS: POTASSIUM CHLORIDE 20 MEQ TABLET.ER 40 MEQ PO (09:37)
[2021-09-19] MEDS: LEFLUNOMIDE 20 MG TABLET PO (09:37)
[2021-09-19] MEDS: APIXABAN 5 MG TABLET PO ×2 (09:37→22:14)
[2021-09-19] MEDS: MULTIVITAMINS THERAPEUTIC TAB (*BKC) 1 TABLET PO (09:37)
[2021-09-19] MEDS: DEMECLOCYCLINE HCL 150 MG TABLET 450 MG PO ×4 (09:38→22:12)
[2021-09-19] MEDS: METOPROLOL TARTRATE 50 MG TAB PO ×2 (09:38→22:12)
[2021-09-19] MEDS: levETIRAcetam 500 MG TABLET PO ×2 (09:38→22:14)
[2021-09-19] MEDS: EUCERIN CREAM 120 GM JAR 1 APPLIC TOPICAL (09:39)
[2021-09-19] MEDS: HYDROXYCHLOROQUINE SULFATE 200 MG TABLET 400 MG PO (09:39)
[2021-09-19] MEDS: ATORVASTATIN 10 MG TABLET PO (09:39)
[2021-09-19] MEDS: FUROSEMIDE 20 MG TABLET PO (09:39)
[2021-09-19] MEDS: CHOLECALCIFEROL 1,000 UNITS TABLET 1000 UNITS PO (09:39)
[2021-09-19] MEDS: SODIUM CHLORIDE 500 MG TABLET PO ×3 (09:40→18:25)
[2021-09-19 10:27] LABS: Hematocrit 39.8 % (37.0-47.0); Hemoglobin 13.9 g/dL (12.0-15.0); Mean Corpuscular HGB Conc 34.9 g/dl (32-36); Mean Corpuscular Hemoglobin 29.4 pg (26-34); Mean Corpuscular Volume 84.1 fl (80-100); Mean Platelet Volume 8.9 fl (7.4-10.4); Platelet Count Result 179 k/mm3 (150-375); Red Blood Count 4.73 M/mm3 (4.2-5.4); Red Cell Distribution Width 17.2 % (11.5-14.5); White Blood Count 12.1 K/mm3 (4.5-10.0)
[2021-09-19 11:31] LABS: Anion Gap 12 mmol/L (8-16); Blood Urea Nitrogen 32 mg/dL (7-17); Calcium 8.7 mg/dL (8.4-10.2); Carbon Dioxide 16 mmol/L (22-30); Chloride 103 mmol/L (98-107); Estimated CRCL calculation 39 ml/min; Estimated Glomerular Filt Rate > 60; Glucose 159 mg/dL (65-110); Magnesium 2.9 mg/dL (1.6-2.3); Potassium 3.6 mmol/L (3.4-5.0); Sodium 131 mmol/L (137-145)
[2021-09-19] MEDS: SODIUM CHLORIDE 0.9% IV 1,000 ML 100 ML IV CONT (12:38)
[2021-09-19] MEDS: MAGNESIUM OXIDE 400 MG TABLET PO (12:38)
[2021-09-19] MEDS: ONDANSETRON INJ 4 MG/2 ML VIAL IV PUSH (14:21)
--- NOTE | 2021-09-19 17:40 | PM.IMPN ---
Progress Note: A&P Assessment and Plan (1) Paroxysmal atrial fibrillation: Code(s): I48.0 - Paroxysmal atrial fibrillation Status: Acute (2) Vasculitis: Code(s): I77.6 - Arteritis, unspecified Status: Acute (3) Generalized weakness: Code(s): R53.1 - Weakness Status: Acute (4) Hyponatremia: Code(s): E87.1 - Hypo-osmolality and hyponatremia Status: Acute (5) CAD (coronary artery disease): Code(s): I25.10 - Atherosclerotic heart disease of [place] coronary artery without angina pectoris Status: Acute (6) Hypertension: Code(s): I10 - Essential (primary) hypertension Status: Acute (7) Fecal incontinence: Code(s): R15.9 - Full incontinence of feces Status: Acute (8) Constipation: Code(s): K59.00 - Constipation, unspecified Status: Acute (9) Hypokalemia: Code(s): E87.6 - Hypokalemia Status: Acute Additional Plan 76-year-old female with history of hypertension, rheumatoid arthritis an intraparenchymal hemorrhage presented to the emergency room for a 2-3 week history of progressively worsening generalized weakness as well as a rash on her lower extremities. 1)Hyponatremia: Hypo osmolality and hyponatremia acute on chronic improving sodium On demeclocycline, salt tablets, Lasix 20 t.i.d., and fluid restriction of 1200cc. Supplement potassium for hypokalemia 2)Vasculitis: c/w Leflunomide, Hydroxychloroquine 3)H/o Afibb: c/w metoprolol, eliquis 4)Weakness: 2/2 Physical Deconditioning PT/OT 5)Constipation: Has h/o fecal incontinence But currently constipated s/p dulcolax suppository s/p soap katie enema Will try again enema in morning 5)DVT ppx: on Eiquis 6)Code:Full 09/19/2021 interval history: 76-year-old with hyponatremia and has been treated with fluid restriction 1200 cc per day, salt tables, however patient has not had a BM in several days, sees passing, feels uncomfortable and today he felt short of breath is slightly dizzy while walking suspect patient is hypotension, due to fluid restriction and Lasix 20 mg p.o. t.i.d., communicated automotive detailer will start the patient on NS at 100 cc/hour, and reduce Lasix will monitor reassess tomorrow and further recommendation to follow. Subjective Date/time seen: 09/19/21 17:40 09/19/2021 interval history: 76-year-old with hyponatremia and has been treated with fluid restriction 1200 cc per day, salt tables, however patient has not had a BM in several days, sees passing, feels uncomfortable and today he felt short of breath is slightly dizzy while walking suspect patient is hypotension, due to fluid restriction and Lasix 20 mg p.o. t.i.d., communicated automotive detailer will start the patient on NS at 100 cc/hour, and reduce Lasix will monitor reassess tomorrow and further recommendation to follow. Review of Systems Review of Systems: All systems reviewed & are unremarkable except as noted in HPI and below Exam Narrative: Patient is comfortable, NAD HEENT: eyes are clear and none icteric LUNGS: normal respiratory effort ABD: not distended Lower extremities: no edema SKIN: nonjaundiced Neuro: grossly intact. Objective Data Vital Signs Vital Signs: Vital Signs - 24 hr 09/18/21 21:07 09/18/21 21:32 09/18/21 20:20 Temperature 97.4 F L Pulse Rate 96 82 82 Respiratory Rate 20 20 Blood Pressure 156/102 H Pulse Oximetry 99 99 Oxygen Delivery Room Air 09/19/21 05:49 09/19/21 09:38 09/19/21 08:00 Temperature 97.0 F L Pulse Rate 97 96 96 Respiratory Rate 18 18 Blood Pressure 126/84 Pulse Oximetry 98 98 Oxygen Delivery Room Air 09/19/21 14:00 Temperature 97.0 F L Pulse Rate 101 H Respiratory Rate 19 Blood Pressure 102/70 Pulse Oximetry 98 Oxygen Delivery Intake/Output Intake/Output: Intake & Output 09/16/21 09/17/21 09/18/21 09/19/21 23:59 23:59 23:59 23:59 Intake Total 682 435 1743 640 Output Tota
[2021-09-19] MEDS: TOLTERODINE TARTRATE LA 4 MG CAP.ER.24H PO (22:15)
[2021-09-20 05:34] VITALS: BP 104/62; PULSE 95; RESP 18; TEMP 36.4; O2SAT 100
[2021-09-20] MEDS: SODIUM CHLORIDE 0.9% IV 1,000 ML 100 ML IV CONT (06:22)
[2021-09-20 06:41] LABS: Hematocrit 47.2 % (37.0-47.0); Hemoglobin 15.5 g/dL (12.0-15.0); Mean Corpuscular HGB Conc 32.8 g/dl (32-36); Mean Corpuscular Hemoglobin 29.3 pg (26-34); Mean Corpuscular Volume 89.2 fl (80-100); Mean Platelet Volume 9.5 fl (7.4-10.4); Platelet Count Result 163 k/mm3 (150-375); Red Blood Count 5.29 M/mm3 (4.2-5.4); White Blood Count 9.7 K/mm3 (4.5-10.0)
[2021-09-20 06:55] LABS: Anion Gap 12 mmol/L (8-16); Blood Urea Nitrogen 58 mg/dL (7-17); Calcium 8.5 mg/dL (8.4-10.2); Carbon Dioxide 25 mmol/L (22-30); Chloride 100 mmol/L (98-107); Estimated CRCL calculation 19 ml/min; Estimated Glomerular Filt Rate 26; Glucose 90 mg/dL (65-110); Magnesium 7.4 mg/dL (1.6-2.3); Potassium 5.2 mmol/L (3.4-5.0); Sodium 137 mmol/L (137-145)
[2021-09-20 08:59] LABS: Glucose Point of Care 66 mg/dl (65-105)
--- NOTE | 2021-09-20 09:07 | PM.DDS ---
Discharge Summary Date and Time Date of : 09/20/21 Time of : 08:56 Probable Cause of Probable Cause of : cardiac arrest Summary Hospital Course: ?76-year-old with hyponatremia and has been treated with fluid restriction 1200 cc per day, salt tables,? however patient has not had? a BM in several days, sees passing, feels uncomfortable and today he felt short of breath is slightly dizzy while walking suspect patient is hypotension, due to fluid restriction and Lasix 20 mg p.o. t.i.d., communicated equalizing saw operator will start the patient on NS at 100 cc/hour,? and reduce Lasix will monitor reassess tomorrow and further recommendation to follow. patient went into cardiac arrest etiology uncertain ACS protocol was called for more than 24 minutes after discussing with family the code was stopped.
--- NOTE | 2021-09-20 09:32 | WPDPROCEDUR ---
Procedures Intubation Intubation Date: 09/20/21 Intubation Time: 08:35 Consent: Emergent intubation during code blue Laryngoscope: Torrie ET tube size: 7.5 Tube secured depth (cm): 23 Tube secured location: lips Tube placement confirmation: visualized tube passing through cords, equal breath sounds bilaterally, no breath sounds over epigastrium and confirmation by capnometry Patient tolerated procedure: well Intubation complications: none Additional comments: Patient had coffee-ground emesis during the code, turned patient on the right side, at suctioning and bag-mask ventilation. Patient was emergently intubated using direct laryngoscopy. Focal code to visualized and ET tube was advanced into the trachea
--- NOTE | 2021-09-20 09:41 | PDCODEBLUE ---
Code Blue Note Code Blue Note Time Arrived at Code Blue: Code called and 8:24 a.m.. Arrived at the code blue at 8:26 a.m. CPR only started, patient was in asystole and unresponsive according to bedside RN. ACLS protocol was instituted patient received multiple doses of epinephrine, sodium bicarb. He also received calcium and D50. ROSC was obtained at 8:39 a.m., patient was brought to the ICU 03/08/2045 patient was in asystole, CPR was commenced, family was inside the room, want to stop CPR. Time of 8:56 a.m. on 09/20/2021 Initial Rhythm on Arrival: Asystole Airway Management: Pt intubated during resuscitation Chest Compressions: In process on arrival to bedside Result of Code Blue: Pt Cardiac Rhythm Post Code: Time of 8:56 a.m. on 09/20/2021 Code Blue Summary: Code called and 8:24 a.m.. Arrived at the [facility] at 8:26 a.m. CPR only started, patient was in asystole and unresponsive according to bedside RN. ACLS protocol was instituted patient received multiple doses of epinephrine, sodium bicarb. He also received calcium and D50. Bag-mask ventilation was started, patient was intubated during the code as she had coffee-ground emesis, patient was turned to her right side suctioning was started, patient had a lot of coffee-ground emesis even after intubation from a ETT. ROSC was obtained at 8:39 a.m., patient was brought to the ICU 1 and at 8:46 a.m. patient was in asystole, CPR was commenced, family was outside the room, and requested to stop CPR. Code was called at time of was 8:56 a.m. on 09/20/2021
== END 2021-09-20 11:00 | disposition expired | DRG 641 ==
LOC: ANHED 05:59 → ANH3MEDSUR 08:00
PROVIDERS: Hospitalist; Internal Medicine; Internal Medicine Nephrology; Student in an Organized Health Care Education/Training Program; Admitting Provider Internal Medicine; Emergency Provider Emergency Medicine; PCP Family Medicine; Visit Provider Family Medicine
DX: E87.1 Hypo-osmolality and hyponatremia (principal); E87.6 Hypokalemia; I46.9 Cardiac arrest, cause unspecified; R11.10 Vomiting, unspecified; I77.6 Arteritis, unspecified; R53.1 Weakness; I25.10 Atherosclerotic heart disease of native coronary artery without angina pectoris; M05.79 Rheumatoid arthritis with rheumatoid factor of multiple sites without organ or systems involvement; I48.0 Paroxysmal atrial fibrillation; I10 Essential (primary) hypertension; M81.0 Age-related osteoporosis without current pathological fracture; R32 Unspecified urinary incontinence; R15.9 Full incontinence of feces; K59.00 Constipation, unspecified; M48.061 Spinal stenosis, lumbar region without neurogenic claudication; M43.8X6 Other specified deforming dorsopathies, lumbar region; Z79.01 Long term (current) use of anticoagulants; Z79.899 Other long term (current) drug therapy; Z86.73 Personal history of transient ischemic attack (TIA), and cerebral infarction without residual deficits; Z87.891 Personal history of nicotine dependence; Z88.8 Allergy status to other drugs, medicaments and biological substances
CPT/HCPCS: 36415; 70450; 71045; 72148; 80048; 80053; 80069; 81001; 82465; 82533; 82570; 82595; 82948; 83735; 83883; 83930; 83935; 84100; 84295; 84300; 84443; 84484; 84550; 85025; 85027; 85610; 85613; 85652; 85730; 86036; 86038; 86039; 86140; 86147; 86235; 86255; 86334; 86335; 92950; 93005; 96360; 97110; 97116; 97161; 97165; 97530; 97535; 99285; A9270; C9803; J0171; J2405; J2920; J3475; J7030; J7131; J7512; U0003; U0005